=== PATIENT | female | born 1935 | race Asian ===

== ENCOUNTER → 2017-01-03 | Outpatient (CLI) | payer MEDICARE, MEDICAID ==
[~2017-01-03] VITALS: Ht 30.5 cm; Wt 0.5 kg
[~2017-01-03] MED LIST: ALBUTEROL2.5 MG/3 M INH; ASCORBIC ACID500 MG GT; CEFEPIME-D1 GM/50 ML IVPB; CLONIDINE1 EAC1 GT; DEXTROSE 50%-W500 ML IV; FENOFIBRATE145 MG GT; HEPARIN2000 UNIT/ SUBQ; Heparin 2000 units/Ns 1000ml INJ ONE; IBUPROFEN200 M3 GT; IPRAT-ALBUT 0.5-3 ML IH; IPRATROPIU0.2 MG/1 M HHN; LACTULOSE20 GM/301 GT; LANTUS SOL100 UNIT/1 SUBQ; LOPRESSOR25 M1 ORAL; Lidocaine 1% Plain 30 ml INJ PRN; METOCLOPRAM5 MG/5 M1 GT; METOCLOPRAM5 MG/5 M1 PO; METOCLOPRAM5 MG/5 M2 PO; MULTI-VITAMIN1 EACH PO; NOVOLOG100 UNIT/3 SUBQ; NOVOLOG100 UNIT/4 SQ; OSCAL GT; PANTOPRAZOLE SO40 MG GT; PROMOD946 ML PO; SINEMET 25-1001 EAC1 GT; Sodium Bicarbonate 8.4% 50ml Inj IV ONE; TRAMADOL HCL50 MG ORAL; TRICOR48 MG ORAL; TYLENOL EXTRA500 MG ORAL; TYLENOL325 MG ORAL; UNOBMED; UTI STAT GT; VANCOMYCIN1 GM/250 M IVPB; ZANTAC150 MG ORAL; ZINC SULFATE220 M1 ORAL; ZOFRAN4 M1 IV; [UNRECOGNIZED DRUG - OTHER] GT
--- NOTE | 2017-01-03 15:46 | Diagnostic Imaging Report ---
Indications: Needs long-term IV access Technique: Ultrasound confirms patent compressible right basilic vein. Total sterile technique, including sterile probe cover and sterile gel, hat, mask,, sterile gown, large sterile drape, and preparation with 2% chlorhexidine utilized. Local anesthesia with 1% lidocaine. Under real-time ultrasound guidance, puncture basilic vein using 21-gauge needle, documented and archived, passage 0.018 guidewire under direct fluoroscopy, which was used to determine appropriate catheter length, exchange for 5 [place] peel-away sheath. 5 [place] Bard dual-lumen power PICC cut to 37 cm. It was inserted through the peel-away sheath. Peel-away sheath and guidewire removed. Catheter fixed to the skin. Both catheter ports aspirated and flushed. Patient tolerated procedure well, without immediate complication. Digital radiograph documents satisfactory catheter tip position, at the cavoatrial junction. Total fluoroscopy time 0.1 minutes. Total dose area product 5 dGycm2 Impression: Successful placement of right arm PICC under sonographic and fluoroscopic guidance, as described above.
== END | disposition home or self-care (01) ==
LOC: RAD 12:54
DX: Z79.899 Other long term (current) drug therapy (principal)
CPT/HCPCS: 36569; 76937; J1644; J2001; J3490

== ENCOUNTER 2017-02-05 21:00 | Inpatient (IN) | payer MEDICARE, MEDICAID ==
[~2017-02-05] VITALS: Ht 157.5 cm; Wt 58.1 kg
[~2017-02-05 21:00] MED LIST changes: -CEFEPIME-D1 GM/50 ML IVPB; -Heparin 2000 units/Ns 1000ml INJ ONE; -Lidocaine 1% Plain 30 ml INJ PRN; -PROMOD946 ML PO; -Sodium Bicarbonate 8.4% 50ml Inj IV ONE; -TRAMADOL HCL50 MG ORAL; -TRICOR48 MG ORAL; -ZANTAC150 MG ORAL; -ZINC SULFATE220 M1 ORAL
[2017-02-06 03:00] VITALS: BP 108/55
[2017-02-06] MEDS ORDERED: ZANTAC150 MG ORAL (04:07)
[2017-02-06] MEDS ORDERED: PROMOD946 ML PO (04:07)
[2017-02-06] MEDS ORDERED: ZINC SULFATE220 M1 ORAL (04:07)
[2017-02-06] MEDS ORDERED: TRICOR48 MG ORAL (04:07)
[2017-02-06] MEDS ORDERED: TYLENOL325 MG ORAL (05:05)
[2017-02-06] MEDS ORDERED: TRAMADOL HCL50 MG ORAL ×2 (05:05)
[2017-02-06] MEDS ORDERED: traMADol 50mg tab ORAL PRN (05:45)
[2017-02-06] MEDS ORDERED: Calcium Carbonate 500mg w/Vit D 200iu tab ORAL ONE (05:45)
[2017-02-06] MEDS: Zinc Sulfate 220mg cap ORAL SCH (09:36)
[2017-02-06] MEDS: Ascorbic Acid 500mg tab GT SCH (09:37)
[2017-02-06] MEDS: Calcium Carbonate 500mg w/Vit D 200iu tab GT SCH (09:37)
[2017-02-06] MEDS: Metoprolol 25mg tab ORAL SCH ×2 (09:37→22:25)
[2017-02-06 11:54] LABS: APPEARANCE,URINE CLEAR; KETONES,URINE NEGATIVE (NEGATIVE); LEUKOCYTE ESTERASE ,URINE 1+ (NEGATIVE); NITRITE,URINE NEGATIVE (NEGATIVE); PH,URINE 7 (4.5-8.0); PROTEIN,URINE 2+ (NEGATIVE); UROBILINOGEN,URINE NORMAL MG/DL (0.0-1.0)
[2017-02-06 12:00] VITALS: BP 119/55
[2017-02-06 12:31] LABS: BACTERIA,URINE OCCASIONAL /HPF; RBC,URINE 0-2 /HPF (0 - 2); SQUAMOUS EPITHELIAL CELL,UR OCCASIONAL /LPF (NONE/OCC); WBC,URINE 0-2 /HPF (0 - 2); YEAST,URINE OCCASIONAL /HPF
[2017-02-06] MEDS: Cefepime HCl 1 GM in D5W 55 ML IVPB SCH (12:55)
[2017-02-06] MEDS: Vancomycin 1gm/D5W 275ml IVPB SCH ×2 (14:28)
[2017-02-06] MEDS ORDERED: Heparin 2000 units/Ns 1000ml INJ ONE (15:00)
[2017-02-06] MEDS ORDERED: Sodium Bicarbonate 8.4% 50ml Inj IV ONE (15:00)
[2017-02-06] MEDS ORDERED: Lidocaine 1% Plain 30 ml INJ ONE (15:00)
--- NOTE | 2017-02-06 15:38 | Consultation ---
DATE OF CONSULTATION: 02/06/2017 INFECTIOUS DISEASES CONSULTATION: CONSULTING PHYSICIAN: Za Mei M.D. ATTENDING PHYSICIAN: Christiano Moses M.D. REFERRING PHYSICIAN: Christiano Moses M.D. REASON FOR CONSULTATION: Mastoiditis. HISTORY OF PRESENTING ILLNESS: This is an 81-year-old lady with history of respiratory failure, status post tracheostomy, status post G-tube placement, who comes in to [facility] and has been found to have mastoiditis and Infectious Diseases consultation has been obtained for antibiotics. She was recently admitted at [facility]. PAST MEDICAL HISTORY: 1. Diabetes. 2. Hypertension. 3. Atrial fibrillation. 4. Recurrent urinary tract infection. SOCIAL HISTORY: She does not smoke, drink, or use drugs. FAMILY HISTORY: Unknown. REVIEW OF SYSTEMS: Unable to obtain currently. MEDICATIONS: As an inpatient, the patient is currently on tramadol, subcutaneous heparin, ascorbic acid, metoprolol, Zantac, zinc sulfate, TriCor, Os-Chava, Tylenol. ALLERGIES: The patient is allergic to Bactrim. PHYSICAL EXAMINATION: VITAL SIGNS: Temperature of 96.8, T-max of 98.4, pulse of 100, respiratory rate 12, blood pressure 115/64, and O2 saturation of 100%. HEENT: Pupils equally reactive to light and accommodation. Mouth appears clean without thrush. NECK: Supple. No adenopathy. No JVD. CARDIOVASCULAR: Regular rate and rhythm. No murmurs. LUNGS.: Clear to auscultation bilaterally. No crackles. No wheezes. ABDOMEN: Soft and nontender. No organomegaly. G-tube site appears clean. EXTREMITIES: No cyanosis, no clubbing, no edema. LABORATORY DATA: CT brain showing possible mastoiditis. ASSESSMENT: 1. This is an 81-year-old lady with history of diabetes, hypertension, respiratory failure, status post tracheostomy, who comes in with possible mastoiditis. 2. We would also like to rule out recurrent urinary tract infection as a possibility. 3. Respiratory failure. PLAN: 1. We will order blood cultures as well as urine cultures and sputum cultures. 2. We will start the patient on IV vancomycin and cefepime. 3. We will follow up cultures and adjust antibiotics accordingly. I would like to thank, Dr. Moses, for this consultation. Za Mei M.D. DR: Ralf JOB#: [id number] CC: Christiano Moses M.D.
[2017-02-06 16:00] VITALS: BP 96/57
--- NOTE | 2017-02-06 16:09 | Consultation ---
DATE OF CONSULTATION: 02/06/2017 PULMONARY CONSULTATION CONSULTING PHYSICIAN: Leodan Murguia M.D. HISTORY OF PRESENT ILLNESS: This is a very ill-appeared female, who recently transferred to the subacute facility. The patient had a protracted stay at [facility] on the ventilator requiring tracheostomy and G- tube. The patient was noted to be altered overall and was transferred by 911 to [facility]. The patient thereafter transferred to [facility] for ongoing care and management. The patient's records were reviewed. The patient has had difficulty breathing off the ventilator. The patient did have cardiopulmonary arrest due to anoxic brain injury. The patient has had pneumonia at the hospital and was treated accordingly with IV antibiotics. The patient appeared to be stable prior to transfer, but has been acutely altered and unsafe. The patient care discussed and reviewed. The [facility] notes were reviewed as well as labs. The care discussed with the patient's primary medical doctor. He now transferred the patient for ongoing care and management. PAST MEDICAL HISTORY: Notable for history of obstructive lung disease, cardiac disease, pleural effusion, history of CA, history of aphasia, history of Parkinsonism, profound weakness, evidence of aspiration, evidence of tracheostomy, chronic encephalopathy, pulmonary infiltrate, sacral decubitus, G-tube, history of breast cancer, and chronic anemia. MEDICATIONS: Reviewed. ALLERGIES: Reviewed. SOCIAL HISTORY: The patient recently placed in [facility]. Nonsmoker and nondrinker. Bed-bound. Poorly responsive. FAMILY HISTORY: Not available at this time. REVIEW OF SYSTEMS: Unobtainable due to the patient's present state. PHYSICAL EXAMINATION: GENERAL: The patient is an ill-appearing female. The patient is poorly responsive. VITAL SIGNS: Blood pressure 90/50, pulse rate 108, respiratory rate 20, saturation 99%, and temperature is 97.9 degrees. HEENT: Currently negative. Pupils sluggish. NECK: Supple. Tracheostomy is midline. Carotids are 2+. LUNGS: Moderate air entry with some rhonchi diffusely. CARDIAC: Normal S2. The patient with soft systolic murmur. The patient is mildly tachycardic. No rubs or gallops. ABDOMEN: Soft and nontender. G-tube in place. EXTREMITIES: No cyanosis, clubbing, or edema. Feeding tube in place. NEUROLOGIC: The patient is withdrawn. Poorly responsive. LABORATORY AND DIAGNOSTIC DATA: Lab data reviewed. White cell count 10.9, hemoglobin 8.8, hematocrit 26.6, and platelets are 531,000. Chemistries previously noted. Sodium 138, potassium 4.5, BUN 31, and creatinine 0.8. The current lab as of this morning are pending at this time. The patient's vital signs notable for blood pressure 108/65, respiratory rate 16, saturation 100%, heart rate 103, and temperature 98.4 degrees. IMPRESSION: 1. Acute on chronic encephalopathy. 2. Possible sepsis. 3. Chronic respiratory failure. 4. Tracheotomy. 5. Aspiration. 6. Wound. 7. History of Parkinsonism. 8. History of hypercholesterolemia. 9. History of anemia. RECOMMENDATIONS: 1. Wound care management. 2. Western care. 3. Monitor clinically. 4. Follow up neurological examination. 5. Consider empiric antibiotics. 6. DVT prophylaxis. 7. Monitor with supportive and suction and monitor x-ray and monitor labs. 8. Continue to follow clinically and assist with any ventilatory needs. 9. Discharge planning. Leodan Murguia M.D. DR: Gabo JOB#: [id number] CC: ANDRE
[2017-02-06 17:58] LABS: BASOPHILS % (AUTO) 0.4 % (0.0-2.0); EOSINOPHILS % (AUTO) 0.6 % (0.0-3.0); LYMPHOCYTES % (AUTO) 11.1 % (20.0-45.0); MEAN CORPUSCULAR HEMOGLOBIN 28.2 PG (27.0-31.0); MEAN CORPUSCULAR HGB CONC 31.9 G/DL (32.0-36.0); MEAN CORPUSCULAR VOLUME 89 FL (80-99); MEAN PLATELET VOLUME 7.3 FL (6.5-10.1); MONOCYTES % (AUTO) 4.9 % (1.0-10.0); PLATELET COUNT 276 K/UL (150-450); RED BLOOD COUNT 3.18 M/UL (4.20-5.40)
--- NOTE | 2017-02-06 17:59 | History and Physical Report ---
DATE OF ADMISSION: 02/06/2017 CHIEF COMPLAINT: Altered mental status and encephalopathy. HISTORY OF PRESENT ILLNESS: The patient is an unfortunate 81-year-old female. She has a history of anoxic encephalopathy status post cardiac arrest approximately three weeks ago. She was admitted to [facility] where she underwent placement of a trach. She was treated for urinary tract infection and discharged to a nursing home facility. I was called as the patient was "unresponsive." She was sent to [facility], there she appeared to be at her baseline. Her lactic acid level was slightly elevated at 2. She had few white cells in her urine but the majority of the work was unremarkable. CT scan of the head was negative. In the light of the patient's altered mentation, she is now transferred here for further evaluation and care. At the outside hospital, she has been unresponsive. She does withdrawal to pain which is her baseline. There are no reports of any seizures PAST MEDICAL HISTORY: As above. PAST SURGICAL HISTORY: Includes a mastectomy, tracheostomy, G-tube. CURRENT MEDICATIONS: Reconciled and reviewed. ALLERGIES: Bactrim. SOCIAL HISTORY: Negative for tobacco, ethanol, or drugs. FAMILY HISTORY: Noncontributory. REVIEW OF SYSTEMS: Unobtainable from the patient. She is nonverbal. PHYSICAL EXAMINATION: VITAL SIGNS: Temperature 96.8, pulse 100, respirations 14, blood pressure 119/55. GENERAL: The patient is unresponsive elderly female. HEENT: Pupils are sluggishly reactive. NECK: Supple. Trach site is clean. HEART: Regular rate and rhythm. LUNGS: Lungs are clear anteriorly. ABDOMEN: Soft, nontender, and nondistended. EXTREMITIES: No clubbing or cyanosis. There is a large stage IV sacral wound noted. She has an orogastric tube. LABORATORY AND DIAGNOSTIC DATA: Labs are currently pending. UA here was negative. ASSESSMENT: This is a unfortunate female with a history of anoxic encephalopathy, respiratory failure, anemia history of breast cancer, paroxysmal atrial fibrillation, , admitted for altered mentation. The patient does not seem to be significantly changed from baseline. She did have a CAT scan, which does show mastoiditis. PLAN: 1. Intravenous antibiotics. 2. ID consultation. 3. Continue ventilatory support. 4. Neurology evaluation. 5. Continue G-tube feeds. 6. Continue wound care. Christiano Moses M.D. DR: Xu JOB#: [id number] CC:
[2017-02-06 18:18] LABS: ALANINE AMINOTRANSFERASE 5 U/L (3-33); ALBUMIN/GLOBULIN RATIO 0.6 (1.0-2.7); ANION GAP 15 (5-15); ASPARTATE AMINO TRANSFERASE 35 U/L (5-40); CALCIUM 9.4 mg/dL (8.6-10.2); CARBON DIOXIDE 24 mEQ/L (20-30); CHLORIDE 103 mEQ/L (98-107); CREATININE 0.5 mg/dL (0.5-0.9); HEMOLYSIS 4; POTASSIUM 3.2 mEQ/L (3.4-4.9); SODIUM 142 mEQ/L (135-145); TOTAL PROTEIN 6.4 g/dL (6.6-8.7)
--- NOTE | 2017-02-06 18:50 | Wound Care Consultation ---
Wound Assessment Wound Assessment #1: Wound Present on Admission: Yes New Wound: No Status Change of Wound: No Wound Location Body Site Modif: mid Wound Location Body Site: sacral Bonita Test: Does not Bonita Pressure Ulcer Stage: IV/unstageable Wound Thickness: Full Thickness Wound Length: 15.5 Wound Width: 14.0 Wound Depth: 2.0 Percent of Wound [place]/Red: 90 Percent of Wound Bed Yellow/Wh: 10 Wound Drainage Description: Serosanguineous Wound Drainage Amount: Copious Wound Drainage Odor: Mild Odor Tissue Surrounding Wound: Macerated Wound Undermining at 12:00: 3.0 Wound Undermining at 6:00: 6.0 Wound Undermining at 9:00: 2.5 Wound General Appearance: Reddened, Draining, Bone Palpable Wound Assessment #2: Wound Number: #2 Wound Present on Admission: Yes New Wound: No Status Change of Wound: No Wound Location Body Site Modif: right Wound Location Body Site: toe - 5th Wound Type: vascular issue w/vascular changes Bonita Test: Does not Bonita Wound Thickness: Full Thickness Percent of Wound Black/Brown: 100 Wound Drainage Amount: None Wound Drainage Odor: None/Absent Tissue Surrounding Wound: Indurated Wound General Appearance: Blackened Wound Assessment #3: Wound Number: #3 Wound Present on Admission: Yes New Wound: No Status Change of Wound: No Wound Location Body Site Modif: right, medial Wound Location Body Site: toe - 4th and 3rd Wound Type: vascular issue w/vascular changes Bonita Test: Does not Bonita Wound Thickness: Full Thickness Wound Length: 0.5 Wound Width: 0.5 Wound Depth: utd Percent of Wound Bed Yellow/Wh: 100 Wound Drainage Description: Serosanguineous Wound Drainage Amount: Scant Wound Drainage Odor: None/Absent Tissue Surrounding Wound: Macerated Wound Assessment #4: Wound Number: #4 Wound Present on Admission: Yes New Wound: No Status Change of Wound: No Wound Location Body Site Modif: right, dorsal Wound Location Body Site: foot Wound Type: pressure ulcer Bonita Test: Does not Bonita Pressure Ulcer Stage: IV/unstageable Wound Thickness: Full Thickness Wound Length: 2.0 Wound Width: 2.0 Wound Depth: utd Percent of Wound Black/Brown: 100 Wound Drainage Amount: None Wound Drainage Odor: None/Absent Tissue Surrounding Wound: Intact Wound General Appearance: Blackened Wound Assessment #5: Wound Number: #5 Wound Present on Admission: Yes New Wound: No Status Change of Wound: No Wound Location Body Site Modif: right Wound Location Body Site: heel Wound Type: pressure ulcer Bonita Test: Does not Bonita Pressure Ulcer Stage: IV/unstageable Wound Thickness: Full Thickness Wound Length: 9.0 Wound Width: 6.0 Wound Depth: utd Percent of Wound Black/Brown: 100 Wound Drainage Description: Serosanguineous Wound Drainage Amount: Scant Wound Drainage Odor: None/Absent Tissue Surrounding Wound: Macerated Wound General Appearance: Blackened, Draining, Necrotic Wound Assessment #6: Wound Number: #6 Wound Present on Admission: Yes New Wound: No Status Change of Wound: No Wound Location Body Site Modif: right, lower, lateral Wound Location Body Site: leg Wound Type: pressure ulcer Bonita Test: Does not Bonita Pressure Ulcer Stage: IV/unstageable Wound Thickness: Full Thickness Wound Length: 2.5 Wound Width: 1.5 Wound Depth: utd Percent of Wound Bed Yellow/Wh: 100 Wound Drainage Description: Serosanguineous Wound Drainage Amount: Moderate Wound Drainage Odor: None/Absent Tissue Surrounding Wound: Macerated Wound General Appearance: Draining, Necrotic Wound Assessment #7: Wound Number: #7 Wound Present on Admission: Yes New Wound: No Status Change of Wound: No Wound Location Body Site Modif: right Wound Location Body Site: heel Wound Type: pressure ulcer Bonita Test: Does not Bonita Pressure Ulcer Stage: I Wound Length: 3.5 Wound Width: 4.0 Percent of Wound [place]/Red: 100 Wound Drainage Amount: None Wound Drainage Odor: None/Absent Tissue Surrounding Wound: Erythemic Wound General Appearance: Reddened Wound Assessment #8: Wound Number: #8 Wound Present on Admission: Yes New Wound: No Status Change of Wound: No Wound Location Body Site Modif: left, right Wound Location Body Site: axilla Wound Type: rash Bonita Test: Does not Bonita Percent of Wound [place]/Red: 100 Wound Drainage Amount: None Wound Drainage Odor: None/Absent Tissue Surrounding Wound: Intact Wound General Appearance: Reddened Wound Assessment #9: Wound Number: #9 Wound Present on Admission: Yes New Wound: No Status Change of Wound: No Wound Location Body Site: perineal area Wound Type: chemical burn Bonita Test: Does not Bonita Percent of Wound [place]/Red: 100 Wound Drainage Amount: None Wound Drainage Odor: None/Absent Tissue Surrounding Wound: Erythemic Wound General Appearance: Reddened Wound Comment #1 Sacral stage IV/unstageable pressure ulcer with wound vac #2 Right heel stage IV/unstageable pressure ulcer #3 Right lower lateral leg stage IV/unstageable pressure ulcer #4 Right Dorsal foot stage IV/unstageable pressure ulcer #5 Left heel stage I pressure ulcer #6 Right 5th toe black in color #7 Right 4th and 3rd medial toe with yellow slough adhered to wound bed #8 Perineal chemical burn #9 Left and right armpit rash/redness Recommendation -Sacral wound vac as ordered by MD -Right posterior and anterior Aspect of sacral wound with yellow slough Cleanse with saline pat dry apply Santyl ointment to wound bed cove with 4x4 apply Suresite transparent film dressing QMWF upon wound vac changeRight lower lateral - -Right lower lateral leg Cleanse with saline apply Santyl to wound bed cover with bordered gauze daily and PRN soiled/dislodged -Podiatry consult for right 5th,4th and 3rd toe -Right 5th toe Cleanse with saline, pat dry, paint with Betadine daily and leave area open to air -Right 4th and 3rd medial toes Cleanse with saline, pat dry, apply Triad cream, cover with 4x4 secure with paper tape daily and PRN soiled/dislodged -Chemical burn on perineal area, left and right armpit rashes Cleanse with saline pat dry apply Nystatin powder TID -Left heel stage I local wound care par protocol -Turn and reposition -Keep clean and dry -Low air loss mattress -Optimize nutrition -Offload both heels -Heel protector on both heels -Assess and f/u accordingly for any changes JOSE G NICOLAS RN Feb 06, 2017 18:50
[2017-02-06 20:00] VITALS: BP 119/68
[2017-02-06] MEDS: traMADol 50mg tab ORAL SCH (22:24)
[2017-02-06] MEDS: Nystatin Powder 100,000 units/gm 15gm TOPIC SCH (22:25)
[2017-02-06] MEDS: Heparin 5000 units/ml inj SUBQ SCH (22:27)
[2017-02-07] VITALS: BP 111/58
[2017-02-07 04:00] VITALS: BP 115/54
[2017-02-07 08:06] VITALS: BP 151/87
[2017-02-07] MEDS: Ascorbic Acid 500mg tab GT SCH (08:36)
[2017-02-07] MEDS: Zinc Sulfate 220mg cap ORAL SCH (08:37)
[2017-02-07] MEDS: Calcium Carbonate 500mg w/Vit D 200iu tab GT SCH (08:37)
[2017-02-07] MEDS: Metoprolol 25mg tab ORAL SCH ×2 (08:37→21:23)
[2017-02-07] MEDS: Nystatin Powder 100,000 units/gm 15gm TOPIC SCH ×3 (08:39→17:41)
[2017-02-07] MEDS: Heparin 5000 units/ml inj SUBQ SCH ×2 (08:39→21:25)
--- NOTE | 2017-02-07 08:51 | Pulmonology Progress Note ---
Assessment/Plan Assessment/Plan IMPRESSION: 1. Acute on chronic encephalopathy. 2. Possible sepsis. 3. Chronic respiratory failure. 4. Tracheotomy. 5. Aspiration. 6. Wound. 7. History of Parkinsonism. 8. History of hypercholesterolemia. 9. History of anemia. PLAN ventilator as is monitor chest XR ID noted resume meds nutrition monitor for aspiration position change skin care close follow up impression, plan, and exam edited and reviewed in detail care discussed with RN Subjective ROS Limited/Unobtainable: Yes Allergies: Coded Allergies: SULFAMETHOXAZOLE (Verified Allergy, Intermediate, 07/11/16) TRIMETHOPRIM (Verified Allergy, Intermediate, 07/11/16) Subjective withdrawn poor LOC Objective Last 24 Hour Vital Signs Date Time Temp Pulse Resp B/P Pulse Ox O2 Delivery O2 Flow Rate FiO2 02/07/17 08:37 102 151/87 02/07/17 08:06 98.2 102 18 151/87 100 Mechanical Ventilator 30 02/07/17 08:00 30 02/07/17 06:35 80 16 30 02/07/17 05:20 85 12 30 02/07/17 04:00 94 02/07/17 04:00 98.0 94 15 115/54 99 Mechanical Ventilator 30 02/07/17 04:00 30 02/07/17 04:00 98.0 94 15 115/54 100 Mechanical Ventilator 30 02/07/17 02:37 93 15 30 02/07/17 01:00 89 14 30 02/07/17 00:00 87 02/07/17 00:00 30 02/07/17 00:00 98.0 89 18 111/58 100 Mechanical Ventilator 30 02/06/17 22:55 82 15 30 02/06/17 22:25 88 119/68 02/06/17 20:44 88 19 30 02/06/17 20:00 87 02/06/17 20:00 30 02/06/17 20:00 98.2 96 14 119/68 100 Mechanical Ventilator 30 02/06/17 18:56 84 16 30 02/06/17 17:28 86 17 30 02/06/17 16:00 98.1 80 17 96/57 98 Mechanical Ventilator 30 02/06/17 16:00 30 02/06/17 15:17 88 14 30 02/06/17 13:00 84 14 30 02/06/17 12:00 30 02/06/17 12:00 91 02/06/17 12:00 97.9 91 17 119/55 100 Mechanical Ventilator 30 02/06/17 10:45 92 13 30 02/06/17 09:37 100 115/54 02/06/17 08:56 101 12 30 Intake and Output 02/06/17 02/07/17 19:00 07:00 Intake Total 635 ml 460 ml Output Total 650 ml 500 ml Balance -15 ml -40 ml Intake Free Water 70 ml IV Total 385 ml Tube Feeding 180 ml 400 ml Other 60 ml Output Urine Total 450 ml 500 ml Stool Total 200 ml Objective GENERAL: The patient is an ill-appearing female. The patient is poorly responsive. HEENT: Currently negative. Pupils sluggish. NECK: Supple. Tracheostomy is midline. Carotids are 2+. LUNGS: Moderate air entry with some rhonchi noted but improved CARDIAC: Normal S2. The patient with soft systolic murmur. RRR No rubs or gallops. ABDOMEN: Soft and nontender. G-tube in place. no HSM EXTREMITIES: No cyanosis, clubbing, or edema. Feeding tube in place. NEUROLOGIC: The patient is withdrawn. Poorly responsive. Microbiology Date/Time Source Procedure Growth Status 02/06/17 11:30 Stool Clostridium difficile Toxin Assay - Final Complete 02/06/17 11:15 Urine,Clean Catch Urine Culture - Preliminary NO GROWTH Resulted Laboratory Tests 02/06/17 11:15: Urine Color Pale yellow, Urine Appearance Clear, Urine pH 7, Urine Specific [place] 1.010, Urine Protein 2+H, Urine Glucose (UA) Negative, Urine Ketones Negative, Urine Occult Blood Negative, Urine Nitrite Negative, Urine Bilirubin Negative, Urine Urobilinogen Normal, Urine Leukocyte Esterase 1+H, Urine RBC 0-2 , Urine WBC 0-2, Urine Squamous Epithelial Cells Occasional, Urine Bacteria Occasional, Urine Yeast OccasionalH 02/06/17 17:21: White Blood Count 9.0, Red Blood Count 3.18L, Hemoglobin 9.0L, Hematocrit 28.2L , Mean Corpuscular Volume 89, Mean Corpuscular Hemoglobin 28.2, Mean Corpuscular Hemoglobin Concent 31.9L, Red Cell Distribution Width 17.0H, Platelet Count 276, Mean Platelet Volume 7.3, Neutrophils (%) (Auto) 83.0H, Lymphocytes (%) (Auto) 11.1L, Monocytes (%) (Auto) 4.9, Eosinophils (%) (Auto) 0.6, Basophils (%) (Auto) 0.4, Sodium Level 142, Potassium Level 3.2L, Chloride Level 103, Carbon Dioxide Level 24, Anion Gap 15, Blood Urea Nitrogen 15, Creatinine 0.5, Estimat Glomerular Filtration Rate , Glucose Level 157H, Lactic Acid Level 1.20, Calcium Level 9.4, Total Bilirubin 0.2, Aspartate Amino Transf (AST/SGOT) 35, Alanine Aminotransferase (ALT/SGPT) 5, Alkaline Phosphatase 123H , Total Protein 6.4L, Albumin 2.5L, Globulin 3.9, Albumin/Globulin Ratio 0.6L Current Medications Medications (Trade) Dose Ordered Sig/Angie Route PRN Reason Start Time Stop Time Status Last Admin Dose Admin Acetaminophen (Tylenol) 650 mg Q4H PRN ORAL Prn Pain/Headache/Temp > 101 02/06/17 05:45 03/08/17 05:44 Ascorbic Acid (Vitamin C) 500 mg DAILY GT 02/06/17 09:00 03/08/17 08:59 02/07/17 08:36 Calcium Carbonate (OsCal D) 1 tab DAILY GT 02/06/17 09:00 03/08/17 08:59 02/07/17 08:37 Cefepime HCl 1 gm/ Dextrose 55 ml @ 110 mls/hr Q24H IVPB 02/06/17 12:00 02/13/17 11:59 02/06/17 12:55 Collagenase (Santyl) 1 applic DAILY TOPIC 02/07/17 09:00 03/09/17 08:59 02/07/17 08:41 Dextrose (Dextrose 50%) STAT PRN IV Hypoglycemia 02/06/17 05:45 03/08/17 05:44 Fenofibrate (Tricor) 145 mg DAILY ORAL 02/06/17 09:00 03/08/17 08:59 02/07/17 08:37 Heparin Sodium (Porcine) (Heparin 5000 units/ml) 5,000 units EVERY 12 HOURS SUBQ 02/06/17 21:00 03/08/17 20:59 02/07/17 08:39 Metoprolol Tartrate (Lopressor) 25 mg EVERY 12 HOURS ORAL 02/06/17 09:00 03/08/17 08:59 02/07/17 08:37 Nystatin (Nystop Powder) 1 applic THREE TIMES A DAY TOPIC 02/06/17 21:00 03/08/17 20:59 02/07/17 08:39 Ranitidine HCl (Zantac) 150 mg DAILY ORAL 02/06/17 09:00 03/08/17 08:59 02/07/17 08:36 Tramadol HCl (Ultram) 50 mg BEDTIME ORAL 02/06/17 21:00 02/13/17 20:59 02/06/17 22:24 Tramadol HCl (Ultram) 50 mg DAILY PRN ORAL For Pain 02/06/17 05:45 02/13/17 05:44 Vancomycin HCl 1 ea 1 ea DAILY PRN MISC Per rx protocol 02/06/17 11:00 03/08/17 10:59 Vancomycin HCl/ Dextrose (Vancomycin/D5W) 275 ml @ 183.708 mls/hr Q24H IVPB 02/06/17 13:00 02/11/17 12:59 02/06/17 14:28 Zinc Sulfate (Zinc Sulfate) 220 mg DAILY ORAL 02/06/17 09:00 03/08/17 08:59 02/07/17 08:37 NIESHA TOLENTINO Feb 07, 2017 08:51
--- NOTE | 2017-02-07 09:35 | Diagnostic Imaging Report ---
Indications: Needs long-term IV access Technique: Procedure performed at bedside. Ultrasound confirms patent compressible basilic vein. Total sterile technique, including sterile probe cover and sterile gel, sterile gloves, hand hygiene, hat, mask,, sterile gown, large sterile drape, and preparation with 2% chlorhexidine utilized. Local anesthesia with 1% lidocaine. Under real-time ultrasound guidance, puncture right basilic vein using 21-gauge needle, passage 0.018 guidewire, exchange for 5 [place] peel-away sheath. 5 [place] Bard dual-lumen power PICC cut to 33 cm. It was inserted through the peel-away sheath. Peel-away sheath and guidewire removed. Catheter fixed to the skin. Both catheter ports aspirated and flushed. Patient tolerated procedure well, without immediate complication. Followup chest x-ray obtained, documents catheter tip position at the midsuperior vena cava. Impression: Successful bedside placement of right arm PICC under sonographic guidance, as described above.
--- NOTE | 2017-02-07 10:36 | Infectious Diseases Prog Note ---
Assessment/Plan Assessment/Plan antibiotics : vancomycin iv, cefepime A 1. mastoiditis 2. respiratory failure 3. breast cancer 4. DM 5. HTN P 1. continue vancomycin iv, cefepime 2. will follow up cultures Subjective ROS Limited/Unobtainable: Yes Allergies: Coded Allergies: SULFAMETHOXAZOLE (Verified Allergy, Intermediate, 07/11/16) TRIMETHOPRIM (Verified Allergy, Intermediate, 07/11/16) Objective Vital Signs Last 24 Hour Vital Signs Date Time Temp Pulse Resp B/P Pulse Ox O2 Delivery O2 Flow Rate FiO2 02/07/17 08:42 88 14 30 02/07/17 08:37 102 151/87 02/07/17 08:06 98.2 102 18 151/87 100 Mechanical Ventilator 30 02/07/17 08:00 91 02/07/17 08:00 30 02/07/17 06:35 80 16 30 02/07/17 05:20 85 12 30 02/07/17 04:00 94 02/07/17 04:00 98.0 94 15 115/54 99 Mechanical Ventilator 30 02/07/17 04:00 30 02/07/17 04:00 98.0 94 15 115/54 100 Mechanical Ventilator 30 02/07/17 02:37 93 15 30 02/07/17 01:00 89 14 30 02/07/17 00:00 87 02/07/17 00:00 30 02/07/17 00:00 98.0 89 18 111/58 100 Mechanical Ventilator 30 02/06/17 22:55 82 15 30 02/06/17 22:25 88 119/68 02/06/17 20:44 88 19 30 02/06/17 20:00 87 02/06/17 20:00 30 02/06/17 20:00 98.2 96 14 119/68 100 Mechanical Ventilator 30 02/06/17 18:56 84 16 30 02/06/17 17:28 86 17 30 02/06/17 16:00 98.1 80 17 96/57 98 Mechanical Ventilator 30 02/06/17 16:00 30 02/06/17 15:17 88 14 30 02/06/17 13:00 84 14 30 02/06/17 12:00 30 02/06/17 12:00 91 02/06/17 12:00 97.9 91 17 119/55 100 Mechanical Ventilator 30 02/06/17 10:45 92 13 30 Height (Feet): 5 Height (Inches): 2.00 Weight (Pounds): 128 HEENT: status post trach Respiratory/Chest: lungs clear Cardiovascular: normal rate, regular rhythm, no gallop/murmur Abdomen: soft, non tender, other - GT Extremities: no edema, other - right arm PICC Microbiology Date/Time Source Procedure Growth Status 02/06/17 11:15 Sputum Gram Stain - Final Resulted 02/06/17 11:15 Sputum Sputum Culture Pending Resulted 02/06/17 11:30 Stool Clostridium difficile Toxin Assay - Final Complete 02/06/17 11:15 Urine,Clean Catch Urine Culture - Preliminary NO GROWTH Resulted Laboratory Tests Test 02/06/17 11:15 02/06/17 17:21 Urine Color Pale yellow Urine Appearance Clear Urine pH 7 (4.5-8.0) Urine Specific [place] 1.010 (1.005-1.035) Urine Protein 2+ (NEGATIVE) H Urine Glucose (UA) Negative (NEGATIVE) Urine Ketones Negative (NEGATIVE) Urine Occult Blood Negative (NEGATIVE) Urine Nitrite Negative (NEGATIVE) Urine Bilirubin Negative (NEGATIVE) Urine Urobilinogen Normal MG/DL (0.0-1.0) Urine Leukocyte Esterase 1+ (NEGATIVE) H Urine RBC 0-2 /HPF (0 - 2) Urine WBC 0-2 /HPF (0 - 2) Urine Squamous Epithelial Cells Occasional /LPF Urine Bacteria Occasional /HPF (NONE) Urine Yeast Occasional /HPF (NONE) H White Blood Count 9.0 K/UL (4.8-10.8) Red Blood Count 3.18 M/UL (4.20-5.40) L Hemoglobin 9.0 G/DL (12.0-16.0) L Hematocrit 28.2 % (37.0-47.0) L Mean Corpuscular Volume 89 FL (80-99) Mean Corpuscular Hemoglobin 28.2 PG (27.0-31.0) Mean Corpuscular Hemoglobin Concent 31.9 G/DL (32.0-36.0) L Red Cell Distribution Width 17.0 % (11.6-14.8) H Platelet Count 276 K/UL (150-450) Mean Platelet Volume 7.3 FL (6.5-10.1) Neutrophils (%) (Auto) 83.0 % (45.0-75.0) H Lymphocytes (%) (Auto) 11.1 % (20.0-45.0) L Monocytes (%) (Auto) 4.9 % (1.0-10.0) Eosinophils (%) (Auto) 0.6 % (0.0-3.0) Basophils (%) (Auto) 0.4 % (0.0-2.0) Sodium Level 142 mEQ/L (135-145) Potassium Level 3.2 mEQ/L (3.4-4.9) L Chloride Level 103 mEQ/L (98-107) Carbon Dioxide Level 24 mEQ/L (20-30) Anion Gap 15 (5-15) Blood Urea Nitrogen 15 mg/dL (7-23) Creatinine 0.5 mg/dL (0.5-0.9) Estimat Glomerular Filtration Rate mL/min (>60) Glucose Level 157 mg/dL (74-106) H Lactic Acid Level 1.20 mmol/L (0.66-2.22) Calcium Level 9.4 mg/dL (8.6-10.2) Total Bilirubin 0.2 mg/dL (0.0-1.2) Aspartate Amino Transf (AST/SGOT) 35 U/L (5-40) Alanine Aminotransferase (ALT/SGPT) 5 U/L (3-33) Alkaline Phosphatase 123 U/L (35-104) H Total Protein 6.4 g/dL (6.6-8.7) L Albumin 2.5 g/dL (3.5-5.2) L Globulin 3.9 g/dL Albumin/Globulin Ratio 0.6 (1.0-2.7) L GRACE BENAVIDES Feb 07, 2017 10:36
[2017-02-07 12:00] VITALS: BP 123/61
[2017-02-07] MEDS: Cefepime HCl 1 GM in D5W 55 ML IVPB SCH (12:15)
--- NOTE | 2017-02-07 13:35 | General Progress Note ---
Assessment/Plan Problem List: (1) Toxic encephalopathy ICD Codes: G92 - Toxic encephalopathy SNOMED: 04654209 (2) Acute renal failure ICD Codes: N17.9 - Acute kidney failure, unspecified SNOMED: 21460803 (3) Respiratory failure ICD Codes: J96.90 - Respiratory failure, unspecified, unspecified whether with hypoxia or hypercapnia SNOMED: 453624846 (4) Altered level of consciousness ICD Codes: R40.4 - Transient alteration of awareness SNOMED: 8911434 (5) Severe sepsis ICD Codes: A41.9 - Sepsis, unspecified organism; R65.20 - Severe sepsis without septic shock SNOMED: 76444728 Status: stable Assessment/Plan iv abx follow up cultures vent support resp rx gt feeds wound care Subjective ROS Limited/Unobtainable: Yes Constitutional: Reports: malaise, weakness HEENT: Reports: no symptoms Cardiovascular: Reports: no symptoms Respiratory: Reports: no symptoms Gastrointestinal/Abdominal: Reports: difficulty swallowing Genitourinary: Reports: no symptoms Neurologic/Psychiatric: Reports: no symptoms Endocrine: Reports: no symptoms Hematologic/Lymphatic: Reports: no symptoms Allergies: Coded Allergies: SULFAMETHOXAZOLE (Verified Allergy, Intermediate, 07/11/16) TRIMETHOPRIM (Verified Allergy, Intermediate, 07/11/16) All Systems: reviewed and negative except above Subjective no events. remains poorly responsive. no fevers. on iv abx. ID noted. Objective Last 24 Hour Vital Signs Date Time Temp Pulse Resp B/P Pulse Ox O2 Delivery O2 Flow Rate FiO2 02/07/17 12:51 94 16 30 02/07/17 12:00 97.7 90 16 123/61 100 Mechanical Ventilator 30 02/07/17 12:00 30 02/07/17 11:02 92 17 30 02/07/17 08:42 88 14 30 02/07/17 08:37 102 151/87 02/07/17 08:06 98.2 102 18 151/87 100 Mechanical Ventilator 30 02/07/17 08:00 91 02/07/17 08:00 30 02/07/17 06:35 80 16 30 02/07/17 05:20 85 12 30 02/07/17 04:00 94 02/07/17 04:00 98.0 94 15 115/54 99 Mechanical Ventilator 30 02/07/17 04:00 30 02/07/17 04:00 98.0 94 15 115/54 100 Mechanical Ventilator 30 02/07/17 02:37 93 15 30 02/07/17 01:00 89 14 30 02/07/17 00:00 87 02/07/17 00:00 30 02/07/17 00:00 98.0 89 18 111/58 100 Mechanical Ventilator 30 02/06/17 22:55 82 15 30 02/06/17 22:25 88 119/68 02/06/17 20:44 88 19 30 02/06/17 20:00 87 02/06/17 20:00 30 02/06/17 20:00 98.2 96 14 119/68 100 Mechanical Ventilator 30 02/06/17 18:56 84 16 30 02/06/17 17:28 86 17 30 02/06/17 16:00 98.1 80 17 96/57 98 Mechanical Ventilator 30 02/06/17 16:00 30 02/06/17 15:17 88 14 30 Intake and Output 02/06/17 02/07/17 19:00 07:00 Intake Total 635 ml 460 ml Output Total 650 ml 500 ml Balance -15 ml -40 ml Intake Free Water 70 ml IV Total 385 ml Tube Feeding 180 ml 400 ml Other 60 ml Output Urine Total 450 ml 500 ml Stool Total 200 ml Laboratory Tests 02/06/17 17:21: White Blood Count 9.0, Red Blood Count 3.18L, Hemoglobin 9.0L, Hematocrit 28.2L , Mean Corpuscular Volume 89, Mean Corpuscular Hemoglobin 28.2, Mean Corpuscular Hemoglobin Concent 31.9L, Red Cell Distribution Width 17.0H, Platelet Count 276, Mean Platelet Volume 7.3, Neutrophils (%) (Auto) 83.0H, Lymphocytes (%) (Auto) 11.1L, Monocytes (%) (Auto) 4.9, Eosinophils (%) (Auto) 0.6, Basophils (%) (Auto) 0.4, Sodium Level 142, Potassium Level 3.2L, Chloride Level 103, Carbon Dioxide Level 24, Anion Gap 15, Blood Urea Nitrogen 15, Creatinine 0.5, Estimat Glomerular Filtration Rate , Glucose Level 157H, Lactic Acid Level 1.20, Calcium Level 9.4, Total Bilirubin 0.2, Aspartate Amino Transf (AST/SGOT) 35, Alanine Aminotransferase (ALT/SGPT) 5, Alkaline Phosphatase 123H , Total Protein 6.4L, Albumin 2.5L, Globulin 3.9, Albumin/Globulin Ratio 0.6L Height (Feet): 5 Height (Inches): 2.00 Weight (Pounds): 128 General Appearance: WD/WN, lethargic Neck: supple Cardiovascular: regular rhythm Respiratory/Chest: rhonchi - bilaterally Abdomen: normal bowel sounds, non tender, soft, no organomegaly Edema: no edema noted Arm (L), no edema noted Arm (R), no edema noted Leg (L), no edema noted Leg (R), no edema noted Pedal (L), no edema noted Pedal (R), no edema noted Generalized Neurologic: unresponsive MILES CARTWRIGHT Feb 07, 2017 13:35
[2017-02-07] MEDS: Vancomycin 1gm/D5W 275ml IVPB SCH ×2 (13:51)
[2017-02-07 16:00] VITALS: BP 116/55
[2017-02-07] MEDS ORDERED: NS 275ml ONE (18:52)
[2017-02-07] MEDS ORDERED: Tubing IV Secondary IV ONE (18:52)
[2017-02-07 20:00] VITALS: BP 115/59
[2017-02-07] MEDS: traMADol 50mg tab ORAL SCH (21:24)
[2017-02-08] VITALS (7 sets, daily range): BP systolic 90–122; BP diastolic 50–64
--- NOTE | 2017-02-08 06:30 | Pulmonology Progress Note ---
Assessment/Plan Assessment/Plan IMPRESSION: 1. Acute on chronic encephalopathy. 2. Possible sepsis. 3. Chronic respiratory failure. 4. Tracheotomy. 5. Aspiration. 6. Wound. 7. History of Parkinsonism. 8. History of hypercholesterolemia. 9. History of anemia. PLAN ventilator as is reviewed taper fio2 monitor chest XR for changes ID noted cultures reviewed nutrition monitor for aspiration position change skin care close follow up dc planning soon impression, plan, and exam edited and reviewed in detail care discussed with RN Subjective ROS Limited/Unobtainable: Yes Allergies: Coded Allergies: SULFAMETHOXAZOLE (Verified Allergy, Intermediate, 07/11/16) TRIMETHOPRIM (Verified Allergy, Intermediate, 07/11/16) Subjective withdrawn poor LOC without much change Objective Last 24 Hour Vital Signs Date Time Temp Pulse Resp B/P Pulse Ox O2 Delivery O2 Flow Rate FiO2 02/08/17 05:05 95 15 30 02/08/17 04:00 96 02/08/17 04:00 98.1 73 18 90/56 100 Mechanical Ventilator 30 02/08/17 04:00 30 02/08/17 03:08 96 15 30 02/08/17 00:51 93 17 30 02/08/17 00:00 98.1 93 17 103/50 100 Mechanical Ventilator 30 02/08/17 00:00 30 02/08/17 00:00 93 02/07/17 23:17 92 17 30 02/07/17 21:25 100 17 30 02/07/17 21:23 99 115/59 02/07/17 20:00 98.1 99 18 115/59 100 Mechanical Ventilator 30 02/07/17 20:00 30 02/07/17 19:45 97 02/07/17 18:51 97 20 30 02/07/17 17:01 95 12 30 02/07/17 16:00 30 02/07/17 16:00 97.5 94 16 116/55 100 Mechanical Ventilator 30 02/07/17 15:56 89 02/07/17 14:30 91 12 30 02/07/17 12:51 94 16 30 02/07/17 12:00 97.7 90 16 123/61 100 Mechanical Ventilator 30 02/07/17 12:00 30 02/07/17 12:00 92 02/07/17 11:02 92 17 30 02/07/17 08:42 88 14 30 02/07/17 08:37 102 151/87 02/07/17 08:06 98.2 102 18 151/87 100 Mechanical Ventilator 30 02/07/17 08:00 91 02/07/17 08:00 30 02/07/17 06:35 80 16 30 Intake and Output 02/07/17 02/08/17 19:00 07:00 Intake Total 810 ml 315 ml Output Total 230 ml 430 ml Balance 580 ml -115 ml Intake Free Water 100 ml IV Total 55 ml Tube Feeding 455 ml 315 ml Blood Product 200 ml Output Urine Total 200 ml 400 ml Stool Total 30 ml 30 ml Objective GENERAL: The patient is an ill-appearing female. The patient is poorly responsive. HEENT: Currently negative. Pupils sluggish. NECK: Supple. Tracheostomy is midline. Carotids are 2+. LUNGS: Moderate air entry with some rhonchi noted without wheeze CARDIAC: Normal S2. The patient with soft systolic murmur. RRR No rubs or gallops. ABDOMEN: Soft and nontender. G-tube in place. no HSM; no distention EXTREMITIES: No cyanosis, clubbing, or edema. Feeding tube in place. NEUROLOGIC: The patient is withdrawn. Poorly responsive. Microbiology Date/Time Source Procedure Growth Status 02/06/17 11:15 Sputum Gram Stain - Final Resulted 02/06/17 11:15 Sputum Sputum Culture Pending Resulted 02/06/17 11:30 Stool Clostridium difficile Toxin Assay - Final Complete 02/06/17 11:15 Urine,Clean Catch Urine Culture - Preliminary NO GROWTH Resulted Current Medications Medications (Trade) Dose Ordered Sig/Angie Route PRN Reason Start Time Stop Time Status Last Admin Dose Admin Acetaminophen (Tylenol) 650 mg Q4H PRN ORAL Prn Pain/Headache/Temp > 101 02/06/17 05:45 03/08/17 05:44 Ascorbic Acid (Vitamin C) 500 mg DAILY GT 02/06/17 09:00 03/08/17 08:59 02/07/17 08:36 Calcium Carbonate (OsCal D) 1 tab DAILY GT 02/06/17 09:00 03/08/17 08:59 02/07/17 08:37 Cefepime HCl 1 gm/ Dextrose 55 ml @ 110 mls/hr Q24H IVPB 02/06/17 12:00 02/13/17 11:59 02/07/17 12:15 Collagenase (Santyl) 1 applic DAILY TOPIC 02/07/17 09:00 03/09/17 08:59 02/07/17 08:41 Dextrose (Dextrose 50%) STAT PRN IV Hypoglycemia 02/06/17 05:45 03/08/17 05:44 Fenofibrate (Tricor) 145 mg DAILY ORAL 02/06/17 09:00 03/08/17 08:59 02/07/17 08:37 Heparin Sodium (Porcine) (Heparin 5000 units/ml) 5,000 units EVERY 12 HOURS SUBQ 02/06/17 21:00 03/08/17 20:59 02/07/17 21:25 Metoprolol Tartrate (Lopressor) 25 mg EVERY 12 HOURS ORAL 02/06/17 09:00 03/08/17 08:59 02/07/17 21:23 Nystatin (Nystop Powder) 1 applic THREE TIMES A DAY TOPIC 02/06/17 21:00 03/08/17 20:59 02/07/17 17:41 Ranitidine HCl (Zantac) 150 mg DAILY ORAL 02/06/17 09:00 03/08/17 08:59 02/07/17 08:36 Tramadol HCl (Ultram) 50 mg BEDTIME ORAL 02/06/17 21:00 02/13/17 20:59 02/07/17 21:24 Tramadol HCl (Ultram) 50 mg DAILY PRN ORAL For Pain 02/06/17 05:45 02/13/17 05:44 Vancomycin HCl 1 ea 1 ea DAILY PRN MISC Per rx protocol 02/06/17 11:00 03/08/17 10:59 Vancomycin HCl/ Dextrose (Vancomycin/D5W) 275 ml @ 183.708 mls/hr Q24H IVPB 02/06/17 13:00 02/11/17 12:59 02/07/17 13:51 Zinc Sulfate (Zinc Sulfate) 220 mg DAILY ORAL 02/06/17 09:00 03/08/17 08:59 02/07/17 08:37 NIESHA TOLENTINO Feb 08, 2017 06:30
[2017-02-08] MEDS: Zinc Sulfate 220mg cap ORAL SCH (08:39)
[2017-02-08] MEDS: Calcium Carbonate 500mg w/Vit D 200iu tab GT SCH (08:40)
[2017-02-08] MEDS: Metoprolol 25mg tab ORAL SCH ×2 (08:40→20:40)
[2017-02-08] MEDS: Nystatin Powder 100,000 units/gm 15gm TOPIC SCH ×3 (08:40→16:37)
[2017-02-08] MEDS: Ascorbic Acid 500mg tab GT SCH (08:40)
[2017-02-08] MEDS: Heparin 5000 units/ml inj SUBQ SCH ×2 (08:42→20:42)
[2017-02-08 08:48] LABS: BASOPHILS % (AUTO) 0.7 % (0.0-2.0); EOSINOPHILS % (AUTO) 1.2 % (0.0-3.0); LYMPHOCYTES % (AUTO) 17.6 % (20.0-45.0); MEAN CORPUSCULAR HEMOGLOBIN 28.4 PG (27.0-31.0); MEAN CORPUSCULAR HGB CONC 32.1 G/DL (32.0-36.0); MEAN CORPUSCULAR VOLUME 89 FL (80-99); MONOCYTES % (AUTO) 6.1 % (1.0-10.0); NEUTROPHILS % (AUTO) 74.4 % (45.0-75.0); PLATELET COUNT 256 K/UL (150-450); RED BLOOD COUNT 3.01 M/UL (4.20-5.40); RED CELL DISTRIBUTION WIDTH 17.1 % (11.6-14.8); WHITE BLOOD COUNT 7.3 K/UL (4.8-10.8)
[2017-02-08 09:05] LABS: ANION GAP 14 (5-15); CALCIUM 9.3 mg/dL (8.6-10.2); CARBON DIOXIDE 26 mEQ/L (20-30); CHLORIDE 100 mEQ/L (98-107); CREATININE 0.5 mg/dL (0.5-0.9); HEMOLYSIS 2; POTASSIUM 3.3 mEQ/L (3.4-4.9); SODIUM 140 mEQ/L (135-145)
[2017-02-08] MEDS: Cefepime HCl 1 GM in D5W 55 ML IVPB SCH (12:23)
--- NOTE | 2017-02-08 13:37 | Infectious Diseases Prog Note ---
Assessment/Plan Assessment/Plan A: 1. mastoiditis 2.Ventilatory dependent respiratory failure 3. breast cancer 4. DM 5. HPN 6. Pressure ulcers 7. Anemia P 1. continue vancomycin iv, cefepime 2. will follow up cultures 3. Add Fluconazole Subjective ROS Limited/Unobtainable: Yes Allergies: Coded Allergies: SULFAMETHOXAZOLE (Verified Allergy, Intermediate, 07/11/16) TRIMETHOPRIM (Verified Allergy, Intermediate, 07/11/16) Objective Vital Signs Last 24 Hour Vital Signs Date Time Temp Pulse Resp B/P Pulse Ox O2 Delivery O2 Flow Rate FiO2 02/08/17 13:13 90 16 30 02/08/17 12:00 30 02/08/17 11:21 91 17 30 02/08/17 09:10 100 15 30 02/08/17 08:40 101 111/62 02/08/17 08:00 99 02/08/17 08:00 30 02/08/17 08:00 97.7 101 19 111/62 100 Mechanical Ventilator 02/08/17 06:39 98 16 30 02/08/17 05:05 95 15 30 02/08/17 04:00 96 02/08/17 04:00 98.1 73 18 90/56 100 Mechanical Ventilator 30 02/08/17 04:00 30 02/08/17 03:08 96 15 30 02/08/17 00:51 93 17 30 02/08/17 00:00 98.1 93 17 103/50 100 Mechanical Ventilator 30 02/08/17 00:00 30 02/08/17 00:00 93 02/07/17 23:17 92 17 30 02/07/17 21:25 100 17 30 02/07/17 21:23 99 115/59 02/07/17 20:00 98.1 99 18 115/59 100 Mechanical Ventilator 30 02/07/17 20:00 30 02/07/17 19:45 97 02/07/17 18:51 97 20 30 02/07/17 17:01 95 12 30 02/07/17 16:00 30 02/07/17 16:00 97.5 94 16 116/55 100 Mechanical Ventilator 30 02/07/17 15:56 89 02/07/17 14:30 91 12 30 Height (Feet): 5 Height (Inches): 2.00 Weight (Pounds): 128 HEENT: status post trach Respiratory/Chest: rhonchi - bilaterally, other - on ventilator Cardiovascular: normal rate Abdomen: soft, non tender, other - GT feeding, rectal tube Extremities: other - R arm PICC line Skin: ulcers, other - multiple stage IV ulcers Neurologic/Psychiatric: unresponsiveness Microbiology Date/Time Source Procedure Growth Status 02/06/17 11:15 Sputum Gram Stain - Final Resulted 02/06/17 11:15 Sputum Culture - Preliminary Gram Negative Bacillus 1 Gram Negative Bacillus 2 Resulted 02/06/17 11:30 Stool Clostridium difficile Toxin Assay - Final Complete 02/06/17 11:15 Urine,Clean Catch Urine Culture - Preliminary YEAST Resulted Laboratory Tests Test 02/08/17 08:00 White Blood Count 7.3 K/UL (4.8-10.8) Red Blood Count 3.01 M/UL (4.20-5.40) L Hemoglobin 8.5 G/DL (12.0-16.0) L Hematocrit 26.6 % (37.0-47.0) L Mean Corpuscular Volume 89 FL (80-99) Mean Corpuscular Hemoglobin 28.4 PG (27.0-31.0) Mean Corpuscular Hemoglobin Concent 32.1 G/DL (32.0-36.0) Red Cell Distribution Width 17.1 % (11.6-14.8) H Platelet Count 256 K/UL (150-450) Mean Platelet Volume 7.0 FL (6.5-10.1) Neutrophils (%) (Auto) 74.4 % (45.0-75.0) Lymphocytes (%) (Auto) 17.6 % (20.0-45.0) L Monocytes (%) (Auto) 6.1 % (1.0-10.0) Eosinophils (%) (Auto) 1.2 % (0.0-3.0) Basophils (%) (Auto) 0.7 % (0.0-2.0) Sodium Level 140 mEQ/L (135-145) Potassium Level 3.3 mEQ/L (3.4-4.9) L Chloride Level 100 mEQ/L (98-107) Carbon Dioxide Level 26 mEQ/L (20-30) Anion Gap 14 (5-15) Blood Urea Nitrogen 14 mg/dL (7-23) Creatinine 0.5 mg/dL (0.5-0.9) Estimat Glomerular Filtration Rate mL/min (>60) Glucose Level 186 mg/dL (74-106) H Calcium Level 9.3 mg/dL (8.6-10.2) Current Medications Medications (Trade) Dose Ordered Sig/Angie Route PRN Reason Start Time Stop Time Status Last Admin Dose Admin Acetaminophen (Tylenol) 650 mg Q4H PRN ORAL Prn Pain/Headache/Temp > 101 02/06/17 05:45 03/08/17 05:44 Ascorbic Acid (Vitamin C) 500 mg DAILY GT 02/06/17 09:00 03/08/17 08:59 02/08/17 08:40 Calcium Carbonate (OsCal D) 1 tab DAILY GT 02/06/17 09:00 03/08/17 08:59 02/08/17 08:40 Cefepime HCl/ Dextrose (Maxipime/D5W) 110 ml @ 220 mls/hr Q24H IVPB 02/09/17 10:00 02/15/17 09:59 Collagenase 1 applic 1 applic DAILY TOPIC 02/07/17 09:00 03/09/17 08:59 02/08/17 08:42 Dextrose (Dextrose 50%) STAT PRN IV Hypoglycemia 02/06/17 05:45 03/08/17 05:44 Fenofibrate (Tricor) 145 mg DAILY ORAL 02/06/17 09:00 03/08/17 08:59 02/08/17 08:39 Heparin Sodium (Porcine) (Heparin 5000 units/ml) 5,000 units EVERY 12 HOURS SUBQ 02/06/17 21:00 03/08/17 20:59 02/08/17 08:42 Metoprolol Tartrate (Lopressor) 25 mg EVERY 12 HOURS ORAL 02/06/17 09:00 03/08/17 08:59 02/08/17 08:40 Nystatin (Nystop Powder) 1 applic THREE TIMES A DAY TOPIC 02/06/17 21:00 03/08/17 20:59 02/08/17 08:40 Ranitidine HCl (Zantac) 150 mg DAILY ORAL 02/06/17 09:00 03/08/17 08:59 02/08/17 08:40 Tramadol HCl (Ultram) 50 mg BEDTIME ORAL 02/06/17 21:00 02/13/17 20:59 02/07/17 21:24 Tramadol HCl (Ultram) 50 mg DAILY PRN ORAL For Pain 02/06/17 05:45 02/13/17 05:44 Vancomycin HCl 1 ea 1 ea DAILY PRN MISC Per rx protocol 02/06/17 11:00 03/08/17 10:59 Vancomycin HCl/ Dextrose (Vancomycin/D5W) 275 ml @ 183.708 mls/hr Q24H IVPB 02/06/17 13:00 02/11/17 12:59 02/07/17 13:51 Zinc Sulfate (Zinc Sulfate) 220 mg DAILY ORAL 02/06/17 09:00 03/08/17 08:59 02/08/17 08:39 MARTIN LARSEN Feb 08, 2017 13:37
[2017-02-08] MEDS: Vancomycin 1gm/D5W 275ml IVPB SCH ×2 (13:54)
[2017-02-08] MEDS: Fluconazole 100mg tab GT SCH (16:37)
--- NOTE | 2017-02-08 16:46 | General Progress Note ---
Assessment/Plan Problem List: (1) Toxic encephalopathy ICD Codes: G92 - Toxic encephalopathy SNOMED: 72444218 (2) Acute renal failure ICD Codes: N17.9 - Acute kidney failure, unspecified SNOMED: 98620271 (3) Respiratory failure ICD Codes: J96.90 - Respiratory failure, unspecified, unspecified whether with hypoxia or hypercapnia SNOMED: 145571196 (4) Altered level of consciousness ICD Codes: R40.4 - Transient alteration of awareness SNOMED: 2292174 (5) Severe sepsis ICD Codes: A41.9 - Sepsis, unspecified organism; R65.20 - Severe sepsis without septic shock SNOMED: 17270801 Status: stable Assessment/Plan iv abx follow up cultures vent support resp rx gt feeds wound care poor prognosis Subjective ROS Limited/Unobtainable: Yes Constitutional: Reports: weakness HEENT: Reports: no symptoms Cardiovascular: Reports: no symptoms Respiratory: Reports: no symptoms Gastrointestinal/Abdominal: Reports: difficulty swallowing Genitourinary: Reports: no symptoms Allergies: Coded Allergies: SULFAMETHOXAZOLE (Verified Allergy, Intermediate, 07/11/16) TRIMETHOPRIM (Verified Allergy, Intermediate, 07/11/16) All Systems: reviewed and negative except above Subjective no events. remains poorly responsive. no fevers. on iv abx. ID noted. Objective Last 24 Hour Vital Signs Date Time Temp Pulse Resp B/P Pulse Ox O2 Delivery O2 Flow Rate FiO2 02/08/17 16:40 95 21 30 02/08/17 15:40 98.2 96 18 122/60 100 Mechanical Ventilator 30 02/08/17 15:00 98 18 30 02/08/17 14:00 67 02/08/17 13:13 90 16 30 02/08/17 12:00 97.3 94 17 112/54 100 Mechanical Ventilator 02/08/17 12:00 30 02/08/17 11:21 91 17 30 02/08/17 09:10 100 15 30 02/08/17 08:40 101 111/62 02/08/17 08:00 99 02/08/17 08:00 30 02/08/17 08:00 97.7 101 19 111/62 100 Mechanical Ventilator 02/08/17 06:39 98 16 30 02/08/17 05:05 95 15 30 02/08/17 04:00 96 02/08/17 04:00 98.1 73 18 90/56 100 Mechanical Ventilator 30 02/08/17 04:00 30 02/08/17 03:08 96 15 30 02/08/17 00:51 93 17 30 02/08/17 00:00 98.1 93 17 103/50 100 Mechanical Ventilator 30 02/08/17 00:00 30 02/08/17 00:00 93 02/07/17 23:17 92 17 30 02/07/17 21:25 100 17 30 02/07/17 21:23 99 115/59 02/07/17 20:00 98.1 99 18 115/59 100 Mechanical Ventilator 30 02/07/17 20:00 30 02/07/17 19:45 97 02/07/17 18:51 97 20 30 02/07/17 17:01 95 12 30 Intake and Output 02/07/17 02/08/17 19:00 07:00 Intake Total 810 ml 360 ml Output Total 230 ml 430 ml Balance 580 ml -70 ml Free Water 100 ml IV Total 55 ml Tube Feeding 455 ml 360 ml Blood Product 200 ml Output Urine Total 200 ml 400 ml Stool Total 30 ml 30 ml Laboratory Tests 02/08/17 08:00: White Blood Count 7.3, Red Blood Count 3.01L, Hemoglobin 8.5L, Hematocrit 26.6L , Mean Corpuscular Volume 89, Mean Corpuscular Hemoglobin 28.4, Mean Corpuscular Hemoglobin Concent 32.1, Red Cell Distribution Width 17.1H, Platelet Count 256, Mean Platelet Volume 7.0, Neutrophils (%) (Auto) 74.4, Lymphocytes (%) (Auto) 17.6L, Monocytes (%) (Auto) 6.1, Eosinophils (%) (Auto) 1.2, Basophils (%) (Auto) 0.7, Sodium Level 140, Potassium Level 3.3L, Chloride Level 100, Carbon Dioxide Level 26, Anion Gap 14, Blood Urea Nitrogen 14, Creatinine 0.5, Estimat Glomerular Filtration Rate , Glucose Level 186H, Calcium Level 9.3 Height (Feet): 5 Height (Inches): 2.00 Weight (Pounds): 128 General Appearance: WD/WN, alert Neck: supple Cardiovascular: regular rhythm Respiratory/Chest: lungs clear, normal breath sounds, no respiratory distress, no accessory muscle use Abdomen: normal bowel sounds, non tender, soft, no organomegaly, no mass Edema: no edema noted Arm (L), no edema noted Arm (R), no edema noted Leg (L), no edema noted Leg (R), no edema noted Pedal (L), no edema noted Pedal (R), no edema noted Generalized Edema: trace edema Neurologic: unresponsive, aphasia MILES CARTWRIGHT Feb 08, 2017 16:46
[2017-02-08] MEDS: traMADol 50mg tab ORAL SCH (20:41)
[2017-02-09 04:00] VITALS: BP 114/66
--- NOTE | 2017-02-09 07:27 | Pulmonology Progress Note ---
Assessment/Plan Assessment/Plan IMPRESSION: 1. Acute on chronic encephalopathy. 2. Possible sepsis. 3. Chronic respiratory failure. 4. Tracheotomy. 5. Aspiration. 6. Wound. 7. History of Parkinsonism. 8. History of hypercholesterolemia. 9. History of anemia. PLAN ventilator as is reviewed taper fio2 and monitor oxygen saturations monitor chest XR for changes ID noted cultures reviewed nutrition monitor for aspiration position change skin care close follow up and hope to proceed with dc dc planning impression, plan, and exam edited and reviewed in detail care discussed with RN Subjective ROS Limited/Unobtainable: Yes Allergies: Coded Allergies: SULFAMETHOXAZOLE (Verified Allergy, Intermediate, 07/11/16) TRIMETHOPRIM (Verified Allergy, Intermediate, 07/11/16) Subjective withdrawn poor LOC care noted Objective Last 24 Hour Vital Signs Date Time Temp Pulse Resp B/P Pulse Ox O2 Delivery O2 Flow Rate FiO2 02/09/17 07:23 98 14 30 02/09/17 05:06 88 16 30 02/09/17 04:00 91 02/09/17 04:00 30 02/09/17 04:00 97.2 88 18 114/66 100 Mechanical Ventilator 30 02/09/17 03:24 94 15 30 02/09/17 01:18 92 12 30 02/09/17 00:00 91 02/09/17 00:00 30 02/08/17 23:57 98.7 92 18 108/64 100 Mechanical Ventilator 30 02/08/17 22:56 87 16 30 02/08/17 21:05 90 16 30 02/08/17 20:40 89 112/60 02/08/17 20:00 30 02/08/17 19:21 89 13 30 02/08/17 19:02 90 02/08/17 19:00 98.6 91 18 112/60 100 Mechanical Ventilator 30 02/08/17 17:00 30 02/08/17 16:40 95 21 30 02/08/17 15:40 98.2 96 18 122/60 100 Mechanical Ventilator 30 02/08/17 15:17 97 02/08/17 15:00 98 18 30 02/08/17 14:00 67 02/08/17 13:13 90 16 30 02/08/17 12:00 97.3 94 17 112/54 100 Mechanical Ventilator 02/08/17 12:00 30 02/08/17 11:21 91 17 30 02/08/17 09:10 100 15 30 02/08/17 08:40 101 111/62 02/08/17 08:00 99 02/08/17 08:00 30 02/08/17 08:00 97.7 101 19 111/62 100 Mechanical Ventilator Intake and Output 02/08/17 02/09/17 19:00 07:00 Intake Total 945 ml 570 ml Output Total 250 ml 1124 ml Balance 695 ml -554 ml Intake Oral 200 ml Free Water 250 ml Tube Feeding 495 ml 540 ml Other 30 ml Output Urine Total 250 ml 974 ml Stool Total 150 ml # Bowel Movements 1 Objective GENERAL: The patient is an ill-appearing female. The patient is poorly responsive. HEENT: Currently negative. Pupils sluggish. NECK: Supple. Tracheostomy is midline. Carotids are 2+. LUNGS: Moderate air entry with some rhonchi noted without wheeze CARDIAC: Normal S2. The patient with soft systolic murmur. RRR No rubs or gallops. ABDOMEN: Soft and nontender. G-tube in place. no HSM; no distention EXTREMITIES: No cyanosis, clubbing, or edema. Feeding tube in place. NEUROLOGIC: The patient is withdrawn. Poorly responsive. Microbiology Date/Time Source Procedure Growth Status 02/07/17 16:30 Blood Blood Culture - Preliminary NO GROWTH AFTER 24 HOURS Resulted 02/06/17 11:15 Sputum Gram Stain - Final Resulted 02/06/17 11:15 Sputum Culture - Preliminary Gram Negative Bacillus 1 Gram Negative Bacillus 2 Resulted 02/06/17 11:30 Stool Clostridium difficile Toxin Assay - Final Complete 02/06/17 11:15 Urine,Clean Catch Urine Culture - Preliminary YEAST Resulted Laboratory Tests 02/08/17 08:00: White Blood Count 7.3, Red Blood Count 3.01L, Hemoglobin 8.5L, Hematocrit 26.6L , Mean Corpuscular Volume 89, Mean Corpuscular Hemoglobin 28.4, Mean Corpuscular Hemoglobin Concent 32.1, Red Cell Distribution Width 17.1H, Platelet Count 256, Mean Platelet Volume 7.0, Neutrophils (%) (Auto) 74.4, Lymphocytes (%) (Auto) 17.6L, Monocytes (%) (Auto) 6.1, Eosinophils (%) (Auto) 1.2, Basophils (%) (Auto) 0.7, Sodium Level 140, Potassium Level 3.3L, Chloride Level 100, Carbon Dioxide Level 26, Anion Gap 14, Blood Urea Nitrogen 14, Creatinine 0.5, Estimat Glomerular Filtration Rate , Glucose Level 186H, Calcium Level 9.3 Current Medications Medications (Trade) Dose Ordered Sig/Angie Route PRN Reason Start Time Stop Time Status Last Admin Dose Admin Acetaminophen (Tylenol) 650 mg Q4H PRN ORAL Prn Pain/Headache/Temp > 101 02/06/17 05:45 03/08/17 05:44 Ascorbic Acid (Vitamin C) 500 mg DAILY GT 02/06/17 09:00 03/08/17 08:59 02/08/17 08:40 Calcium Carbonate (OsCal D) 1 tab DAILY GT 02/06/17 09:00 03/08/17 08:59 02/08/17 08:40 Cefepime HCl/ Dextrose (Maxipime/D5W) 110 ml @ 220 mls/hr Q24H IVPB 02/09/17 10:00 02/15/17 09:59 Collagenase 1 applic 1 applic DAILY TOPIC 02/07/17 09:00 03/09/17 08:59 02/08/17 08:42 Dextrose (Dextrose 50%) STAT PRN IV Hypoglycemia 02/06/17 05:45 03/08/17 05:44 Fenofibrate (Tricor) 145 mg DAILY ORAL 02/06/17 09:00 03/08/17 08:59 02/08/17 08:39 Fluconazole (Diflucan) 200 mg DAILY GT 02/08/17 15:30 02/15/17 15:29 02/08/17 16:37 Heparin Sodium (Porcine) (Heparin 5000 units/ml) 5,000 units EVERY 12 HOURS SUBQ 02/06/17 21:00 03/08/17 20:59 02/08/17 20:42 Metoprolol Tartrate (Lopressor) 25 mg EVERY 12 HOURS ORAL 02/06/17 09:00 03/08/17 08:59 02/08/17 20:40 Nystatin (Nystop Powder) 1 applic THREE TIMES A DAY TOPIC 02/06/17 21:00 03/08/17 20:59 02/08/17 16:37 Ranitidine HCl (Zantac) 150 mg DAILY ORAL 02/06/17 09:00 03/08/17 08:59 02/08/17 08:40 Tramadol HCl (Ultram) 50 mg BEDTIME ORAL 02/06/17 21:00 02/13/17 20:59 02/08/17 20:41 Tramadol HCl (Ultram) 50 mg DAILY PRN ORAL For Pain 02/06/17 05:45 02/13/17 05:44 Vancomycin HCl 1 ea 1 ea DAILY PRN MISC Per rx protocol 02/06/17 11:00 03/08/17 10:59 Vancomycin HCl/ Dextrose (Vancomycin/D5W) 275 ml @ 183.708 mls/hr Q24H IVPB 02/06/17 13:00 02/11/17 12:59 02/08/17 13:54 Zinc Sulfate (Zinc Sulfate) 220 mg DAILY ORAL 02/06/17 09:00 03/08/17 08:59 02/08/17 08:39 NIESHA TOLENTINO Feb 09, 2017 07:27
[2017-02-09 08:00] VITALS: BP 110/55
[2017-02-09] MEDS: Metoprolol 25mg tab ORAL SCH ×2 (09:00→20:32)
[2017-02-09] MEDS: Fluconazole 100mg tab GT SCH (09:18)
[2017-02-09] MEDS: Zinc Sulfate 220mg cap ORAL SCH (09:18)
[2017-02-09] MEDS: Calcium Carbonate 500mg w/Vit D 200iu tab GT SCH (09:18)
[2017-02-09] MEDS: Ascorbic Acid 500mg tab GT SCH (09:18)
[2017-02-09] MEDS: Nystatin Powder 100,000 units/gm 15gm TOPIC SCH ×3 (09:21→17:58)
[2017-02-09] MEDS: Heparin 5000 units/ml inj SUBQ SCH ×2 (09:21→20:33)
[2017-02-09] MEDS ORDERED: Cefepime HCl 1 GM in D5W 110 ML IVPB SCH (10:00)
--- NOTE | 2017-02-09 10:32 | General Progress Note ---
Assessment/Plan Problem List: (1) Toxic encephalopathy ICD Codes: G92 - Toxic encephalopathy SNOMED: 50612125 (2) Acute renal failure ICD Codes: N17.9 - Acute kidney failure, unspecified SNOMED: 29091285 (3) Respiratory failure ICD Codes: J96.90 - Respiratory failure, unspecified, unspecified whether with hypoxia or hypercapnia SNOMED: 183017650 (4) Altered level of consciousness ICD Codes: R40.4 - Transient alteration of awareness SNOMED: 9091139 (5) Severe sepsis ICD Codes: A41.9 - Sepsis, unspecified organism; R65.20 - Severe sepsis without septic shock SNOMED: 13100990 Status: stable, progressing Assessment/Plan iv abx follow up cultures vent support resp rx gt feeds wound care dc soon dc planning tomorrow on iv abx if stable poor prognosis Subjective ROS Limited/Unobtainable: No Constitutional: Reports: malaise, weakness HEENT: Reports: no symptoms Cardiovascular: Reports: no symptoms Respiratory: Reports: no symptoms Gastrointestinal/Abdominal: Reports: difficulty swallowing Genitourinary: Reports: no symptoms Neurologic/Psychiatric: Reports: pre-existing deficit Endocrine: Reports: no symptoms Hematologic/Lymphatic: Reports: anemia Allergies: Coded Allergies: SULFAMETHOXAZOLE (Verified Allergy, Intermediate, 07/11/16) TRIMETHOPRIM (Verified Allergy, Intermediate, 07/11/16) All Systems: reviewed and negative except above Subjective no events. ?more responsive. no fevers. on iv abx. ID noted. Objective Last 24 Hour Vital Signs Date Time Temp Pulse Resp B/P Pulse Ox O2 Delivery O2 Flow Rate FiO2 02/09/17 09:05 99 15 30 02/09/17 09:00 99 110/55 02/09/17 08:00 97.9 99 18 110/55 100 Mechanical Ventilator 30 02/09/17 08:00 30 02/09/17 08:00 96 02/09/17 07:23 98 14 30 02/09/17 05:06 88 16 30 02/09/17 04:00 91 02/09/17 04:00 30 02/09/17 04:00 97.2 88 18 114/66 100 Mechanical Ventilator 30 02/09/17 03:24 94 15 30 02/09/17 01:18 92 12 30 02/09/17 00:00 91 3/30/17 00:00 30 02/08/17 23:57 98.7 92 18 108/64 100 Mechanical Ventilator 30 02/08/17 22:56 87 16 30 02/08/17 21:05 90 16 30 02/08/17 20:40 89 112/60 02/08/17 20:00 30 02/08/17 19:21 89 13 30 02/08/17 19:02 90 02/08/17 19:00 98.6 91 18 112/60 100 Mechanical Ventilator 30 02/08/17 17:00 30 02/08/17 16:40 95 21 30 02/08/17 15:40 98.2 96 18 122/60 100 Mechanical Ventilator 30 02/08/17 15:17 97 02/08/17 15:00 98 18 30 02/08/17 14:00 67 02/08/17 13:13 90 16 30 02/08/17 12:00 97.3 94 17 112/54 100 Mechanical Ventilator 02/08/17 12:00 30 02/08/17 11:21 91 17 30 Intake and Output 02/08/17 02/09/17 19:00 07:00 Intake Total 945 ml 570 ml Output Total 250 ml 1124 ml Balance 695 ml -554 ml Intake Oral 200 ml Free Water 250 ml Tube Feeding 495 ml 540 ml Other 30 ml Output Urine Total 250 ml 974 ml Stool Total 150 ml # Bowel Movements 1 Height (Feet): 5 Height (Inches): 2.00 Weight (Pounds): 128 Objective General Appearance: WD/WN, alert Neck: supple Cardiovascular: regular rhythm Respiratory/Chest: lungs clear, normal breath sounds, no respiratory distress, no accessory muscle use Abdomen: normal bowel sounds, non tender, soft, no organomegaly, no mass Edema: no edema noted Arm (L), no edema noted Arm (R), no edema noted Leg (L), no edema noted Leg (R), no edema noted Pedal (L), no edema noted Pedal (R), no edema noted Generalized Edema: trace edema Neurologic: unresponsive, aphasia MILES CARTWRIGHT Feb 09, 2017 10:32
[2017-02-09 12:00] VITALS: BP 118/52
[2017-02-09] MEDS: Vancomycin 1gm/D5W 275ml IVPB SCH ×4 (12:33→17:41)
--- NOTE | 2017-02-09 14:39 | Infectious Diseases Prog Note ---
Assessment/Plan Assessment/Plan A: 1. mastoiditis 2.Ventilatory dependent respiratory failure 3. breast cancer 4. DM 5. HPN 6. Pressure ulcers 7. Anemia 8. fungal UTI 9. Acinetobacter colonization P 1. continue vancomycin iv, cefepime 2. will follow up cultures 3. Continue Fluconazole Subjective ROS Limited/Unobtainable: Yes Allergies: Coded Allergies: SULFAMETHOXAZOLE (Verified Allergy, Intermediate, 07/11/16) TRIMETHOPRIM (Verified Allergy, Intermediate, 07/11/16) Objective Vital Signs Last 24 Hour Vital Signs Date Time Temp Pulse Resp B/P Pulse Ox O2 Delivery O2 Flow Rate FiO2 02/09/17 13:15 94 17 30 02/09/17 12:00 97.7 93 18 118/52 100 Mechanical Ventilator 30 02/09/17 12:00 30 02/09/17 12:00 95 02/09/17 11:23 97 17 30 02/09/17 09:05 99 15 30 02/09/17 09:00 99 110/55 02/09/17 08:00 97.9 99 18 110/55 100 Mechanical Ventilator 30 02/09/17 08:00 30 02/09/17 08:00 96 02/09/17 07:23 98 14 30 02/09/17 05:06 88 16 30 02/09/17 04:00 91 02/09/17 04:00 30 02/09/17 04:00 97.2 88 18 114/66 100 Mechanical Ventilator 30 02/09/17 03:24 94 15 30 02/09/17 01:18 92 12 30 02/09/17 00:00 91 02/09/17 00:00 30 02/08/17 23:57 98.7 92 18 108/64 100 Mechanical Ventilator 30 02/08/17 22:56 87 16 30 02/08/17 21:05 90 16 30 02/08/17 20:40 89 112/60 02/08/17 20:00 30 02/08/17 19:21 89 13 30 02/08/17 19:02 90 02/08/17 19:00 98.6 91 18 112/60 100 Mechanical Ventilator 30 02/08/17 17:00 30 02/08/17 16:40 95 21 30 02/08/17 15:40 98.2 96 18 122/60 100 Mechanical Ventilator 30 02/08/17 15:17 97 02/08/17 15:00 98 18 30 Height (Feet): 5 Height (Inches): 2.00 Weight (Pounds): 128 HEENT: status post trach Respiratory/Chest: other - on ventilator, coarse sounds Cardiovascular: normal rate Abdomen: soft, non tender, other - GT feeding Extremities: no edema Neurologic/Psychiatric: unresponsiveness Microbiology Date/Time Source Procedure Growth Status 02/07/17 16:30 Blood Blood Culture - Preliminary NO GROWTH AFTER 24 HOURS Resulted Laboratory Tests Test 02/09/17 13:00 Vancomycin Level Trough 28.7 ug/mL (5.0-12.0) H Current Medications Medications (Trade) Dose Ordered Sig/Angie Route PRN Reason Start Time Stop Time Status Last Admin Dose Admin Acetaminophen (Tylenol) 650 mg Q4H PRN ORAL Prn Pain/Headache/Temp > 101 02/06/17 05:45 03/08/17 05:44 Ascorbic Acid (Vitamin C) 500 mg DAILY GT 02/06/17 09:00 03/08/17 08:59 02/09/17 09:18 Calcium Carbonate (OsCal D) 1 tab DAILY GT 02/06/17 09:00 03/08/17 08:59 02/09/17 09:18 Cefepime HCl/ Sodium Chloride (Maxipime/Sodium Chloride) 55 ml @ 110 mls/hr Q24H IVPB 02/10/17 10:00 02/16/17 09:59 Collagenase (Santyl) 1 applic DAILY TOPIC 02/07/17 09:00 03/09/17 08:59 02/09/17 09:21 Dextrose (Dextrose 50%) STAT PRN IV Hypoglycemia 02/06/17 05:45 03/08/17 05:44 Fenofibrate (Tricor) 145 mg DAILY ORAL 02/06/17 09:00 03/08/17 08:59 02/09/17 09:18 Fluconazole 200 mg 200 mg DAILY GT 02/08/17 15:30 02/15/17 15:29 02/09/17 09:18 Heparin Sodium (Porcine) (Heparin 5000 units/ml) 5,000 units EVERY 12 HOURS SUBQ 02/06/17 21:00 03/08/17 20:59 02/09/17 09:21 Metoprolol Tartrate (Lopressor) 25 mg EVERY 12 HOURS ORAL 02/06/17 09:00 03/08/17 08:59 02/08/17 20:40 Nystatin (Nystop Powder) 1 applic THREE TIMES A DAY TOPIC 02/06/17 21:00 03/08/17 20:59 02/09/17 12:34 Ranitidine HCl (Zantac) 150 mg DAILY ORAL 02/06/17 09:00 03/08/17 08:59 02/09/17 09:18 Tramadol HCl (Ultram) 50 mg BEDTIME ORAL 02/06/17 21:00 02/13/17 20:59 02/08/17 20:41 Tramadol HCl (Ultram) 50 mg DAILY PRN ORAL For Pain 02/06/17 05:45 02/13/17 05:44 Vancomycin HCl (Vanco rx to dose) 1 ea DAILY PRN MISC Per rx protocol 02/06/17 11:00 03/08/17 10:59 Zinc Sulfate (Zinc Sulfate) 220 mg DAILY ORAL 02/06/17 09:00 03/08/17 08:59 02/09/17 09:18 MARTIN LARSEN Feb 09, 2017 14:38
[2017-02-09 16:28] VITALS: BP 115/57
[2017-02-09] MEDS ORDERED: NS 275ml ONE (17:10)
[2017-02-09 20:25] VITALS: BP 117/65
[2017-02-09] MEDS: traMADol 50mg tab ORAL SCH (20:32)
[2017-02-10 00:05] VITALS: BP 103/51
[2017-02-10 04:00] VITALS: BP 120/47
[2017-02-10 04:58] LABS: BASOPHILS % (AUTO) 0.7 % (0.0-2.0); EOSINOPHILS % (AUTO) 1.5 % (0.0-3.0); LYMPHOCYTES % (AUTO) 21.7 % (20.0-45.0); MEAN CORPUSCULAR HEMOGLOBIN 28.5 PG (27.0-31.0); MEAN CORPUSCULAR HGB CONC 31.6 G/DL (32.0-36.0); MEAN CORPUSCULAR VOLUME 90 FL (80-99); MEAN PLATELET VOLUME 7.4 FL (6.5-10.1); MONOCYTES % (AUTO) 6.6 % (1.0-10.0); NEUTROPHILS % (AUTO) 69.5 % (45.0-75.0); PLATELET COUNT 245 K/UL (150-450); RED CELL DISTRIBUTION WIDTH 17.3 % (11.6-14.8)
[2017-02-10 05:09] LABS: ALANINE AMINOTRANSFERASE 5 U/L (3-33); ALBUMIN/GLOBULIN RATIO 0.7 (1.0-2.7); ANION GAP 13 (5-15); ASPARTATE AMINO TRANSFERASE 40 U/L (5-40); CALCIUM 9.7 mg/dL (8.6-10.2); CARBON DIOXIDE 28 mEQ/L (20-30); CHLORIDE 101 mEQ/L (98-107); CREATININE 0.6 mg/dL (0.5-0.9); HEMOLYSIS 2; MAGNESIUM 1.7 mg/dL (1.7-2.5); POTASSIUM 4.1 mEQ/L (3.4-4.9); SODIUM 142 mEQ/L (135-145)
[2017-02-10 08:00] VITALS: BP 106/50
--- NOTE | 2017-02-10 08:39 | Pulmonology Progress Note ---
Assessment/Plan Assessment/Plan IMPRESSION: 1. Acute on chronic encephalopathy. 2. Possible sepsis. 3. Chronic respiratory failure. 4. Tracheotomy. 5. Aspiration. 6. Wound. 7. History of Parkinsonism. 8. History of hypercholesterolemia. 9. History of anemia. PLAN ventilator as is monitor clinically taper fio2 and monitor oxygen saturations monitor chest XR for changes ID noted and reviewed in detail discussed care cultures reviewed nutrition monitor for aspiration position change skin care dc planning impression, plan, and exam edited and reviewed in detail care discussed with RN Subjective ROS Limited/Unobtainable: Yes Allergies: Coded Allergies: SULFAMETHOXAZOLE (Verified Allergy, Intermediate, 07/11/16) TRIMETHOPRIM (Verified Allergy, Intermediate, 07/11/16) Subjective withdrawn poor LOC care noted Objective Last 24 Hour Vital Signs Date Time Temp Pulse Resp B/P Pulse Ox O2 Delivery O2 Flow Rate FiO2 02/10/17 08:00 98.4 98 15 106/50 100 Mechanical Ventilator 30 02/10/17 07:10 98 19 30 02/10/17 05:15 90 15 30 02/10/17 04:00 30 02/10/17 04:00 97.3 86 13 120/47 100 Mechanical Ventilator 30 02/10/17 03:48 82 02/10/17 03:08 84 14 30 02/10/17 01:06 84 13 30 02/10/17 00:05 97.5 77 14 103/51 100 Mechanical Ventilator 02/10/17 00:00 30 02/09/17 23:56 78 02/09/17 23:05 77 13 30 02/09/17 21:10 84 15 30 02/09/17 20:32 98 117/65 02/09/17 20:25 98.1 98 18 117/65 100 Mechanical Ventilator 30 02/09/17 20:00 30 02/09/17 19:52 96 02/09/17 19:30 99 18 30 02/09/17 17:13 98 18 30 02/09/17 16:28 98.1 98 17 115/57 100 Mechanical Ventilator 30 02/09/17 16:00 30 02/09/17 15:38 96 02/09/17 15:16 97 16 30 02/09/17 13:15 94 17 30 02/09/17 12:00 97.7 93 18 118/52 100 Mechanical Ventilator 30 3/30/17 12:00 30 02/09/17 12:00 95 02/09/17 11:23 97 17 30 02/09/17 09:05 99 15 30 02/09/17 09:00 99 110/55 Intake and Output 02/09/17 02/10/17 19:00 07:00 Intake Total 835 ml 580 ml Output Total 400 ml 710 ml Balance 435 ml -130 ml Free Water 200 ml 100 ml IV Total 110 ml Tube Feeding 495 ml 450 ml Other 30 ml 30 ml Output Urine Total 200 ml 460 ml Stool Total 200 ml 250 ml Objective GENERAL: The patient is an ill-appearing female. The patient is poorly responsive. HEENT: Currently negative. Pupils sluggish. NECK: Supple. Tracheostomy is midline. Carotids are 2+. LUNGS: Moderate air entry with some rhonchi noted without wheeze CARDIAC: Normal S2. The patient with soft systolic murmur. RRR No rubs or gallops. ABDOMEN: Soft and nontender. G-tube in place. no HSM; no distention EXTREMITIES: No cyanosis, clubbing, or edema. Feeding tube in place. NEUROLOGIC: The patient is withdrawn. Poorly responsive. Microbiology Date/Time Source Procedure Growth Status 02/07/17 16:30 Blood Blood Culture - Preliminary NO GROWTH AFTER 48 HOURS Resulted Laboratory Tests 02/09/17 13:00: Vancomycin Level Trough 28.7H 02/10/17 04:00: White Blood Count 6.0, Red Blood Count 2.90L, Hemoglobin 8.3L, Hematocrit 26.2L , Mean Corpuscular Volume 90, Mean Corpuscular Hemoglobin 28.5, Mean Corpuscular Hemoglobin Concent 31.6L, Red Cell Distribution Width 17.3H, Platelet Count 245, Mean Platelet Volume 7.4, Neutrophils (%) (Auto) 69.5, Lymphocytes (%) (Auto) 21.7, Monocytes (%) (Auto) 6.6, Eosinophils (%) (Auto) 1.5, Basophils (%) (Auto) 0.7, Sodium Level 142, Potassium Level 4.1, Chloride Level 101, Carbon Dioxide Level 28, Anion Gap 13, Blood Urea Nitrogen 24H, Creatinine 0.6, Estimat Glomerular Filtration Rate , Glucose Level 191H, Calcium Level 9.7, Magnesium Level 1.7, Total Bilirubin < 0.2, Aspartate Amino Transf (AST/SGOT) 40, Alanine Aminotransferase (ALT/SGPT) 5, Alkaline Phosphatase 108H, Pro-B-Type Natriuretic Peptide 425, Total Protein 6.0L, Albumin 2.5L, Globulin 3.5, Albumin/Globulin Ratio 0.7L Current Medications Medications (Trade) Dose Ordered Sig/Angie Route PRN Reason Start Time Stop Time Status Last Admin Dose Admin Acetaminophen (Tylenol) 650 mg Q4H PRN ORAL Prn Pain/Headache/Temp > 101 02/06/17 05:45 03/08/17 05:44 Ascorbic Acid (Vitamin C) 500 mg DAILY GT 02/06/17 09:00 03/08/17 08:59 02/09/17 09:18 Calcium Carbonate (OsCal D) 1 tab DAILY GT 02/06/17 09:00 03/08/17 08:59 02/09/17 09:18 Cefepime HCl 1 gm/ Sodium Chloride 55 ml @ 110 mls/hr Q24H IVPB 02/10/17 10:00 02/16/17 09:59 Collagenase (Santyl) 1 applic DAILY TOPIC 02/07/17 09:00 03/09/17 08:59 02/09/17 09:21 Dextrose (Dextrose 50%) STAT PRN IV Hypoglycemia 02/06/17 05:45 03/08/17 05:44 Fenofibrate (Tricor) 145 mg DAILY ORAL 02/06/17 09:00 03/08/17 08:59 02/09/17 09:18 Fluconazole 200 mg 200 mg DAILY GT 02/08/17 15:30 02/15/17 15:29 02/09/17 09:18 Heparin Sodium (Porcine) (Heparin 5000 units/ml) 5,000 units EVERY 12 HOURS SUBQ 02/06/17 21:00 03/08/17 20:59 02/09/17 20:33 Metoprolol Tartrate (Lopressor) 25 mg EVERY 12 HOURS ORAL 02/06/17 09:00 03/08/17 08:59 02/09/17 20:32 Nystatin (Nystop Powder) 1 applic THREE TIMES A DAY TOPIC 02/06/17 21:00 03/08/17 20:59 02/09/17 17:58 Ranitidine HCl (Zantac) 150 mg DAILY ORAL 02/06/17 09:00 03/08/17 08:59 02/09/17 09:18 Tramadol HCl (Ultram) 50 mg BEDTIME ORAL 02/06/17 21:00 02/13/17 20:59 02/09/17 20:32 Tramadol HCl (Ultram) 50 mg DAILY PRN ORAL For Pain 02/06/17 05:45 02/13/17 05:44 Vancomycin HCl (Vanco rx to dose) 1 ea DAILY PRN MISC Per rx protocol 02/06/17 11:00 03/08/17 10:59 Vancomycin HCl/ Dextrose (Vancomycin/D5W) 275 ml @ 183.708 mls/hr Q48H IVPB 02/10/17 13:00 02/15/17 12:59 Zinc Sulfate (Zinc Sulfate) 220 mg DAILY ORAL 02/06/17 09:00 03/08/17 08:59 02/09/17 09:18 NIESHA TOLENTINO Feb 10, 2017 08:39
[2017-02-10] MEDS: Fluconazole 100mg tab GT SCH (09:15)
[2017-02-10] MEDS: Ascorbic Acid 500mg tab GT SCH (09:16)
[2017-02-10] MEDS: Calcium Carbonate 500mg w/Vit D 200iu tab GT SCH (09:16)
[2017-02-10] MEDS: Metoprolol 25mg tab ORAL SCH (09:17)
[2017-02-10] MEDS: Heparin 5000 units/ml inj SUBQ SCH (09:20)
[2017-02-10] MEDS: Nystatin Powder 100,000 units/gm 15gm TOPIC SCH ×2 (09:20→13:37)
[2017-02-10] MEDS: Zinc Sulfate 220mg cap ORAL SCH (09:22)
[2017-02-10] MEDS ORDERED: Cefepime HCl 1 GM in NS 55 ML IVPB SCH (10:00)
[2017-02-10] MEDS ORDERED: CEFEPIME-D1 GM/50 ML IVPB (10:14)
[2017-02-10] MEDS ORDERED: VANCOMYCIN1 GM/250 M IVPB (10:14)
--- NOTE | 2017-02-10 11:43 | Infectious Diseases Prog Note ---
Assessment/Plan Assessment/Plan antibiotics : vancomycin iv, cefepime, fluconazole A 1. acenitobacter pneumonia 2. respiratory failure 3. breast cancer 4. DM 5. HTN 6. fungal UTI P 1. continue fluconazole 4 more days 2. d/c vancomycin iv, cefepime 3. start minocycline 4. will follow up cultures Subjective ROS Limited/Unobtainable: Yes Allergies: Coded Allergies: SULFAMETHOXAZOLE (Verified Allergy, Intermediate, 07/11/16) TRIMETHOPRIM (Verified Allergy, Intermediate, 07/11/16) Objective Vital Signs Last 24 Hour Vital Signs Date Time Temp Pulse Resp B/P Pulse Ox O2 Delivery O2 Flow Rate FiO2 02/10/17 11:21 86 16 30 02/10/17 09:17 98 106/50 02/10/17 09:08 93 15 30 02/10/17 08:00 98.4 98 15 106/50 100 Mechanical Ventilator 30 02/10/17 08:00 30 02/10/17 07:10 98 19 30 02/10/17 05:15 90 15 30 02/10/17 04:00 30 02/10/17 04:00 97.3 86 13 120/47 100 Mechanical Ventilator 30 02/10/17 03:48 82 02/10/17 03:08 84 14 30 02/10/17 01:06 84 13 30 02/10/17 00:05 97.5 77 14 103/51 100 Mechanical Ventilator 02/10/17 00:00 30 02/09/17 23:56 78 02/09/17 23:05 77 13 30 02/09/17 21:10 84 15 30 02/09/17 20:32 98 117/65 02/09/17 20:25 98.1 98 18 117/65 100 Mechanical Ventilator 30 02/09/17 20:00 30 02/09/17 19:52 96 02/09/17 19:30 99 18 30 02/09/17 17:13 98 18 30 02/09/17 16:28 98.1 98 17 115/57 100 Mechanical Ventilator 30 02/09/17 16:00 30 02/09/17 15:38 96 02/09/17 15:16 97 16 30 02/09/17 13:15 94 17 30 02/09/17 12:00 97.7 93 18 118/52 100 Mechanical Ventilator 30 02/09/17 12:00 30 02/09/17 12:00 95 Height (Feet): 5 Height (Inches): 2.00 Weight (Pounds): 128 HEENT: status post trach Respiratory/Chest: lungs clear Cardiovascular: normal rate, regular rhythm, no gallop/murmur Abdomen: soft, non tender, other - GT Extremities: no edema Microbiology Date/Time Source Procedure Growth Status 02/07/17 16:30 Blood Blood Culture - Preliminary NO GROWTH AFTER 48 HOURS Resulted Laboratory Tests Test 02/09/17 13:00 02/10/17 04:00 Vancomycin Level Trough 28.7 ug/mL (5.0-12.0) H White Blood Count 6.0 K/UL (4.8-10.8) Red Blood Count 2.90 M/UL (4.20-5.40) L Hemoglobin 8.3 G/DL (12.0-16.0) L Hematocrit 26.2 % (37.0-47.0) L Mean Corpuscular Volume 90 FL (80-99) Mean Corpuscular Hemoglobin 28.5 PG (27.0-31.0) Mean Corpuscular Hemoglobin Concent 31.6 G/DL (32.0-36.0) L Red Cell Distribution Width 17.3 % (11.6-14.8) H Platelet Count 245 K/UL (150-450) Mean Platelet Volume 7.4 FL (6.5-10.1) Neutrophils (%) (Auto) 69.5 % (45.0-75.0) Lymphocytes (%) (Auto) 21.7 % (20.0-45.0) Monocytes (%) (Auto) 6.6 % (1.0-10.0) Eosinophils (%) (Auto) 1.5 % (0.0-3.0) Basophils (%) (Auto) 0.7 % (0.0-2.0) Sodium Level 142 mEQ/L (135-145) Potassium Level 4.1 mEQ/L (3.4-4.9) Chloride Level 101 mEQ/L (98-107) Carbon Dioxide Level 28 mEQ/L (20-30) Anion Gap 13 (5-15) Blood Urea Nitrogen 24 mg/dL (7-23) H Creatinine 0.6 mg/dL (0.5-0.9) Estimat Glomerular Filtration Rate mL/min (>60) Glucose Level 191 mg/dL (74-106) H Calcium Level 9.7 mg/dL (8.6-10.2) Magnesium Level 1.7 mg/dL (1.7-2.5) Total Bilirubin < 0.2 mg/dL (0.0-1.2) Aspartate Amino Transf (AST/SGOT) 40 U/L (5-40) Alanine Aminotransferase (ALT/SGPT) 5 U/L (3-33) Alkaline Phosphatase 108 U/L (35-104) H Pro-B-Type Natriuretic Peptide 425 pg/mL (0-450) Total Protein 6.0 g/dL (6.6-8.7) L Albumin 2.5 g/dL (3.5-5.2) L Globulin 3.5 g/dL Albumin/Globulin Ratio 0.7 (1.0-2.7) L GRACE BENAVIDES Feb 10, 2017 11:43
[2017-02-10 12:00] VITALS: BP 105/58
[2017-02-10] MEDS ORDERED: Vancomycin 1gm/D5W 275ml IVPB SCH ×2 (13:00)
[2017-02-10] MEDS ORDERED: MINOCYCLINE 50MG CAP ORAL SCH (13:00)
[2017-02-10 16:39] VITALS: BP 109/59
[2017-02-10] MEDS ORDERED: Tubing IV Secondary IV ONE (16:59)
[2017-02-10] MEDS ORDERED: NS 275ml ONE (16:59)
--- NOTE | 2017-02-10 22:28 | Discharge Summary ---
DATE OF ADMISSION: 02/06/2017 DATE OF DISCHARGE: 02/10/2017 ADMISSION DIAGNOSES: 1. Encephalopathy. 2. Possible sepsis. 3. Anoxic encephalopathy. 4. History of chronic sacral decubitus ulcer. 5. Hypertension. 6. Hyperlipidemia. 7. History of paroxysmal atrial fibrillation. 8. History of breast cancer. 9. Questionable history of seizure disorder. 10. Pneumonia. DISCHARGE DIAGNOSES: 1. Encephalopathy. 2. Possible sepsis. 3. Anoxic encephalopathy. 4. History of chronic sacral decubitus ulcer. 5. Hypertension. 6. Hyperlipidemia. 7. History of paroxysmal atrial fibrillation. 8. History of breast cancer. 9. Questionable history of seizure disorder. 10. Pneumonia. HOSPITAL COURSE: The patient is an 81-year-old female who has a history of anoxic encephalopathy. She was initially admitted to an outside hospital with complaints of altered mental status. Her workup included a head CT was unremarkable. She did had a slight elevated white count. She was transferred here for care with her regular doctors. Workup here did revealed pneumonia and urinary tract infection. The patient was seen by ID and Pulmonary. Antibiotics suggested by the ID optimization consultant. Her mental status returned back to normal although the patient is mostly unresponsive. The family felt that the patient had improved. The [facility] she will complete her IV antibiotics there. DISCHARGE MEDICATIONS: Please see discharge medication list for discharge medications. DIET: G-tube feedings. ACTIVITY: Ad-Kinza. FOLLOWUP: The patient will follow up in one to two days in the [facility] facility. Christiano Moses M.D. DR: Olya JOB#: [id number] CC:
[2017-02-11] MEDS ORDERED: Zinc Sulfate 220mg cap ORAL SCH (06:30)
[2017-02-11] MEDS ORDERED: Calcium Carbonate 500mg w/Vit D 200iu tab GT SCH (06:30)
== END 2017-02-10 17:00 | DRG 870 ==
LOC: 2W 02-06 02:48
PROC: 5A1955Z Respiratory Ventilation, Greater than 96 Consecutive Hours (ICD-10-PCS; principal; 2017-02-06)
PROC: 02HV33Z Insertion of Infusion Device into Superior Vena Cava, Percutaneous Approach (ICD-10-PCS; principal; 2017-02-06)
DX: A41.9 Sepsis, unspecified organism (principal); G92 Toxic encephalopathy; J15.6 Pneumonia due to other Gram-negative bacteria; Z99.11 Dependence on respirator [ventilator] status; G93.1 Anoxic brain damage, not elsewhere classified; L89.894 Pressure ulcer of other site, stage 4; J96.10 Chronic respiratory failure, unspecified whether with hypoxia or hypercapnia; Z43.1 Encounter for attention to gastrostomy; B37.49 Other urogenital candidiasis; L89.159 Pressure ulcer of sacral region, unspecified stage; E11.8 Type 2 diabetes mellitus with unspecified complications; G20 Parkinson's disease; I10 Essential (primary) hypertension; Z85.3 Personal history of malignant neoplasm of breast; D64.9 Anemia, unspecified; E78.00 Pure hypercholesterolemia, unspecified; E78.5 Hyperlipidemia, unspecified; I48.0 Paroxysmal atrial fibrillation; Z90.10 Acquired absence of unspecified breast and nipple; Z86.74 Personal history of sudden cardiac arrest; Z43.0 Encounter for attention to tracheostomy; H70.90 Unspecified mastoiditis, unspecified ear; Z88.2 Allergy status to sulfonamides; Z88.1 Allergy status to other antibiotic agents; R56.9 Unspecified convulsions
CPT/HCPCS: 36415; 36569; 76937; 80048; 80053; 80202; 81001; 83605; 83735; 83880; 85025; 87040; 87070; 87086; 87181; 87205; 87324; 94002; 94003

== ENCOUNTER 2017-04-11 17:18 | Emergency (ER) | payer MEDICARE, MEDICAID ==
[~2017-04-11] VITALS: Ht 162.6 cm; Wt 57.2 kg
[2017-04-11] VITALS (7 sets, daily range): BP systolic 122–145; BP diastolic 43–47
[~2017-04-11 17:18] MED LIST changes: +CEFEPIME-D1 GM/50 ML IVPB; +PROMOD946 ML PO; +TRAMADOL HCL50 MG ORAL; +TRICOR48 MG ORAL; +ZANTAC150 MG ORAL; +ZINC SULFATE220 M1 ORAL
--- NOTE | 2017-04-11 18:28 | Emergency Room Report ---
History of Present Illness General Chief Complaint: Malfunctioning Gastric Tube Source: Patient Present Illness HPI Patient presents with complaints of increased diarrhea Drainage around the feeding tube site this is causing some erythema around the abdominal region Patient herself has done a tracheostomy with vent dependence not verbal Patient's family member provides most of the input There was no reports of vomiting Unknown regarding fever Patient has a feeding tube in place the family and feels that this is likely smaller than the previous Allergies: Coded Allergies: SULFAMETHOXAZOLE (Verified Allergy, Intermediate, 07/11/16) TRIMETHOPRIM (Verified Allergy, Intermediate, 07/11/16) Patient History Limited by: medical condition Past Medical History: see triage record Pertinent Family History: none Reviewed Nursing Documentation: PMH: Agreed, PSxH: Agreed Nursing Documentation-PMH Hx Cardiac Problems: Yes Hx Hypertension: Yes Hx Asthma: No Hx COPD: No Hx Diabetes: Yes Hx Cancer: Yes Hx Gastrointestinal Problems: Yes Hx Neurological Problems: Yes Hx Cerebrovascular Accident: Yes Hx Parkinson's Disease: Yes Hx Weakness: Yes Review of Systems All Other Systems: limited - Other than the ones mentioned in the history of present illness all others are reviewed however they do stay limited due to the patient's mental status Physical Exam Vital Signs Date Time Temp Pulse Resp B/P Pulse Ox O2 Delivery O2 Flow Rate FiO2 04/11/17 17:31 98.8 93 23 150/63 99 Trach Collar 3.0 04/11/17 18:02 30 Sp02 EP Interpretation: reviewed, normal General Appearance: no apparent distress Head: normocephalic ENT: normal pharynx, no angioedema Neck: supple Respiratory: crackles - diffusely Cardiovascular #1: regular rate, rhythm Gastrointestinal: soft, other - Mild erythema around the abdominal wall Genitourinary: no CVA tenderness Musculoskeletal: other - Patient's chronic debilitated, flexed at the upper and lower extremities Neurologic: responsive - To physical stimuli otherwise nonverbal Skin: other - Decubitus ulcer Lymphatic: no adenopathy Medical Decision Making Diagnostic Impression: Primary Impression: Hypokalemia Additional Impression: Contact dermatitis ER Course Multiple differentials considered At this time the evaluation around the feeding tube site does not reveal any obvious excoriation There's some mild contact erythema There is no obvious discharge from the site however there is likely a small amount of leakage Patient's potassium level was low The findings are discussed with the patient's primary physician who knows the patient well And with these findings will have further followup at the nursing facility Labs Test 04/11/17 17:30 04/11/17 18:45 04/11/17 19:30 Lactic Acid Level 1.30 mmol/L (0.66-2.22) Urine Color Pale yellow Urine Appearance Clear Urine pH 7 (4.5-8.0) Urine Specific Jacobson 1.010 (1.005-1.035) Urine Protein Negative (NEGATIVE) Urine Glucose (UA) Negative (NEGATIVE) Urine Ketones Negative (NEGATIVE) Urine Occult Blood Negative (NEGATIVE) Urine Nitrite Negative (NEGATIVE) Urine Bilirubin Negative (NEGATIVE) Urine Urobilinogen Normal MG/DL (0.0-1.0) Urine Leukocyte Esterase 3+ (NEGATIVE) Urine RBC 0-2 /HPF (0 - 2) Urine WBC 2-4 /HPF (0 - 2) Urine Squamous Epithelial Cells Few /LPF (NONE/OCC) Urine Bacteria Few /HPF (NONE) Urine Yeast Few /HPF (NONE) White Blood Count 12.7 K/UL (4.8-10.8) Red Blood Count 2.81 M/UL (4.20-5.40) Hemoglobin 8.3 G/DL (12.0-16.0) Hematocrit 25.8 % (37.0-47.0) Mean Corpuscular Volume 92 FL (80-99) Mean Corpuscular Hemoglobin 29.6 PG (27.0-31.0) Mean Corpuscular Hemoglobin Concent 32.2 G/DL (32.0-36.0) Red Cell Distribution Width 18.7 % (11.6-14.8) Platelet Count 568 K/UL (150-450) Mean Platelet Volume 5.3 FL (6.5-10.1) Neutrophils (%) (Auto) 81.7 % (45.0-75.0) Lymphocytes (%) (Auto) 12.8 % (20.0-45.0) Monocytes (%) (Auto) 2.5 % (1.0-10.0) Eosinophils (%) (Auto) 2.1 % (0.0-3.0) Basophils (%) (Auto) 0.9 % (0.0-2.0) Prothrombin Time 11.3 SEC (9.30-11.50) Prothromb Time International Ratio 1.1 (0.9-1.1) Activated Partial Thromboplast Time 34 SEC (23-33) Sodium Level 141 mEQ/L (135-145) Potassium Level 2.8 mEQ/L (3.4-4.9) Chloride Level 102 mEQ/L (98-107) Carbon Dioxide Level 25 mEQ/L (20-30) Anion Gap 14 (5-15) Blood Urea Nitrogen 11 mg/dL (7-23) Creatinine 0.6 mg/dL (0.5-0.9) Estimat Glomerular Filtration Rate mL/min (>60) Glucose Level 127 mg/dL (74-106) Calcium Level 8.6 mg/dL (8.6-10.2) Magnesium Level 1.7 mg/dL (1.7-2.5) Total Bilirubin < 0.2 mg/dL (0.0-1.2) Aspartate Amino Transf (AST/SGOT) 41 U/L (5-40) Alanine Aminotransferase (ALT/SGPT) 6 U/L (3-33) Alkaline Phosphatase 174 U/L (35-104) Total Creatine Kinase 39 U/L (26-140) Creatine Kinase MB 2.2 ng/mL (< 3.8) Creatine Kinase MB Relative Index 5.6 Troponin I < 0.30 ng/mL (<=0.30) Pro-B-Type Natriuretic Peptide 2910 pg/mL (0-450) Total Protein 5.9 g/dL (6.6-8.7) Albumin 1.8 g/dL (3.5-5.2) Globulin 4.1 g/dL Albumin/Globulin Ratio 0.4 (1.0-2.7) Lipase 28 U/L (< 60) Rhythm Strip Diag. Results EP Interpretation: yes Rate: 77 Rhythm: NSR, no PVC's, no ectopy Chest X-Ray Diagnostic Results EP Interpretation: Yes Findings: no consolidation, no pneumothorax, other - Mild increased haziness right lower lobe , also left. likelr effusion Number of Views: 1 Last Vital Signs Date Time Temp Pulse Resp B/P Pulse Ox O2 Delivery O2 Flow Rate FiO2 04/11/17 18:03 93 24 30 04/11/17 18:02 Mechanical Ventilator 04/11/17 17:31 98.8 150/63 99 3.0 Status: improved Disposition: [facility] Condition: Improved TARAH JOSE D.O. April 11, 2017 18:28
[2017-04-11 18:59] LABS: APPEARANCE,URINE CLEAR; KETONES,URINE NEGATIVE (NEGATIVE); LEUKOCYTE ESTERASE ,URINE 3+ (NEGATIVE); NITRITE,URINE NEGATIVE (NEGATIVE); PH,URINE 7 (4.5-8.0); PROTEIN,URINE NEGATIVE (NEGATIVE); UROBILINOGEN,URINE NORMAL MG/DL (0.0-1.0)
[2017-04-11 19:39] LABS: RBC,URINE 0-2 /HPF (0 - 2)
[2017-04-11 19:40] LABS: BACTERIA,URINE FEW /HPF; SQUAMOUS EPITHELIAL CELL,UR FEW /LPF (NONE/OCC); YEAST,URINE FEW /HPF
[2017-04-11 19:55] LABS: BASOPHILS % (AUTO) 0.9 % (0.0-2.0); EOSINOPHILS % (AUTO) 2.1 % (0.0-3.0); LYMPHOCYTES % (AUTO) 12.8 % (20.0-45.0); MEAN CORPUSCULAR HEMOGLOBIN 29.6 PG (27.0-31.0); MEAN CORPUSCULAR HGB CONC 32.2 G/DL (32.0-36.0); MEAN CORPUSCULAR VOLUME 92 FL (80-99); MEAN PLATELET VOLUME 5.3 FL (6.5-10.1); MONOCYTES % (AUTO) 2.5 % (1.0-10.0); NEUTROPHILS % (AUTO) 81.7 % (45.0-75.0); PLATELET COUNT 568 K/UL (150-450); RED BLOOD COUNT 2.81 M/UL (4.20-5.40); RED CELL DISTRIBUTION WIDTH 18.7 % (11.6-14.8); WHITE BLOOD COUNT 12.7 K/UL (4.8-10.8)
[2017-04-11 20:46] LABS: TROPONIN I < 0.30 ng/mL (<=0.30)
[2017-04-11 20:48] LABS: ALANINE AMINOTRANSFERASE 6 U/L (3-33); ALBUMIN/GLOBULIN RATIO 0.4 (1.0-2.7); ANION GAP 14 (5-15); ASPARTATE AMINO TRANSFERASE 41 U/L (5-40); CALCIUM 8.6 mg/dL (8.6-10.2); CARBON DIOXIDE 25 mEQ/L (20-30); CHLORIDE 102 mEQ/L (98-107); CREATININE 0.6 mg/dL (0.5-0.9); HEMOLYSIS 6; LIPASE 28 U/L (< 60); MAGNESIUM 1.7 mg/dL (1.7-2.5); POTASSIUM 2.8 mEQ/L (3.4-4.9); SODIUM 141 mEQ/L (135-145); TOTAL PROTEIN 5.9 g/dL (6.6-8.7)
[2017-04-11 20:59] LABS: CKMB 2.2 ng/mL (< 3.8)
[2017-04-11] MEDS ORDERED: KCl 10% 20 mEq/15ml liquid ONE (21:00)
[2017-04-11 21:01] LABS: INR 1.1 (0.9-1.1); PROTHROMBIN TIME 11.3 SEC (9.30-11.50)
[2017-04-12] MEDS ORDERED: KCl 10% 20 mEq/15ml liquid GT ONE (09:00)
--- NOTE | 2017-04-12 10:03 | Diagnostic Imaging Report ---
Indication: SOB Technique: One view of the chest Comparison: 10/29/2016 Findings: Heart size is normal. Surgical clips are seen in the left axilla. There has been interim development of bilateral pleural effusions, left greater than right. Lungs are clear. There is interim tracheostomy placement. Right arm PICC remains. Impression: Bilateral pleural effusions, left greater than right, new since prior study of 10/29/2016 New tracheostomy Other stable findings as described
--- NOTE | 2017-04-12 16:42 | Cardiology Report ---
APPROVED REPORT EKG Measurement Heart [id number] WI 136P-4 [id number] Normal sinus rhythm Nonspecific ST and T wave abnormality Abnormal ECG
== END 2017-04-11 22:45 ==
LOC: EDBD 17:18 → EMR 18:02 → CANBEDREQ 21:21 → EMR 22:45
DX: E87.6 Hypokalemia (principal); L25.9 Unspecified contact dermatitis, unspecified cause; L89.90 Pressure ulcer of unspecified site, unspecified stage; Z88.2 Allergy status to sulfonamides; Z88.8 Allergy status to other drugs, medicaments and biological substances; I10 Essential (primary) hypertension; E11.9 Type 2 diabetes mellitus without complications; Z85.9 Personal history of malignant neoplasm, unspecified; Z86.73 Personal history of transient ischemic attack (TIA), and cerebral infarction without residual deficits; G20 Parkinson's disease; Z93.1 Gastrostomy status
CPT/HCPCS: 36415; 43760; 71010; 80053; 81003; 82550; 82553; 83605; 83690; 83735; 83880; 84484; 85025; 85610; 85730; 87040; 87081; 87086; 93005; 94002; 94664

== ENCOUNTER 2017-04-15 11:49 | Inpatient (IN) | payer MEDICARE, MEDICAID ==
[~2017-04-15] VITALS: Ht 162.6 cm; Wt 64.0 kg
[2017-04-15] VITALS (9 sets, daily range): BP systolic 112–141; BP diastolic 42–64
--- NOTE | 2017-04-15 11:56 | Emergency Room Report ---
History of Present Illness General Chief Complaint: Abnormal Labs Source: Medical Record, EMS Present Illness HPI 81 YOF BIBEMS for "low H&H." Hb 7.2 as of today. No leuks on CBC. Patient with trach/vent, non contributory to HPI. Per SNF paperwork: on Abx for sacral wound osteo. History of encephalopathy, DM , HTN, HLD, COPD. Allergies: Coded Allergies: SULFAMETHOXAZOLE (Verified Allergy, Intermediate, 07/11/16) TRIMETHOPRIM (Verified Allergy, Intermediate, 07/11/16) Patient History Past Medical History: DM, HTN Past Surgical History: none Pertinent Family History: none Social History: Denies: alcohol use, drug use, smoking Now: No Immunizations: UTD Reviewed Nursing Documentation: PMH: Agreed, PSxH: Agreed Nursing Documentation-PMH Hx Cardiac Problems: No Hx Hypertension: No Hx Pacemaker: No Hx Asthma: No Hx COPD: Yes - trach vent dependant Hx Diabetes: Yes Hx Cancer: No Hx Gastrointestinal Problems: No - gi bleed ,anemia,gtube Hx Dialysis: No History Of Psychiatric Problem: No Hx Neurological Problems: No Hx Cerebrovascular Accident: No Hx Parkinson's Disease: Yes Hx Seizures: No Hx Weakness: Yes Review of Systems All Other Systems: limited - TRACH/VENT Physical Exam Sp02 EP Interpretation: reviewed, normal General Appearance: normal inspection, well appearing, no apparent distress, alert, GCS 15, non-toxic Head: normocephalic, atraumatic Eyes: bilateral eye EOMI, bilateral eye PERRL ENT: normal ENT inspection, hearing grossly normal, normal pharynx, no angioedema Neck: normal inspection, full range of motion, supple, no bony tend, other - Trach in place, no air leak Respiratory: normal inspection, lungs clear, normal breath sounds, no respiratory distress, no retraction, no wheezing Cardiovascular #1: regular rate, rhythm, no edema Gastrointestinal: normal inspection, normal bowel sounds, non tender, soft, no guarding, no hernia Genitourinary: no CVA tenderness Musculoskeletal: normal inspection, back normal, normal range of motion, Lee' s Sign negative Neurologic: normal inspection, alert, oriented x3, responsive, macaroni maker III-XII nml as tested, motor strength/tone normal, speech normal Psychiatric: normal inspection, judgement/insight normal, mood/affect normal Skin: normal inspection, normal color, no rash Lymphatic: normal inspection Medical Decision Making Medicare Attestation I Estuardo Pierson MD hereby attest that the medical record entry for date of service, 10/17/16 accurately reflects signatures/notations that I made in my capacity as MD when I treated/diagnosed the above listed Medicare beneficiary. I attest that this information is true, accurate and complete to the best of my knowledge. I understand that any falsification, omission, or concealment of material fact may subject me to administrative, civil, or criminal liability. This patient warrants hospital admission for extreme of age and has a condition that cannot be treated as outpatient. Diagnostic Impression: Primary Impression: Abnormal laboratory test result Additional Impressions: UTI (urinary tract infection) Qualified Codes: N30.01 - Acute cystitis with hematuria Anemia Qualified Codes: D64.9 - Anemia, unspecified ER Course 81YOF here for anemia. Thought d/t anemia of CKD. VSS. Afebrile. Not tachycardic or hypotensive No complaints Hb 7.5 here UA grossly infected. Rocephin given in ED Transfused 2U PRBC in the ED before going upstairs to [facility] admission Endorsed to Dr Moses @ 146pm for [facility] admission EKG Diagnostic Results Rate: normal Rhythm: NSR ST Segments: no acute changes Rhythm Strip Diag. Results EP Interpretation: yes Rate: 75 Rhythm: NSR, no PVC's, no ectopy Chest X-Ray Diagnostic Results EP Interpretation: Yes Findings: no consolidation, no effusion, no pneumothorax, no acute cardiopulmonary disease, other - Unchanged from 04/11. Trach in place Number of Views: 1 Status: improved Disposition: ADMITTED INPATIENT Condition: Serious ESTUARDO PIERSON M.D. Apr 15, 2017 11:56
[2017-04-15 12:56] LABS: MEAN CORPUSCULAR HEMOGLOBIN 27.1 PG (27.0-31.0); MEAN CORPUSCULAR HGB CONC 29.8 G/DL (32.0-36.0); MEAN CORPUSCULAR VOLUME 91 FL (80-99); MEAN PLATELET VOLUME 6.1 FL (6.5-10.1); PLATELET COUNT 590 K/UL (150-450); RED BLOOD COUNT 2.78 M/UL (4.20-5.40); RED CELL DISTRIBUTION WIDTH 19.2 % (11.6-14.8); WHITE BLOOD COUNT 8.1 K/UL (4.8-10.8)
[2017-04-15 13:00] LABS: KETONES,URINE NEGATIVE (NEGATIVE); LEUKOCYTE ESTERASE ,URINE 2+ (NEGATIVE); NITRITE,URINE NEGATIVE (NEGATIVE); PH,URINE 7 (4.5-8.0); PROTEIN,URINE 2+ (NEGATIVE); UROBILINOGEN,URINE NORMAL MG/DL (0.0-1.0)
[2017-04-15 13:03] LABS: APPEARANCE,URINE SLIGHTLY CLOUDY
[2017-04-15 13:10] LABS: ALANINE AMINOTRANSFERASE 5 U/L (3-33); ALBUMIN/GLOBULIN RATIO 0.3 (1.0-2.7); ANION GAP 15 (5-15); ASPARTATE AMINO TRANSFERASE 21 U/L (5-40); CALCIUM 8.5 mg/dL (8.6-10.2); CARBON DIOXIDE 24 mEQ/L (20-30); CHLORIDE 100 mEQ/L (98-107); CREATININE 0.7 mg/dL (0.5-0.9); HEMOLYSIS 3; POTASSIUM 3.8 mEQ/L (3.4-4.9); SODIUM 139 mEQ/L (135-145); TOTAL PROTEIN 5.7 g/dL (6.6-8.7)
[2017-04-15 13:17] LABS: BACTERIA,URINE MODERATE /HPF; SQUAMOUS EPITHELIAL CELL,UR MODERATE /LPF (NONE/OCC); YEAST,URINE MANY /HPF
[2017-04-15 13:20] LABS: CKMB < 1.5 ng/mL (< 3.8)
[2017-04-15 13:29] LABS: BAND NEUTROPHILS % (MANUAL) 0 % (0-8); BASOPHILS % (MANUAL) 0 % (0-2); EOSINOPHILS % (MANUAL) 0 % (0-3); LYMPHOCYTES % (MANUAL) 20 % (20-45); NEUTROPHILS % (MANUAL) 75 % (45-75); PLATELET ESTIMATE INCREASED; PLATELET MORPHOLOGY NORMAL; TOTAL CELLS COUNTED 100
[2017-04-15 13:30] LABS: ANISOCYTOSIS 2+; HYPOCHROMASIA 2+
[2017-04-15] MEDS ORDERED: cefTRIAXone 1 GM in D5W 55 ML IVPB ONE (13:45)
[2017-04-15 13:52] LABS: PROTHROMBIN TIME 9.8 SEC (9.30-11.50)
[2017-04-15] MEDS: Ascorbic Acid 500mg tab GT SCH (15:57)
[2017-04-15] MEDS ORDERED: BISCOLAX10 MG RC (16:15)
[2017-04-15] MEDS ORDERED: FLEET ENEMA133 M1 RC (16:15)
[2017-04-15] MEDS ORDERED: FERROUS SU300 MG/52 GT (16:15)
[2017-04-15] MEDS ORDERED: EPOGEN10000 UNIT SUBQ (16:15)
[2017-04-15] MEDS ORDERED: METOCLOPRAM5 MG/5 M2 PO (16:15)
[2017-04-15] MEDS ORDERED: DIGOXIN ELIX0.125 MG GT (16:15)
[2017-04-15] MEDS ORDERED: ACETAMINOP160 MG/5 M ORAL (16:15)
[2017-04-15] MEDS ORDERED: MOM30 ML ORAL (16:15)
[2017-04-15] MEDS ORDERED: PERIDEX 0.12% O15 ML ORO (16:15)
[2017-04-15] MEDS ORDERED: SINEMET 10-1001 EACH ORAL (16:15)
[2017-04-15] MEDS ORDERED: OMEPRAZOLE10 M1 ORAL (16:15)
[2017-04-15] MEDS ORDERED: VITAMIN D2000 UNI2 GT (16:15)
[2017-04-15] MEDS ORDERED: LANTUS SOL100 UNIT/1 SUBQ (16:15)
[2017-04-15] MEDS ORDERED: DuoNeb 0.5-3(2.5)mg/3ml neb IN-LINE PRN (17:00)
[2017-04-15] MEDS: Sinemet 25/100 tab GT SCH (20:33)
[2017-04-15] MEDS: Heparin 5000 units/ml inj SUBQ SCH (20:37)
[2017-04-15] MEDS ORDERED: Metoprolol 25mg tab ORAL SCH (21:00)
[2017-04-15] MEDS: Metoclopramide 10mg/10ml Liq GT SCH (22:19)
[2017-04-15] MEDS: NovoLOG Insulin Flexpen SUBQ SCH (23:58)
[2017-04-16] VITALS: BP 96/42
[2017-04-16 04:00] VITALS: BP 116/52
[2017-04-16 05:57] LABS: EOSINOPHILS % (AUTO) 1.3 % (0.0-3.0); LYMPHOCYTES % (AUTO) 25.2 % (20.0-45.0); MEAN CORPUSCULAR HEMOGLOBIN 28.1 PG (27.0-31.0); MEAN CORPUSCULAR HGB CONC 31.8 G/DL (32.0-36.0); MEAN CORPUSCULAR VOLUME 89 FL (80-99); MEAN PLATELET VOLUME 5.6 FL (6.5-10.1); MONOCYTES % (AUTO) 6.6 % (1.0-10.0); NEUTROPHILS % (AUTO) 65.9 % (45.0-75.0); PLATELET COUNT 581 K/UL (150-450); RED BLOOD COUNT 3.95 M/UL (4.20-5.40); RED CELL DISTRIBUTION WIDTH 18.9 % (11.6-14.8); WHITE BLOOD COUNT 8.6 K/UL (4.8-10.8)
[2017-04-16] MEDS: Metoclopramide 10mg/10ml Liq GT SCH ×3 (06:10→21:05)
[2017-04-16] MEDS: NovoLOG Insulin Flexpen SUBQ SCH ×4 (06:23→23:39)
[2017-04-16 08:00] VITALS: BP 100/52
[2017-04-16] MEDS: Metoprolol 25mg tab GT SCH ×2 (09:00→21:05)
[2017-04-16] MEDS ORDERED: Metoprolol 25mg tab GT SCH (09:00)
[2017-04-16] MEDS ORDERED: Zinc Sulfate 220mg cap ORAL SCH (09:00)
[2017-04-16] MEDS: Sinemet 25/100 tab GT SCH ×3 (09:30→17:04)
[2017-04-16] MEDS: Pantoprazole Inj IVP SCH (09:30)
[2017-04-16] MEDS: Ascorbic Acid 500mg tab GT SCH (09:30)
[2017-04-16] MEDS: Zinc Sulfate 220mg cap GT SCH (09:30)
[2017-04-16] MEDS: Dyna-Hex 2% Top Sol 8oz TOPIC SCH (09:31)
[2017-04-16] MEDS: Multivitamins W/Minerals 15 ML UDC GT SCH (09:31)
[2017-04-16] MEDS: Heparin 5000 units/ml inj SUBQ SCH ×2 (09:32→21:09)
--- NOTE | 2017-04-16 11:50 | Diagnostic Imaging Report ---
Indication: Dyspnea Comparison: 04/11/17 A single view chest radiograph was obtained. Findings: Hazy basilar opacities consistent with pleural effusions noted. PICC line and tracheostomy are stable. Heart size is stable. Impression: Bilateral pleural effusions
[2017-04-16 12:00] VITALS: BP 98/55
--- NOTE | 2017-04-16 13:45 | History and Physical Report ---
DATE OF ADMISSION: 04/15/2017 CHIEF COMPLAINT: Sepsis, UTI, severe anemia, rule out GI bleed, and lyme sepsis. HISTORY OF PRESENT ILLNESS: The patient is an unfortunate 81-year-old female. She has a history of anoxic encephalopathy, stroke, and breast cancer. She has a history of chronic respiratory failure, hypertension and SVT. [facility] evaluation for severe anemia. No reports of any bleeding at the [facility]. No melena or hematemesis. In addition, the patient has had subjective fevers and chills. She had some positive cultures. She was recently diagnosed with pneumonia, was on antibiotic therapy. On evaluation in the emergency room, the patient was transfused. She also had evidence of active urinary tract infection is therefore admitted for further evaluation and care. She is nonverbal at baseline and is unable to provide any history. PAST MEDICAL HISTORY: As above. PAST SURGICAL HISTORY: Includes history of mastectomy, tracheostomy and a G-tube. MEDICATIONS: Current medications reconciled and reviewed. ALLERGIES: Bactrim. FAMILY HISTORY: Noncontributory. SOCIAL HISTORY: There is no known history of tobacco, ethanol, or drugs. REVIEW OF SYSTEMS: Review of systems from the patient is unobtainable. PHYSICAL EXAMINATION: VITAL SIGNS: Temperature 98.0 degrees, blood pressure 116/52, pulse 76, and respirations 20. GENERAL: The patient is a chronic appearing female, she is unresponsive. HEENT: Her pupils are equal, round and reactive to light. Oropharynx is clear. NECK: Supple. There is no jugular venous distention. HEART: Regular rate and rhythm. LUNGS: Significant for few scattered rhonchi. ABDOMEN: Soft, nontender and nondistended. EXTREMITIES: Without clubbing or cyanosis. There is a massive sacral decubitus ulcer down to the bone. LABORATORY AND DIAGNOSTIC DATA: White count was 8, hemoglobin 7.5, hematocrit 25, and platelets 590,000. Sodium was 139, potassium 3.8, and creatinine was 0.7. Coags were normal. UA showed 10-15 WBCs ASSESSMENT: This is an unfortunate female with: 1. History of anoxic encephalopathy. 2. Supraventricular tachycardia. 3. Chronic respiratory failure. 4. History of breast cancer. 5. History of stroke. 6. History of sacral wound, admitted with sepsis secondary to urinary tract infection. There is also concerned about a lyme infection. PICC line has been in place for the last three months. 7. History of sacral wound with osteomyelitis. 8. Hypertension. PLAN: IV antibiotics. Follow up cultures. Change PICC line. Aggressive wound care. Transfuse. Check stool for occult blood. Check iron panel. Continue developed support respiratory treatments. The patient's overall prognosis for recovery is poor. Christiano Moses M.D. DR: Shantell JOB#: [id number] CC:
[2017-04-16 16:00] VITALS: BP 119/50
[2017-04-16] MEDS ORDERED: Tubing IV Blood Pump IV ONE (16:09)
[2017-04-16] MEDS ORDERED: NS 275ml ONE (16:09)
[2017-04-16] MEDS ORDERED: Acetaminophen 650mg/20.3ml GT PRN (17:00)
[2017-04-16 20:00] VITALS: BP 116/48
[2017-04-16] MEDS: Acetaminophen 650mg/20.3ml GT SCH (23:37)
[2017-04-17] VITALS: BP 115/57
[2017-04-17 04:00] VITALS: BP 125/54
[2017-04-17] MEDS: Metoclopramide 10mg/10ml Liq GT SCH ×3 (05:29→21:57)
[2017-04-17] MEDS: Acetaminophen 650mg/20.3ml GT SCH ×3 (05:29→18:14)
[2017-04-17] MEDS: NovoLOG Insulin Flexpen SUBQ SCH ×3 (05:32→18:00)
--- NOTE | 2017-04-17 07:41 | General Progress Note ---
Assessment/Plan Problem List: (1) Toxic encephalopathy ICD Codes: G92 - Toxic encephalopathy SNOMED: 69089127 (2) Acute renal failure ICD Codes: N17.9 - Acute kidney failure, unspecified SNOMED: 67601382 (3) Altered level of consciousness ICD Codes: R40.4 - Transient alteration of awareness SNOMED: 4076247 (4) Severe sepsis ICD Codes: A41.9 - Sepsis, unspecified organism; R65.20 - Severe sepsis without septic shock SNOMED: 74337393 (5) Abnormal laboratory test result ICD Codes: R89.9 - Unspecified abnormal finding in specimens from other organs , systems and tissues SNOMED: 032902853 (6) Anemia ICD Codes: D64.9 - Anemia, unspecified SNOMED: 340551155 Qualifiers: Qualified Codes: D64.9 - Anemia, unspecified (7) UTI (urinary tract infection) ICD Codes: N39.0 - Urinary tract infection, site not specified SNOMED: 42573424 Qualifiers: Qualified Codes: N30.01 - Acute cystitis with hematuria Status: stable, progressing Assessment/Plan change picc line ib abx per id wound care vent resp rx gi eval regarding leaking gt Subjective ROS Limited/Unobtainable: No Constitutional: Reports: malaise, weakness HEENT: Reports: no symptoms Cardiovascular: Reports: no symptoms Respiratory: Reports: shortness of breath Gastrointestinal/Abdominal: Reports: difficulty swallowing, other - leaking gt Genitourinary: Reports: no symptoms Neurologic/Psychiatric: Reports: pre-existing deficit, seizure Endocrine: Reports: no symptoms Hematologic/Lymphatic: Reports: anemia Allergies: Coded Allergies: SULFAMETHOXAZOLE (Verified Allergy, Intermediate, 07/11/16) TRIMETHOPRIM (Verified Allergy, Intermediate, 07/11/16) All Systems: reviewed and negative except above Subjective leaking from gt. no fever or chills. son wanted atc tylenol due to fever at snf. on iv abx. Objective Last 24 Hour Vital Signs Date Time Temp Pulse Resp B/P Pulse Ox O2 Delivery O2 Flow Rate FiO2 04/17/17 06:44 73 16 30 04/17/17 05:59 98.5 04/17/17 05:10 71 22 30 04/17/17 04:34 69 04/17/17 04:00 98.5 71 18 125/54 100 Mechanical Ventilator 30 04/17/17 04:00 30 04/17/17 03:07 67 19 30 04/17/17 01:25 69 19 30 04/17/17 00:00 97.6 69 18 115/57 100 Mechanical Ventilator 04/17/17 00:00 70 04/17/17 00:00 30 04/16/17 23:00 69 15 30 04/16/17 21:05 72 116/48 04/16/17 20:55 72 21 30 04/16/17 20:00 99.3 71 18 116/48 100 Mechanical Ventilator 30 04/16/17 20:00 30 04/16/17 19:27 67 17 30 04/16/17 19:14 69 04/16/17 16:50 82 22 30 04/16/17 16:00 99.5 82 18 119/50 100 Mechanical Ventilator 30 04/16/17 16:00 30 04/16/17 15:32 75 04/16/17 15:20 74 21 30 04/16/17 12:42 65 12 30 04/16/17 12:00 30 04/16/17 12:00 99.0 75 18 98/55 100 Mechanical Ventilator 30 04/16/17 11:57 66 04/16/17 10:50 72 12 30 04/16/17 09:00 70 100/52 04/16/17 08:50 70 14 30 04/16/17 08:00 30 04/16/17 08:00 98.2 73 19 100/52 100 Mechanical Ventilator 04/16/17 07:55 72 Intake and Output 04/16/17 04/17/17 19:00 07:00 Intake Total 540 ml 595 ml Output Total 700 ml 900 ml Balance -160 ml -305 ml Intake Free Water 100 ml Tube Feeding 540 ml 495 ml Output Urine Total 700 ml 700 ml Stool Total 200 ml Height (Feet): 5 Height (Inches): 4.00 Weight (Pounds): 1419 General Appearance: WD/WN, confused Neck: normal alignment, supple, normal inspection Cardiovascular: normal rate, regular rhythm Respiratory/Chest: lungs clear, normal breath sounds, no respiratory distress, no accessory muscle use Abdomen: normal bowel sounds, non tender, soft, no organomegaly Edema: no edema noted Arm (L), no edema noted Arm (R), no edema noted Leg (L), no edema noted Leg (R), no edema noted Pedal (L), no edema noted Pedal (R), no edema noted Generalized Neurologic: unresponsive, aphasia MILES CARTWRIGHT Apr 17, 2017 07:41
[2017-04-17 08:00] VITALS: BP 123/50
[2017-04-17] MEDS: Dyna-Hex 2% Top Sol 8oz TOPIC SCH (08:39)
[2017-04-17] MEDS: Pantoprazole Inj IVP SCH (08:39)
[2017-04-17] MEDS: Metoprolol 25mg tab GT SCH ×2 (08:39→21:00)
[2017-04-17] MEDS: Zinc Sulfate 220mg cap GT SCH (08:39)
[2017-04-17] MEDS: Ascorbic Acid 500mg tab GT SCH (08:39)
[2017-04-17] MEDS: Sinemet 25/100 tab GT SCH ×3 (08:39→18:14)
[2017-04-17] MEDS: Multivitamins W/Minerals 15 ML UDC GT SCH (08:39)
[2017-04-17] MEDS: Heparin 5000 units/ml inj SUBQ SCH ×2 (08:42→21:07)
--- NOTE | 2017-04-17 08:48 | Pulmonology Progress Note ---
Assessment/Plan Assessment/Plan respiratory failure trach GT ALOC chronic encephalopathy Osteo Anemia possible GIB diarrhea hypoxemia PLAN ventilator management monitor labs nutrition supportive care wound care SNF meds PICC line care defer antibiotics to ID impression, plan, and exam edited and reviewed in detail care discussed with RN Subjective ROS Limited/Unobtainable: Yes Allergies: Coded Allergies: SULFAMETHOXAZOLE (Verified Allergy, Intermediate, 07/11/16) TRIMETHOPRIM (Verified Allergy, Intermediate, 07/11/16) Subjective care reviewed findings noted on the ventilator Objective Last 24 Hour Vital Signs Date Time Temp Pulse Resp B/P Pulse Ox O2 Delivery O2 Flow Rate FiO2 04/17/17 08:39 73 123/50 04/17/17 08:00 97.9 72 19 123/50 100 Mechanical Ventilator 30 04/17/17 08:00 72 04/17/17 08:00 30 04/17/17 06:44 73 16 30 04/17/17 05:59 98.5 04/17/17 05:10 71 22 30 04/17/17 04:34 69 04/17/17 04:00 98.5 71 18 125/54 100 Mechanical Ventilator 30 04/17/17 04:00 30 04/17/17 03:07 67 19 30 04/17/17 01:25 69 19 30 04/17/17 00:00 97.6 69 18 115/57 100 Mechanical Ventilator 30 04/17/17 00:00 70 04/17/17 00:00 30 04/16/17 23:00 69 15 30 04/16/17 21:05 72 116/48 04/16/17 20:55 72 21 30 04/16/17 20:00 99.3 71 18 116/48 100 Mechanical Ventilator 30 04/16/17 20:00 30 04/16/17 19:27 67 17 30 04/16/17 19:14 69 04/16/17 16:50 82 22 30 04/16/17 16:00 99.5 82 18 119/50 100 Mechanical Ventilator 30 04/16/17 16:00 30 04/16/17 15:32 75 04/16/17 15:20 74 21 30 04/16/17 12:42 65 12 30 04/16/17 12:00 30 04/16/17 12:00 99.0 75 18 98/55 100 Mechanical Ventilator 30 04/16/17 11:57 66 04/16/17 10:50 72 12 30 04/16/17 09:00 70 100/52 04/16/17 08:50 70 14 30 Intake and Output 04/16/17 04/17/17 19:00 07:00 Intake Total 540 ml 640 ml Output Total 700 ml 900 ml Balance -160 ml -260 ml Intake Free Water 100 ml Tube Feeding 540 ml 540 ml Output Urine Total 700 ml 700 ml Stool Total 200 ml Objective Sp02 EP Interpretation: reviewed, normal General Appearance: chronically ill Head: normocephalic, atraumatic Eyes: bilateral eye normal inspection Neck: normal inspection,trach, carotid 2+ Respiratory: decreased breath sounds, some rhonchi Cardiovascular #1: regular rate, rhythm, no murmur without MRG Gastrointestinal: non tender, soft, non-distended, no guarding, no rebound Musculoskeletal: no CC; edema +1 Neurologic: poor LOC Microbiology Date/Time Source Procedure Growth Status 04/15/17 12:20 Urine,Clean Catch Urine Culture - Preliminary YEAST Resulted 04/15/17 17:45 Sacral Wound Gram Stain - Final Resulted 04/15/17 17:45 Sacral Wound Wound Culture Pending Resulted Current Medications Medications (Trade) Dose Ordered Sig/Angie Route PRN Reason Start Time Stop Time Status Last Admin Dose Admin Acetaminophen (Tylenol) 650 mg EVERY 6 HOURS GT 04/17/17 00:00 04/23/17 00:00 04/17/17 05:29 Albuterol/ Ipratropium (DuoNeb 0.5-3(2.5)mg/3ml) 3 ml EVERY 4 HOURS PRN IN-LINE Shortness of Breath 04/15/17 17:00 04/20/17 16:59 Ascorbic Acid (Vitamin C) 500 mg DAILY GT 04/15/17 16:00 05/15/17 15:59 04/17/17 08:39 Carbidopa/Levodopa (Sinemet 25/100) 1 ea TID GT 04/15/17 20:00 05/15/17 19:59 04/17/17 08:39 Chlorhexidine Gluconate (Monica-Hex 2%) 1 applic DAILY TOPIC 04/16/17 09:00 05/16/17 08:59 04/17/17 08:39 Dextrose (Dextrose 50%) STAT PRN IV Hypoglycemia 04/15/17 21:45 05/15/17 21:44 Heparin Sodium (Porcine) (Heparin 5000 units/ml) 5,000 units EVERY 12 HOURS SUBQ 04/15/17 21:00 05/15/17 20:59 04/17/17 08:42 Insulin Aspart (NovoLOG) Q6HR SUBQ 04/16/17 00:00 05/16/17 00:00 04/17/17 05:32 Metoclopramide HCl (Reglan) 5 mg EVERY 8 HOURS GT 04/15/17 22:00 05/15/17 21:59 04/17/17 05:29 Metoprolol Tartrate (Lopressor) 25 mg EVERY 12 HOURS GT 04/16/17 09:00 05/16/17 08:59 04/17/17 08:39 Multivitamins (Multivitamins W/ Minerals 15ml Liquid) 15 ml DAILY GT 04/16/17 09:00 05/16/17 08:59 04/17/17 08:39 Pantoprazole (Protonix) 40 mg DAILY IVP 04/16/17 09:00 05/16/17 08:59 04/17/17 08:39 Zinc Sulfate (Zinc Sulfate) 220 mg DAILY GT 04/16/17 09:00 05/16/17 08:59 04/17/17 08:39 NIESHA TOLENTINO Apr 17, 2017 08:48
[2017-04-17] MEDS ORDERED: Fluconazole 100mg tab ORAL SCH (09:00)
--- NOTE | 2017-04-17 09:15 | Consultation ---
DATE OF CONSULTATION: PULMONARY CONSULTATION History of Present Illness: The patient is an 81-year-old female who is chronically on the ventilator and noted to have worsening anemia. The patient also with noted intermittent diarrhea. The patient has also history of respiratory failure, now on the ventilator. The patient is a tracheostomy dependent. The patient has multiple medical problems and has had a prior history of cardiopulmonary arrest. The patient with a diagnosis of osteomyelitis and has been treated with antibiotics. A detailed discussion undertaken to Dr. Moses. The patient now admitted for further acute care and management and transfusion. The patient is unable to give any history. History was obtained from transfer records and patient closely monitored at the nursing facility. The patient's family has been involved and discussed in detail. The patient denies any melena, hematochezia, or hematemesis. Past Medical History: Notable for respiratory failure, G-tube, chronic encephalopathy, anoxia, prior cardiopulmonary arrest, osteomyelitis, pressure ulcer, intermittent diarrhea, COPD, prior history of pneumonia, and sepsis. MEDICATIONS: Reviewed. ALLERGIES: Reviewed. SOCIAL HISTORY: Now resides at a subacute [facility]. Family History: not available REVIEW OF SYSTEMS: Unobtainable. PHYSICAL EXAMINATION: GENERAL: Elderly female, withdrawn. Vital Signs: Temperature 98.2, _132/70 98 14 97% HEENT: Negative. NECK: Supple. Tracheostomy midline. Carotid 2+ LUNGS: reduced breath sounds; scattered rhonchi. No wheezes. CARDIOVASCULAR: S1 and S2. Regular rate and rhythm without murmurs, rubs, or gallops. ABDOMEN: Soft. No distention. G-tube. No hepatosplenomegaly. EXTREMITIES: No cyanosis or clubbing. No significant edema. NEUROLOGIC: Responsive. SKIN: Pressure ulcers noted. Laboratory Data: Labs are reviewed. in detail IMPRESSION: 1. Respiratory failure. 2. Pleural effusion. 3. Status post cardiopulmonary arrest. 4. Anoxic brain injury, 5. Anemia, possible gastrointestinal bleed, mostly chronic disease. 6. Pressure ulcer. 7. Osteomyelitis. 8. Failure to thrive. 9. Intermittent diarrhea. RECOMMENDATION: 1. Supportive care. 2. Continue antibiotics from the nursing facility. 3. Transfuse. 4. ventilator as is 5. suction 6. SNF meds 7. antibiotics 8. skin care 9. dc once stable and improved Leodan Murguia M.D. DR: ZURDO JOB#: [id number] CC: ANDRE
--- NOTE | 2017-04-17 11:26 | GI Initial Consult Note ---
Radha Senior N.PEliezer 04/17/17 1126: History of Present Illness General Date patient seen: Apr 17, 2017 Time patient seen: 10:00 Reason for Hospitalization: Abnormal Labs Referring physician: MILES CARTWRIGHT Reason for Consultation: GT LEAKAGE Present Illness HPI 81 YOF BIBEMS for "low H&H." Hb 7.2 as of today. No leuks on CBC. Patient with trach/vent, non contributory to HPI. Per SNF paperwork: on Abx for sacral wound osteo. History of encephalopathy, DM , HTN, HLD, COPD. GI CONSULT. HPI as noted above. GI consulted for GT malfunction/leakage. Pt seen on floor awake, alert trach to vent NAD with son @ bedside. Pt presents today with profound anemia Hbg low was 7.5 given 2 units of blood, elevated alkaline phosphatase and hypoalbuminemia. GT site assessed and noted to have mild erythema and drainage around GT site. Home Meds Active Scripts Vancomycin/0.9% Sod Chloride (VANCOMYCIN-0.9% NACL 1 G/250) 1 Gm/250 Ml Plast..bag, 1 GM IVPB Q48H for 7 Days, BAG Prov:MILES CARTWRIGHT 02/10/17 Cefepime Hcl/D5w (CEFEPIME-DEXTROSE 1 GM/50 ML) 1 Gm/50 Ml Piggyback, 1 GM IVPB Q24H for 7 Days, BAG Prov:MILES CARTWRIGHT 02/10/17 Reported Medications Cholecalciferol (Vitamin D3) (VITAMIN D) 2,000 Unit Capsule, 2000 UNIT GT DAILY , CAP 04/15/17 Acetaminophen 160MG/5ML* (ACETAMINOPHEN*) 160 Mg/5 Ml Elixir, 20 ML ORAL EVERY 4 HOURS Y for Fever/Headache/Mild Pain, ML 0 Refills 04/15/17 Carbidopa/Levodopa* (SINEMET 10-100 MG TABLET*) 1 Each Tablet, 1 TAB ORAL THREE TIMES A DAY for parkinson's disease, TAB 04/15/17 Metoclopramide Hcl (METOCLOPRAMIDE HCL) 5 Mg/5 Ml Solution, 5 MG PO TID for Nausea & Vomiting 04/15/17 Omeprazole (OMEPRAZOLE) 10 Mg Capsule.dr, 10 MG ORAL DAILY, #30 CAP 0 Refills 04/15/17 Magnesium Hydroxide (Milk of Magnesia) 400 Mg/5 Ml Oral.susp, 30 ML ORAL DAILY Y for Constipation, ML 04/15/17 Insulin Glargine (LANTUS) 100 Unit/1 Ml Insuln.pen, 28 UNITS SUBQ BEDTIME, #1 EA 0 Refills 04/15/17 Na Phos,M-B/Na Phos,Di-Ba (Fleet Enema) 133 Ml Enema, 133 ML RC 3XW Y for Constipation, EA 04/15/17 Ferrous Sulfate (Ferrous Sulfate) 300 Mg/5 Ml Liquid, 350 MG GT TID, ML 04/15/17 Epoetin Milton (Epogen) 10,000 Unit/1 Ml Vial, 44531 UNIT SUBQ 3XW for anemia, VIAL 04/15/17 Bisacodyl (BISCOLAX) 10 Mg Supp.rect, 10 MG RC Y for Constipation, SUPP 04/15/17 Digoxin (Digoxin) 50 Mcg/1 Ml Solution, 0.125 MG GT DAILY, ML 04/15/17 Chlorhexidine Gluconate (Chlorhexidine Gluconate) 15 Ml Mouthwash, 15 ML SHELTON TWICE A DAY, ML 04/15/17 Acetaminophen (Tylenol) 325 Mg Tablet, 650 MG ORAL Q4HR Y for Prn Pain/Headache/ Temp > 101, #30 TAB 0 Refills 02/06/17 Tramadol Hcl* (ULTRAM*) 50 Mg Tablet, 50 MG ORAL BEDTIME, #30 TAB 0 Refills 02/06/17 Tramadol Hcl* (ULTRAM*) 50 Mg Tablet, 50 MG ORAL DAILY Y for For Pain, #30 TAB 0 Refills 02/06/17 Protein Supplement (PROMOD) 946 Ml Liquid, 30 ML PO DAILY, ML 02/06/17 Zinc Sulfate (ZINC SULFATE*) 220 Mg Capsule, 220 MG ORAL DAILY, CAP 0 Refills 02/06/17 Ranitidine Hcl* (ZANTAC*) 150 Mg Tablet, 150 MG ORAL DAILY, #30 TAB 0 Refills 02/06/17 Fenofibrate Nanocrystallized (TRICOR) 48 Mg Tablet, 145 MG ORAL DAILY, #30 TAB 0 Refills 02/06/17 Pantoprazole* (PANTOPRAZOLE*) 40 Mg Tablet.dr, 40 MG GT DAILY, TAB 07/20/16 Metoprolol Tartrate (Metoprolol Tartrate) 25 Mg Tablet, 25 MG ORAL EVERY 12 HOURS, TAB Hold for SBP<110, HR<60, admin via G-tube 07/20/16 Multivitamin (MULTI-VITAMIN DAILY) 1 Each Tablet, 1 EACH PO DAILY, TAB 07/20/16 Ipratropium/Albuterol Sulfate (IPRAT-ALBUT 0.5-3(2.5) MG/3 ML) 3 Ml Ampul.neb, 3 ML IH EVERY 4 HOURS Y for Shortness of Breath, EA 07/20/16 Heparin Sodium,Porcine/Ns/Pf (Heparin) 2,000 Unit/1000 Ml Iv.soln, 5000 UNIT SUBQ EVERY 12 HOURS 07/20/16 Dextrose 50 % in Water (Dextrose 50%-Water IV Soln) 2,000 Ml Iv.soln, 50 ML IV DAILY Y for Hypoglycemia, ML 07/20/16 Ascorbic Acid* (ASCORBIC ACID*) 500 Mg Tablet, 500 MG GT DAILY, TAB via G-tube 07/20/16 Insulin Aspart* (NOVOLOG*) 100 Unit/1 Ml Insuln.pen, 0 SUBQ, #1 EA 0 Refills 07/12/16 [Oscal+D] No Conflict Check, 1 GT 07/12/16 Acetaminophen (Tylenol) 325 Mg Tablet, 650 MG ORAL EVERY 4 HOURS Y for TEMP, TAB 0 Refills 07/12/16 Acetaminophen* (TYLENOL EXTRA STRENGTH*) 500 Mg Tablet, 500 MG ORAL EVERY 4 HOURS Y for mild pain, TAB 0 Refills 07/12/16 Med list reviewed/reconciled: Yes Allergies: Coded Allergies: SULFAMETHOXAZOLE (Verified Allergy, Intermediate, 07/11/16) TRIMETHOPRIM (Verified Allergy, Intermediate, 07/11/16) Patient History Limited by: medical condition History Provided By: Family Member, Medical Record PMH Narrative Past Medical History: DM, HTN Past Surgical History: none Pertinent Family History: none Social History: Denies: alcohol use, drug use, smoking Now: No Immunizations: UTD Reviewed Nursing Documentation: PMH: Agreed, PSxH: Agreed Nursing Documentation-PM Hx Cardiac Problems: No Hx Hypertension: No Hx Pacemaker: No Hx Asthma: No Hx COPD: Yes - trach vent dependant Hx Diabetes: Yes Hx Cancer: No Hx Gastrointestinal Problems: No - gi bleed ,anemia,gtube Hx Dialysis: No History Of Psychiatric Problem: No Hx Neurological Problems: No Hx Cerebrovascular Accident: No Hx Parkinson's Disease: Yes Hx Seizures: No Hx Weakness: Yes Review of Systems All Other Systems: limited Physical Exam Vital Signs Date Time Temp Pulse Resp B/P Pulse Ox O2 Delivery O2 Flow Rate FiO2 04/15/17 11:45 98.1 92 16 131/68 98 Room Air 04/15/17 11:59 30 Sp02 EP Interpretation: reviewed General Appearance: no apparent distress Head: normocephalic Neck: supple Respiratory: other - mech vent Gastrointestinal: gt - mild erythema, most skin, minimal drainage Rectal: deferred Neurologic: alert, oriented x3 Skin: normal color, no rash Lymphatic: normal inspection, no adenopathy Current Medications Current Medications Medications (Trade) Dose Ordered Sig/Angie Route PRN Reason Start Time Stop Time Status Last Admin Dose Admin Acetaminophen (Tylenol) 650 mg EVERY 6 HOURS GT 04/17/17 00:00 04/23/17 00:00 04/17/17 05:29 Albuterol/ Ipratropium (DuoNeb 0.5-3(2.5)mg/3ml) 3 ml EVERY 4 HOURS PRN IN-LINE Shortness of Breath 04/15/17 17:00 04/20/17 16:59 Ascorbic Acid (Vitamin C) 500 mg DAILY GT 04/15/17 16:00 05/15/17 15:59 04/17/17 08:39 Carbidopa/Levodopa (Sinemet 25/100) 1 ea TID GT 04/15/17 20:00 05/15/17 19:59 04/17/17 08:39 Chlorhexidine Gluconate (Monica-Hex 2%) 1 applic DAILY TOPIC 04/16/17 09:00 05/16/17 08:59 04/17/17 08:39 Dextrose (Dextrose 50%) STAT PRN IV Hypoglycemia 04/15/17 21:45 05/15/17 21:44 Heparin Sodium (Porcine) (Heparin 5000 units/ml) 5,000 units EVERY 12 HOURS SUBQ 04/15/17 21:00 05/15/17 20:59 04/17/17 08:42 Insulin Aspart (NovoLOG) Q6HR SUBQ 04/16/17 00:00 05/16/17 00:00 04/17/17 05:32 Metoclopramide HCl (Reglan) 5 mg EVERY 8 HOURS GT 04/15/17 22:00 05/15/17 21:59 04/17/17 05:29 Metoprolol Tartrate (Lopressor) 25 mg EVERY 12 HOURS GT 04/16/17 09:00 05/16/17 08:59 04/17/17 08:39 Multivitamins (Multivitamins W/ Minerals 15ml Liquid) 15 ml DAILY GT 04/16/17 09:00 05/16/17 08:59 04/17/17 08:39 Pantoprazole (Protonix) 40 mg DAILY IVP 04/16/17 09:00 05/16/17 08:59 04/17/17 08:39 Zinc Sulfate (Zinc Sulfate) 220 mg DAILY GT 04/16/17 09:00 05/16/17 08:59 04/17/17 08:39 GI: Plan Problems: (1) Malfunction of gastrostomy tube (2) Hypoalbuminemia (3) Alkaline phosphatase elevation (4) Anemia Plan GT site care BID/prn - Ensure GT ring firmly clamped against abdomen, will consider change if continuously leaks GTFs per dietary OB stool r/o GI bleed monitor H&H, transfuse prn ppi fu labs Discussed with Dr. Rose. Thank you for referring this patient. SAMPSON ROSE 04/19/17 1030: History of Present Illness General Reason for Hospitalization: Abnormal Labs Present Illness Home Meds Active Scripts Vancomycin/0.9% Sod Chloride (VANCOMYCIN-0.9% NACL 1 G/250) 1 Gm/250 Ml Plast..bag, 1 GM IVPB Q48H for 7 Days, BAG Prov:MILES CARTWRIGHT 02/10/17 Cefepime Hcl/D5w (CEFEPIME-DEXTROSE 1 GM/50 ML) 1 Gm/50 Ml Piggyback, 1 GM IVPB Q24H for 7 Days, BAG Prov:MILES CARTWRIGHT 02/10/17 Reported Medications Cholecalciferol (Vitamin D3) (VITAMIN D) 2,000 Unit Capsule, 2000 UNIT GT DAILY , CAP 04/15/17 Acetaminophen 160MG/5ML* (ACETAMINOPHEN*) 160 Mg/5 Ml Elixir, 20 ML ORAL EVERY 4 HOURS Y for Fever/Headache/Mild Pain, ML 0 Refills 04/15/17 Carbidopa/Levodopa* (SINEMET 10-100 MG TABLET*) 1 Each Tablet, 1 TAB ORAL THREE TIMES A DAY for parkinson's disease, TAB 04/15/17 Metoclopramide Hcl (METOCLOPRAMIDE HCL) 5 Mg/5 Ml Solution, 5 MG PO TID for Nausea & Vomiting 04/15/17 Omeprazole (OMEPRAZOLE) 10 Mg Capsule.dr, 10 MG ORAL DAILY, #30 CAP 0 Refills 04/15/17 Magnesium Hydroxide (Milk of Magnesia) 400 Mg/5 Ml Oral.susp, 30 ML ORAL DAILY Y for Constipation, ML 04/15/17 Insulin Glargine (LANTUS) 100 Unit/1 Ml Insuln.pen, 28 UNITS SUBQ BEDTIME, #1 EA 0 Refills 04/15/17 Na Phos,M-B/Na Phos,Di-Ba (Fleet Enema) 133 Ml Enema, 133 ML RC 3XW Y for Constipation, EA 04/15/17 Ferrous Sulfate (Ferrous Sulfate) 300 Mg/5 Ml Liquid, 350 MG GT TID, ML 04/15/17 Epoetin Milton (Epogen) 10,000 Unit/1 Ml Vial, 32711 UNIT SUBQ 3XW for anemia, VIAL 04/15/17 Bisacodyl (BISCOLAX) 10 Mg Supp.rect, 10 MG RC Y for Constipation, SUPP 04/15/17 Digoxin (Digoxin) 50 Mcg/1 Ml Solution, 0.125 MG GT DAILY, ML 04/15/17 Chlorhexidine Gluconate (Chlorhexidine Gluconate) 15 Ml Mouthwash, 15 ML SHELTON TWICE A DAY, ML 04/15/17 Acetaminophen (Tylenol) 325 Mg Tablet, 650 MG ORAL Q4HR Y for Prn Pain/Headache/ Temp > 101, #30 TAB 0 Refills 02/06/17 Tramadol Hcl* (ULTRAM*) 50 Mg Tablet, 50 MG ORAL BEDTIME, #30 TAB 0 Refills 02/06/17 Tramadol Hcl* (ULTRAM*) 50 Mg Tablet, 50 MG ORAL DAILY Y for For Pain, #30 TAB 0 Refills 02/06/17 Protein Supplement (PROMOD) 946 Ml Liquid, 30 ML PO DAILY, ML 02/06/17 Zinc Sulfate (ZINC SULFATE*) 220 Mg Capsule, 220 MG ORAL DAILY, CAP 0 Refills 02/06/17 Ranitidine Hcl* (ZANTAC*) 150 Mg Tablet, 150 MG ORAL DAILY, #30 TAB 0 Refills 02/06/17 Fenofibrate Nanocrystallized (TRICOR) 48 Mg Tablet, 145 MG ORAL DAILY, #30 TAB 0 Refills 02/06/17 Pantoprazole* (PANTOPRAZOLE*) 40 Mg Tablet.dr, 40 MG GT DAILY, TAB 07/20/16 Metoprolol Tartrate (Metoprolol Tartrate) 25 Mg Tablet, 25 MG ORAL EVERY 12 HOURS, TAB Hold for SBP<110, HR<60, admin via G-tube 07/20/16 Multivitamin (MULTI-VITAMIN DAILY) 1 Each Tablet, 1 EACH PO DAILY, TAB 07/20/16 Ipratropium/Albuterol Sulfate (IPRAT-ALBUT 0.5-3(2.5) MG/3 ML) 3 Ml Ampul.neb, 3 ML IH EVERY 4 HOURS Y for Shortness of Breath, EA 07/20/16 Heparin Sodium,Porcine/Ns/Pf (Heparin) 2,000 Unit/1000 Ml Iv.soln, 5000 UNIT SUBQ EVERY 12 HOURS 07/20/16 Dextrose 50 % in Water (Dextrose 50%-Water IV Soln) 2,000 Ml Iv.soln, 50 ML IV DAILY Y for Hypoglycemia, ML 07/20/16 Ascorbic Acid* (ASCORBIC ACID*) 500 Mg Tablet, 500 MG GT DAILY, TAB via G-tube 07/20/16 Insulin Aspart* (NOVOLOG*) 100 Unit/1 Ml Insuln.pen, 0 SUBQ, #1 EA 0 Refills 07/12/16 [Oscal+D] No Conflict Check, 1 GT 07/12/16 Acetaminophen (Tylenol) 325 Mg Tablet, 650 MG ORAL EVERY 4 HOURS Y for TEMP, TAB 0 Refills 07/12/16 Acetaminophen* (TYLENOL EXTRA STRENGTH*) 500 Mg Tablet, 500 MG ORAL EVERY 4 HOURS Y for mild pain, TAB 0 Refills 07/12/16 Allergies: Coded Allergies: SULFAMETHOXAZOLE (Verified Allergy, Intermediate, 07/11/16) TRIMETHOPRIM (Verified Allergy, Intermediate, 07/11/16) GI: Plan Plan The patient was seen and examined at bedside and all new and available data was reviewed in the patients chart. I agree with the above findings, impression and plan. (Patient seen earlier today. Signature stamp does not reflect patient encounter time.). -Sampson Senior,Radha Arya Mae Apr 17, 2017 11:26 SAMPSON ROSE Apr 19, 2017 10:30
[2017-04-17 12:00] VITALS: BP 146/62
--- NOTE | 2017-04-17 15:20 | Wound Care Consultation ---
Wound Assessment Wound Assessment #1: Wound Number: #1 Wound Present on Admission: Yes Wound Location Body Site Modif: left Wound Location Body Site: heel Wound Type: pressure ulcer Bonita Test: Does not Bonita Pressure Ulcer Stage: deep tissue injury Wound Thickness: Full Thickness Wound Length: 5.0 Wound Width: 5.0 Wound Depth: utd Percent of Wound Purple/Maroon: 100 Wound Drainage Amount: None Wound Drainage Odor: None/Absent Tissue Surrounding Wound: Erythemic Wound General Appearance: Reddened Wound Assessment #2: Wound Number: #2 Wound Present on Admission: Yes New Wound: No Status Change of Wound: No Wound Location Body Site Modif: left, lower, lateral Wound Location Body Site: leg Wound Type: pressure ulcer Bonita Test: Does not Bonita Pressure Ulcer Stage: deep tissue injury - noted site DTI with surrounding full thickness scar tissue. Wound Thickness: Full Thickness Wound Length: 6.5 Wound Width: 2.0 Wound Depth: utd Percent of Wound Purple/Maroon: 100 Wound Drainage Amount: None Wound Drainage Odor: None/Absent Tissue Surrounding Wound: Erythemic Wound General Appearance: Reddened - maroon Wound Assessment #3: Wound Number: #3 Wound Present on Admission: Yes New Wound: No Status Change of Wound: No Wound Location Body Site Modif: left Wound Location Body Site: ischial tuberosity Wound Type: pressure ulcer Bonita Test: Does not Bonita Pressure Ulcer Stage: IV/unstageable Wound Thickness: Full Thickness Wound Length: 5.0 Wound Width: 3.0 Wound Depth: utd Percent of Wound Owings/Red: 80 Percent of Wound Bed Yellow/Wh: 20 Wound Drainage Description: Serosanguineous Wound Drainage Amount: Moderate Wound Drainage Odor: None/Absent Tissue Surrounding Wound: Macerated Wound General Appearance: Reddened, Draining Wound Assessment #4: Wound Number: #4 Wound Present on Admission: Yes New Wound: No Status Change of Wound: No Wound Location Body Site Modif: right Wound Location Body Site: heel Wound Type: pressure ulcer Bonita Test: Does not Bonita Pressure Ulcer Stage: IV/unstageable Wound Thickness: Full Thickness Wound Length: 9.0 Wound Width: 7.0 Wound Depth: utd Percent of Wound Black/Brown: 100 Wound Drainage Description: Serosanguineous Wound Drainage Amount: Moderate Wound Drainage Odor: None/Absent Tissue Surrounding Wound: Indurated Wound General Appearance: Draining, Necrotic Wound Assessment #5: Wound Number: #5 Wound Present on Admission: Yes New Wound: No Status Change of Wound: No Wound Location Body Site Modif: right Wound Location Body Site: ischial tuberosity Wound Type: pressure ulcer Bonita Test: Does not Bonita Pressure Ulcer Stage: IV/unstageable Wound Thickness: Full Thickness Wound Length: 4.0 Wound Width: 4.0 Wound Depth: utd Percent of Wound Owings/Red: 20 Percent of Wound Bed Yellow/Wh: 80 Wound Drainage Description: Serosanguineous Wound Drainage Amount: Moderate Wound Drainage Odor: None/Absent Tissue Surrounding Wound: Macerated Wound General Appearance: Reddened, Draining, Necrotic Wound Assessment #6: Wound Number: #6 Wound Present on Admission: Yes New Wound: No Status Change of Wound: No Wound Location Body Site: sacral Wound Type: pressure ulcer Bonita Test: Does not Bonita Pressure Ulcer Stage: IV/unstageable Wound Thickness: Full Thickness Wound Length: 14.0 Wound Width: 14.0 Wound Depth: 1.5 Percent of Wound Owings/Red: 100 Other Colors Identified: white, bone exposed Wound Drainage Description: Serosanguineous Wound Drainage Amount: Copious Wound Drainage Odor: None/Absent Tissue Surrounding Wound: Macerated Wound Undermining at 6:00: 4.0 Wound Undermining at 9:00: 1.0 Undermining Location: 5 & 9 Wound General Appearance: Reddened, Draining, Muscle Visible, Bone Visible Wound Assessment #7: Wound Number: #7 Wound Present on Admission: Yes New Wound: No Status Change of Wound: No Wound Location Body Site Modif: right, lower, lateral Wound Location Body Site: leg Wound Type: pressure ulcer Bonita Test: Does not Bonita Pressure Ulcer Stage: IV/unstageable Wound Thickness: Full Thickness Wound Length: 4.0 Wound Width: 2.5 Wound Depth: utd Percent of Wound Owings/Red: 20 Percent of Wound Bed Yellow/Wh: 80 Wound Drainage Description: Serosanguineous Wound Drainage Amount: Moderate Wound Drainage Odor: None/Absent Tissue Surrounding Wound: Macerated Wound General Appearance: Reddened, Draining, Necrotic Wound Assessment #8: Wound Number: #8 Wound Present on Admission: Yes New Wound: No Status Change of Wound: No Wound Location Body Site Modif: right Wound Location Body Site: toe - 3rd,4th and 5th toe Bonita Test: Does not Bonita Vascular Issues: gangrene Wound Thickness: Full Thickness Percent of Wound Black/Brown: 100 Wound Drainage Description: Serosanguineous Wound Drainage Amount: Scant Wound Drainage Odor: Foul Odor Tissue Surrounding Wound: Indurated Wound General Appearance: Draining, Necrotic Wound Assessment #9: Wound Number: #9 Wound Present on Admission: Yes New Wound: No Status Change of Wound: No Wound Location Body Site Modif: right, dorsal Wound Location Body Site: foot Wound Type: pressure ulcer Bonita Test: Does not Bonita Pressure Ulcer Stage: IV/unstageable Wound Thickness: Full Thickness Wound Length: 8.0 Wound Width: 3.0 Wound Depth: utd Percent of Wound Bed Yellow/Wh: 100 Wound Drainage Description: Serosanguineous Wound Drainage Amount: Moderate Wound Drainage Odor: None/Absent Tissue Surrounding Wound: Macerated Wound General Appearance: Reddened, Draining, Necrotic Wound Assessment #10: Wound Number: #10 Wound Present on Admission: Yes New Wound: No Status Change of Wound: No Wound Location Body Site Modif: right Wound Location Body Site: metatarsal head - 1st Wound Type: pressure ulcer Bonita Test: Does not Bonita Pressure Ulcer Stage: IV/unstageable Wound Thickness: Full Thickness Wound Length: 2.0 Wound Width: 3.0 Wound Depth: utd Percent of Wound Black/Brown: 100 Wound Drainage Amount: None Wound Drainage Odor: None/Absent Tissue Surrounding Wound: Erythemic Wound General Appearance: Necrotic Wound Assessment #11: Wound Number: #11 Wound Present on Admission: Yes New Wound: No Status Change of Wound: No Wound Location Body Site Modif: left Wound Location Body Site: other - hip Wound Type: scar Bonita Test: Does not Bonita Wound Thickness: Full Thickness Percent of Wound Owings/Red: 100 Wound Drainage Amount: None Wound Drainage Odor: None/Absent Tissue Surrounding Wound: Intact Wound General Appearance: Asymptomatic Wound Comment #1 Left Heel Deep tissue injury. #2 Left lateral Lower leg Deep Tissue Injury with full thickness scar tissue to site. #3 Left ischial Tuberosity IV/Unstageable pressure ulcer. #4 Right heel IV/Unstageable pressure ulcer. #5 Right Ischial Tuberosity IV/Unstageable pressure ulcer. #6 Sacral pressure ulcer stage IV. #7 Right lateral lower leg IV/Unstageable pressure ulcer. 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 #9 Right dorsal foot IV/Unstageable pressure ulcer. #10 Right 1st metatarsal head pressure ulcer stage IV/Unstageable #11 left hip scar tissue. Recommendation. -FOLLOW UP WITH MD FOR PODIATRY CONSULT. -Apply low air loss overlay mattress. -Local wound care as ordered. -Turn and reposition. -Offload affected sites. -Avoid shear and friction. -Heel protectors. -Keep clean and dry. -Assess and notify MD for any further changes of condition to skin. YOLANDA PIERRE Apr 17, 2017 15:20
[2017-04-17 16:00] VITALS: BP 133/57
[2017-04-17 20:00] VITALS: BP 110/52
[2017-04-18] VITALS: BP 124/61
[2017-04-18] MEDS: Acetaminophen 650mg/20.3ml GT SCH ×4 (00:05→17:27)
[2017-04-18] MEDS: NovoLOG Insulin Flexpen SUBQ SCH ×4 (00:08→17:29)
[2017-04-18 04:00] VITALS: BP 129/56
[2017-04-18 04:26] LABS: BASOPHILS % (AUTO) 0.7 % (0.0-2.0); EOSINOPHILS % (AUTO) 1.9 % (0.0-3.0); LYMPHOCYTES % (AUTO) 22.5 % (20.0-45.0); MEAN CORPUSCULAR HEMOGLOBIN 28.6 PG (27.0-31.0); MEAN CORPUSCULAR HGB CONC 32.1 G/DL (32.0-36.0); MEAN CORPUSCULAR VOLUME 89 FL (80-99); MEAN PLATELET VOLUME 5.7 FL (6.5-10.1); MONOCYTES % (AUTO) 7.1 % (1.0-10.0); NEUTROPHILS % (AUTO) 67.9 % (45.0-75.0); PLATELET COUNT 507 K/UL (150-450); RED CELL DISTRIBUTION WIDTH 18.8 % (11.6-14.8); WHITE BLOOD COUNT 8.8 K/UL (4.8-10.8)
[2017-04-18 04:58] LABS: ALANINE AMINOTRANSFERASE 5 U/L (3-33); ALBUMIN/GLOBULIN RATIO 0.3 (1.0-2.7); ANION GAP 14 (5-15); ASPARTATE AMINO TRANSFERASE 15 U/L (5-40); CALCIUM 8.4 mg/dL (8.6-10.2); CARBON DIOXIDE 25 mEQ/L (20-30); CHLORIDE 105 mEQ/L (98-107); CREATININE 0.7 mg/dL (0.5-0.9); HEMOLYSIS 8; POTASSIUM 3.5 mEQ/L (3.4-4.9); SODIUM 144 mEQ/L (135-145); TOTAL PROTEIN 5.5 g/dL (6.6-8.7)
[2017-04-18] MEDS: Metoclopramide 10mg/10ml Liq GT SCH ×3 (05:42→21:52)
[2017-04-18 07:53] VITALS: BP 123/57
--- NOTE | 2017-04-18 08:03 | General Progress Note ---
Assessment/Plan Problem List: (1) Toxic encephalopathy ICD Codes: G92 - Toxic encephalopathy SNOMED: 13186453 (2) Acute renal failure ICD Codes: N17.9 - Acute kidney failure, unspecified SNOMED: 05984979 (3) Altered level of consciousness ICD Codes: R40.4 - Transient alteration of awareness SNOMED: 9496607 (4) Severe sepsis ICD Codes: A41.9 - Sepsis, unspecified organism; R65.20 - Severe sepsis without septic shock SNOMED: 25150531 (5) Abnormal laboratory test result ICD Codes: R89.9 - Unspecified abnormal finding in specimens from other organs , systems and tissues SNOMED: 284214037 (6) Anemia ICD Codes: D64.9 - Anemia, unspecified SNOMED: 480839932 Qualifiers: Qualified Codes: D64.9 - Anemia, unspecified (7) UTI (urinary tract infection) ICD Codes: N39.0 - Urinary tract infection, site not specified SNOMED: 02614812 Qualifiers: Qualified Codes: N30.01 - Acute cystitis with hematuria Status: stable, progressing Assessment/Plan change picc line ib abx per id wound care vent resp rx gi apprecaited id consult Subjective ROS Limited/Unobtainable: Yes Constitutional: Reports: malaise, weakness HEENT: Reports: no symptoms Cardiovascular: Reports: no symptoms Respiratory: Reports: cough, shortness of breath Gastrointestinal/Abdominal: Reports: no symptoms Genitourinary: Reports: no symptoms Neurologic/Psychiatric: Reports: pre-existing deficit Endocrine: Reports: no symptoms Hematologic/Lymphatic: Reports: no symptoms Allergies: Coded Allergies: SULFAMETHOXAZOLE (Verified Allergy, Intermediate, 07/11/16) TRIMETHOPRIM (Verified Allergy, Intermediate, 07/11/16) All Systems: reviewed and negative except above Subjective no leaking from gt. no fever or chills. son wanted atc tylenol due to fever at snf. on iv abx. PICC line replaced. cultures noted Objective Last 24 Hour Vital Signs Date Time Temp Pulse Resp B/P Pulse Ox O2 Delivery O2 Flow Rate FiO2 04/18/17 07:53 98.2 71 18 123/57 100 Mechanical Ventilator 30 04/18/17 06:13 97.9 04/18/17 05:01 71 19 30 04/18/17 04:00 68 04/18/17 04:00 97.5 71 18 129/56 100 Mechanical Ventilator 30 04/18/17 04:00 30 04/18/17 03:16 66 15 30 04/18/17 00:59 69 12 30 04/18/17 00:00 97.5 77 18 124/61 100 Mechanical Ventilator 30 04/18/17 00:00 70 04/18/17 00:00 30 04/17/17 23:26 74 14 30 04/17/17 21:00 71 110/52 04/17/17 20:40 71 14 30 04/17/17 20:00 72 04/17/17 20:00 98.2 71 18 110/52 100 Mechanical Ventilator 30 04/17/17 20:00 30 04/17/17 18:58 73 18 30 04/17/17 17:21 69 20 30 04/17/17 16:00 97.3 71 18 133/57 100 Mechanical Ventilator 30 04/17/17 16:00 30 04/17/17 16:00 74 04/17/17 15:11 69 15 30 04/17/17 13:20 70 15 30 04/17/17 12:00 30 04/17/17 12:00 75 04/17/17 12:00 98.1 71 19 146/62 100 Mechanical Ventilator 30 04/17/17 10:52 69 16 30 04/17/17 09:14 71 19 30 04/17/17 08:39 73 123/50 Intake and Output 04/17/17 04/18/17 19:00 07:00 Intake Total 690 ml 505 ml Output Total 1150 ml 675 ml Balance -460 ml -170 ml Tube Feeding 540 ml 405 ml Other 150 ml 100 ml Output Urine Total 1100 ml 475 ml Stool Total 50 ml 200 ml Laboratory Tests 04/17/17 22:00: Stool Occult Blood Negative 04/18/17 03:00: White Blood Count 8.8, Red Blood Count 3.60L, Hemoglobin 10.3L, Hematocrit 32.1L , Mean Corpuscular Volume 89, Mean Corpuscular Hemoglobin 28.6, Mean Corpuscular Hemoglobin Concent 32.1, Red Cell Distribution Width 18.8H, Platelet Count 507H, Mean Platelet Volume 5.7L, Neutrophils (%) (Auto) 67.9, Lymphocytes (%) (Auto) 22.5, Monocytes (%) (Auto) 7.1, Eosinophils (%) (Auto) 1.9, Basophils (%) (Auto) 0.7, Sodium Level 144, Potassium Level 3.5, Chloride Level 105, Carbon Dioxide Level 25, Anion Gap 14, Blood Urea Nitrogen 14, Creatinine 0.7, Estimat Glomerular Filtration Rate , Glucose Level 125H, Calcium Level 8.4L, Total Bilirubin < 0.2, Aspartate Amino Transf (AST/SGOT) 15 , Alanine Aminotransferase (ALT/SGPT) 5, Alkaline Phosphatase 138H, Total Protein 5.5L, Albumin 1.5L, Globulin 4.0, Albumin/Globulin Ratio 0.3L Height (Feet): 5 Height (Inches): 4.00 Weight (Pounds): 1419 General Appearance: WD/WN, alert Neck: supple Cardiovascular: normal rate, regular rhythm Respiratory/Chest: lungs clear, normal breath sounds, no respiratory distress, no accessory muscle use Abdomen: normal bowel sounds, non tender, soft, no organomegaly Edema: no edema noted Arm (L), no edema noted Arm (R), no edema noted Leg (L), no edema noted Leg (R), no edema noted Pedal (L), no edema noted Pedal (R), no edema noted Generalized MILES CARTWRIGHT Apr 18, 2017 08:03
[2017-04-18] MEDS: Sinemet 25/100 tab GT SCH ×3 (08:15→17:25)
[2017-04-18] MEDS: Zinc Sulfate 220mg cap GT SCH (08:15)
[2017-04-18] MEDS: Metoprolol 25mg tab GT SCH ×2 (08:16→20:50)
[2017-04-18] MEDS: Dyna-Hex 2% Top Sol 8oz TOPIC SCH ×3 (08:16→21:00)
[2017-04-18] MEDS: Ascorbic Acid 500mg tab GT SCH (08:16)
[2017-04-18] MEDS: Heparin 5000 units/ml inj SUBQ SCH ×2 (08:17→20:57)
[2017-04-18] MEDS: Multivitamins W/Minerals 15 ML UDC GT SCH (08:17)
[2017-04-18] MEDS: Pantoprazole Inj IVP SCH (08:17)
--- NOTE | 2017-04-18 08:27 | Pulmonology Progress Note ---
Assessment/Plan Assessment/Plan respiratory failure trach GT ALOC chronic encephalopathy Osteo Anemia possible GIB diarrhea hypoxemia PLAN ventilator management exam without much change monitor labs nutrition supportive care wound care noted SNF meds continued PICC line care defer antibiotics to ID rectal tube stabilize d/w son impression, plan, and exam edited and reviewed in detail care discussed with RN Subjective ROS Limited/Unobtainable: Yes Allergies: Coded Allergies: SULFAMETHOXAZOLE (Verified Allergy, Intermediate, 07/11/16) TRIMETHOPRIM (Verified Allergy, Intermediate, 07/11/16) Subjective care reviewed findings noted on the ventilator Objective Last 24 Hour Vital Signs Date Time Temp Pulse Resp B/P Pulse Ox O2 Delivery O2 Flow Rate FiO2 04/18/17 08:16 71 123/57 04/18/17 07:53 98.2 71 18 123/57 100 Mechanical Ventilator 30 04/18/17 07:08 73 22 30 04/18/17 06:13 97.9 04/18/17 05:01 71 19 30 04/18/17 04:00 68 04/18/17 04:00 97.5 71 18 129/56 100 Mechanical Ventilator 30 04/18/17 04:00 30 04/18/17 03:16 66 15 30 04/18/17 00:59 69 12 30 04/18/17 00:00 97.5 77 18 124/61 100 Mechanical Ventilator 30 04/18/17 00:00 70 04/18/17 00:00 30 04/17/17 23:26 74 14 30 04/17/17 21:00 71 110/52 04/17/17 20:40 71 14 30 04/17/17 20:00 72 04/17/17 20:00 98.2 71 18 110/52 100 Mechanical Ventilator 30 04/17/17 20:00 30 04/17/17 18:58 73 18 30 04/17/17 17:21 69 20 30 04/17/17 16:00 97.3 71 18 133/57 100 Mechanical Ventilator 30 04/17/17 16:00 30 04/17/17 16:00 74 04/17/17 15:11 69 15 30 04/17/17 13:20 70 15 30 04/17/17 12:00 30 04/17/17 12:00 75 04/17/17 12:00 98.1 71 19 146/62 100 Mechanical Ventilator 30 04/17/17 10:52 69 16 30 04/17/17 09:14 71 19 30 04/17/17 08:39 73 123/50 Intake and Output 04/17/17 04/18/17 19:00 07:00 Intake Total 690 ml 505 ml Output Total 1150 ml 675 ml Balance -460 ml -170 ml Tube Feeding 540 ml 405 ml Other 150 ml 100 ml Output Urine Total 1100 ml 475 ml Stool Total 50 ml 200 ml Objective Sp02 EP Interpretation: reviewed, normal General Appearance: chronically ill Head: normocephalic, atraumatic Eyes: bilateral eye normal inspection Neck: normal inspection,trach, carotid 2+ Respiratory: decreased breath sounds, some rhonchi Cardiovascular #1: regular rate, rhythm, no murmur without MRG Gastrointestinal: non tender, soft, non-distended, no guarding, no rebound Musculoskeletal: no CC; edema +1 Neurologic: poor LOC Microbiology Date/Time Source Procedure Growth Status 04/15/17 12:20 Urine,Clean Catch Urine Culture - Preliminary YEAST Resulted 04/15/17 17:45 Sacral Wound Gram Stain - Final Resulted 04/15/17 17:45 Wound Culture - Preliminary Gram Negative Bacillus 1 Resulted Laboratory Tests 04/17/17 22:00: Stool Occult Blood Negative 04/18/17 03:00: White Blood Count 8.8, Red Blood Count 3.60L, Hemoglobin 10.3L, Hematocrit 32.1L , Mean Corpuscular Volume 89, Mean Corpuscular Hemoglobin 28.6, Mean Corpuscular Hemoglobin Concent 32.1, Red Cell Distribution Width 18.8H, Platelet Count 507H, Mean Platelet Volume 5.7L, Neutrophils (%) (Auto) 67.9, Lymphocytes (%) (Auto) 22.5, Monocytes (%) (Auto) 7.1, Eosinophils (%) (Auto) 1.9, Basophils (%) (Auto) 0.7, Sodium Level 144, Potassium Level 3.5, Chloride Level 105, Carbon Dioxide Level 25, Anion Gap 14, Blood Urea Nitrogen 14, Creatinine 0.7, Estimat Glomerular Filtration Rate , Glucose Level 125H, Calcium Level 8.4L, Total Bilirubin < 0.2, Aspartate Amino Transf (AST/SGOT) 15 , Alanine Aminotransferase (ALT/SGPT) 5, Alkaline Phosphatase 138H, Total Protein 5.5L, Albumin 1.5L, Globulin 4.0, Albumin/Globulin Ratio 0.3L Current Medications Medications (Trade) Dose Ordered Sig/Angie Route PRN Reason Start Time Stop Time Status Last Admin Dose Admin Acetaminophen (Tylenol) 650 mg EVERY 6 HOURS GT 04/17/17 00:00 04/23/17 00:00 04/18/17 05:43 Albuterol/ Ipratropium (DuoNeb 0.5-3(2.5)mg/3ml) 3 ml EVERY 4 HOURS PRN IN-LINE Shortness of Breath 04/15/17 17:00 04/20/17 16:59 Ascorbic Acid (Vitamin C) 500 mg DAILY GT 04/15/17 16:00 05/15/17 15:59 04/18/17 08:16 Carbidopa/Levodopa (Sinemet 25/100) 1 ea TID GT 04/15/17 20:00 05/15/17 19:59 04/18/17 08:15 Chlorhexidine Gluconate (Monica-Hex 2%) 1 applic DAILY TOPIC 04/16/17 09:00 05/16/17 08:59 04/18/17 08:16 Dextrose (Dextrose 50%) STAT PRN IV Hypoglycemia 04/15/17 21:45 05/15/17 21:44 Heparin Sodium (Porcine) (Heparin 5000 units/ml) 5,000 units EVERY 12 HOURS SUBQ 04/15/17 21:00 05/15/17 20:59 04/18/17 08:17 Insulin Aspart (NovoLOG) Q6HR SUBQ 04/16/17 00:00 05/16/17 00:00 04/18/17 05:45 Metoclopramide HCl (Reglan) 5 mg EVERY 8 HOURS GT 04/15/17 22:00 05/15/17 21:59 04/18/17 05:42 Metoprolol Tartrate (Lopressor) 25 mg EVERY 12 HOURS GT 04/16/17 09:00 05/16/17 08:59 04/18/17 08:16 Multivitamins (Multivitamins W/ Minerals 15ml Liquid) 15 ml DAILY GT 04/16/17 09:00 05/16/17 08:59 04/18/17 08:17 Pantoprazole (Protonix) 40 mg DAILY IVP 04/16/17 09:00 05/16/17 08:59 04/18/17 08:17 Zinc Sulfate (Zinc Sulfate) 220 mg DAILY GT 04/16/17 09:00 05/16/17 08:59 04/18/17 08:15 NIESHA TOLENTINO Apr 18, 2017 08:27
--- NOTE | 2017-04-18 11:16 | Diagnostic Imaging Report ---
Indication: intermediate manager venous access Findings: After the indications, procedure, risks, complications, and alternatives of the procedure were explained, written informed consent was obtained. The right upper extremity was prepped with alcohol. All elements of maximal sterile barrier technique were followed including usage of a cap, mask, sterile gown, sterile gloves, hand hygiene and a large sterile sheet. Sonographic evaluation of the upper extremity was performed demonstrating a patent and compressible basilic vein. Access was obtained under real-time ultrasound guidance and digital image was saved and archived. An .018 wire was introduced. Needle exchanged for a 5 Czech peel-away sheath. Measurements were obtained. A 5 Czech dual-lumen Power PICC line catheter was cut to 35 cm and introduced over the wire. Peel-away sheath and wire were removed.Catheter was secured to the skin using 2-0 Prolene suture. Both ports aspirate and flush easily. Post procedure chest x-ray demonstrates good position of the PICC line catheter within the SVC. Impression: Successful placement of an upper extremity PICC line catheter
[2017-04-18 11:44] VITALS: BP 112/57
[2017-04-18] MEDS: Fluconazole 100mg tab ORAL SCH (13:21)
--- NOTE | 2017-04-18 14:48 | Diagnostic Imaging Report ---
Indication: Cough Comparison: 04/15/17 A single view chest radiograph was obtained. Findings: There is a left pleural effusion. Hazy right opacity probably a pleural effusion as well. Heart is borderline enlarged and stable. PICC line and tracheostomy are again noted. Impression: No change from the previous exam. Suspected bilateral pleural effusions
[2017-04-18 15:56] VITALS: BP 131/59
[2017-04-18] MEDS: Vancomycin 1250mg/D5W 275ml IVPB SCH ×2 (17:28)
--- NOTE | 2017-04-18 19:30 | Consultation ---
DATE OF CONSULTATION: 04/18/2017 INFECTIOUS DISEASE CONSULTATION REFERRING PHYSICIAN: Christiano Moses M.D. REASON FOR CONSULTATION: Pneumonia. HISTORY OF PRESENTING ILLNESS: This is an 81-year-old lady with history of breast cancer, anoxic encephalopathy, CVA, respiratory failure, and status post tracheostomy who comes in from a group home facility with fever and chills. She was found to have a pneumonia and an Infectious Diseases consultation has been obtained for antibiotics. PAST MEDICAL HISTORY: 1. History of anoxic encephalopathy. 2. CVA. 3. Breast cancer. 4. Respiratory failure, status post tracheostomy. 5. Hypertension. 6. SVT. 7. Status post mastectomy. 8. Status post G-tube placement. MEDICATIONS: As an inpatient, the patient is on Tylenol, zinc sulfate, chlorhexidine, metoprolol, multivitamin, Protonix, insulin, Reglan, subcutaneous heparin, carbidopa levodopa, albuterol and ascorbic acid. ALLERGIES: Bactrim. SOCIAL HISTORY: No history of smoking, alcohol, or drug use. FAMILY HISTORY: Noncontributory. REVIEW OF SYSTEMS: Unable to obtain currently. PHYSICAL EXAMINATION: VITAL SIGNS: Temperature of 98.4 degrees, T-max of 98.4 degrees, pulse of 69, respiratory of 18, blood pressure 112/57 and O2 saturation of 100%. HEENT: Pupils equally reactive to light and accommodation. Mouth appears clean without thrush. NECK: Supple. No adenopathy. No JVD. CARDIOVASCULAR: Regular rate and rhythm. No murmurs. LUNGS: Clear to auscultation bilaterally. No crackles. No wheezes. ABDOMEN: Soft and nontender. G-tube site appears clean. EXTREMITIES: No cyanosis, no clubbing, and no edema. LABORATORY AND DIAGNOSTIC DATA: White count 8.8, hemoglobin 10.3, hematocrit 32.1, MCV 89, and platelet count of 507,000 with neutrophils of 67%. Sodium 144, potassium 3.5, chloride 105, bicarbonate 25, BUN 14, creatinine 0.7 and glucose 125. Calcium 8.4. Total bilirubin less than 0.2. AST 15, ALT 5 and alkaline phosphatase 138. Total protein 5.5. Albumin 1.5. Urinalysis showing 10 to 15 white cells. Urine culture growing yeast. Sacral wound culture is growing E. coli and gram-negative rods. Chest x-ray showing bilateral pleural effusion. ASSESSMENT: 1. This is an 81-year-old lady with history of respiratory failure, status post tracheostomy and anoxic encephalopathy, who comes in with a pneumonia. 2. She also has a fungal urinary tract infection. 3. Hypertension. 4. History of breast cancer. PLAN: 1. We will start the patient on vancomycin, Zosyn and fluconazole. 2. We will order sputum for Gram-stain and culture. 3. We will follow up cultures and adjust antibiotics accordingly. I would like to thank, Dr. Moses for this consultation. Za Mei M.D. DR: VICTORIA JOB#: [id number] CC: Christiano Moses M.D.
[2017-04-18 20:00] VITALS: BP 137/61
[2017-04-19] VITALS: BP 153/75
[2017-04-19] MEDS: Acetaminophen 650mg/20.3ml GT SCH ×4 (00:14→17:58)
[2017-04-19] MEDS ORDERED: Dyna-Hex 2% Top Sol 8oz TOPIC SCH (01:00)
[2017-04-19 04:00] VITALS: BP 149/70
[2017-04-19] MEDS: NovoLOG Insulin Flexpen SUBQ SCH ×4 (06:00→18:00)
[2017-04-19] MEDS: Metoclopramide 10mg/10ml Liq GT SCH ×3 (06:33→21:33)
--- NOTE | 2017-04-19 07:28 | General Progress Note ---
Assessment/Plan Assessment/Plan Assessment - GT site leak - Diarrhea, r/o C Diff - malnutrition, Albumin 1.4-1.5 range - Anemia - Resp failure / trach - encephalopathy / OBS - poor px Recommendations - check C Diff - Dressing changes - continue TF - monitor labs - protein supplements - may need G -- > J conversion - code status / level of care discussion Delayed entry note - Seen 04/18/17 Subjective Allergies: Coded Allergies: SULFAMETHOXAZOLE (Verified Allergy, Intermediate, 07/11/16) TRIMETHOPRIM (Verified Allergy, Intermediate, 07/11/16) Subjective Seen with son at bedside last pm son concerned about GT site leak GT replaced with larger caliber tube pt non verbal Diarrhea -->rectal tube d/w RN Objective Last 24 Hour Vital Signs Date Time Temp Pulse Resp B/P Pulse Ox O2 Delivery O2 Flow Rate FiO2 04/19/17 05:08 80 24 30 04/19/17 04:00 77 04/19/17 04:00 30 04/19/17 04:00 97.9 80 16 149/70 100 Nasal Cannula 04/19/17 03:19 77 20 30 04/19/17 01:10 88 21 30 04/19/17 00:00 98.1 84 15 153/75 100 Room Air 04/19/17 00:00 88 04/19/17 00:00 30 04/18/17 23:06 83 28 30 04/18/17 21:07 69 24 30 04/18/17 20:50 70 137/61 04/18/17 20:00 97.7 70 17 137/61 100 Nasal Cannula 04/18/17 20:00 69 04/18/17 20:00 30 04/18/17 19:16 69 21 30 04/18/17 16:49 71 24 30 04/18/17 16:00 30 04/18/17 16:00 69 04/18/17 15:56 98.1 67 23 131/59 100 Mechanical Ventilator 04/18/17 15:12 67 24 30 04/18/17 12:35 69 20 30 04/18/17 12:00 30 04/18/17 12:00 30 04/18/17 12:00 68 04/18/17 11:44 98.4 69 18 112/57 100 Mechanical Ventilator 30 04/18/17 11:21 69 17 30 04/18/17 09:06 65 17 30 04/18/17 08:16 71 123/57 04/18/17 08:00 30 04/18/17 07:59 75 04/18/17 07:53 98.2 71 18 123/57 100 Mechanical Ventilator 30 Intake and Output 04/18/17 04/19/17 19:00 07:00 Intake Total 964.783 ml 660 ml Output Total 800 ml 600 ml Balance 164.783 ml 60 ml IV Total 404.783 ml 100 ml Tube Feeding 440 ml 500 ml Other 120 ml 60 ml Output Urine Total 750 ml 550 ml Stool Total 50 ml 50 ml Height (Feet): 5 Height (Inches): 4.00 Weight (Pounds): 141 Objective obtunded woman NCAT (+) trach coarse BS RR soft ND NT, (+) 24 Fr GT with TF leak no edema OBS (+) rectal tube ANNETTE NEWMAN Apr 19, 2017 07:28
[2017-04-19 08:00] VITALS: BP 118/72
--- NOTE | 2017-04-19 08:02 | General Progress Note ---
Assessment/Plan Problem List: (1) Toxic encephalopathy ICD Codes: G92 - Toxic encephalopathy SNOMED: 91513752 (2) Acute renal failure ICD Codes: N17.9 - Acute kidney failure, unspecified SNOMED: 33708250 (3) Altered level of consciousness ICD Codes: R40.4 - Transient alteration of awareness SNOMED: 0236300 (4) Severe sepsis ICD Codes: A41.9 - Sepsis, unspecified organism; R65.20 - Severe sepsis without septic shock SNOMED: 76796008 (5) Abnormal laboratory test result ICD Codes: R89.9 - Unspecified abnormal finding in specimens from other organs , systems and tissues SNOMED: 290153461 (6) Anemia ICD Codes: D64.9 - Anemia, unspecified SNOMED: 711696392 Qualifiers: Qualified Codes: D64.9 - Anemia, unspecified (7) UTI (urinary tract infection) ICD Codes: N39.0 - Urinary tract infection, site not specified SNOMED: 36951959 Qualifiers: Qualified Codes: N30.01 - Acute cystitis with hematuria Assessment/Plan gi follow up regarding leaking gt monitor for fevers follow up cultures skin/wound care vent resp rx gt feeds d/w son Subjective ROS Limited/Unobtainable: Yes Constitutional: Reports: malaise, weakness HEENT: Reports: no symptoms Cardiovascular: Reports: no symptoms Respiratory: Reports: cough, shortness of breath Gastrointestinal/Abdominal: Reports: difficulty swallowing Genitourinary: Reports: no symptoms Neurologic/Psychiatric: Reports: pre-existing deficit, seizure Endocrine: Reports: no symptoms Hematologic/Lymphatic: Reports: anemia Allergies: Coded Allergies: SULFAMETHOXAZOLE (Verified Allergy, Intermediate, 07/11/16) TRIMETHOPRIM (Verified Allergy, Intermediate, 07/11/16) All Systems: reviewed and negative except above Subjective fever last night/this morning. better after given tylenol and ice packs. GT started leaking again this am. Objective Last 24 Hour Vital Signs Date Time Temp Pulse Resp B/P Pulse Ox O2 Delivery O2 Flow Rate FiO2 04/19/17 07:04 98.2 04/19/17 07:01 82 21 30 04/19/17 05:08 80 24 30 04/19/17 04:00 77 04/19/17 04:00 30 04/19/17 04:00 97.9 80 16 149/70 100 Nasal Cannula 04/19/17 03:19 77 20 30 04/19/17 01:10 88 21 30 04/19/17 00:00 98.1 84 15 153/75 100 Room Air 04/19/17 00:00 88 04/19/17 00:00 30 04/18/17 23:06 83 28 30 04/18/17 21:07 69 24 30 04/18/17 20:50 70 137/61 04/18/17 20:00 97.7 70 17 137/61 100 Nasal Cannula 04/18/17 20:00 69 04/18/17 20:00 30 04/18/17 19:16 69 21 30 04/18/17 16:49 71 24 30 04/18/17 16:00 30 04/18/17 16:00 69 04/18/17 15:56 98.1 67 23 131/59 100 Mechanical Ventilator 04/18/17 15:12 67 24 30 04/18/17 12:35 69 20 30 04/18/17 12:00 30 04/18/17 12:00 30 04/18/17 12:00 68 04/18/17 11:44 98.4 69 18 112/57 100 Mechanical Ventilator 30 04/18/17 11:21 69 17 30 04/18/17 09:06 65 17 30 04/18/17 08:16 71 123/57 Intake and Output 04/18/17 04/19/17 19:00 07:00 Intake Total 964.783 ml 660 ml Output Total 800 ml 600 ml Balance 164.783 ml 60 ml IV Total 404.783 ml 100 ml Tube Feeding 440 ml 500 ml Other 120 ml 60 ml Output Urine Total 750 ml 550 ml Stool Total 50 ml 50 ml Height (Feet): 5 Height (Inches): 4.00 Weight (Pounds): 141 General Appearance: WD/WN, lethargic, thin Neck: non-tender, normal alignment, supple, normal inspection Cardiovascular: normal rate Respiratory/Chest: chest wall non-tender, no respiratory distress, no accessory muscle use, rhonchi - bilaterally Abdomen: normal bowel sounds, non tender, soft, no organomegaly Edema: no edema noted Arm (L), no edema noted Arm (R), no edema noted Leg (L), no edema noted Leg (R), no edema noted Pedal (L), no edema noted Pedal (R), no edema noted Generalized Neurologic: unresponsive, aphasia MILES CARTWRIGHT Apr 19, 2017 08:02
[2017-04-19] MEDS: Fluconazole 100mg tab ORAL SCH (08:33)
[2017-04-19] MEDS: Multivitamins W/Minerals 15 ML UDC GT SCH (08:33)
[2017-04-19] MEDS: Sinemet 25/100 tab GT SCH ×3 (08:33→17:58)
[2017-04-19] MEDS: Ascorbic Acid 500mg tab GT SCH (08:33)
[2017-04-19] MEDS: Zinc Sulfate 220mg cap GT SCH (08:33)
[2017-04-19] MEDS: Metoprolol 25mg tab GT SCH ×2 (08:34→21:02)
[2017-04-19] MEDS: Heparin 5000 units/ml inj SUBQ SCH ×2 (08:34→21:03)
[2017-04-19] MEDS: Pantoprazole Inj IVP SCH (08:34)
[2017-04-19] MEDS ORDERED: NS 275ml ONE (10:23)
[2017-04-19] MEDS ORDERED: Tubing IV Secondary IV ONE (10:23)
--- NOTE | 2017-04-19 10:27 | Infectious Diseases Prog Note ---
Assessment/Plan Assessment/Plan antibiotics : vancomycin iv, zosyn, fluconazole A 1. fungal UTI 2. pneumonia 3. GT leak 4. respiratory failure P 1. continue vancomycin iv, zosyn, fluconazole 2. will follow up cultures Subjective ROS Limited/Unobtainable: Yes Allergies: Coded Allergies: SULFAMETHOXAZOLE (Verified Allergy, Intermediate, 07/11/16) TRIMETHOPRIM (Verified Allergy, Intermediate, 07/11/16) Objective Vital Signs Last 24 Hour Vital Signs Date Time Temp Pulse Resp B/P Pulse Ox O2 Delivery O2 Flow Rate FiO2 04/19/17 09:04 68 18 30 04/19/17 08:34 72 120/72 04/19/17 08:00 87 04/19/17 08:00 30 04/19/17 08:00 98.2 84 16 118/72 100 Mechanical Ventilator 30 04/19/17 07:04 98.2 04/19/17 07:01 82 21 30 04/19/17 05:08 80 24 30 04/19/17 04:00 77 04/19/17 04:00 30 04/19/17 04:00 97.9 80 16 149/70 100 Nasal Cannula 04/19/17 03:19 77 20 30 04/19/17 01:10 88 21 30 04/19/17 00:00 98.1 84 15 153/75 100 Room Air 04/19/17 00:00 88 04/19/17 00:00 30 04/18/17 23:06 83 28 30 04/18/17 21:07 69 24 30 04/18/17 20:50 70 137/61 04/18/17 20:00 97.7 70 17 137/61 100 Nasal Cannula 04/18/17 20:00 69 04/18/17 20:00 30 04/18/17 19:16 69 21 30 04/18/17 16:49 71 24 30 04/18/17 16:00 30 04/18/17 16:00 69 04/18/17 15:56 98.1 67 23 131/59 100 Mechanical Ventilator 04/18/17 15:12 67 24 30 04/18/17 12:35 69 20 30 04/18/17 12:00 30 04/18/17 12:00 30 04/18/17 12:00 68 04/18/17 11:44 98.4 69 18 112/57 100 Mechanical Ventilator 30 04/18/17 11:21 69 17 30 Height (Feet): 5 Height (Inches): 4.00 Weight (Pounds): 141 HEENT: status post trach Respiratory/Chest: lungs clear Cardiovascular: normal rate, regular rhythm, no gallop/murmur Abdomen: soft, non tender, other - GT leak Extremities: no edema, other - right arm PICC Microbiology Date/Time Source Procedure Growth Status 04/18/17 12:30 Sputum Gram Stain Pending Resulted 04/18/17 12:30 Sputum Sputum Culture - Preliminary Resulted 04/18/17 22:00 Stool Clostridium difficile Toxin Assay - Final Complete 04/17/17 14:00 Arm Right Catheter Tip Culture - Preliminary NO GROWTH AFTER 24 HOURS Resulted GRACE BENAVIDES Apr 19, 2017 10:27
[2017-04-19 12:00] VITALS: BP 116/55
[2017-04-19 16:00] VITALS: BP 120/58
--- NOTE | 2017-04-19 17:31 | Pulmonology Progress Note ---
Assessment/Plan Assessment/Plan respiratory failure trach GT ALOC chronic encephalopathy Osteo Anemia possible GIB diarrhea hypoxemia PLAN ventilator management without change exam without much change monitor labs nutrition as is supportive care wound care noted SNF meds continued PICC line care rectal tube stabilize prognosis poor impression, plan, and exam edited and reviewed in detail care discussed with RN Subjective ROS Limited/Unobtainable: Yes Allergies: Coded Allergies: SULFAMETHOXAZOLE (Verified Allergy, Intermediate, 07/11/16) TRIMETHOPRIM (Verified Allergy, Intermediate, 07/11/16) Subjective care reviewed findings noted on the ventilator Objective Last 24 Hour Vital Signs Date Time Temp Pulse Resp B/P Pulse Ox O2 Delivery O2 Flow Rate FiO2 04/19/17 16:40 73 14 30 04/19/17 16:00 80 04/19/17 16:00 98.1 76 23 120/58 100 Mechanical Ventilator 30 04/19/17 16:00 30 04/19/17 15:17 82 18 30 04/19/17 12:47 98.1 04/19/17 12:34 72 20 30 04/19/17 12:00 81 04/19/17 12:00 98.1 81 17 116/55 100 Mechanical Ventilator 30 04/19/17 12:00 30 04/19/17 11:01 69 19 30 04/19/17 09:04 68 18 30 04/19/17 08:34 72 120/72 04/19/17 08:00 87 04/19/17 08:00 30 04/19/17 08:00 98.2 84 16 118/72 100 Mechanical Ventilator 30 04/19/17 07:01 82 21 30 04/19/17 05:08 80 24 30 04/19/17 04:00 77 04/19/17 04:00 30 04/19/17 04:00 97.9 80 16 149/70 100 Nasal Cannula 04/19/17 03:19 77 20 30 04/19/17 01:10 88 21 30 04/19/17 00:00 98.1 84 15 153/75 100 Room Air 04/19/17 00:00 88 04/19/17 00:00 30 04/18/17 23:06 83 28 30 04/18/17 21:07 69 24 30 04/18/17 20:50 70 137/61 04/18/17 20:00 97.7 70 17 137/61 100 Nasal Cannula 04/18/17 20:00 69 04/18/17 20:00 30 04/18/17 19:16 69 21 30 Intake and Output 04/18/17 04/19/17 19:00 07:00 Intake Total 964.783 ml 810 ml Output Total 800 ml 600 ml Balance 164.783 ml 210 ml IV Total 404.783 ml 100 ml Tube Feeding 440 ml 600 ml Other 120 ml 110 ml Output Urine Total 750 ml 550 ml Stool Total 50 ml 50 ml # Bowel Movements 2 Objective Sp02 EP Interpretation: reviewed, normal General Appearance: chronically ill Head: normocephalic, atraumatic Eyes: bilateral eye normal inspection Neck: normal inspection,trach, carotid 2+ Respiratory: decreased breath sounds, some rhonchi Cardiovascular #1: regular rate, rhythm, no murmur without MRG Gastrointestinal: non tender, soft, non-distended, no guarding, no rebound Musculoskeletal: no CC; edema +1 Neurologic: poor LOC Microbiology Date/Time Source Procedure Growth Status 04/18/17 12:30 Sputum Gram Stain - Final Resulted 04/18/17 12:30 Sputum Sputum Culture - Preliminary Resulted 04/18/17 22:00 Stool Clostridium difficile Toxin Assay - Final Complete 04/17/17 14:00 Arm Right Catheter Tip Culture - Preliminary NO GROWTH AFTER 24 HOURS Resulted Current Medications Medications (Trade) Dose Ordered Sig/Angie Route PRN Reason Start Time Stop Time Status Last Admin Dose Admin Acetaminophen (Tylenol) 650 mg EVERY 6 HOURS GT 04/17/17 00:00 04/23/17 00:00 04/19/17 12:17 Albuterol/ Ipratropium (DuoNeb 0.5-3(2.5)mg/3ml) 3 ml EVERY 4 HOURS PRN IN-LINE Shortness of Breath 04/15/17 17:00 04/20/17 16:59 Ascorbic Acid (Vitamin C) 500 mg DAILY GT 04/15/17 16:00 05/15/17 15:59 04/19/17 08:33 Carbidopa/Levodopa (Sinemet 25/100) 1 ea TID GT 04/15/17 20:00 05/15/17 19:59 04/19/17 12:16 Chlorhexidine Gluconate (Monica-Hex 2%) 1 applic QHS TOPIC 04/18/17 21:00 05/18/17 20:59 Dextrose (Dextrose 50%) STAT PRN IV Hypoglycemia 04/15/17 21:45 05/15/17 21:44 Fluconazole 100 mg 100 mg DAILY ORAL 04/18/17 14:00 04/25/17 13:59 04/19/17 08:33 Heparin Sodium (Porcine) (Heparin 5000 units/ml) 5,000 units EVERY 12 HOURS SUBQ 04/15/17 21:00 05/15/17 20:59 04/19/17 08:34 Insulin Aspart (NovoLOG) Q6HR SUBQ 04/16/17 00:00 05/16/17 00:00 04/18/17 17:29 Lansoprazole (Prevacid) 30 mg DAILY GT 04/20/17 09:00 05/20/17 08:59 Metoclopramide HCl (Reglan) 5 mg EVERY 8 HOURS GT 04/15/17 22:00 05/15/17 21:59 04/19/17 13:36 Metoprolol Tartrate (Lopressor) 25 mg EVERY 12 HOURS GT 04/16/17 09:00 05/16/17 08:59 04/19/17 08:34 Multivitamins (Multivitamins W/ Minerals 15ml Liquid) 15 ml DAILY GT 04/16/17 09:00 05/16/17 08:59 04/19/17 08:33 Piperacillin Sod/ Tazobactam Sod/ Dextrose (Zosyn/D5W) 100 ml @ 25 mls/hr EVERY 8 HOURS IV 04/18/17 14:00 04/23/17 13:59 04/19/17 13:36 Vancomycin HCl 1 ea 1 ea DAILY PRN MISC . 04/18/17 12:00 05/18/17 11:59 Vancomycin HCl/ Dextrose (Vancomycin/D5W) 275 ml @ 183.333 mls/hr Q24H IVPB 04/18/17 18:00 04/23/17 17:59 04/18/17 17:28 Zinc Sulfate (Zinc Sulfate) 220 mg DAILY GT 04/16/17 09:00 05/16/17 08:59 04/19/17 08:33 NIESHA TOLENTINO Apr 19, 2017 17:31
[2017-04-19] MEDS: Vancomycin 1250mg/D5W 275ml IVPB SCH ×2 (18:13)
[2017-04-19] MEDS ORDERED: D5 1/2NS 1,000 ML IV SCH (20:15)
[2017-04-19 20:27] VITALS: BP 122/56
[2017-04-19] MEDS: Dyna-Hex 2% Top Sol 8oz TOPIC SCH (21:03)
--- NOTE | 2017-04-19 21:58 | General Progress Note ---
Assessment/Plan Assessment/Plan Assessment - GT site leak - Diarrhea, r/o C Diff - malnutrition, Albumin 1.4-1.5 range - Anemia - Resp failure / trach - encephalopathy / OBS - poor px Recommendations - GT site Dressing changes - continue TF at low rate as tolerated - monitor labs - protein supplements - code status / level of care discussion Subjective Allergies: Coded Allergies: SULFAMETHOXAZOLE (Verified Allergy, Intermediate, 07/11/16) TRIMETHOPRIM (Verified Allergy, Intermediate, 07/11/16) Subjective patient is C Diff negative significant GT leak noted d/W RN explained need for G --> J conversion via Arabic RN to patient Son refusing G --> J conversion son understands cant properly feed pt with current set up Objective Last 24 Hour Vital Signs Date Time Temp Pulse Resp B/P Pulse Ox O2 Delivery O2 Flow Rate FiO2 04/19/17 21:27 86 21 30 04/19/17 21:02 85 122/56 04/19/17 20:27 97.7 85 23 122/56 99 Mechanical Ventilator 04/19/17 20:00 30 04/19/17 20:00 84 04/19/17 19:19 81 25 30 04/19/17 18:28 98.1 04/19/17 16:40 73 14 30 04/19/17 16:00 80 04/19/17 16:00 98.1 76 23 120/58 100 Mechanical Ventilator 30 04/19/17 16:00 30 04/19/17 15:17 82 18 30 04/19/17 12:34 72 20 30 04/19/17 12:00 81 04/19/17 12:00 98.1 81 17 116/55 100 Mechanical Ventilator 30 04/19/17 12:00 30 04/19/17 11:01 69 19 30 04/19/17 09:04 68 18 30 04/19/17 08:34 72 120/72 04/19/17 08:00 87 04/19/17 08:00 30 04/19/17 08:00 98.2 84 16 118/72 100 Mechanical Ventilator 30 04/19/17 07:01 82 21 30 04/19/17 05:08 80 24 30 04/19/17 04:00 77 04/19/17 04:00 30 04/19/17 04:00 97.9 80 16 149/70 100 Nasal Cannula 04/19/17 03:19 77 20 30 04/19/17 01:10 88 21 30 04/19/17 00:00 98.1 84 15 153/75 100 Room Air 04/19/17 00:00 88 04/19/17 00:00 30 04/18/17 23:06 83 28 30 Intake and Output 04/18/17 04/19/17 19:00 07:00 Intake Total 964.783 ml 810 ml Output Total 800 ml 600 ml Balance 164.783 ml 210 ml IV Total 404.783 ml 100 ml Tube Feeding 440 ml 600 ml Other 120 ml 110 ml Output Urine Total 750 ml 550 ml Stool Total 50 ml 50 ml # Bowel Movements 2 Height (Feet): 5 Height (Inches): 4.00 Weight (Pounds): 141 Objective obtunded woman NCAT (+) trach coarse BS RR soft ND NT, (+) 24 Fr GT with TF leak no edema OBS (+) rectal tube ANNETTE NEWMAN Apr 19, 2017 21:58
[2017-04-20] VITALS: BP 119/53
[2017-04-20] MEDS: Acetaminophen 650mg/20.3ml GT SCH ×3 (00:17→12:33)
--- NOTE | 2017-04-20 01:30 | Progress Note ---
DATE: 04/19/2017 CARDIOLOGY PROGRESS NOTE SUBJECTIVE: The patient had fevers last night. Cooling packs were placed. Her G-tube is nonfunctional. She was seen by Dr. Sahu. Plans are for replacement of G-tube to J-tube. OBJECTIVE: VITAL SIGNS: T-max 102 degrees, blood pressure 120/58, pulse 80, and respirations 23. Monitored rhythm sinus and sinus tachycardia. LUNGS: Coarse breath sounds. Scattered rhonchi. HEART: Regular rhythm. Rapid rate. Normal S1 and S2 with a fourth heart sound. ABDOMEN: Soft. G-tube intact. Trach site with thin secretions. PICC line site is clean and dry. DIAGNOSTIC DATA: Chest x-ray from 04/18/2017 reviewed and revealed bilateral pleural effusion, left greater than right. IMPRESSION: 1. Respiratory failure. 2. Tracheostomy. 3. Sepsis. 4. Healthcare-acquired pneumonia. 5. Secondary sinus tachycardia. 6. Chronic diastolic congestive heart failure. 7. Anemia of chronic disease. 8. Gastrostomy tube malfunction. 9. Diabetes mellitus. 10. Gastroparesis. PLAN: 1. Stable from cardiac standpoint for G-tube to J-tube conversion. 2. Continue antibiotics, antipyretics, and hydration by IV route. 3. Feedings on hold. 4. DVT prophylaxis. 5. The patient remains high risk. Raymond Salazar M.D. DR: BEKAH JOB#: [id number] CC:
[2017-04-20 04:00] VITALS: BP 114/55
[2017-04-20] MEDS: Metoclopramide 10mg/10ml Liq GT SCH ×2 (05:40→14:00)
[2017-04-20] MEDS: NovoLOG Insulin Flexpen SUBQ SCH ×3 (05:41→12:00)
[2017-04-20 08:00] VITALS: BP 134/59
[2017-04-20] MEDS ORDERED: DIFLUCAN100 MG ORAL (08:25)
[2017-04-20] MEDS ORDERED: VANCOMYCIN1.25 GM/25 IVPB (08:25)
[2017-04-20] MEDS ORDERED: ZOSYN 3.373.375 GM/1 IVPB (08:25)
[2017-04-20] MEDS: Metoprolol 25mg tab GT SCH (09:00)
[2017-04-20] MEDS: Multivitamins W/Minerals 15 ML UDC GT SCH (09:00)
[2017-04-20] MEDS: Zinc Sulfate 220mg cap GT SCH (09:47)
[2017-04-20] MEDS: Sinemet 25/100 tab GT SCH ×2 (09:47→12:33)
[2017-04-20] MEDS: Fluconazole 100mg tab ORAL SCH (09:47)
[2017-04-20] MEDS: Ascorbic Acid 500mg tab GT SCH (09:48)
[2017-04-20] MEDS: Heparin 5000 units/ml inj SUBQ SCH (09:50)
--- NOTE | 2017-04-20 11:01 | Infectious Diseases Prog Note ---
Assessment/Plan Assessment/Plan A 1. fungal UTI 2. pneumonia 3. GT leak 4. respiratory failure on ventilator P 1. continue vancomycin iv, Zosyn, fluconazole 2. will follow up cultures Subjective ROS Limited/Unobtainable: Yes Allergies: Coded Allergies: SULFAMETHOXAZOLE (Verified Allergy, Intermediate, 07/11/16) TRIMETHOPRIM (Verified Allergy, Intermediate, 07/11/16) Objective Vital Signs Last 24 Hour Vital Signs Date Time Temp Pulse Resp B/P Pulse Ox O2 Delivery O2 Flow Rate FiO2 04/20/17 09:25 83 20 30 04/20/17 09:00 81 134/59 04/20/17 08:00 98.5 85 20 134/59 100 Mechanical Ventilator 30 04/20/17 08:00 81 04/20/17 08:00 30 04/20/17 07:30 88 25 30 04/20/17 06:11 98.3 04/20/17 05:14 89 21 30 04/20/17 04:00 98.2 91 28 114/55 100 Mechanical Ventilator 30 04/20/17 04:00 80 04/20/17 04:00 30 04/20/17 03:05 78 23 30 04/20/17 00:51 85 20 30 04/20/17 00:10 30 04/20/17 00:00 98.3 87 25 119/53 99 Mechanical Ventilator 30 04/20/17 00:00 86 04/19/17 22:36 91 25 30 04/19/17 21:27 86 21 30 04/19/17 21:02 85 122/56 04/19/17 20:27 97.7 85 23 122/56 99 Mechanical Ventilator 04/19/17 20:00 30 04/19/17 20:00 84 04/19/17 19:19 81 25 30 04/19/17 16:40 73 14 30 04/19/17 16:00 80 04/19/17 16:00 98.1 76 23 120/58 100 Mechanical Ventilator 30 04/19/17 16:00 30 04/19/17 15:17 82 18 30 04/19/17 12:34 72 20 30 04/19/17 12:00 81 04/19/17 12:00 98.1 81 17 116/55 100 Mechanical Ventilator 30 04/19/17 12:00 30 04/19/17 11:01 69 19 30 Height (Feet): 5 Height (Inches): 4.00 Weight (Pounds): 141 General Appearance: no acute distress HEENT: status post trach Respiratory/Chest: lungs clear, other - on ventilator Cardiovascular: normal rate Abdomen: soft, non tender, other - GT feeding Extremities: other - R arm PICC line Skin: ulcers, other - necrotic ulcers on R heel, R 4 & 5 toes Neurologic/Psychiatric: other - opens eyes Musculoskeletal: atrophy Microbiology Date/Time Source Procedure Growth Status 04/18/17 12:30 Sputum Gram Stain - Final Resulted 04/18/17 12:30 Sputum Culture - Preliminary Gram Negative Bacillus 1 Resulted 04/18/17 22:00 Stool Clostridium difficile Toxin Assay - Final Complete 04/17/17 14:00 Arm Right Catheter Tip Culture - Preliminary NO GROWTH AFTER 48 HOURS Resulted Current Medications Medications (Trade) Dose Ordered Sig/Angie Route PRN Reason Start Time Stop Time Status Last Admin Dose Admin Acetaminophen (Tylenol) 650 mg EVERY 6 HOURS GT 04/17/17 00:00 04/23/17 00:00 04/20/17 05:41 Albuterol/ Ipratropium (DuoNeb 0.5-3(2.5)mg/3ml) 3 ml EVERY 4 HOURS PRN IN-LINE Shortness of Breath 04/15/17 17:00 04/20/17 16:59 Ascorbic Acid (Vitamin C) 500 mg DAILY GT 04/15/17 16:00 05/15/17 15:59 04/20/17 09:48 Carbidopa/Levodopa (Sinemet 25/100) 1 ea TID GT 04/15/17 20:00 05/15/17 19:59 04/20/17 09:47 Chlorhexidine Gluconate (Monica-Hex 2%) 1 applic QHS TOPIC 04/18/17 21:00 05/18/17 20:59 04/19/17 21:03 Dextrose (Dextrose 50%) STAT PRN IV Hypoglycemia 04/15/17 21:45 05/15/17 21:44 Dextrose/Sodium Chloride (D5 0.45% NS) 1,000 ml @ 50 mls/hr Q20H IV 04/19/17 20:15 05/19/17 20:14 04/19/17 21:02 Fluconazole 100 mg 100 mg DAILY ORAL 04/18/17 14:00 04/25/17 13:59 04/20/17 09:47 Heparin Sodium (Porcine) (Heparin 5000 units/ml) 5,000 units EVERY 12 HOURS SUBQ 04/15/17 21:00 05/15/17 20:59 04/20/17 09:50 Insulin Aspart (NovoLOG) Q6HR SUBQ 04/16/17 00:00 05/16/17 00:00 04/18/17 17:29 Lansoprazole 30 mg 30 mg DAILY GT 04/20/17 09:00 05/20/17 08:59 04/20/17 09:48 Metoclopramide HCl (Reglan) 5 mg EVERY 8 HOURS GT 04/15/17 22:00 05/15/17 21:59 04/20/17 05:40 Metoprolol Tartrate (Lopressor) 25 mg EVERY 12 HOURS GT 04/16/17 09:00 05/16/17 08:59 04/20/17 09:00 Multivitamins (Multivitamins W/ Minerals 15ml Liquid) 15 ml DAILY GT 04/16/17 09:00 05/16/17 08:59 04/20/17 09:00 Piperacillin Sod/ Tazobactam Sod/ Dextrose (Zosyn/D5W) 100 ml @ 25 mls/hr EVERY 8 HOURS IV 04/18/17 14:00 04/23/17 13:59 04/20/17 05:41 Vancomycin HCl 1 ea 1 ea DAILY PRN MISC . 04/18/17 12:00 05/18/17 11:59 Vancomycin HCl/ Dextrose (Vancomycin/D5W) 275 ml @ 183.333 mls/hr Q24H IVPB 04/18/17 18:00 04/23/17 17:59 04/19/17 18:13 Zinc Sulfate (Zinc Sulfate) 220 mg DAILY GT 04/16/17 09:00 05/16/17 08:59 04/20/17 09:47 MARTIN LARSEN Apr 20, 2017 11:01
[2017-04-20 12:00] VITALS: BP 117/57
[2017-04-20] MEDS ORDERED: NS 275ml ONE (14:59)
[2017-04-20] MEDS ORDERED: D5 1/2NS 1000ml IV ONE (14:59)
[2017-04-20] MEDS ORDERED: Tubing IV Secondary IV ONE (14:59)
--- NOTE | 2017-04-20 21:14 | General Progress Note ---
Assessment/Plan Assessment/Plan Assessment - GT site leak - Diarrhea - malnutrition, Albumin 1.4-1.5 range - Anemia - Resp failure / trach - encephalopathy / OBS - poor px Recommendations - GT site Dressing changes - continue TF at low rate as tolerated - monitor labs - protein supplements - code status / level of care discussion Subjective Allergies: Coded Allergies: SULFAMETHOXAZOLE (Verified Allergy, Intermediate, 07/11/16) TRIMETHOPRIM (Verified Allergy, Intermediate, 07/11/16) Subjective patient to be d/c today d/W RN patient non verbal Objective Last 24 Hour Vital Signs Date Time Temp Pulse Resp B/P Pulse Ox O2 Delivery O2 Flow Rate FiO2 04/20/17 13:03 98.4 04/20/17 13:02 88 13 30 04/20/17 12:00 98.4 76 25 117/57 100 Mechanical Ventilator 30 04/20/17 12:00 30 04/20/17 12:00 75 04/20/17 11:11 79 22 30 04/20/17 09:25 83 20 30 04/20/17 09:00 81 134/59 04/20/17 08:00 98.5 85 20 134/59 100 Mechanical Ventilator 30 04/20/17 08:00 81 04/20/17 08:00 30 04/20/17 07:30 88 25 30 04/20/17 05:14 89 21 30 04/20/17 04:00 98.2 91 28 114/55 100 Mechanical Ventilator 30 04/20/17 04:00 80 04/20/17 04:00 30 04/20/17 03:05 78 23 30 04/20/17 00:51 85 20 30 04/20/17 00:10 30 04/20/17 00:00 98.3 87 25 119/53 99 Mechanical Ventilator 30 04/20/17 00:00 86 04/19/17 22:36 91 25 30 04/19/17 21:27 86 21 30 Intake and Output 04/19/17 04/20/17 19:00 07:00 Intake Total 725 ml 663.0 ml Output Total 1000 ml 1000 ml Balance -275 ml -337.0 ml IV Total 475 ml 583.0 ml Tube Feeding 100 ml Other 150 ml 80 ml Output Urine Total 1000 ml 1000 ml # Bowel Movements 7 5 Height (Feet): 5 Height (Inches): 4.00 Weight (Pounds): 141 Objective obtunded woman NCAT (+) trach coarse BS RR soft ND NT, (+) 24 Fr GT with TF leak no edema OBS (+) rectal tube ANNETTE NEWMAN Apr 20, 2017 21:14
--- NOTE | 2017-04-20 23:45 | Progress Note ---
DATE: 04/20/2017 CARDIOLOGY PROGRESS NOTE SUBJECTIVE: The patient remains on ventilator support. The patient is status post G-tube repair. OBJECTIVE: VITAL SIGNS: Blood pressure 134/59, pulse 81, respirations 20, and afebrile. NECK: Thin trach secretions. LUNGS: Bilateral breath sounds. HEART: Regular rhythm and rate. Normal S1 and S2. ABDOMEN: Soft. G-tube intact. EXTREMITIES: No edema. IMPRESSION: 1. Fungal urinary tract infection. 2. Pneumonia. 3. Gastrostomy tube malfunction status post repair. 4. Chronic ventilator-dependent respiratory failure. 5. Secondary sinus tachycardia. 6. Type 2 diabetes mellitus. 7. Hypertensive heart disease. 8. Chronic diastolic congestive heart failure. PLAN: 1. Resume feedings per gastrointestinal. 2. Monitor electrolytes and cardiorenal parameters. 3. Complete recovery at subacute facility. Raymond Salazar M.D. DR: BARBARA JOB#: [id number] CC:
--- NOTE | 2017-04-21 01:15 | Discharge Summary ---
DATE OF ADMISSION: 04/15/2017 DATE OF DISCHARGE: 04/20/2017 ADMISSION DIAGNOSES: 1. Sepsis. 2. Anemia. 3. Possible fungemia. 4. Anoxic encephalopathy. 5. Seizure disorder. 6. History of breast cancer. 7. History of stroke. DISCHARGE DIAGNOSES: 1. Sepsis. 2. Anemia. 3. Possible fungemia. 4. Anoxic encephalopathy. 5. Seizure disorder. 6. History of breast cancer. 7. History of stroke. HOSPITAL COURSE: The patient is an unfortunate female with complaints of sepsis. She was also anemic. She was transfused. Stool occult blood was negative. She received IV antibiotics that were adjusted by the ID sales enablement consultant. The patient's hospital course was complicated leaking from her G-tube, but family declined replacement. Plan is for the patient is to return back to [facility] on IV fluids. The patient will be readmitted for placement of a J-tube in several days as an outpatient. DISCHARGE MEDICATIONS: Please see discharge medication list for discharge medications. DIET: Currently NPO except for medications. ACTIVITY: Ad-kaylee. FOLLOWUP: The patient is to follow up in one to two days in [facility] facility. Christiano Moses M.D. DR: FRANK JOB#: [id number] CC:
--- NOTE | 2017-04-23 22:45 | Cardiology Report ---
APPROVED REPORT EKG Measurement Heart [id number] Normal sinus rhythm Nonspecific T wave abnormality Abnormal ECG
--- NOTE | 2017-04-24 03:45 | Progress Note ---
DATE: 04/18/2017 CARDIOLOGY PROGRESS NOTE Late entry for 04/18/2017. SUBJECTIVE: The patient remains on ventilator support via tracheostomy. Tolerating feedings by G-tube. Noncommunicative. Monitor sinus and sinus tachycardia. OBJECTIVE: VITAL SIGNS: Blood pressure 123/57, heart rate 71, and respiratory rate 18 to 22. The patient remains afebrile. LUNGS: Coarse breath sounds. Thin trach secretions. Scattered rhonchi. HEART: Regular rhythm and rate. Normal S1 and S2 with a fourth heart sound. ABDOMEN: Soft and nontender. G-tube intact. EXTREMITIES: Trace edema and muscle atrophy. LABORATORY DATA: White count 8.8 and hemoglobin 10.3. Potassium 3.5, BUN 14, and creatinine 0.7. Albumin 1.5. IMPRESSION: 1. Respiratory failure. 2. Tracheostomy. 3. Healthcare-acquired pneumonia. 4. Sepsis. 5. Paroxysmal sinus tachycardia. 6. Chronic diastolic congestive heart failure. 7. Rehydrated anemia of chronic disease. 8. Gastrostomy tube with intermittent malfunction. 9. Type 2 diabetes mellitus. PLAN: 1. GI evaluation. 2. Antibiotics. 3. Antipyretics. 4. DVT prophylaxis. 5. Maintain supplemental hydration as needed based on clinical parameters. 6. We will follow. Raymond Salazar M.D. DR: BEKAH JOB#: [id number] CC:
== END 2017-04-20 15:00 | DRG 870 ==
LOC: EDBD 11:49 → EMR 13:11 → EDBEDREQ 13:13 → 2W 13:36
DX: A41.9 Sepsis, unspecified organism (principal); J18.9 Pneumonia, unspecified organism; G93.1 Anoxic brain damage, not elsewhere classified; J96.10 Chronic respiratory failure, unspecified whether with hypoxia or hypercapnia; B49 Unspecified mycosis; E46 Unspecified protein-calorie malnutrition; K92.2 Gastrointestinal hemorrhage, unspecified; N39.0 Urinary tract infection, site not specified; M86.9 Osteomyelitis, unspecified; I47.1 Supraventricular tachycardia; K94.23 Gastrostomy malfunction; I50.32 Chronic diastolic (congestive) heart failure; Z43.0 Encounter for attention to tracheostomy; Z85.3 Personal history of malignant neoplasm of breast; E11.9 Type 2 diabetes mellitus without complications; Z86.73 Personal history of transient ischemic attack (TIA), and cerebral infarction without residual deficits; Z86.74 Personal history of sudden cardiac arrest; R19.7 Diarrhea, unspecified; R62.7 Adult failure to thrive; Z88.2 Allergy status to sulfonamides; Z88.8 Allergy status to other drugs, medicaments and biological substances; Y83.3 Surgical operation with formation of external stoma as the cause of abnormal reaction of the patient, or of later complication, without mention of misadventure at the time of the procedure; D63.8 Anemia in other chronic diseases classified elsewhere; I11.0 Hypertensive heart disease with heart failure
CPT/HCPCS: 36415; 36569; 71010; 76937; 80053; 81003; 82270; 82550; 82553; 82962; 85007; 85025; 85610; 85730; 86850; 86900; 86901; 86920; 87070; 87086; 87181; 87205; 87324; 93005; 94002; 94003; J1815

== ENCOUNTER → 2017-05-27 | Emergency (ER) | payer MEDICARE, MEDICAID ==
[~2017-05-27] VITALS: Ht 162.6 cm; Wt 63.5 kg
[~2017-05-27] MED LIST changes: +ACETAMINOP160 MG/5 M ORAL; +BISCOLAX10 MG RC; +DIFLUCAN100 MG ORAL; +DIGOXIN ELIX0.125 MG GT; +EPOGEN10000 UNIT SUBQ; +FERROUS SU300 MG/52 GT; +FLEET ENEMA133 M1 RC; +MOM30 ML ORAL; +OMEPRAZOLE10 M1 ORAL; +PERIDEX 0.12% O15 ML ORO; +SINEMET 10-1001 EACH ORAL; +VANCOMYCIN1.25 GM/25 IVPB; +VITAMIN D2000 UNI2 GT; +ZOSYN 3.373.375 GM/1 IVPB
[2017-05-27 13:24] VITALS: BP 107/55
[2017-05-27 13:58] LABS: ABG ALLEN TEST POSITIVE; ABG BASE EXCESS 0.4; ABG PCO2 34.1 mmHg (35.0-45.0)
[2017-05-27 14:35] VITALS: BP 166/43
[2017-05-27 14:35] LABS: BASOPHILS % (AUTO) 0.7 % (0.0-2.0); EOSINOPHILS % (AUTO) 3.3 % (0.0-3.0); LYMPHOCYTES % (AUTO) 15.9 % (20.0-45.0); MEAN CORPUSCULAR HEMOGLOBIN 29.4 PG (27.0-31.0); MEAN CORPUSCULAR HGB CONC 31.7 G/DL (32.0-36.0); MEAN CORPUSCULAR VOLUME 93 FL (80-99); MEAN PLATELET VOLUME 5.8 FL (6.5-10.1); MONOCYTES % (AUTO) 4.2 % (1.0-10.0); NEUTROPHILS % (AUTO) 75.9 % (45.0-75.0); PLATELET COUNT 788 K/UL (150-450); RED CELL DISTRIBUTION WIDTH 19.8 % (11.6-14.8); WHITE BLOOD COUNT 12.9 K/UL (4.8-10.8)
[2017-05-27 14:57] LABS: PROTHROMBIN TIME 10.7 SEC (9.30-11.50)
[2017-05-27 14:58] LABS: ALANINE AMINOTRANSFERASE 13 U/L (3-33); ALBUMIN/GLOBULIN RATIO 0.5 (1.0-2.7); ANION GAP 14 (5-15); ASPARTATE AMINO TRANSFERASE 50 U/L (5-40); CALCIUM 8.6 mg/dL (8.6-10.2); CARBON DIOXIDE 24 mEQ/L (20-30); CHLORIDE 104 mEQ/L (98-107); CREATININE 0.5 mg/dL (0.5-0.9); HEMOLYSIS 3; POTASSIUM 3.7 mEQ/L (3.4-4.9); SODIUM 142 mEQ/L (135-145); TOTAL PROTEIN 6.2 g/dL (6.6-8.7)
--- NOTE | 2017-05-30 14:13 | Emergency Room Report ---
History of Present Illness General Chief Complaint: Abnormal Labs Source: EMS, PMD Present Illness HPI This is a 81-year-old female sent in by facility after noted to have decreased hemoglobin. Patient was noted be chronically check in a dependent. Patient not been noted the bleeding. The patient was noted to have a decreased hemoglobin on routine laboratory testing to patient had been receiving IV antibiotics for infection. History is markedly limited by patient's nonverbal status. Allergies: Coded Allergies: SULFAMETHOXAZOLE (Verified Allergy, Intermediate, 07/11/16) TRIMETHOPRIM (Verified Allergy, Intermediate, 07/11/16) Patient History Past Medical History: see triage record Reviewed Nursing Documentation: PMH: Agreed, PSxH: Agreed Nursing Documentation-PMH Hx Cardiac Problems: Yes Hx Hypertension: Yes Hx Pacemaker: No Hx Asthma: No Hx COPD: Yes - trach vent dependant Hx Diabetes: Yes Hx Cancer: Yes Hx Gastrointestinal Problems: Yes - gi bleed ,anemia,gtube Hx Dialysis: No Hx Neurological Problems: Yes Hx Cerebrovascular Accident: No Hx Parkinson's Disease: Yes Hx Seizures: No Hx Weakness: Yes Review of Systems All Other Systems: limited - Review of systems: Review systems is limited by patient's being a poor historian Physical Exam Vital Signs Date Time Temp Pulse Resp B/P Pulse Ox O2 Delivery O2 Flow Rate FiO2 05/27/17 12:46 98.4 87 20 107/55 100 Mechanical Ventilator 05/27/17 13:31 30 General Appearance: non-toxic, mild distress Eyes: bilateral eye PERRL ENT: normal pharynx Neck: tracheotomy Respiratory: lungs clear, normal breath sounds Cardiovascular #1: regular rate, rhythm Gastrointestinal: normal bowel sounds Neurologic: alert, aphasia, motor weakness Skin: other - decubitis ulcers Medical Decision Making Diagnostic Impression: Primary Impression: Anemia ER Course Patient presented for anemia. Differential diagnosis included wasn't limited to bleeding, laboratory error, hemolysis among other. Because of complexity of patient's case laboratory testing and imaging studies were ordered. Laboratory studies showed adequate hemoglobin. This is discussed with patient' s primary care physician Dr. Murguia. Patient was discharged back to custodial. Nursing staff were advised her return precautions. The patient was transferred home by ambulance. Labs Test 05/27/17 13:50 05/27/17 14:20 Arterial Blood pH 7.460 (7.350-7.450) Arterial Blood Partial Pressure CO2 34.1 mmHg (35.0-45.0) Arterial Blood Partial Pressure O2 124.1 mmHg (75.0-100.0) Arterial Blood HCO3 24.0 mmol/L (22.0-26.0) Arterial Blood Oxygen Saturation 98.2 % (92.0-98.0) Arterial Blood Base Excess 0.4 Hussein Test Positive White Blood Count 12.9 K/UL (4.8-10.8) Red Blood Count 2.90 M/UL (4.20-5.40) Hemoglobin 8.5 G/DL (12.0-16.0) Hematocrit 26.9 % (37.0-47.0) Mean Corpuscular Volume 93 FL (80-99) Mean Corpuscular Hemoglobin 29.4 PG (27.0-31.0) Mean Corpuscular Hemoglobin Concent 31.7 G/DL (32.0-36.0) Red Cell Distribution Width 19.8 % (11.6-14.8) Platelet Count 788 K/UL (150-450) Mean Platelet Volume 5.8 FL (6.5-10.1) Neutrophils (%) (Auto) 75.9 % (45.0-75.0) Lymphocytes (%) (Auto) 15.9 % (20.0-45.0) Monocytes (%) (Auto) 4.2 % (1.0-10.0) Eosinophils (%) (Auto) 3.3 % (0.0-3.0) Basophils (%) (Auto) 0.7 % (0.0-2.0) Prothrombin Time 10.7 SEC (9.30-11.50) Prothromb Time International Ratio 1.0 (0.9-1.1) Activated Partial Thromboplast Time 35 SEC (23-33) Sodium Level 142 mEQ/L (135-145) Potassium Level 3.7 mEQ/L (3.4-4.9) Chloride Level 104 mEQ/L (98-107) Carbon Dioxide Level 24 mEQ/L (20-30) Anion Gap 14 (5-15) Blood Urea Nitrogen 13 mg/dL (7-23) Creatinine 0.5 mg/dL (0.5-0.9) Estimat Glomerular Filtration Rate mL/min (>60) Glucose Level 111 mg/dL (74-106) Calcium Level 8.6 mg/dL (8.6-10.2) Total Bilirubin 0.2 mg/dL (0.0-1.2) Aspartate Amino Transf (AST/SGOT) 50 U/L (5-40) Alanine Aminotransferase (ALT/SGPT) 13 U/L (3-33) Alkaline Phosphatase 279 U/L (35-104) Total Protein 6.2 g/dL (6.6-8.7) Albumin 2.2 g/dL (3.5-5.2) Globulin 4.0 g/dL Albumin/Globulin Ratio 0.5 (1.0-2.7) EKG Diagnostic Results Rate: normal Rhythm: NSR ST Segments: no acute changes Last Vital Signs Date Time Temp Pulse Resp B/P Pulse Ox O2 Delivery O2 Flow Rate FiO2 05/27/17 16:50 98 20 30 05/27/17 14:35 166/43 100 Mechanical Ventilator 05/27/17 13:24 98.4 Status: improved Disposition: HOME, SELF-CARE Condition: Stable Referrals: [facility] (PCP) Carlos Armstrong May 30, 2017 14:13
== END | disposition home or self-care (01) ==
LOC: EDUNIT# 12:42 → EDBD 12:43 → EMR 13:43
DX: D64.9 Anemia, unspecified (principal); Z88.2 Allergy status to sulfonamides; Z88.8 Allergy status to other drugs, medicaments and biological substances; I10 Essential (primary) hypertension; J44.9 Chronic obstructive pulmonary disease, unspecified; E11.9 Type 2 diabetes mellitus without complications; G20 Parkinson's disease; L89.90 Pressure ulcer of unspecified site, unspecified stage
CPT/HCPCS: 36415; 36600; 80053; 82803; 85025; 85610; 85730; 86850; 86900; 86901; 86920; 94002; 99284

== ENCOUNTER 2017-06-12 21:46 | Inpatient (IN) | payer MEDICARE, MEDICAID ==
[~2017-06-12] VITALS: Ht 162.6 cm; Wt 58.5 kg
--- NOTE | 2017-06-12 22:08 | Emergency Room Report ---
History of Present Illness General Chief Complaint: Abnormal Labs Source: Medical Record, EMS Present Illness HPI Is an 81-year-old [place] female who resides in a [facility]. She has a history rest or failure with tracheostomy. Also a feeding tube. She present with abnormal labs with elevated white count. No reported fever. She does have a history of frequent urinary tract infection. No cough or congestion. No other complaint. History is limited because of the patient's condition. Allergies: Coded Allergies: SULFAMETHOXAZOLE (Verified Allergy, Intermediate, 07/11/16) TRIMETHOPRIM (Verified Allergy, Intermediate, 07/11/16) Patient History Past Medical History: see triage record, old chart reviewed Past Surgical History: other Pertinent Family History: none Social History: Denies: smoking Now: No Immunizations: other Reviewed Nursing Documentation: PMH: Agreed, PSxH: Agreed Nursing Documentation-PMH Hx Cardiac Problems: Yes Hx Hypertension: Yes Hx Pacemaker: No Hx Asthma: No Hx COPD: Yes - trach vent dependant Hx Diabetes: Yes Hx Cancer: Yes Hx Gastrointestinal Problems: Yes - gi bleed ,anemia,gtube Hx Dialysis: No Hx Neurological Problems: Yes Hx Cerebrovascular Accident: No Hx Parkinson's Disease: Yes Hx Seizures: No Hx Weakness: Yes Review of Systems Constitutional: Reports: weakness All Other Systems: limited - secondary to dementia Physical Exam Vital Signs Date Time Temp Pulse Resp B/P Pulse Ox O2 Delivery O2 Flow Rate FiO2 06/12/17 21:42 97.0 88 23 91/49 97 Mechanical Ventilator vitals with hypotension Sp02 EP Interpretation: reviewed, normal General Appearance: well appearing, alert, Chronically Ill Head: normocephalic, atraumatic Eyes: bilateral eye EOMI, bilateral eye PERRL ENT: hearing grossly normal, normal pharynx Neck: full range of motion, supple, no meningismus Respiratory: chest non-tender, rhonchi Cardiovascular #1: regular rate, rhythm, no murmur Gastrointestinal: normal bowel sounds, non tender, no mass, no organomegaly, no bruit, non-distended Musculoskeletal: back normal, gait/station normal, normal range of motion Psychiatric: mood/affect normal Skin: warm/dry Procedures Critical Care Time Critical Care Time Critical care is mandated in this patient who presented with severe sepsis secondary to UTI. Patient require my urgent intervention to attenuate the risks of metabolic collapse which may lead to cardiovascular collapse and . Critical care time is 35 minutes excluding any reportable procedure. Critical care time included evaluation, multiple reevaluation, looking at old charts, interpreting laboratory and diagnostic data, discussing case with patient and family and consultants, and charting. Medical Decision Making Diagnostic Impression: Primary Impression: Severe sepsis Additional Impressions: Anemia Qualified Codes: D64.9 - Anemia, unspecified Dehydration Encephalopathy acute ER Course Patient presents with high white count and lactic acid. This most likely secondary to ESBL UTI. Meropenem started. Chest x-ray unremarkable. We'll get for IV antibiotics and IV fluid. Laboratory Tests Test 06/12/17 22:35 06/12/17 23:37 White Blood Count 19.0 K/UL (4.8-10.8) H Red Blood Count 2.29 M/UL (4.20-5.40) L Hemoglobin 6.9 G/DL (12.0-16.0) *L Hematocrit 21.3 % (37.0-47.0) L Mean Corpuscular Volume 93 FL (80-99) Mean Corpuscular Hemoglobin 30.0 PG (27.0-31.0) Mean Corpuscular Hemoglobin Concent 32.3 G/DL (32.0-36.0) Red Cell Distribution Width 17.4 % (11.6-14.8) H Platelet Count 658 K/UL (150-450) H Mean Platelet Volume 6.4 FL (6.5-10.1) L Neutrophils (%) (Auto) % (45.0-75.0) Lymphocytes (%) (Auto) % (20.0-45.0) Monocytes (%) (Auto) % (1.0-10.0) Eosinophils (%) (Auto) % (0.0-3.0) Basophils (%) (Auto) % (0.0-2.0) Differential Total Cells Counted 100 Neutrophils % (Manual) 81 % (45-75) H Lymphocytes % (Manual) 6 % (20-45) L Monocytes % (Manual) 1 % (1-10) Eosinophils % (Manual) 4 % (0-3) H Basophils % (Manual) 1 % (0-2) Band Neutrophils 7 % (0-8) Platelet Estimate Increased H Platelet Morphology Normal Red Blood Cell Morphology Normal Prothrombin Time 10.3 SEC (9.30-11.50) Prothromb Time International Ratio 1.0 (0.9-1.1) Activated Partial Thromboplast Time 29 SEC (23-33) Sodium Level 134 mEQ/L (135-145) L Potassium Level 3.4 mEQ/L (3.4-4.9) Chloride Level 95 mEQ/L (98-107) L Carbon Dioxide Level 21 mEQ/L (20-30) Anion Gap 18 (5-15) H Blood Urea Nitrogen 44 mg/dL (7-23) H Creatinine 0.9 mg/dL (0.5-0.9) Estimat Glomerular Filtration Rate mL/min (>60) Glucose Level 168 mg/dL (74-106) H Lactic Acid Level 3.90 mmol/L (0.66-2.22) H Calcium Level 11.1 mg/dL (8.6-10.2) H Total Bilirubin < 0.2 mg/dL (0.0-1.2) Aspartate Amino Transf (AST/SGOT) 38 U/L (5-40) Alanine Aminotransferase (ALT/SGPT) 8 U/L (3-33) Alkaline Phosphatase 190 U/L (35-104) H Total Creatine Kinase 34 U/L (26-140) Creatine Kinase MB 2.2 ng/mL (< 3.8) Creatine Kinase MB Relative Index 6.4 Troponin I < 0.30 ng/mL (<=0.30) Total Protein 5.9 g/dL (6.6-8.7) L Albumin 2.0 g/dL (3.5-5.2) L Globulin 3.9 g/dL Albumin/Globulin Ratio 0.5 (1.0-2.7) L Urine Color Pale yellow Urine Appearance Slightly cloudy Urine pH 6 (4.5-8.0) Urine Specific [place] 1.005 (1.005-1.035) Urine Protein 2+ (NEGATIVE) H Urine Glucose (UA) Negative (NEGATIVE) Urine Ketones Negative (NEGATIVE) Urine Occult Blood 2+ (NEGATIVE) H Urine Nitrite Negative (NEGATIVE) Urine Bilirubin Negative (NEGATIVE) Urine Urobilinogen Normal MG/DL (0.0-1.0) Urine Leukocyte Esterase 3+ (NEGATIVE) H Urine RBC 5-10 /HPF (0 - 2) H Urine WBC Tntc /HPF (0 - 2) H Urine Squamous Epithelial Cells Few /LPF (NONE/OCC) Urine Bacteria Few /HPF (NONE) Urine Yeast Many /HPF (NONE) H Lab Results Impression labs with leukocytosis EKG Diagnostic Results EKG Time: 22:08 Rate: normal Rhythm: NSR ST Segments: no acute changes Rhythm Strip Diag. Results Rhythm Strip Time: 22:08 EP Interpretation: yes Rate: 82 Rhythm: NSR, no PVC's, no ectopy Chest X-Ray Diagnostic Results Chest X-Ray Diagnostic Results : Chest X-Ray Ordered: Yes # of Views/Limited/Complete: 1 View Indication: Shortness of Breath EP Interpretation: Yes Interpretation: no consolidation, no effusion, no pneumothorax, no acute cardiopulmonary disease Impression: No acute disease Interpreting ER Provider: Electronically signed by Ortiz Senior MD Last Vital Signs Date Time Temp Pulse Resp B/P Pulse Ox O2 Delivery O2 Flow Rate FiO2 06/12/17 21:42 97.0 88 23 91/49 97 Mechanical Ventilator Status: improved Disposition: ADMITTED INPATIENT Condition: Serious ORTIZ SENIOR M.D. Jun 12, 2017 22:08
[2017-06-12 22:44] LABS: MEAN CORPUSCULAR HGB CONC 32.3 G/DL (32.0-36.0); MEAN CORPUSCULAR VOLUME 93 FL (80-99); MEAN PLATELET VOLUME 6.4 FL (6.5-10.1); PLATELET COUNT 658 K/UL (150-450); RED BLOOD COUNT 2.29 M/UL (4.20-5.40); RED CELL DISTRIBUTION WIDTH 17.4 % (11.6-14.8)
[2017-06-12 22:56] LABS: PROTHROMBIN TIME 10.3 SEC (9.30-11.50)
[2017-06-12 22:59] LABS: TROPONIN I < 0.30 ng/mL (<=0.30)
[2017-06-12 23:02] LABS: ALANINE AMINOTRANSFERASE 8 U/L (3-33); ALBUMIN/GLOBULIN RATIO 0.5 (1.0-2.7); ANION GAP 18 (5-15); ASPARTATE AMINO TRANSFERASE 38 U/L (5-40); CALCIUM 11.1 mg/dL (8.6-10.2); CARBON DIOXIDE 21 mEQ/L (20-30); CHLORIDE 95 mEQ/L (98-107); CREATININE 0.9 mg/dL (0.5-0.9); HEMOLYSIS 3; POTASSIUM 3.4 mEQ/L (3.4-4.9); SODIUM 134 mEQ/L (135-145); TOTAL PROTEIN 5.9 g/dL (6.6-8.7)
[2017-06-12 23:03] LABS: REFLEX LACTIC ACID YES OR NO YES
[2017-06-12 23:13] LABS: CKMB 2.2 ng/mL (< 3.8)
[2017-06-12 23:41] LABS: APPEARANCE,URINE SLIGHTLY CLOUDY; KETONES,URINE NEGATIVE (NEGATIVE); LEUKOCYTE ESTERASE ,URINE 3+ (NEGATIVE); NITRITE,URINE NEGATIVE (NEGATIVE); PH,URINE 6 (4.5-8.0); PROTEIN,URINE 2+ (NEGATIVE); UROBILINOGEN,URINE NORMAL MG/DL (0.0-1.0)
[2017-06-12 23:49] LABS: BACTERIA,URINE FEW /HPF; SQUAMOUS EPITHELIAL CELL,UR FEW /LPF (NONE/OCC); WBC,URINE TNTC /HPF (0 - 2)
[2017-06-12 23:50] LABS: YEAST,URINE MANY /HPF
[2017-06-12] MEDS ORDERED: Ertapenem (INVanz) Inj ONE (23:53)
[2017-06-12 23:58] LABS: BAND NEUTROPHILS % (MANUAL) 7 % (0-8); BASOPHILS % (MANUAL) 1 % (0-2); EOSINOPHILS % (MANUAL) 4 % (0-3); LYMPHOCYTES % (MANUAL) 6 % (20-45); NEUTROPHILS % (MANUAL) 81 % (45-75); PLATELET ESTIMATE INCREASED; PLATELET MORPHOLOGY NORMAL; TOTAL CELLS COUNTED 100
[2017-06-13] VITALS (7 sets, daily range): BP systolic 104–131; BP diastolic 42–88
[2017-06-13] MEDS ORDERED: Ertapenem 1 GM in NS 55 ML IV ONE ×2
[2017-06-13] MEDS ORDERED: Acetaminophen 650mg/20.3ml NG ONE ×2 (02:00)
[2017-06-13] MEDS ORDERED: CARBIDOPA-LEVO1 EA13 GT (06:07)
[2017-06-13] MEDS ORDERED: VANCOMYCIN1 GM/2502 IVPB (06:29)
[2017-06-13] MEDS ORDERED: DIGOXIN250 MCG ORAL (06:29)
[2017-06-13] MEDS ORDERED: DIGOXIN125 MCG GT (06:29)
[2017-06-13] MEDS ORDERED: INVANZ1 GM IVPB (06:29)
[2017-06-13] MEDS ORDERED: LOVENOX10 MG SUBQ (06:29)
[2017-06-13] MEDS ORDERED: DIGOXIN0.25 MG/5 GT (06:29)
[2017-06-13] MEDS ORDERED: GENTAK5 ML BOTH EYES (06:29)
--- NOTE | 2017-06-13 09:03 | Diagnostic Imaging Report ---
Indications: Breath Technique: Audible AP chest Findings: Comparison: 04/18/2017 Pulmonary inflation has improved. Left lung volume loss persists with basal pleural effusion versus thickening. Right lung and pleura currently clear. Heart size, pulmonary vasculature remain within normal limits. Calcification and elongation of thoracic aorta, left axillary/chest wall surgical clips, tracheostomy tube, right-sided PICC all again noted. No new abnormality identified. IMPRESSION: No current evidence of acute cardio pulmonary disease Stable chronic changes as described
[2017-06-13] MEDS ORDERED: Enoxaparin 30mg Inj SUBQ SCH (10:00)
[2017-06-13] MEDS ORDERED: DuoNeb 0.5-3(2.5)mg/3ml neb HHN PRN (10:00)
[2017-06-13] MEDS ORDERED: Lidocaine 1% Plain 30 ml INJ PRN (10:00)
[2017-06-13] MEDS ORDERED: Milk of Magnesia 30ml Ud GT PRN (10:00)
[2017-06-13] MEDS ORDERED: Fleet's Enema 133ml RECTAL PRN (10:00)
[2017-06-13] MEDS ORDERED: Heparin 2000 units/Ns 1000ml IV PRN (10:00)
[2017-06-13] MEDS ORDERED: traMADol 50mg tab ORAL PRN (10:00)
[2017-06-13] MEDS ORDERED: Acetaminophen Soln 160mg/5ml ORAL PRN ×2 (10:00→14:00)
[2017-06-13] MEDS: Ferrous Sulfate 300 MG/5 ML UDC GT SCH ×2 (11:15→17:42)
[2017-06-13] MEDS: Multivitamins W/Minerals 15 ML UDC GT SCH (11:15)
[2017-06-13] MEDS: Ascorbic Acid 500mg tab GT SCH (11:15)
[2017-06-13] MEDS: Fluconazole 100mg tab GT SCH (11:15)
[2017-06-13] MEDS: Zinc Sulfate 220mg cap GT SCH (11:16)
[2017-06-13] MEDS: Digoxin Elixir 0.125mg GT SCH (11:16)
[2017-06-13] MEDS ORDERED: Vancomycin 1250mg/D5W 250ml IVPB ONE (12:00)
[2017-06-13] MEDS: Gentamicin 0.3% Opth Soln 5ml BOTH EYES SCH (12:09)
--- NOTE | 2017-06-13 13:45 | Consultation ---
DATE OF CONSULTATION: 06/13/2017 INFECTIOUS DISEASES CONSULTATION REFERRING PHYSICIAN: Christiano Moses M.D. REASON FOR CONSULTATION: Leukocytosis. HISTORY OF PRESENTING ILLNESS: This is an 81-year-old lady with history of respiratory failure, status post tracheostomy, who came in with leukocytosis and Infectious Diseases consultation has been obtained for antibiotics. PAST MEDICAL HISTORY: 1. History of hypertension. 2. History of respiratory failure, status post tracheostomy. 3. Diabetes. 4. History of cancer. 5. History of gastrointestinal bleeding. 6. Status post G-tube placement. 7. History of Parkinson disease. SOCIAL HISTORY: Unknown. FAMILY HISTORY: Unknown. REVIEW OF SYSTEMS: Unable to obtain currently. MEDICATIONS: As an inpatient, the patient is on IV vancomycin, Prevacid, metoprolol, ranitidine, Ultram, Zosyn, ferrous sulfate, gentamicin eyedrops, fluconazole, multivitamins, zinc sulfate, ascorbic acid, digoxin, Tylenol, ipratropium, albuterol, milk of magnesia, and tramadol. ALLERGIES: She is allergic to Bactrim. PHYSICAL EXAMINATION: VITAL SIGNS: Temperature of 99.8, T-max of 99.8, pulse of 92, respiratory rate 20, blood pressure 107/49, and O2 saturation of 100%. HEENT: Pupils equally reactive to light and accommodation. Mouth appears clean without thrush. NECK: Supple. No adenopathy. No JVD. Tracheostomy site appears clean. CARDIOVASCULAR: Regular rate and rhythm. No murmurs. LUNGS: Clear to auscultation bilaterally. No crackles. No wheezes. ABDOMEN: Soft and nontender. G-tube site appears clean. EXTREMITIES: No cyanosis, no clubbing, no edema. Right arm PICC line noted. LABORATORY DATA: White count of 19, hemoglobin 6.9, hematocrit 21.3, MCV 93, and platelet count of 658,000 with neutrophils of 81%. Sodium 134, potassium 3.4, chloride 95, bicarbonate 21, BUN 44, creatinine 0.9, glucose 168, and calcium 11.1. Total bilirubin less than 0.2. AST 38, ALT 8, and alkaline phosphatase 190. CK of 34. CK-MB 2.2. Troponin less than 0.3. Total protein 5.9. Albumin of 2. UA showing too numerous to count white cells. Blood cultures are pending. Chest x-ray showed no acute disease. ASSESSMENT: 1. This is an 81-year-old lady with history of Parkinson disease and cancer, who comes in with leukocytosis and is found to have a urinary tract infection. 2. Hypertension. PLAN: 1. Continue vancomycin, Zosyn, and fluconazole. 2. We will order urine cultures. 3. We will follow up cultures and adjust antibiotics accordingly. I would like to thank, Dr. Dodd, for this consultation. Za Mei M.D. DR: ANICETO JOB#: [id number] CC: Christiano Moses M.D.
--- NOTE | 2017-06-13 14:00 | History and Physical Report ---
DATE OF ADMISSION: 06/13/2017 CHIEF COMPLAINT: Sepsis, anemia, and toxic metabolic encephalopathy. HISTORY OF PRESENT ILLNESS: The patient is an 81-year-old female. She has a history of anoxic encephalopathy, chronic respiratory failure, history of stroke, history of breast cancer, history of conduction system disease, sacral wound, and gangrene. [facility] because of fever and shortness of breath. On evaluation in the emergency room, the patient was afebrile. She had a white count of 19,000 as well as hemoglobin of 6. She had evidence of urinary tract infection. She had elevated lactic acid level. The patient has been pancultured and has been started on IV fluids. She is now admitted for further evaluation and care. PAST MEDICAL HISTORY: As above. PAST SURGICAL HISTORY: She has a history of trach and a G-tube. History of mastectomy. CURRENT MEDICATIONS: Reconciled and reviewed. ALLERGIES: Include Bactrim. FAMILY HISTORY: Noncontributory. SOCIAL HISTORY: There is no known history of tobacco, ethanol, or drugs. The patient is a Full Code. REVIEW OF SYSTEMS: Unobtainable as the patient is nonverbal. PHYSICAL EXAMINATION: VITAL SIGNS: Current temperature is 97, pulse 87, respirations 22, and blood pressure 122/88. GENERAL: The patient is a chronically ill-appearing female, unresponsive. NECK: Supple. HEART: Regular rate and rhythm. LUNGS: Clear. ABDOMEN: Soft, nontender, and nondistended. EXTREMITIES: Without clubbing. There is gangrene of the right foot. There is a large sacral wound. LABORATORY DATA: Sodium 134 and potassium 3.4. Lactic acid was 3.9. BUN 44 and creatinine 0.9. White count 19,000 and hemoglobin 6. Coags normal. Urine showed too numerous to count WBCs. ASSESSMENT: This is an unfortunate female admitted with sepsis. 1. Sepsis. 2. Anemia, rule out gastrointestinal bleed. 3. Urinary tract infection. 4. Toxic metabolic encephalopathy. 5. History of stroke. 6. History of breast cancer. 7. Gangrene. PLAN: IV antibiotics. Follow up cultures, transfuse, IV hydration. Continue vent support and respiratory treatment. Continue G-tube feeds. Overall prognosis is poor. Christiano Moses M.D. DR: MAKAYLA JOB#: [id number] CC:
[2017-06-13] MEDS: Piperacillin/Tazobactam 3.375 GM in D5W 110 ML IVPB SCH ×2 (15:13→20:47)
[2017-06-13] MEDS: Acetaminophen 650mg/20.3ml GT PRN (17:48)
[2017-06-13] MEDS ORDERED: KCl 10% 20 mEq/15ml liquid NG ONE (20:15)
[2017-06-13] MEDS: Metoprolol 25mg tab GT SCH (20:47)
[2017-06-13] MEDS ORDERED: traMADol 50mg tab ORAL SCH (21:00)
[2017-06-13] MEDS ORDERED: Heparin 2000 units/Ns 1000ml INJ SCH (21:00)
[2017-06-14] VITALS: BP 102/44
[2017-06-14 04:00] VITALS: BP 118/46
--- NOTE | 2017-06-14 04:40 | Wound Care Consultation ---
Wound Assessment Wound Assessment #1: Wound Number: #1 Wound Present on Admission: Yes New Wound: No Status Change of Wound: No Wound Location Body Site Modif: mid Wound Location Body Site: sacral Wound Type: pressure ulcer Bonita Test: Does not Bonita Pressure Ulcer Stage: IV/unstageable Wound Thickness: Full Thickness Wound Length: 14.5 Wound Width: 18.5 Wound Depth: 2.0 Percent of Wound Hazel/Red: 70 Percent of Wound Bed Yellow/Wh: 30 Wound Drainage Description: Serosanguineous Wound Drainage Amount: Copious Wound Drainage Odor: None/Absent Tissue Surrounding Wound: Macerated Wound General Appearance: Reddened, Draining, Bone Palpable, Muscle Visible Wound Assessment #2: Wound Number: #2 Wound Present on Admission: Yes New Wound: No Status Change of Wound: No Wound Location Body Site Modif: right Wound Location Body Site: ischial tuberosity Wound Type: pressure ulcer Bonita Test: Does not Bonita Pressure Ulcer Stage: IV/unstageable Wound Thickness: Full Thickness Wound Length: 9.0 Wound Width: 4.5 Wound Depth: utd Percent of Wound Bed Yellow/Wh: 100 Wound Drainage Description: Serosanguineous Wound Drainage Amount: Moderate Wound Drainage Odor: None/Absent Tissue Surrounding Wound: Macerated Wound General Appearance: Draining, Necrotic Wound Assessment #3: Wound Number: #3 Wound Present on Admission: Yes New Wound: No Status Change of Wound: No Wound Location Body Site Modif: left Wound Location Body Site: ischial tuberosity Wound Type: pressure ulcer Bonita Test: Does not Bonita Pressure Ulcer Stage: IV/unstageable Wound Thickness: Full Thickness Wound Length: 7.5 Wound Width: 4.5 Wound Depth: utd Percent of Wound Bed Yellow/Wh: 100 Wound Drainage Description: Serosanguineous Wound Drainage Amount: Moderate Wound Drainage Odor: None/Absent Tissue Surrounding Wound: Macerated Wound General Appearance: Draining, Necrotic Wound Assessment #4: Wound Number: #4 Wound Present on Admission: Yes New Wound: No Status Change of Wound: No Wound Location Body Site Modif: right Wound Location Body Site: heel Wound Type: pressure ulcer Bonita Test: Does not Bonita Pressure Ulcer Stage: IV/unstageable Wound Thickness: Full Thickness Wound Length: 8.5 Wound Width: 5.5 Wound Depth: utd Percent of Wound Bed Yellow/Wh: 50 Percent of Wound Black/Brown: 50 Wound Drainage Description: Serosanguineous Wound Drainage Amount: Scant Wound Drainage Odor: None/Absent Tissue Surrounding Wound: Indurated Wound General Appearance: Necrotic Wound Assessment #5: Wound Number: #5 Wound Present on Admission: Yes New Wound: No Status Change of Wound: No Wound Location Body Site Modif: left Wound Location Body Site: heel Wound Type: pressure ulcer Bonita Test: Does not Bonita Pressure Ulcer Stage: IV/unstageable Wound Thickness: Full Thickness Wound Length: 7.0 Wound Width: 4.5 Wound Depth: utd Percent of Wound Black/Brown: 50 Percent of Wound Purple/Maroon: 50 Wound Drainage Description: Serosanguineous Wound Drainage Amount: Scant Wound Drainage Odor: None/Absent Tissue Surrounding Wound: Indurated Wound General Appearance: Necrotic Wound Assessment #6: Wound Number: #6 Wound Present on Admission: Yes New Wound: No Status Change of Wound: No Wound Location Body Site Modif: left, lateral Wound Location Body Site: metatarsal head - 5th Wound Type: pressure ulcer Bonita Test: Does not Bonita Pressure Ulcer Stage: deep tissue injury Wound Thickness: Full Thickness Wound Length: 2.5 Wound Width: 1.5 Wound Depth: utd Percent of Wound Purple/Maroon: 100 Wound Drainage Amount: None Wound Drainage Odor: None/Absent Tissue Surrounding Wound: Erythemic Wound Assessment #7: Wound Number: #7 Wound Present on Admission: Yes New Wound: No Status Change of Wound: No Wound Location Body Site Modif: right, lower Wound Location Body Site: leg - and foot with necrotic wounds Wound Type: vascular issue w/vascular changes Bonita Test: Does not Bonita Wound Thickness: Full Thickness Percent of Wound Bed Yellow/Wh: 20 Percent of Wound Black/Brown: 80 Wound Drainage Description: Serosanguineous Wound Drainage Amount: Moderate Wound Drainage Odor: Mild Odor Tissue Surrounding Wound: Indurated Wound General Appearance: Blackened, Necrotic Wound Comment #1 Sacral stage IV pressure ulcer #2 Left ischial tuberosity unstageable pressure ulcer #3 Right ischial tuberosity unstageable pressure ulcer #4 Left heel unstageable pressure ulcer #5 Right heel unstageable pressure ulcer #6 Left 5th lateral metatarsal head DTI pressure ulcer #7 Right lower leg and foot necrotic open wound #8 Left lower lateral leg scar tissue Recommendation -Sacral pressure ulcer Cleanse with Dakin's solution, pat dry, apply hydrogel to wound bed apply calcium alginate cover with 4x4 secure with bordered gauze daily and PRN soiled/ dislodged -Left and right ischial tuberosity Cleanse with saline, pat dry, apply Santyl ointment to wound bed, cover with bordered gauze daily and PRN soiled/dislodged -Local wound care per protocol for DTI and unstageable wound with black eschar per protocol -Podiatry consult for right lower leg and foot -Turn and reposition -Keep clean and dry -Optimize nutrition -Low air loss P200 mattress -Heel protector on both heels -Offload both heels -Assess and f/u accordingly for any changes JOSE G NICOLAS RN Jun 14, 2017 04:40
[2017-06-14] MEDS: Piperacillin/Tazobactam 3.375 GM in D5W 110 ML IVPB SCH (05:10)
[2017-06-14 05:36] LABS: BASOPHILS % (AUTO) 0.8 % (0.0-2.0); EOSINOPHILS % (AUTO) 2.5 % (0.0-3.0); LYMPHOCYTES % (AUTO) 11.5 % (20.0-45.0); MEAN CORPUSCULAR HEMOGLOBIN 29.1 PG (27.0-31.0); MEAN CORPUSCULAR HGB CONC 31.2 G/DL (32.0-36.0); MEAN CORPUSCULAR VOLUME 93 FL (80-99); MEAN PLATELET VOLUME 6.7 FL (6.5-10.1); MONOCYTES % (AUTO) 5.4 % (1.0-10.0); NEUTROPHILS % (AUTO) 79.8 % (45.0-75.0); PLATELET COUNT 632 K/UL (150-450); RED BLOOD COUNT 2.85 M/UL (4.20-5.40); RED CELL DISTRIBUTION WIDTH 16.5 % (11.6-14.8); WHITE BLOOD COUNT 17.8 K/UL (4.8-10.8)
[2017-06-14 06:22] LABS: ALANINE AMINOTRANSFERASE 24 U/L (3-33); ALBUMIN/GLOBULIN RATIO 0.4 (1.0-2.7); ANION GAP 18 (5-15); ASPARTATE AMINO TRANSFERASE 63 U/L (5-40); CALCIUM 10.5 mg/dL (8.6-10.2); CARBON DIOXIDE 19 mEQ/L (20-30); CHLORIDE 104 mEQ/L (98-107); CREATININE 0.9 mg/dL (0.5-0.9); HEMOLYSIS 3; POTASSIUM 3.9 mEQ/L (3.4-4.9); SODIUM 141 mEQ/L (135-145); TOTAL PROTEIN 5.7 g/dL (6.6-8.7)
[2017-06-14 08:00] VITALS: BP 117/44
[2017-06-14] MEDS: Acetaminophen 650mg/20.3ml GT PRN ×2 (08:50→20:13)
[2017-06-14] MEDS: Dyna-Hex 2% Top Sol 8oz TOPIC SCH (08:51)
[2017-06-14] MEDS: Dakin's 0.25% (Half Strength) 16oz TOPIC SCH (08:51)
[2017-06-14] MEDS: Fluconazole 100mg tab GT SCH (08:52)
[2017-06-14] MEDS: Gentamicin 0.3% Opth Soln 5ml BOTH EYES SCH (08:52)
[2017-06-14] MEDS: Ferrous Sulfate 300 MG/5 ML UDC GT SCH ×3 (08:52→17:36)
[2017-06-14] MEDS: Digoxin Elixir 0.125mg GT SCH (08:53)
[2017-06-14] MEDS: Multivitamins W/Minerals 15 ML UDC GT SCH (08:54)
[2017-06-14] MEDS: Metoprolol 25mg tab GT SCH ×2 (08:54→20:14)
[2017-06-14] MEDS: Ascorbic Acid 500mg tab GT SCH (08:55)
[2017-06-14] MEDS: Heparin 5000 units/ml inj SUBQ SCH ×2 (08:56→20:16)
[2017-06-14] MEDS: Zinc Sulfate 220mg cap GT SCH (09:15)
--- NOTE | 2017-06-14 11:23 | Diagnostic Imaging Report ---
Indications: Needs long-term IV access Technique: Procedure performed at bedside. Procedural timeout performed. Ultrasound confirms patent compressible right brachial vein. Total sterile technique, including sterile probe cover and sterile gel, sterile gloves, hand hygiene, hat, mask,, sterile gown, large sterile drape, and preparation with 2% chlorhexidine utilized. Local anesthesia with 1% lidocaine. Under real-time ultrasound guidance, puncture brachial vein using 21-gauge needle, passage 0.018 guidewire, exchange for 5 Filipino peel-away sheath. 5 Filipino Bard dual-lumen power PICC cut to 34 cm. It was inserted through the peel-away sheath. Peel-away sheath and guidewire removed. Catheter fixed to the skin. Both catheter ports aspirated and flushed. Patient tolerated procedure well, without immediate complication. Followup chest x-ray obtained, documents catheter tip position at the mid superior vena cava Impression: Successful bedside placement of right arm PICC under sonographic guidance, as described above.
[2017-06-14] MEDS ORDERED: NS 275ml ONE (11:25)
[2017-06-14] MEDS ORDERED: Tubing IV Blood Pump IV ONE (11:25)
[2017-06-14] MEDS ORDERED: NS 550ML IV ONE (11:25)
--- NOTE | 2017-06-14 11:53 | Infectious Diseases Prog Note ---
Assessment/Plan Assessment/Plan antibiotics : vancomycin iv, zosyn, fluconazole A 1. fungal UTI 2. respiratory failure 3. breast cancer 4. leucocytosis improving 5. HTN P 1. continue fluconazole 2. d/c iv vancomycin, zosyn 3. will follow up cultures Subjective ROS Limited/Unobtainable: Yes Allergies: Coded Allergies: SULFAMETHOXAZOLE (Verified Allergy, Intermediate, 07/11/16) TRIMETHOPRIM (Verified Allergy, Intermediate, 07/11/16) Objective Vital Signs Last 24 Hour Vital Signs Date Time Temp Pulse Resp B/P Pulse Ox O2 Delivery O2 Flow Rate FiO2 06/14/17 11:41 85 06/14/17 11:01 84 23 30 06/14/17 09:05 98 28 30 06/14/17 08:54 98 117/44 06/14/17 08:53 98 06/14/17 08:00 97 06/14/17 08:00 101.7 98 23 117/44 98 Mechanical Ventilator 30 06/14/17 07:03 98 23 30 06/14/17 05:23 96 24 30 06/14/17 04:39 93 06/14/17 04:00 30 06/14/17 04:00 98.2 92 23 118/46 100 Mechanical Ventilator 30 06/14/17 03:29 86 32 30 06/14/17 01:29 77 29 30 06/14/17 00:00 30 06/14/17 00:00 97.3 82 31 102/44 100 Mechanical Ventilator 30 06/13/17 23:37 83 06/13/17 23:22 82 23 30 06/13/17 21:25 87 25 30 06/13/17 21:00 90 06/13/17 20:47 90 104/45 06/13/17 20:18 99.5 90 28 104/45 100 Mechanical Ventilator 35 06/13/17 20:00 30 06/13/17 19:27 91 24 30 06/13/17 18:47 98.8 06/13/17 16:41 97 23 30 06/13/17 16:31 97.9 92 19 107/43 97 Trach Collar 15.0 06/13/17 16:00 30 06/13/17 16:00 92 06/13/17 15:25 81 22 30 06/13/17 12:37 91 22 30 06/13/17 12:00 78 06/13/17 12:00 30 06/13/17 12:00 98.1 78 20 108/56 100 Mechanical Ventilator 30 Height (Feet): 5 Height (Inches): 4.00 Weight (Pounds): 129 HEENT: status post trach Respiratory/Chest: lungs clear Cardiovascular: normal rate, regular rhythm, no gallop/murmur Abdomen: soft, non tender, other - GT Extremities: no edema, other - right arm PICC Microbiology Date/Time Source Procedure Growth Status 06/12/17 22:35 Blood Blood Culture - Preliminary NO GROWTH AFTER 24 HOURS Resulted 06/12/17 22:35 Blood Blood Culture - Preliminary NO GROWTH AFTER 24 HOURS Resulted 06/13/17 21:00 Urine,Clean Catch Urine Culture - Preliminary Resulted 06/12/17 23:37 Urine,Clean Catch Urine Culture - Preliminary YEAST Resulted 06/13/17 04:30 Sacral Lower Gram Stain - Final Resulted 06/13/17 04:30 Wound Culture - Preliminary Gram Negative Bacillus 1 Resulted Laboratory Tests Test 06/14/17 03:30 White Blood Count 17.8 K/UL (4.8-10.8) H Red Blood Count 2.85 M/UL (4.20-5.40) L Hemoglobin 8.3 G/DL (12.0-16.0) L Hematocrit 26.6 % (37.0-47.0) L Mean Corpuscular Volume 93 FL (80-99) Mean Corpuscular Hemoglobin 29.1 PG (27.0-31.0) Mean Corpuscular Hemoglobin Concent 31.2 G/DL (32.0-36.0) L Red Cell Distribution Width 16.5 % (11.6-14.8) H Platelet Count 632 K/UL (150-450) H Mean Platelet Volume 6.7 FL (6.5-10.1) Neutrophils (%) (Auto) 79.8 % (45.0-75.0) H Lymphocytes (%) (Auto) 11.5 % (20.0-45.0) L Monocytes (%) (Auto) 5.4 % (1.0-10.0) Eosinophils (%) (Auto) 2.5 % (0.0-3.0) Basophils (%) (Auto) 0.8 % (0.0-2.0) Sodium Level 141 mEQ/L (135-145) Potassium Level 3.9 mEQ/L (3.4-4.9) Chloride Level 104 mEQ/L (98-107) Carbon Dioxide Level 19 mEQ/L (20-30) L Anion Gap 18 (5-15) H Blood Urea Nitrogen 33 mg/dL (7-23) H Creatinine 0.9 mg/dL (0.5-0.9) Estimat Glomerular Filtration Rate mL/min (>60) Glucose Level 141 mg/dL (74-106) H Calcium Level 10.5 mg/dL (8.6-10.2) H Total Bilirubin 0.3 mg/dL (0.0-1.2) Aspartate Amino Transf (AST/SGOT) 63 U/L (5-40) H Alanine Aminotransferase (ALT/SGPT) 24 U/L (3-33) Alkaline Phosphatase 246 U/L (35-104) H Total Protein 5.7 g/dL (6.6-8.7) L Albumin 1.7 g/dL (3.5-5.2) L Globulin 4.0 g/dL Albumin/Globulin Ratio 0.4 (1.0-2.7) L GRACE BENAVIDES Jun 14, 2017 11:53
[2017-06-14 12:00] VITALS: BP 103/93
[2017-06-14] MEDS ORDERED: Vancomycin 500mg/D5W 110ml IVPB SCH ×2 (12:00)
--- NOTE | 2017-06-14 14:20 | General Progress Note ---
Assessment/Plan Problem List: (1) Gangrene ICD Codes: I96 - Gangrene, not elsewhere classified SNOMED: 037968928 (2) Osteomyelitis ICD Codes: M86.9 - Osteomyelitis, unspecified SNOMED: 86848297 (3) Hyperosmolar (nonketotic) coma ICD Codes: E11.01 - Type 2 diabetes mellitus with hyperosmolarity with coma SNOMED: 32738290, 808339879 (4) Respiratory failure ICD Codes: J96.90 - Respiratory failure, unspecified, unspecified whether with hypoxia or hypercapnia SNOMED: 775251809 (5) Toxic encephalopathy ICD Codes: G92 - Toxic encephalopathy SNOMED: 07683469 (6) Acute renal failure ICD Codes: N17.9 - Acute kidney failure, unspecified SNOMED: 77215033 (7) Hypoalbuminemia ICD Codes: E88.09 - Other disorders of plasma-protein metabolism, not elsewhere classified SNOMED: 734471406 (8) Dehydration ICD Codes: E86.0 - Dehydration SNOMED: 05987407 (9) Encephalopathy acute ICD Codes: G93.40 - Encephalopathy, unspecified SNOMED: 6666101 (10) Anemia ICD Codes: D64.9 - Anemia, unspecified SNOMED: 921722070 Qualifiers: Qualified Codes: D64.9 - Anemia, unspecified (11) Severe sepsis ICD Codes: A41.9 - Sepsis, unspecified organism; R65.20 - Severe sepsis without septic shock SNOMED: 41027967 Status: stable Assessment/Plan iv abx ivf transfuse prn change picc vent support resp rx gt feeds wound care poor prognosis Subjective ROS Limited/Unobtainable: Yes Constitutional: Reports: fever, malaise, weakness HEENT: Reports: no symptoms Cardiovascular: Reports: no symptoms Respiratory: Reports: cough, shortness of breath, sputum Gastrointestinal/Abdominal: Reports: difficulty swallowing Genitourinary: Reports: no symptoms Neurologic/Psychiatric: Reports: pre-existing deficit Endocrine: Reports: no symptoms Hematologic/Lymphatic: Reports: anemia Allergies: Coded Allergies: SULFAMETHOXAZOLE (Verified Allergy, Intermediate, 07/11/16) TRIMETHOPRIM (Verified Allergy, Intermediate, 07/11/16) All Systems: reviewed and negative except above Subjective intermittent fevers. s/p 1 unit prbcs. tolerating feeds. d/w son at the bedside. no new concerns Objective Last 24 Hour Vital Signs Date Time Temp Pulse Resp B/P Pulse Ox O2 Delivery O2 Flow Rate FiO2 06/14/17 12:32 80 24 30 06/14/17 12:00 30 06/14/17 11:41 85 06/14/17 11:01 84 23 30 06/14/17 09:20 99.6 06/14/17 09:05 98 28 30 06/14/17 08:54 98 117/44 06/14/17 08:53 98 06/14/17 08:00 97 06/14/17 08:00 30 06/14/17 08:00 101.7 98 23 117/44 98 Mechanical Ventilator 30 06/14/17 07:03 98 23 30 06/14/17 05:23 96 24 30 06/14/17 04:39 93 06/14/17 04:00 30 06/14/17 04:00 98.2 92 23 118/46 100 Mechanical Ventilator 30 06/14/17 03:29 86 32 30 06/14/17 01:29 77 29 30 06/14/17 00:00 30 06/14/17 00:00 97.3 82 31 102/44 100 Mechanical Ventilator 30 06/13/17 23:37 83 06/13/17 23:22 82 23 30 06/13/17 21:25 87 25 30 06/13/17 21:00 90 06/13/17 20:47 90 104/45 06/13/17 20:18 99.5 90 28 104/45 100 Mechanical Ventilator 35 06/13/17 20:00 30 06/13/17 19:27 91 24 30 06/13/17 16:41 97 23 30 06/13/17 16:31 97.9 92 19 107/43 97 Trach Collar 15.0 06/13/17 16:00 30 06/13/17 16:00 92 06/13/17 15:25 81 22 30 Intake and Output 06/13/17 06/14/17 19:00 07:00 Intake Total 750 ml 937.5 ml Output Total 600 ml Balance 750 ml 337.5 ml Free Water 200 ml 150 ml IV Total 137.5 ml Tube Feeding 550 ml 650 ml Output Urine Total 600 ml # Bowel Movements 3 2 Laboratory Tests 06/14/17 03:30: White Blood Count 17.8H, Red Blood Count 2.85L, Hemoglobin 8.3L, Hematocrit 26.6L, Mean Corpuscular Volume 93, Mean Corpuscular Hemoglobin 29.1, Mean Corpuscular Hemoglobin Concent 31.2L, Red Cell Distribution Width 16.5H, Platelet Count 632H, Mean Platelet Volume 6.7, Neutrophils (%) (Auto) 79.8H, Lymphocytes (%) (Auto) 11.5L, Monocytes (%) (Auto) 5.4, Eosinophils (%) (Auto) 2.5, Basophils (%) (Auto) 0.8, Sodium Level 141, Potassium Level 3.9, Chloride Level 104, Carbon Dioxide Level 19L, Anion Gap 18H, Blood Urea Nitrogen 33H, Creatinine 0.9, Estimat Glomerular Filtration Rate , Glucose Level 141H, Calcium Level 10.5H, Total Bilirubin 0.3, Aspartate Amino Transf (AST/SGOT) 63H , Alanine Aminotransferase (ALT/SGPT) 24, Alkaline Phosphatase 246H, Total Protein 5.7L, Albumin 1.7L, Globulin 4.0, Albumin/Globulin Ratio 0.4L Height (Feet): 5 Height (Inches): 4.00 Weight (Pounds): 129 General Appearance: WD/WN, lethargic, confused Neck: supple Cardiovascular: normal rate, regular rhythm Respiratory/Chest: chest wall non-tender, lungs clear, normal breath sounds, no respiratory distress Abdomen: normal bowel sounds, non tender, soft, no organomegaly Skin: other - ganregen right foot/toe MILES CARTWRIGHT Jun 14, 2017 14:20
[2017-06-14] MEDS ORDERED: traMADol 50mg tab GT PRN (15:41)
[2017-06-14 16:00] VITALS: BP 116/50
--- NOTE | 2017-06-14 16:20 | Cardiology Report ---
APPROVED REPORT EKG Measurement Heart [id number] Normal sinus rhythm Abnormal ECG
[2017-06-14 20:00] VITALS: BP 116/61
[2017-06-14] MEDS: traMADol 50mg tab GT SCH (20:14)
[2017-06-15] VITALS: BP 102/42
[2017-06-15] MEDS: Metoclopramide 10mg/10ml Liq GT PRN (01:21)
[2017-06-15] MEDS: Acetaminophen 650mg/20.3ml GT PRN ×2 (03:05→19:04)
[2017-06-15 04:00] VITALS: BP 106/47
[2017-06-15 08:00] VITALS: BP 106/38
[2017-06-15] MEDS: Dakin's 0.25% (Half Strength) 16oz TOPIC SCH (08:17)
[2017-06-15] MEDS: Gentamicin 0.3% Opth Soln 5ml BOTH EYES SCH (08:17)
[2017-06-15] MEDS: Dyna-Hex 2% Top Sol 8oz TOPIC SCH (08:17)
[2017-06-15] MEDS: Ferrous Sulfate 300 MG/5 ML UDC GT SCH ×3 (08:18→17:20)
[2017-06-15] MEDS: Zinc Sulfate 220mg cap GT SCH (08:18)
[2017-06-15] MEDS: Fluconazole 100mg tab GT SCH (08:20)
[2017-06-15] MEDS: Multivitamins W/Minerals 15 ML UDC GT SCH (08:20)
[2017-06-15] MEDS: Digoxin Elixir 0.125mg GT SCH (08:21)
[2017-06-15] MEDS: Ascorbic Acid 500mg tab GT SCH (08:22)
[2017-06-15] MEDS: Heparin 5000 units/ml inj SUBQ SCH ×2 (08:24→21:26)
[2017-06-15] MEDS: Metoprolol 25mg tab GT SCH ×2 (09:46→21:00)
--- NOTE | 2017-06-15 10:53 | General Progress Note ---
Assessment/Plan Problem List: (1) Gangrene ICD Codes: I96 - Gangrene, not elsewhere classified SNOMED: 802334058 (2) Osteomyelitis ICD Codes: M86.9 - Osteomyelitis, unspecified SNOMED: 12260242 (3) Hyperosmolar (nonketotic) coma ICD Codes: E11.01 - Type 2 diabetes mellitus with hyperosmolarity with coma SNOMED: 94119557, 710915686 (4) Respiratory failure ICD Codes: J96.90 - Respiratory failure, unspecified, unspecified whether with hypoxia or hypercapnia SNOMED: 181026370 (5) Toxic encephalopathy ICD Codes: G92 - Toxic encephalopathy SNOMED: 12616820 (6) Acute renal failure ICD Codes: N17.9 - Acute kidney failure, unspecified SNOMED: 35310103 (7) Hypoalbuminemia ICD Codes: E88.09 - Other disorders of plasma-protein metabolism, not elsewhere classified SNOMED: 709788332 (8) Dehydration ICD Codes: E86.0 - Dehydration SNOMED: 26539079 (9) Encephalopathy acute ICD Codes: G93.40 - Encephalopathy, unspecified SNOMED: 8088549 (10) Anemia ICD Codes: D64.9 - Anemia, unspecified SNOMED: 240725589 Qualifiers: Qualified Codes: D64.9 - Anemia, unspecified (11) Severe sepsis ICD Codes: A41.9 - Sepsis, unspecified organism; R65.20 - Severe sepsis without septic shock SNOMED: 87436677 Status: stable, not improved, unchanged Assessment/Plan iv abx ivf transfuse prn change picc vent support resp rx gt feeds wound care poor prognosis Subjective ROS Limited/Unobtainable: Yes Constitutional: Reports: malaise, weakness HEENT: Reports: no symptoms Cardiovascular: Reports: no symptoms Respiratory: Reports: cough Gastrointestinal/Abdominal: Reports: difficulty swallowing Genitourinary: Reports: no symptoms Neurologic/Psychiatric: Reports: pre-existing deficit, seizure Endocrine: Reports: no symptoms Hematologic/Lymphatic: Reports: anemia Allergies: Coded Allergies: SULFAMETHOXAZOLE (Verified Allergy, Intermediate, 07/11/16) TRIMETHOPRIM (Verified Allergy, Intermediate, 07/11/16) All Systems: reviewed and negative except above Subjective intermittent fevers. tolerating feeds. d/w son at the bedside. no new concerns. Picc not drawing. cultures noted. Objective Last 24 Hour Vital Signs Date Time Temp Pulse Resp B/P Pulse Ox O2 Delivery O2 Flow Rate FiO2 06/15/17 09:46 79 109/48 06/15/17 09:18 76 21 30 06/15/17 08:21 78 06/15/17 08:00 30 06/15/17 08:00 98.0 78 22 106/38 100 Mechanical Ventilator 30 06/15/17 08:00 78 06/15/17 06:51 77 27 30 06/15/17 05:02 76 25 30 06/15/17 04:00 30 06/15/17 04:00 79 06/15/17 04:00 97.2 77 22 106/47 96 Mechanical Ventilator 30 06/15/17 03:18 90 23 30 06/15/17 01:13 83 28 30 06/15/17 00:00 30 06/15/17 00:00 98.9 84 24 102/42 98 Mechanical Ventilator 06/14/17 23:52 86 06/14/17 22:51 88 24 30 06/14/17 21:20 91 21 30 06/14/17 21:13 97.9 06/14/17 20:43 97.9 06/14/17 20:43 97.9 06/14/17 20:14 92 116/68 06/14/17 20:00 89 06/14/17 20:00 30 06/14/17 20:00 99.6 92 29 116/61 98 Mechanical Ventilator 30 06/14/17 19:37 89 06/14/17 19:28 91 28 30 06/14/17 16:32 82 26 30 06/14/17 16:30 30 06/14/17 16:00 97.9 82 29 116/50 98 Mechanical Ventilator 30 06/14/17 16:00 81 06/14/17 14:39 82 25 30 06/14/17 12:32 80 24 30 06/14/17 12:00 100.3 84 26 103/93 100 Mechanical Ventilator 30 06/14/17 12:00 30 06/14/17 11:41 85 06/14/17 11:01 84 23 30 Intake and Output 06/14/17 06/15/17 19:00 07:00 Intake Total 932.5 ml 650 ml Output Total 600 ml 550 ml Balance 332.5 ml 100 ml Free Water 250 ml 50 ml IV Total 82.5 ml Tube Feeding 600 ml 600 ml Output Urine Total 600 ml 550 ml # Bowel Movements 5 4 Height (Feet): 5 Height (Inches): 4.00 Weight (Pounds): 129 General Appearance: WD/WN, alert Neck: supple Cardiovascular: regular rhythm Respiratory/Chest: lungs clear, normal breath sounds, no respiratory distress Abdomen: normal bowel sounds, non tender, soft, no organomegaly Edema: no edema noted Arm (L), no edema noted Arm (R), no edema noted Leg (L), no edema noted Leg (R), no edema noted Pedal (L), no edema noted Pedal (R), no edema noted Generalized Skin: other - gangrene right foot MILES CARTWRIGHT Jun 15, 2017 10:53
[2017-06-15] MEDS ORDERED: Heparin Sod 1000 units/ml 10ml IV ONE (11:00)
[2017-06-15 12:00] VITALS: BP 107/50
--- NOTE | 2017-06-15 13:47 | Infectious Diseases Prog Note ---
Assessment/Plan Assessment/Plan A: Candidal UTI Necrotic wounds, likely osteomyelitis VDRF Anemia P; Continue wound care Continue Fluconazole Subjective ROS Limited/Unobtainable: Yes Allergies: Coded Allergies: SULFAMETHOXAZOLE (Verified Allergy, Intermediate, 07/11/16) TRIMETHOPRIM (Verified Allergy, Intermediate, 07/11/16) Objective Vital Signs Last 24 Hour Vital Signs Date Time Temp Pulse Resp B/P Pulse Ox O2 Delivery O2 Flow Rate FiO2 06/15/17 12:58 83 25 30 06/15/17 12:04 30 06/15/17 12:00 99.0 80 20 107/50 100 Mechanical Ventilator 30 06/15/17 11:02 74 21 30 06/15/17 09:46 79 109/48 06/15/17 09:18 76 21 30 06/15/17 08:21 78 06/15/17 08:00 30 06/15/17 08:00 98.0 78 22 106/38 100 Mechanical Ventilator 30 06/15/17 08:00 78 06/15/17 06:51 77 27 30 06/15/17 05:02 76 25 30 06/15/17 04:00 30 06/15/17 04:00 79 06/15/17 04:00 97.2 77 22 106/47 96 Mechanical Ventilator 30 06/15/17 03:18 90 23 30 06/15/17 01:13 83 28 30 06/15/17 00:00 30 06/15/17 00:00 98.9 84 24 102/42 98 Mechanical Ventilator 30 06/14/17 23:52 86 06/14/17 22:51 88 24 30 06/14/17 21:20 91 21 30 06/14/17 21:13 97.9 06/14/17 20:43 97.9 06/14/17 20:43 97.9 06/14/17 20:14 92 116/68 06/14/17 20:00 89 06/14/17 20:00 30 06/14/17 20:00 99.6 92 29 116/61 98 Mechanical Ventilator 30 06/14/17 19:37 89 06/14/17 19:28 91 28 30 06/14/17 16:32 82 26 30 06/14/17 16:30 30 06/14/17 16:00 97.9 82 29 116/50 98 Mechanical Ventilator 30 06/14/17 16:00 81 8/2/17 14:39 82 25 30 Height (Feet): 5 Height (Inches): 4.00 Weight (Pounds): 129 Respiratory/Chest: other - few rhonchi, on ventilator Breasts: other - left mastectomy Cardiovascular: normal rate Abdomen: soft, non tender, other - GT feeding Extremities: no edema, other - Right arm PICC line Skin: ulcers, other - exposed bone in sacral area, necrotic wounds on legs Microbiology Date/Time Source Procedure Growth Status 06/12/17 22:35 Blood Blood Culture - Preliminary NO GROWTH AFTER 48 HOURS Resulted 06/12/17 22:35 Blood Blood Culture - Preliminary NO GROWTH AFTER 48 HOURS Resulted 06/13/17 04:00 Nasal Nares MRSA Culture - Final NO METHICILLIN RESISTANT STAPH AUREUS... Complete 06/13/17 21:00 Urine,Clean Catch Urine Culture - Preliminary Yeast Species Resulted 06/12/17 23:37 Urine,Clean Catch Urine Culture - Final Fern Tropicalis Complete 06/13/17 04:30 Sacral Lower Gram Stain - Final Resulted 06/13/17 04:30 Wound Culture - Preliminary Acinetobacter Baumannii Complx Gram Positive Cocci Resulted 06/13/17 04:00 Rectum VRE Culture - Final NO VANCOMYCIN RESISTANT ENTEROCOCCUS ... Complete Current Medications Medications (Trade) Dose Ordered Sig/Angie Route PRN Reason Start Time Stop Time Status Last Admin Dose Admin Acetaminophen (Tylenol) 650 mg Q6H PRN GT Mild Pain/Temp > 100.5 06/13/17 11:37 07/13/17 11:29 06/15/17 03:05 Albuterol/ Ipratropium (DuoNeb 0.5-3(2.5)mg/3ml) 3 ml Q4H PRN HHN Shortness of Breath 06/13/17 10:00 06/18/17 09:59 Ascorbic Acid (Vitamin C) 500 mg DAILY GT 06/13/17 10:30 07/13/17 10:29 06/15/17 08:22 Chlorhexidine Gluconate (Monica-Hex 2%) 1 applic DAILY TOPIC 06/14/17 09:00 07/14/17 08:59 06/15/17 08:17 Collagenase (Santyl) 1 applic DAILY TOPIC 06/14/17 09:00 07/14/17 08:59 06/15/17 08:22 Digoxin (Lanoxin) 0.125 mg DAILY GT 06/13/17 10:30 07/13/17 10:29 06/15/17 08:21 Ferrous Sulfate (Feosol) 300 mg TID GT 06/13/17 13:00 07/13/17 12:59 06/15/17 12:26 Fluconazole (Diflucan) 100 mg DAILY GT 06/13/17 11:00 06/20/17 10:59 06/15/17 08:20 Gentamicin Sulfate (Garamycin 0.3% Opt Soln) 2 drop DAILY BOTH EYES 06/13/17 12:00 06/20/17 11:59 06/15/17 08:17 Heparin Sodium (Porcine) (Heparin 5000 units/ml) 5,000 units EVERY 12 HOURS SUBQ 06/14/17 09:00 07/14/17 08:59 06/15/17 08:24 Lansoprazole (Prevacid) 30 mg DAILY GT 06/14/17 11:00 07/14/17 10:59 06/15/17 08:18 Magnesium Hydroxide (Mom) 30 ml DAILYPRN PRN GT Constipation 06/13/17 10:00 07/13/17 09:59 Metoclopramide HCl (Reglan) 10 mg Q8H PRN GT Nausea & Vomiting 06/14/17 20:45 07/14/17 20:44 06/15/17 01:21 Metoprolol Tartrate (Lopressor) 25 mg EVERY 12 HOURS GT 06/13/17 21:00 07/13/17 20:59 06/15/17 09:46 Multivitamins (Multivitamins W/ Minerals 15ml Liquid) 15 ml DAILY GT 06/13/17 11:00 07/13/17 10:59 06/15/17 08:20 Ranitidine HCl (Zantac) 150 mg QHS ORAL 06/13/17 21:00 07/13/17 20:59 06/14/17 20:14 Sodium Hypochlorite (Dakin's Half Strength) 1 applic DAILY TOPIC 06/14/17 09:00 07/14/17 08:59 06/15/17 08:17 Sodium Phosphate (Fleet's Sodium Phosl Enema) 133 ml 3XW PRN RECTAL Constipation 06/13/17 10:00 07/13/17 09:59 Tramadol HCl (Ultram) 50 mg BEDTIME GT 06/14/17 15:41 06/20/17 20:59 06/14/17 20:14 Tramadol HCl (Ultram) 50 mg DAILYPRN PRN GT Moderate Pain (Pain Scale 4-6) 06/14/17 15:41 06/20/17 09:59 Zinc Sulfate (Zinc Sulfate) 220 mg DAILY GT 06/13/17 11:00 07/13/17 10:59 06/15/17 08:18 MARTIN LARSEN Jun 15, 2017 13:47
[2017-06-15 16:00] VITALS: BP 106/47
[2017-06-15 19:55] VITALS: BP 115/41
[2017-06-15] MEDS: traMADol 50mg tab GT SCH (21:23)
[2017-06-16] VITALS (7 sets, daily range): BP systolic 91–111; BP diastolic 40–51
[2017-06-16] MEDS: Acetaminophen 650mg/20.3ml GT PRN ×2 (05:41→16:17)
[2017-06-16] MEDS: Ferrous Sulfate 300 MG/5 ML UDC GT SCH ×3 (08:27→18:06)
[2017-06-16] MEDS: Multivitamins W/Minerals 15 ML UDC GT SCH (08:27)
[2017-06-16] MEDS: Heparin 5000 units/ml inj SUBQ SCH ×2 (08:27→20:47)
[2017-06-16] MEDS: Fluconazole 100mg tab GT SCH (08:28)
[2017-06-16] MEDS: Ascorbic Acid 500mg tab GT SCH (08:28)
[2017-06-16] MEDS: Zinc Sulfate 220mg cap GT SCH (08:28)
[2017-06-16] MEDS: Digoxin Elixir 0.125mg GT SCH (08:28)
[2017-06-16] MEDS: Gentamicin 0.3% Opth Soln 5ml BOTH EYES SCH (08:30)
[2017-06-16] MEDS: Dakin's 0.25% (Half Strength) 16oz TOPIC SCH (08:31)
--- NOTE | 2017-06-16 08:54 | General Progress Note ---
Assessment/Plan Problem List: (1) Gangrene ICD Codes: I96 - Gangrene, not elsewhere classified SNOMED: 797596543 (2) Osteomyelitis ICD Codes: M86.9 - Osteomyelitis, unspecified SNOMED: 40620685 (3) Hyperosmolar (nonketotic) coma ICD Codes: E11.01 - Type 2 diabetes mellitus with hyperosmolarity with coma SNOMED: 40026734, 327963169 (4) Respiratory failure ICD Codes: J96.90 - Respiratory failure, unspecified, unspecified whether with hypoxia or hypercapnia SNOMED: 035512288 (5) Toxic encephalopathy ICD Codes: G92 - Toxic encephalopathy SNOMED: 81927370 (6) Acute renal failure ICD Codes: N17.9 - Acute kidney failure, unspecified SNOMED: 21213755 (7) Hypoalbuminemia ICD Codes: E88.09 - Other disorders of plasma-protein metabolism, not elsewhere classified SNOMED: 965625407 (8) Dehydration ICD Codes: E86.0 - Dehydration SNOMED: 31169301 (9) Encephalopathy acute ICD Codes: G93.40 - Encephalopathy, unspecified SNOMED: 4334685 (10) Anemia ICD Codes: D64.9 - Anemia, unspecified SNOMED: 291187614 Qualifiers: Qualified Codes: D64.9 - Anemia, unspecified (11) Severe sepsis ICD Codes: A41.9 - Sepsis, unspecified organism; R65.20 - Severe sepsis without septic shock SNOMED: 40912107 Status: stable, progressing Assessment/Plan iv abx ivf transfuse prn vent support resp rx gt feeds wound care poor candidate for bka/aka d/w son comfort care. still wants everything done poor prognosis Subjective ROS Limited/Unobtainable: Yes Constitutional: Reports: malaise, weakness HEENT: Reports: no symptoms Cardiovascular: Reports: no symptoms Respiratory: Reports: shortness of breath, sputum Gastrointestinal/Abdominal: Reports: difficulty swallowing Genitourinary: Reports: no symptoms Neurologic/Psychiatric: Reports: pre-existing deficit, seizure Endocrine: Reports: no symptoms Hematologic/Lymphatic: Reports: no symptoms Allergies: Coded Allergies: SULFAMETHOXAZOLE (Verified Allergy, Intermediate, 07/11/16) TRIMETHOPRIM (Verified Allergy, Intermediate, 07/11/16) All Systems: reviewed and negative except above Subjective fever better. d/w vascular. needs bka or aka. on the vent. poorly responsive. Objective Last 24 Hour Vital Signs Date Time Temp Pulse Resp B/P Pulse Ox O2 Delivery O2 Flow Rate FiO2 06/16/17 08:28 82 06/16/17 07:58 98.4 82 25 91/40 100 Mechanical Ventilator 30 06/16/17 07:25 82 20 30 06/16/17 06:11 99.0 06/16/17 05:13 85 26 30 06/16/17 04:00 81 06/16/17 04:00 30 06/16/17 03:34 99.0 82 22 107/43 100 Mechanical Ventilator 30 06/16/17 02:56 77 24 30 06/16/17 01:20 76 29 30 06/16/17 00:00 98.9 86 22 101/49 100 Mechanical Ventilator 30 06/16/17 00:00 74 06/16/17 00:00 30 06/15/17 23:12 73 26 30 06/15/17 22:22 99.1 06/15/17 21:28 76 21 30 06/15/17 21:00 76 97/40 06/15/17 20:00 85 06/15/17 19:57 30 06/15/17 19:55 99.1 86 22 115/41 100 Mechanical Ventilator 30 06/15/17 19:18 88 28 30 06/15/17 17:07 85 27 30 06/15/17 16:00 30 06/15/17 16:00 98.4 88 22 106/47 100 Mechanical Ventilator 30 06/15/17 16:00 88 06/15/17 14:49 85 23 30 06/15/17 12:58 83 25 30 06/15/17 12:04 30 06/15/17 12:00 78 06/15/17 12:00 99.0 80 20 107/50 100 Mechanical Ventilator 30 06/15/17 11:02 74 21 30 06/15/17 09:46 79 109/48 06/15/17 09:18 76 21 30 Intake and Output 06/15/17 06/16/17 19:00 07:00 Intake Total 775 ml 700 ml Output Total 530 ml 620 ml Balance 245 ml 80 ml Free Water 100 ml 100 ml Tube Feeding 600 ml 600 ml Other 75 ml Output Urine Total 500 ml 450 ml Stool Total 30 ml 170 ml # Bowel Movements 2 Height (Feet): 5 Height (Inches): 4.00 Weight (Pounds): 129 Objective General Appearance: WD/WN, alert Neck: supple Cardiovascular: regular rhythm Respiratory/Chest: lungs clear, normal breath sounds, no respiratory distress Abdomen: normal bowel sounds, non tender, soft, no organomegaly Edema: no edema noted Arm (L), no edema noted Arm (R), no edema noted Leg (L), no edema noted Leg (R), no edema noted Pedal (L), no edema noted Pedal (R), no edema noted Generalized Skin: other - gangrene right foot MILES CARTWRIGHT Jun 16, 2017 08:54
[2017-06-16] MEDS: Metoprolol 25mg tab GT SCH ×2 (09:00→20:54)
[2017-06-16 10:37] LABS: MEAN CORPUSCULAR HEMOGLOBIN 28.6 PG (27.0-31.0); MEAN CORPUSCULAR HGB CONC 30.5 G/DL (32.0-36.0); MEAN CORPUSCULAR VOLUME 94 FL (80-99); PLATELET COUNT 504 K/UL (150-450); RED BLOOD COUNT 2.54 M/UL (4.20-5.40); WHITE BLOOD COUNT 14.6 K/UL (4.8-10.8)
[2017-06-16 11:00] LABS: BAND NEUTROPHILS % (MANUAL) 3 % (0-8); BASOPHILS % (MANUAL) 0 % (0-2); EOSINOPHILS % (MANUAL) 3 % (0-3); LYMPHOCYTES % (MANUAL) 15 % (20-45); NEUTROPHILS % (MANUAL) 77 % (45-75); PLATELET ESTIMATE ADEQUATE; PLATELET MORPHOLOGY NORMAL; TOTAL CELLS COUNTED 100
[2017-06-16 11:01] LABS: ALANINE AMINOTRANSFERASE 19 U/L (3-33); ALBUMIN/GLOBULIN RATIO 0.5 (1.0-2.7); ANION GAP 12 (5-15); ASPARTATE AMINO TRANSFERASE 29 U/L (5-40); CALCIUM 9.1 mg/dL (8.6-10.2); CARBON DIOXIDE 22 mEQ/L (20-30); CHLORIDE 107 mEQ/L (98-107); CREATININE 0.7 mg/dL (0.5-0.9); HEMOLYSIS 2; POTASSIUM 2.8 mEQ/L (3.4-4.9); SODIUM 141 mEQ/L (135-145); TOTAL PROTEIN 5.4 g/dL (6.6-8.7)
--- NOTE | 2017-06-16 12:11 | Infectious Diseases Prog Note ---
Assessment/Plan Assessment/Plan antibiotics : fluconazole A 1. fungal UTI 2. respiratory failure 3. breast cancer 4. leucocytosis improving 5. HTN P 1. continue fluconazole 3 more days 2. will follow up cultures Subjective ROS Limited/Unobtainable: Yes Allergies: Coded Allergies: SULFAMETHOXAZOLE (Verified Allergy, Intermediate, 07/11/16) TRIMETHOPRIM (Verified Allergy, Intermediate, 07/11/16) Objective Vital Signs Last 24 Hour Vital Signs Date Time Temp Pulse Resp B/P Pulse Ox O2 Delivery O2 Flow Rate FiO2 06/16/17 11:17 78 29 30 06/16/17 09:26 76 23 30 06/16/17 09:00 76 91/40 06/16/17 08:28 82 06/16/17 08:00 30 06/16/17 08:00 81 06/16/17 07:58 98.4 82 25 91/40 100 Mechanical Ventilator 30 06/16/17 07:25 82 20 30 06/16/17 06:11 99.0 06/16/17 05:13 85 26 30 06/16/17 04:00 81 06/16/17 04:00 30 06/16/17 03:34 99.0 82 22 107/43 100 Mechanical Ventilator 30 06/16/17 02:56 77 24 30 06/16/17 01:20 76 29 30 06/16/17 00:00 98.9 86 22 101/49 100 Mechanical Ventilator 30 06/16/17 00:00 74 06/16/17 00:00 30 06/15/17 23:12 73 26 30 06/15/17 22:22 99.1 06/15/17 21:28 76 21 30 06/15/17 21:00 76 97/40 06/15/17 20:00 85 06/15/17 19:57 30 06/15/17 19:55 99.1 86 22 115/41 100 Mechanical Ventilator 30 06/15/17 19:18 88 28 30 06/15/17 17:07 85 27 30 06/15/17 16:00 30 06/15/17 16:00 98.4 88 22 106/47 100 Mechanical Ventilator 30 06/15/17 16:00 88 06/15/17 14:49 85 23 30 06/15/17 12:58 83 25 30 Height (Feet): 5 Height (Inches): 4.00 Weight (Pounds): 129 HEENT: status post trach Respiratory/Chest: lungs clear Cardiovascular: normal rate, regular rhythm, no gallop/murmur Abdomen: soft, non tender, other - GT Extremities: no edema, other - right arm PICC Microbiology Date/Time Source Procedure Growth Status 06/13/17 21:00 Urine,Clean Catch Urine Culture - Final Fern Tropicalis Complete Laboratory Tests Test 06/16/17 10:15 White Blood Count 14.6 K/UL (4.8-10.8) H Red Blood Count 2.54 M/UL (4.20-5.40) L Hemoglobin 7.2 G/DL (12.0-16.0) L Hematocrit 23.8 % (37.0-47.0) L Mean Corpuscular Volume 94 FL (80-99) Mean Corpuscular Hemoglobin 28.6 PG (27.0-31.0) Mean Corpuscular Hemoglobin Concent 30.5 G/DL (32.0-36.0) L Red Cell Distribution Width 17.0 % (11.6-14.8) H Platelet Count 504 K/UL (150-450) H Mean Platelet Volume 7.0 FL (6.5-10.1) Neutrophils (%) (Auto) % (45.0-75.0) Lymphocytes (%) (Auto) % (20.0-45.0) Monocytes (%) (Auto) % (1.0-10.0) Eosinophils (%) (Auto) % (0.0-3.0) Basophils (%) (Auto) % (0.0-2.0) Differential Total Cells Counted 100 Neutrophils % (Manual) 77 % (45-75) H Lymphocytes % (Manual) 15 % (20-45) L Monocytes % (Manual) 2 % (1-10) Eosinophils % (Manual) 3 % (0-3) Basophils % (Manual) 0 % (0-2) Band Neutrophils 3 % (0-8) Platelet Estimate Adequate Platelet Morphology Normal Red Blood Cell Morphology Normal Sodium Level 141 mEQ/L (135-145) Potassium Level 2.8 mEQ/L (3.4-4.9) L Chloride Level 107 mEQ/L (98-107) Carbon Dioxide Level 22 mEQ/L (20-30) Anion Gap 12 (5-15) Blood Urea Nitrogen 24 mg/dL (7-23) H Creatinine 0.7 mg/dL (0.5-0.9) Estimat Glomerular Filtration Rate mL/min (>60) Glucose Level 152 mg/dL (74-106) H Calcium Level 9.1 mg/dL (8.6-10.2) Total Bilirubin < 0.2 mg/dL (0.0-1.2) Aspartate Amino Transf (AST/SGOT) 29 U/L (5-40) Alanine Aminotransferase (ALT/SGPT) 19 U/L (3-33) Alkaline Phosphatase 186 U/L (35-104) H Total Protein 5.4 g/dL (6.6-8.7) L Albumin 1.9 g/dL (3.5-5.2) L Globulin 3.5 g/dL Albumin/Globulin Ratio 0.5 (1.0-2.7) L GRACE BENAVIDES Jun 16, 2017 12:11
[2017-06-16 12:46] LABS: MEAN CORPUSCULAR HGB CONC 29.8 G/DL (32.0-36.0); MEAN CORPUSCULAR VOLUME 94 FL (80-99); MEAN PLATELET VOLUME 6.6 FL (6.5-10.1); PLATELET COUNT 419 K/UL (150-450); RED BLOOD COUNT 2.83 M/UL (4.20-5.40); RED CELL DISTRIBUTION WIDTH 17.9 % (11.6-14.8); WHITE BLOOD COUNT 16.8 K/UL (4.8-10.8)
[2017-06-16 13:00] LABS: ANION GAP 14 (5-15); CARBON DIOXIDE 20 mEQ/L (20-30); CHLORIDE 106 mEQ/L (98-107); CREATININE 0.7 mg/dL (0.5-0.9); HEMOLYSIS 26; POTASSIUM 3.8 mEQ/L (3.4-4.9); SODIUM 140 mEQ/L (135-145)
[2017-06-16 13:08] LABS: BAND NEUTROPHILS % (MANUAL) 3 % (0-8); EOSINOPHILS % (MANUAL) 3 % (0-3); LYMPHOCYTES % (MANUAL) 28 % (20-45); NEUTROPHILS % (MANUAL) 66 % (45-75); TOTAL CELLS COUNTED 100
[2017-06-16 13:09] LABS: BASOPHILS % (MANUAL) 0 % (0-2); HYPOCHROMASIA 1+; PLATELET ESTIMATE ADEQUATE; PLATELET MORPHOLOGY NORMAL
[2017-06-16] MEDS: Dyna-Hex 2% Top Sol 8oz TOPIC SCH (20:44)
[2017-06-16] MEDS: traMADol 50mg tab GT SCH (20:45)
[2017-06-16] MEDS: Ibuprofen Susp 100mg/5ml GT PRN (20:46)
[2017-06-17] VITALS: BP 104/49
[2017-06-17 04:00] VITALS: BP 109/49
[2017-06-17 05:45] LABS: BASOPHILS % (AUTO) 0.6 % (0.0-2.0); EOSINOPHILS % (AUTO) 3.6 % (0.0-3.0); MEAN CORPUSCULAR HEMOGLOBIN 29.6 PG (27.0-31.0); MEAN CORPUSCULAR HGB CONC 31.7 G/DL (32.0-36.0); MEAN CORPUSCULAR VOLUME 93 FL (80-99); MEAN PLATELET VOLUME 6.8 FL (6.5-10.1); MONOCYTES % (AUTO) 3.8 % (1.0-10.0); PLATELET COUNT 395 K/UL (150-450); RED BLOOD COUNT 2.85 M/UL (4.20-5.40); RED CELL DISTRIBUTION WIDTH 16.5 % (11.6-14.8); WHITE BLOOD COUNT 13.2 K/UL (4.8-10.8)
[2017-06-17 06:03] LABS: ALANINE AMINOTRANSFERASE 19 U/L (3-33); ALBUMIN/GLOBULIN RATIO 0.4 (1.0-2.7); ANION GAP 13 (5-15); ASPARTATE AMINO TRANSFERASE 36 U/L (5-40); CALCIUM 9.1 mg/dL (8.6-10.2); CARBON DIOXIDE 21 mEQ/L (20-30); CHLORIDE 111 mEQ/L (98-107); CREATININE 0.7 mg/dL (0.5-0.9); HEMOLYSIS 5; POTASSIUM 2.8 mEQ/L (3.4-4.9); SODIUM 145 mEQ/L (135-145); TOTAL PROTEIN 5.6 g/dL (6.6-8.7)
[2017-06-17 07:43] VITALS: BP 105/53
[2017-06-17] MEDS: Heparin 5000 units/ml inj SUBQ SCH (09:11)
[2017-06-17] MEDS: Dakin's 0.25% (Half Strength) 16oz TOPIC SCH (09:11)
[2017-06-17] MEDS: Multivitamins W/Minerals 15 ML UDC GT SCH (09:12)
[2017-06-17] MEDS: Ferrous Sulfate 300 MG/5 ML UDC GT SCH ×3 (09:12→18:00)
[2017-06-17] MEDS: Metoprolol 25mg tab GT SCH (09:12)
[2017-06-17] MEDS: Dyna-Hex 2% Top Sol 8oz TOPIC SCH (09:12)
[2017-06-17] MEDS: Digoxin Elixir 0.125mg GT SCH (09:12)
[2017-06-17] MEDS: Fluconazole 100mg tab GT SCH (09:12)
[2017-06-17] MEDS: Zinc Sulfate 220mg cap GT SCH (09:13)
[2017-06-17] MEDS: Ascorbic Acid 500mg tab GT SCH (09:13)
[2017-06-17] MEDS: Gentamicin 0.3% Opth Soln 5ml BOTH EYES SCH (09:13)
[2017-06-17] MEDS ORDERED: KCl 10% 40mEq/30ml liquid NG ONE ×2 (09:30→12:00)
[2017-06-17 12:00] VITALS: BP 108/51
[2017-06-17] MEDS: Ibuprofen Susp 100mg/5ml GT PRN (14:05)
[2017-06-17] MEDS: Metoclopramide 10mg/10ml Liq GT PRN (14:40)
[2017-06-17] MEDS ORDERED: Metoclopramide 10mg/10ml Liq GT PRN (15:30)
[2017-06-17 16:00] VITALS: BP 110/50
--- NOTE | 2017-06-17 17:15 | Discharge Summary ---
DATE OF ADMISSION: 06/13/2017 DATE OF DISCHARGE: 06/17/2017 ADMISSION DIAGNOSES: 1. Sepsis shock. 2. Anemia. 3. Encephalopathy. 4. Gangrene of the foot. 5. Sacral wound. 6. Osteomyelitis. 7. History of breast cancer. 8. History of stroke. 9. History of toxic metabolic encephalopathy. 10. Hypokalemia. 11. Dehydration. 12. Acute renal failure. DISCHARGE DIAGNOSES: 1. Sepsis shock. 2. Anemia. 3. Encephalopathy. 4. Gangrene of the foot. 5. Sacral wound. 6. Osteomyelitis. 7. History of breast cancer. 8. History of stroke. 9. History of toxic metabolic encephalopathy. 10. Hypokalemia. 11. Dehydration. 12. Acute renal failure. HISTORY OF PRESENT ILLNESS: This is an unfortunate female with history of anoxic encephalopathy, chronic respiratory failure, sacral decubitus ulcer and gangrene, who was transferred with complaints of fevers and sepsis. She was anemic and required transfusion. She had no signs of bleeding. She was pancultured. Her chest x-ray was clear. She had a fungal UTI. The patient was evaluated by vascular surgeon, was felt to be a poor candidate for amputation. The patient otherwise remained stable. Son requested discharge back to the halfway facility. She will be continued on oral fluconazole therapy for the fungal UTI. She is at high risk for readmission because of her multiple comorbidities, which include encephalopathy, respiratory failure, renal failure, multiple sacral wounds, and gangrene. The patient will be watched closely at the halfway facility. DISCHARGE MEDICATIONS: Please see discharge medication list for discharge medications. DIET: G-tube feedings. ACTIVITY: Ad-kaylee. Christiano Moses M.D. DR: JOSHUA JOB#: [id number] CC:
[2017-06-17] MEDS ORDERED: Tubing IV Secondary IV ONE (20:29)
[2017-06-17] MEDS ORDERED: Tubing IV Blood Pump IV ONE (20:29)
[2017-06-17] MEDS ORDERED: NS 275ml ONE ×2 (20:29)
== END 2017-06-17 20:30 | DRG 870 ==
LOC: EDBD 21:46 → EMR 22:30 → 2W 06-13 01:13 → EDBEDREQ 06-13 02:00
PROC: 5A1955Z Respiratory Ventilation, Greater than 96 Consecutive Hours (ICD-10-PCS; principal; 2017-06-13)
PROC: 30233N1 Transfusion of Nonautologous Red Blood Cells into Peripheral Vein, Percutaneous Approach (ICD-10-PCS; principal; 2017-06-13)
DX: A41.9 Sepsis, unspecified organism (principal); R65.21 Severe sepsis with septic shock; E11.01 Type 2 diabetes mellitus with hyperosmolarity with coma; G92 Toxic encephalopathy; G93.1 Anoxic brain damage, not elsewhere classified; N17.9 Acute kidney failure, unspecified; L89.154 Pressure ulcer of sacral region, stage 4; I96 Gangrene, not elsewhere classified; B37.49 Other urogenital candidiasis; M86.9 Osteomyelitis, unspecified; L89.310 Pressure ulcer of right buttock, unstageable; L89.320 Pressure ulcer of left buttock, unstageable; L89.620 Pressure ulcer of left heel, unstageable; L89.610 Pressure ulcer of right heel, unstageable; E88.09 Other disorders of plasma-protein metabolism, not elsewhere classified; L89.890 Pressure ulcer of other site, unstageable; D64.9 Anemia, unspecified; E86.0 Dehydration; Z85.3 Personal history of malignant neoplasm of breast; Z43.0 Encounter for attention to tracheostomy; E87.6 Hypokalemia; Z86.73 Personal history of transient ischemic attack (TIA), and cerebral infarction without residual deficits; Z88.1 Allergy status to other antibiotic agents; I10 Essential (primary) hypertension; Z88.2 Allergy status to sulfonamides
CPT/HCPCS: 36415; 36569; 71010; 76937; 80048; 80053; 81003; 82550; 82553; 82962; 83605; 84484; 85007; 85025; 85610; 85730; 86850; 86900; 86901; 86920; 87040; 87070; 87081; 87086; 87181; 87205; 93005; 94002; 94003

== ENCOUNTER 2017-07-03 20:28 | Inpatient (IN) | payer MEDICARE, MEDICAID ==
[~2017-07-03] VITALS: Ht 162.6 cm; Wt 66.7 kg
[~2017-07-03 20:28] MED LIST changes: +CARBIDOPA-LEVO1 EA13 GT; +DIGOXIN0.25 MG/5 GT; +DIGOXIN125 MCG GT; +DIGOXIN250 MCG ORAL; +GENTAK5 ML BOTH EYES; +INVANZ1 GM IVPB; +LOVENOX10 MG SUBQ; +VANCOMYCIN1 GM/2502 IVPB
[2017-07-03 20:30] VITALS: BP 92/46
[2017-07-03] MEDS ORDERED: HUMULIN R100 UNIT/1 SUBQ (20:37)
[2017-07-03 21:04] LABS: MEAN CORPUSCULAR HGB CONC 32.8 G/DL (32.0-36.0); MEAN CORPUSCULAR VOLUME 92 FL (80-99); MEAN PLATELET VOLUME 6.8 FL (6.5-10.1); PLATELET COUNT 604 K/UL (150-450); RED BLOOD COUNT 2.28 M/UL (4.20-5.40); RED CELL DISTRIBUTION WIDTH 15.3 % (11.6-14.8); WHITE BLOOD COUNT 18.4 K/UL (4.8-10.8)
[2017-07-03 21:11] LABS: APPEARANCE,URINE CLEAR; KETONES,URINE NEGATIVE (NEGATIVE); LEUKOCYTE ESTERASE ,URINE 3+ (NEGATIVE); NITRITE,URINE NEGATIVE (NEGATIVE); PH,URINE 5 (4.5-8.0); PROTEIN,URINE 1+ (NEGATIVE); PROTHROMBIN TIME 10.9 SEC (9.30-11.50); UROBILINOGEN,URINE NORMAL MG/DL (0.0-1.0)
[2017-07-03 21:14] VITALS: BP 87/25
[2017-07-03 21:21] LABS: BACTERIA,URINE MODERATE /HPF; SQUAMOUS EPITHELIAL CELL,UR FEW /LPF (NONE/OCC); YEAST,URINE FEW /HPF
[2017-07-03 21:24] LABS: TROPONIN I < 0.30 ng/mL (<=0.30)
[2017-07-03 21:28] LABS: REFLEX LACTIC ACID YES OR NO YES
[2017-07-03 21:37] LABS: ALANINE AMINOTRANSFERASE 16 U/L (3-33); ALBUMIN/GLOBULIN RATIO 0.3 (1.0-2.7); ANION GAP 17 (5-15); ASPARTATE AMINO TRANSFERASE 37 U/L (5-40); CARBON DIOXIDE 21 mEQ/L (20-30); CHLORIDE 87 mEQ/L (98-107); CREATININE 1.1 mg/dL (0.5-0.9); HEMOLYSIS 5; LIPASE 29 U/L (< 60); POTASSIUM 4.5 mEQ/L (3.4-4.9); SODIUM 125 mEQ/L (135-145); TOTAL PROTEIN 5.9 g/dL (6.6-8.7)
[2017-07-03 22:00] VITALS: BP 92/28
[2017-07-03 22:08] LABS: ANISOCYTOSIS 2+; BAND NEUTROPHILS % (MANUAL) 1 % (0-8); EOSINOPHILS % (MANUAL) 2 % (0-3); HYPOCHROMASIA 2+; LYMPHOCYTES % (MANUAL) 12 % (20-45); NEUTROPHILS % (MANUAL) 79 % (45-75); POLYCHROMASIA 1+; TOTAL CELLS COUNTED 100
[2017-07-03 22:09] LABS: BASOPHILS % (MANUAL) 0 % (0-2); PLATELET ESTIMATE INCREASED; PLATELET MORPHOLOGY NORMAL
[2017-07-03 23:00] VITALS: BP 92/32
--- NOTE | 2017-07-03 23:24 | Emergency Room Report ---
History of Present Illness General Chief Complaint: Abnormal Labs Source: Medical Record Present Illness HPI Patient sent for low H&H. Apparently 7. No apparent bleeding, melena, vomiting. Has had transfusions in past. d/c hgb June 17 was 8.4. 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 Mcneill and prior UTIs with resistant organisms and mahogany. Discharged 06/17. Dx: 1. Sepsis shock. 2. Anemia. 3. Encephalopathy. 4. Gangrene of the foot. 5. Sacral wound. 6. Osteomyelitis. 7. History of breast cancer. 8. History of stroke. 9. History of toxic metabolic encephalopathy. 10. Hypokalemia. 11. Dehydration. 12. Acute renal failure. Due to dementia, no other history is available. Allergies: Coded Allergies: SULFAMETHOXAZOLE (Verified Allergy, Intermediate, 07/11/16) TRIMETHOPRIM (Verified Allergy, Intermediate, 07/11/16) SULFA (SULFONAMIDE ANTIBIOTICS) (Unverified Allergy, Unknown, 07/03/17) Patient History Limited by: medical condition Past Medical History: see triage record, old chart reviewed Past Surgical History: other - trach and G tube Social History Narrative SNF - son is present with patient Nursing Documentation-[facility] Past Medical History: No History, Except For Hx Hypertension: Yes Hx Pacemaker: No Hx Asthma: No Hx Diabetes: Yes Hx Cancer: Yes Hx Gastrointestinal Problems: Yes - GERD Hx Dialysis: No Hx Neurological Problems: Yes - Parkinsons Hx Cerebrovascular Accident: Yes Hx Parkinson's Disease: Yes Hx Seizures: No Hx Weakness: Yes Physical Exam Vital Signs Date Time Temp Pulse Resp B/P Pulse Ox O2 Delivery O2 Flow Rate FiO2 07/03/17 20:19 97.7 55 20 92/46 100 Trach Collar 35 General Appearance: Chronically Ill, Stupor Head: normocephalic, atraumatic Eyes: bilateral eye PERRL, bilateral eye normal inspection ENT: dry mucus membranes Neck: other - flaccid, tracheotomy Respiratory: lungs clear, normal breath sounds Cardiovascular #1: bradycardia, edema Cardiovascular #2: 2+ radial (L) Gastrointestinal: non tender, soft, abnormal bowel sounds - decreased, other - g tube Rectal: heme negative stool Genitourinary: other - mcneill Musculoskeletal: other - atrophy and some contractures - dry gangrene r foot Neurologic: other - minimal response to pain Psychiatric: other - vegetative state Skin: other - pale and decubiti stage 4 sacral X2, stage 3 heels, stage knee, stage 2 thighs Medical Decision Making Diagnostic Impression: Primary Impression: Anemia Qualified Codes: D64.9 - Anemia, unspecified Additional Impressions: UTI (urinary tract infection) Qualified Codes: T83.511D - Infection and inflammatory reaction due to indwelling urethral catheter, subsequent encounter; N39.0 - Urinary tract infection, site not specified Ventilator dependence Bradyarrhythmia Dry gangrene Multiple decubiti ER Course Vent dependent patient with prior anemia with alleged low H/H. No obvious evidence of active bleeding. Need to assess labs. Consideration of occult infection. Patient in vegetative state. Discussed if son wanted transfusion if low and he stated "yes". Complex, chronically ill patient. H/H low. Guaiac negative. Starting blood. Abd film without obstruction (some increased stool). WBC elevated. Antibiotics begun for UTI. Will need to tailor these based on sensitivities. Due to bradyarrhythmia, digoxin level checked. (Send out lab.) Consider digibind if elevated. Admit [facility] Dr. Moses. Laboratory Tests Test 07/03/17 20:40 07/04/17 00:05 White Blood Count 18.4 K/UL (4.8-10.8) H Red Blood Count 2.28 M/UL (4.20-5.40) L Hemoglobin 6.8 G/DL (12.0-16.0) *L Hematocrit 20.8 % (37.0-47.0) L Mean Corpuscular Volume 92 FL (80-99) Mean Corpuscular Hemoglobin 30.0 PG (27.0-31.0) Mean Corpuscular Hemoglobin Concent 32.8 G/DL (32.0-36.0) Red Cell Distribution Width 15.3 % (11.6-14.8) H Platelet Count 604 K/UL (150-450) H Mean Platelet Volume 6.8 FL (6.5-10.1) Neutrophils (%) (Auto) % (45.0-75.0) Lymphocytes (%) (Auto) % (20.0-45.0) Monocytes (%) (Auto) % (1.0-10.0) Eosinophils (%) (Auto) % (0.0-3.0) Basophils (%) (Auto) % (0.0-2.0) Differential Total Cells Counted 100 Neutrophils % (Manual) 79 % (45-75) H Lymphocytes % (Manual) 12 % (20-45) L Monocytes % (Manual) 6 % (1-10) Eosinophils % (Manual) 2 % (0-3) Basophils % (Manual) 0 % (0-2) Band Neutrophils 1 % (0-8) Platelet Estimate Increased H Platelet Morphology Normal Polychromasia 1+ Hypochromasia 2+ Anisocytosis 2+ Prothrombin Time 10.9 SEC (9.30-11.50) Prothrombin Time INR 1.0 (0.9-1.1) PTT 36 SEC (23-33) H Urine Color Pale yellow Urine Appearance Clear Urine pH 5 (4.5-8.0) Urine Specific [place] 1.010 (1.005-1.035) Urine Protein 1+ (NEGATIVE) H Urine Glucose (UA) Negative (NEGATIVE) Urine Ketones Negative (NEGATIVE) Urine Occult Blood 3+ (NEGATIVE) H Urine Nitrite Negative (NEGATIVE) Urine Bilirubin Negative (NEGATIVE) Urine Urobilinogen Normal MG/DL (0.0-1.0) Urine Leukocyte Esterase 3+ (NEGATIVE) H Urine RBC 10-15 /HPF (0 - 2) H Urine WBC 5-10 /HPF (0 - 2) H Urine Squamous Epithelial Cells Few /LPF (NONE/OCC) Urine Bacteria Moderate /HPF (NONE) H Urine Yeast Few /HPF (NONE) H Sodium Level 125 mEQ/L (135-145) L Potassium Level 4.5 mEQ/L (3.4-4.9) Chloride Level 87 mEQ/L (98-107) L Carbon Dioxide Level 21 mEQ/L (20-30) Anion Gap 17 (5-15) H Blood Urea Nitrogen 60 mg/dL (7-23) H Creatinine 1.1 mg/dL (0.5-0.9) H Estimate Glomerular Filtration Rate mL/min (>60) Glucose Level 130 mg/dL (74-106) H Lactic Acid Level 2.70 mmol/L (0.66-2.22) H 2.50 mmol/L (0.66-2.22) H Calcium Level 9.0 mg/dL (8.6-10.2) Total Bilirubin < 0.2 mg/dL (0.0-1.2) Aspartate Amino Transferase (AST) 37 U/L (5-40) Alanine Aminotransferase (ALT) 16 U/L (3-33) Alkaline Phosphatase 244 U/L (35-104) H Troponin I < 0.30 ng/mL (<=0.30) Pro-B-Type Natriuretic Peptide 47911 pg/mL (0-450) H Total Protein 5.9 g/dL (6.6-8.7) L Albumin 1.6 g/dL (3.5-5.2) L Globulin 4.3 g/dL Albumin/Globulin Ratio 0.3 (1.0-2.7) L Lipase 29 U/L (< 60) Digoxin Level Pending EKG Diagnostic Results Rate: bradycardiac Rhythm: other - junctional ST Segments: no acute changes Rhythm Strip Diag. Results EP Interpretation: yes Rhythm: no PVC's, no ectopy, other - michael Other X-Ray Diagnostic Results Other X-Ray Diagnostic Results : X-Ray ordered: abd # of Views/Limited Vs Complete: 1 View Indication: Other EP Interpretation: Yes Interpretation: nonspecific bowel gas, no sbo, other - inc stool Impression: Other Interpreting ER Provider: signed Raymond Womack MD Last Vital Signs Date Time Temp Pulse Resp B/P Pulse Ox O2 Delivery O2 Flow Rate FiO2 07/04/17 04:15 97.9 52 25 108/34 100 35 07/04/17 04:00 Mechanical Ventilator Status: improved Disposition: ADMITTED INPATIENT Condition: Serious Referrals: MILES MOSES (PCP) Raymond Womack M.D. Jul 03, 2017 23:24
[2017-07-04] VITALS (9 sets, daily range): BP systolic 90–120; BP diastolic 28–49
[2017-07-04] MEDS ORDERED: Cefepime HCl 1 GM in D5W 55 ML IVPB ONE ×2
[2017-07-04] MEDS ORDERED: Cefepime 1gm vial ONE (00:33)
[2017-07-04] MEDS ORDERED: Piperacillin/Tazobactam 3.375 GM in D5W 110 ML IVPB SCH (06:00)
[2017-07-04] MEDS: NovoLOG Insulin Flexpen SUBQ SCH ×3 (06:00→18:00)
[2017-07-04] MEDS: D5NS 1,000 ML IV SCH ×2 (08:54→18:52)
[2017-07-04] MEDS ORDERED: Enoxaparin 30mg Inj SUBQ SCH (09:00)
[2017-07-04 09:15] LABS: ALANINE AMINOTRANSFERASE 22 U/L (3-33); ALBUMIN/GLOBULIN RATIO 0.3 (1.0-2.7); ANION GAP 16 (5-15); ASPARTATE AMINO TRANSFERASE 43 U/L (5-40); CALCIUM 8.9 mg/dL (8.6-10.2); CARBON DIOXIDE 19 mEQ/L (20-30); CHLORIDE 92 mEQ/L (98-107); CREATININE 1.1 mg/dL (0.5-0.9); HEMOLYSIS 47; POTASSIUM 5.2 mEQ/L (3.4-4.9); SODIUM 127 mEQ/L (135-145); TOTAL PROTEIN 6.2 g/dL (6.6-8.7)
[2017-07-04 09:41] LABS: LYMPHOCYTES % (AUTO) 14.1 % (20.0-45.0); MEAN CORPUSCULAR HEMOGLOBIN 31.2 PG (27.0-31.0); MEAN CORPUSCULAR HGB CONC 34.7 G/DL (32.0-36.0); MEAN CORPUSCULAR VOLUME 90 FL (80-99); MEAN PLATELET VOLUME 5.7 FL (6.5-10.1); MONOCYTES % (AUTO) 5.7 % (1.0-10.0); NEUTROPHILS % (AUTO) 77.2 % (45.0-75.0); PLATELET COUNT 671 K/UL (150-450); RED BLOOD COUNT 3.44 M/UL (4.20-5.40); RED CELL DISTRIBUTION WIDTH 13.8 % (11.6-14.8); WHITE BLOOD COUNT 16.6 K/UL (4.8-10.8)
[2017-07-04] MEDS ORDERED: D5NS 1000ml IV ONE (10:31)
[2017-07-04] MEDS ORDERED: Tubing Blood Filter IV ONE (10:31)
[2017-07-04] MEDS ORDERED: NS 275ml ONE (10:31)
[2017-07-04] MEDS: Vancomycin 1gm/D5W 275ml IVPB SCH ×2 (10:53)
--- NOTE | 2017-07-04 14:32 | Diagnostic Imaging Report ---
Indications: Shortness of breath Technique: Portable AP chest Findings: Comparison: 06/12/17 Left lung volume loss, left basal pleural effusion versus thickening persist, unchanged. Right lung and pleura remain clear. Heart size and pulmonary vasculature remain within normal limits. Aortic calcification and elongation, absence of left breast silhouette, presence of surgical clips in left axilla and chest wall, tracheostomy, PICC remain in place. IMPRESSION: No evidence of acute cardiopulmonary disease, unchanged Stable chronic changes as described
--- NOTE | 2017-07-04 14:34 | Diagnostic Imaging Report ---
Indications: Abdominal Technique: Portable supine AP abdomen Findings: Comparison: 07/15/2016 Paucity of bowel gas. Small amount of gas and feces in nondilated left colon. Percutaneous gastrostomy tube remains in place. Previous right femoral venous catheter has been removed. Arterial mural calcifications, lumbar vertebral degenerative changes again noted. IMPRESSION: Positive bowel gas, nonspecific. Dilated, fluid-filled small bowel not excludable. Consider contrast-enhanced CT abdomen pelvis for further evaluation as clinically indicated. No other evidence of acute abdominopelvic disease, unchanged Removal of right femoral venous catheter Stable chronic changes as described
[2017-07-04] MEDS: Piperacillin/Tazobactam 3.375 GM in D5W 110 ML IVPB SCH (16:26)
[2017-07-04] MEDS ORDERED: Sodium Polystyrene Sulfonate 15gm Powder ORAL ONE (16:30)
[2017-07-04 19:48] LABS: ANISOCYTOSIS 2+; BAND NEUTROPHILS % (MANUAL) 8 % (0-8); BASOPHILS % (MANUAL) 0 % (0-2); EOSINOPHILS % (MANUAL) 0 % (0-3); HYPOCHROMASIA 1+; LYMPHOCYTES % (MANUAL) 9 % (20-45); NEUTROPHILS % (MANUAL) 75 % (45-75); PLATELET ESTIMATE INCREASED; PLATELET MORPHOLOGY NORMAL; POLYCHROMASIA 1+; TOTAL CELLS COUNTED 100
[2017-07-04 19:49] LABS: PATH BLOOD SMEAR/OMC SENT TO PATHOLOGIST
--- NOTE | 2017-07-04 21:01 | Wound Care Consultation ---
Wound Assessment Wound Assessment #1: Wound Number: #1 Wound Present on Admission: Yes New Wound: No Status Change of Wound: No Wound Location Body Site Modif: mid Wound Location Body Site: sacral Wound Type: pressure ulcer Bonita Test: Does not Bonita Pressure Ulcer Stage: IV/unstageable Wound Thickness: Full Thickness Wound Length: 13.5 Wound Width: 16.5 Wound Depth: 2.0 Percent of Wound [place]/Red: 70 Percent of Wound Bed Yellow/Wh: 30 Wound Drainage Description: Serosanguineous Wound Drainage Amount: Moderate Wound Drainage Odor: Mild Odor Tissue Surrounding Wound: Macerated Wound Tunneling Length: 3.5 Tunneling From: 5pm Tunneling To: 5:15pm Wound General Appearance: Reddened, Draining, Bone Palpable, Muscle Visible Wound Assessment #2: Wound Number: #2 Wound Present on Admission: Yes New Wound: No Status Change of Wound: No Wound Location Body Site Modif: right Wound Location Body Site: ischial tuberosity Wound Type: pressure ulcer Bonita Test: Does not Bonita Pressure Ulcer Stage: IV/unstageable Wound Thickness: Full Thickness Wound Length: 9.0 Wound Width: 5.0 Wound Depth: utd Percent of Wound Bed Yellow/Wh: 100 Wound Drainage Description: Serosanguineous Wound Drainage Amount: Moderate Wound Drainage Odor: None/Absent Tissue Surrounding Wound: Macerated Wound General Appearance: Draining, Necrotic Wound Assessment #3: Wound Number: #3 Wound Present on Admission: Yes New Wound: No Status Change of Wound: No Wound Location Body Site Modif: left Wound Location Body Site: ischial tuberosity Wound Type: pressure ulcer Bonita Test: Does not Bonita Pressure Ulcer Stage: IV/unstageable Wound Thickness: Full Thickness Wound Length: 9.0 Wound Width: 4.5 Wound Depth: utd Percent of Wound Bed Yellow/Wh: 100 Wound Drainage Description: Serosanguineous Wound Drainage Amount: Moderate Wound Drainage Odor: None/Absent Tissue Surrounding Wound: Macerated Wound General Appearance: Draining, Necrotic Wound Assessment #4: Wound Number: #4 Wound Present on Admission: Yes New Wound: No Status Change of Wound: No Wound Location Body Site Modif: right Wound Location Body Site: heel Wound Type: pressure ulcer Bonita Test: Does not Bonita Pressure Ulcer Stage: IV/unstageable Wound Thickness: Full Thickness Wound Length: 8.5 Wound Width: 5.5 Wound Depth: utd Percent of Wound Black/Brown: 100 Wound Drainage Description: Serosanguineous Wound Drainage Amount: Scant Wound Drainage Odor: None/Absent Tissue Surrounding Wound: whole entire foot black necrotic tissue Wound General Appearance: Blackened, Necrotic Wound Assessment #5: Wound Number: #5 Wound Present on Admission: Yes New Wound: No Status Change of Wound: No Wound Location Body Site Modif: left Wound Location Body Site: heel Wound Type: pressure ulcer Bonita Test: Does not Bonita Pressure Ulcer Stage: IV/unstageable Wound Thickness: Full Thickness Wound Length: 7.0 Wound Width: 5.0 Wound Depth: utd Percent of Wound Black/Brown: 100 Wound Drainage Description: Serosanguineous Wound Drainage Amount: Scant Wound Drainage Odor: None/Absent Tissue Surrounding Wound: Indurated Wound General Appearance: Blackened, Draining, Necrotic Wound Assessment #6: Wound Number: #6 Wound Present on Admission: Yes New Wound: No Status Change of Wound: No Wound Location Body Site Modif: left, lateral Wound Location Body Site: metatarsal head - 5th Wound Type: pressure ulcer Bonita Test: Does not Bonita Pressure Ulcer Stage: deep tissue injury Wound Thickness: Full Thickness Wound Length: 2.5 Wound Width: 2.0 Wound Depth: utd Percent of Wound Purple/Maroon: 100 Wound Drainage Amount: None Wound Drainage Odor: None/Absent Tissue Surrounding Wound: Erythemic Wound General Appearance: Reddened Wound Assessment #7: Wound Number: #7 Wound Present on Admission: Yes New Wound: No Status Change of Wound: No Wound Location Body Site Modif: right, lower, lateral Wound Location Body Site: leg Wound Type: pressure ulcer Bonita Test: Does not Bonita Pressure Ulcer Stage: IV/unstageable Wound Thickness: Full Thickness Wound Length: 8.0 Wound Width: 4.0 Wound Depth: utd Percent of Wound Black/Brown: 100 Wound Drainage Amount: None Wound Drainage Odor: None/Absent Tissue Surrounding Wound: Indurated - and scattered purple/maroon DTIs on the right lower leg Wound General Appearance: Blackened, Necrotic Wound Assessment #8: Wound Number: #8 Wound Present on Admission: Yes New Wound: No Status Change of Wound: No Wound Location Body Site Modif: right, dorsal, plantar Wound Location Body Site: toe - all 5 Wound Type: vascular issue w/vascular changes Bonita Test: Does not Bonita Wound Thickness: Full Thickness Percent of Wound Black/Brown: 100 Wound Drainage Description: Serosanguineous Wound Drainage Amount: Scant Wound Drainage Odor: Mild Odor Tissue Surrounding Wound: Indurated Wound General Appearance: Blackened, Necrotic Wound Assessment #9: Wound Number: #9 Wound Present on Admission: Yes New Wound: No Status Change of Wound: No Wound Location Body Site Modif: right, lower Wound Location Body Site: thigh - whole circumference of lower thigh Wound Type: pressure ulcer Bonita Test: Does not Bonita Pressure Ulcer Stage: IV/unstageable Wound Thickness: Full Thickness Wound Length: 5.0 Wound Depth: utd Percent of Wound Bed Yellow/Wh: 10 Percent of Wound Purple/Maroon: 90 Wound Drainage Description: Serosanguineous Wound Drainage Amount: Scant Wound Drainage Odor: None/Absent Tissue Surrounding Wound: Erythemic Wound General Appearance: Reddened - purple/maroon Wound Comment #1 Sacral stage IV pressure ulcer #2 Left ischial tuberosity unstageable pressure ulcer #3 Right ischial tuberosity unstageable pressure ulcer #4 Left heel unstageable pressure ulcer #5 Right heel unstageable pressure ulcer #6 Left 5th lateral metatarsal head DTI pressure ulcer #7 Right dorsal, plantar foot and all 5 toes with black necrotic vascular wound #8 Left lower lateral leg scar tissue #9 Right lower lateral leg unstageable with black eschar adhered to wound bed. #10 Right lower leg with scattered purple/maroon DTIs pressure ulcer #11 The whole circumference of the right thigh unstageable and DTI pressure ulcer by biomedical engineering aide Recommendation -Sacral pressure ulcer Cleanse with Dakin's solution, pat dry, apply hydrogel to wound bed apply calcium alginate cover with 4x4 secure with bordered gauze daily and PRN soiled/ dislodged -Left and right ischial tuberosity Cleanse with saline, pat dry, apply Santyl ointment to wound bed, cover with bordered gauze daily and PRN soiled/dislodged -Local wound care per protocol for DTI and unstageable wound with black eschar per protocol -Podiatry consult for right lower leg and foot -Turn and reposition -Keep clean and dry -Optimize nutrition -Low air loss P200 mattress -Heel protector on both heels -Offload both heels -Assess and f/u accordingly for any changes JOSE G NICOLAS RN Jul 04, 2017 21:01
--- NOTE | 2017-07-04 22:15 | Consultation ---
DATE OF CONSULTATION: 07/04/2017 INFECTIOUS DISEASES CONSULT This consult is for coverage of Dr. Mei. PRIMARY ATTENDING: Christiano Moses M.D. REASON FOR CONSULT: Sepsis and urinary tract infection. HISTORY OF PRESENT ILLNESS: This is an 82-year-old [place] female, admitted last night from nursing facility because of anemia. The patient has a recent history of admission to [facility] between 06/13/2017 and 06/17/2017 with urinary tract infection and right foot gangrene. The family refused amputation. The patient was found to have hemoglobin of 6.8 at the ER, had lactic acidosis, leukocytosis of 18.4, was started on intravenous antibiotic. PAST MEDICAL HISTORY: Significant for ventilator-dependent respiratory failure, diabetes mellitus, Parkinson disease, anemia, history of breast cancer, hypertension, status post G-tube, and status post tracheostomy. MEDICATIONS: Getting Zosyn, vancomycin, insulin, and Lovenox. ALLERGIES: Allergic to sulfa drugs. SOCIAL HISTORY: halfway resident with poor mental and functional status. . PHYSICAL EXAMINATION: VITAL SIGNS: Temperature is 97.9 degrees, pulse 60, slightly bradycardic at the time of admission, and blood pressure is 108/34. HEAD AND NECK: Status post tracheostomy. HEART: Normal rate. LUNGS: On mechanical ventilator, has bilateral rhonchi. ABDOMEN: Soft. G-tube in place. EXTREMITIES: She has right arm PICC line that was placed in the previous admission on 06/14/2017. SKIN: Have multiple pressure ulcers in the sacrum and lower extremities. She has a right foot gangrene and necrotic ulcer in the right lower extremity. LABORATORY AND DIAGNOSTIC DATA: WBC currently 16.6, hemoglobin 10.7, hematocrit 31, and platelets 671,000. Sodium 127, potassium 5.2, chloride 92, bicarbonate 19, BUN 59, and creatinine 1.1. Lactic acid is 2.5. Chest x-ray was negative. UA showed WBC of 5 to 10 and leukocyte esterase 2+. IMPRESSION: Sepsis with leukocytosis and lactic acidosis. The patient has pyuria, may have urinary tract infection, and the right foot gangrene, likely osteomyelitis. She has ventilator-dependent respiratory failure, diabetes mellitus, severe anemia, hyponatremia, hyperkalemia, and acute renal failure. RECOMMENDATION: We will continue with vancomycin and Zosyn. We will send for blood cultures. Likely needs amputation of right lower extremity. At the end of my exam, I thank Dr. Moses for involving me in the care of this patient. Dax Alexandre M.D. DR: ELLI JOB#: [id number] CC: ANDRE
--- NOTE | 2017-07-04 22:15 | History and Physical Report ---
DATE OF ADMISSION: 07/03/2017 CHIEF COMPLAINT: Anemia, possible gastrointestinal bleed, sepsis, digoxin toxicity, and acute renal failure. HISTORY OF PRESENT ILLNESS: The patient is an unfortunate female with a history of anoxic encephalopathy, stroke, history of breast cancer, and chronic respiratory failure. She has a history of gangrene of the right lower extremity and a large sacral wound with osteomyelitis. She was transferred from the half-way facility with complaints of fevers and hypotension. On evaluation in the emergency room, she was noted to have an elevated white count. She had a sodium of 127 and BUN of 59. Her hemoglobin was only 6.8. According to the son, she has had no signs of any bleeding, but he has noted that she has been weaker and less responsive. The patient is now status post blood transfusion and is now admitted for further evaluation and care. PAST MEDICAL HISTORY: As above. PAST SURGERY HISTORY: Includes a trach and a G-tube and history of mastectomy. CURRENT MEDICATIONS: Reconciled and reviewed. ALLERGIES: Include sulfa. FAMILY HISTORY: Noncontributory. SOCIAL HISTORY: There is no known history of tobacco, ethanol, or drugs. REVIEW OF SYSTEMS: From the patient is unobtainable as she is nonverbal at baseline. PHYSICAL EXAMINATION: GENERAL: The patient is a chronically ill-appearing female, in no apparent distress. She is poorly responsive. VITAL SIGNS: Temperature is 98 degrees, pulse 52, respirations 25, and blood pressure 108/34. NECK: Supple. There is no jugular venous distention. HEART: Regular rate and rhythm. LUNGS: Clear. ABDOMEN: Soft, nontender, and nondistended. EXTREMITIES: Without clubbing. There is gangrene of the right lower extremity. There is a large sacral wound noted. LABORATORY AND DIAGNOSTIC DATA: White count 18,000; hemoglobin 6.8, and platelet count of 604,000. Sodium 127, potassium 4.2, chloride 92, bicarbonate of 19, BUN 59, and creatinine 1.1. Lactic acid was 2.7. UA showed 5 to 10 WBCs. Digoxin level was 4.8. ASSESSMENT: This is an unfortunate female, admitted with anemia, suspect multifactorial, but cannot rule out gastrointestinal bleed, sepsis, gangrene, digoxin toxicity, chronic respiratory failure, encephalopathy, anoxia, history of stroke, and history of sacral wound with osteomyelitis. PLAN: Transfuse till hemoglobin greater than 8.5. Check stool for occult blood. Monitor serial CBCs. Intravenous proton pump inhibitor. We will monitor for any signs or symptoms of bleeding. Broad-spectrum IV antibiotic therapy. We will hold digoxin. Vital signs are stable. Cardiology consultation. The patient will continue on G-tube feeds. Aggressive wound care. Amputation of the lower extremity has been recommended, but son has declined. The patient's prognosis is extremely poor, but according to the son, he continues to want aggressive care and Full Code, but he is aware of her poor outlook and prognosis. Christiano Moses M.D. DR: JOSHUA JOB#: [id number] CC:
[2017-07-04 22:33] LABS: ANION GAP 19 (5-15); CALCIUM 8.5 mg/dL (8.6-10.2); CARBON DIOXIDE 18 mEQ/L (20-30); CHLORIDE 95 mEQ/L (98-107); CREATININE 0.9 mg/dL (0.5-0.9); HEMOLYSIS 16; POTASSIUM 4.6 mEQ/L (3.4-4.9); SODIUM 132 mEQ/L (135-145)
[2017-07-05] VITALS: BP 119/45
[2017-07-05] MEDS: Piperacillin/Tazobactam 3.375 GM in D5W 110 ML IVPB SCH ×4 (00:29→18:07)
[2017-07-05] MEDS: traMADol 50mg tab ORAL PRN ×2 (03:04→21:33)
--- NOTE | 2017-07-05 04:21 | History and Physical Report ---
DATE OF ADMISSION: 07/03/2017 TIME: At 4 p.m. CONSULTANTS: 1. Ramiro Banegas M.D. 2. Dr. Willoughby. 3. Sampson Albarran M.D. 4. Dr. Montgomery. CHIEF COMPLAINT: 1. Anemia. 2. Respiratory failure. 3. Urinary tract infection. 4. Decubitus ulcer. BRIEF HISTORY: This is an 82-year-old female from [facility] presents with above-mentioned diagnosis, admitted to [facility] for further care. Currently, on trach and also lethargic and nonverbal not available. PAST MEDICAL HISTORY: Includes respiratory failure, UTI, decubitus ulcer, anemia, encephalopathy, breast cancer, CVA, and acute renal failure. PAST SURGICAL HISTORY: Trach and vent. ALLERGIES: Sulfa. MEDICATIONS: Include Zosyn, Lovenox, vancomycin, and NovoLog. SOCIAL HISTORY: No smoking. No alcohol. No intravenous drug abuse. FAMILY HISTORY: Noncontributory. REVIEW OF SYSTEMS: Not available. PHYSICAL EXAMINATION: GENERAL: Lethargic, in bed, nonverbal. VITAL SIGNS: Temperature is 98 degrees, pulse down to 54, respirations 20, and blood pressure 99/44. CARDIOVASCULAR: No murmur. LUNGS: Poor exchange. ABDOMEN: Bowel sounds are positive. Soft, nontender, and nondistended. EXTREMITIES: No cyanosis, clubbing, or edema. NEUROLOGIC: The patient not responding to questions. LABORATORY DATA: White count is 16.6, hemoglobin and hematocrit, initially 6.8, now at 10.7 and 31, and platelets 671,000. Sodium is 127, potassium 5.2, chloride 92, BUN and creatinine are 59 and 1.1, and glucose 111. INR is 1.0. PTT is 36. Urinalysis, 3+ leukocyte esterase. Urine toxicology, digoxin 4.8. ASSESSMENT: 1. Anemia. 2. Thrombocytosis. 3. Urinary tract infection. 4. Decubitus ulcer. 5. Bradycardia. 6. Respiratory failure. 7. Tracheostomy and ventilator. 8. Altered mental status. 9. Encephalopathy. 10. Breast cancer. 11. History of cerebrovascular accident. 12. Acute renal failure. PLAN: 1. Continue premedications. 2. Transfuse p.r.n. Antibiotics per Infectious Diseases . 3. Blood pressure and blood sugar control. 4. OT/PT and dietary evaluation. 5. CBC and BMP in the morning. 6. Resume home medications. 7. Dr. Banegas, Dr. Willoughby, Dr. Albarran, Dr. Montgomery, Dr. Hsieh, and Dr. Nieto to consult. We will continue to follow the patient. Steve Syed D.O. DR: Jordan JOB#: [id number] CC:
--- NOTE | 2017-07-05 04:21 | Consultation ---
DATE OF CONSULTATION: 07/04/2017 NOTE: POOR AUDIO QUALITY HEMATOLOGY/ONCOLOGY CONSULTATION REQUESTING PHYSICIAN: Christiano Moses M.D. REASON FOR CONSULTATION: Evaluation of leukocytosis, anemia. IDENTIFYING DATA: Dear Dr. Moses, The patient is a pleasant 82-year-old female, I have seen in the past. She has a past medical history significant for anemia, hemoglobin recently was 7, therefore was brought in, has had a history of blood transfusion, was discharged on 06/17/2017 with a hemoglobin of 8.4. She was diagnosed with sepsis at that time requiring antibiotics and oral fluconazole and sent back to her intermediate facility. At this time, noted to be again with anemia. Therefore, hematology service consulted. PAST MEDICAL HISTORY: Septic shock, anemia, encephalopathy, gangrene sacral wound, osteomyelitis, history of breast cancer, stroke, toxic metabolic encephalopathy, and ANTOINE. PAST SURGICAL HISTORY: Trach, G-tube. ALLERGIES: Trimethoprim, sulfa, and Bactrim. REVIEW OF SYSTEMS: The patient is on trach, difficult to obtain, otherwise, but having no positive findings besides as noted in the history of present illness. PHYSICAL EXAMINATION: GENERAL: No acute distress, who appears chronically ill, decreased response. VITAL SIGNS: Temperature 98 degrees Fahrenheit, pulse of 53, respiratory rate 12, blood pressure 105/62 and pulse oximetry 100% on trach. HEENT: Pupils are equal, round and reactive. Status post trach. CARDIOVASCULAR: Regular rate. Slightly bradycardic occasionally. ABDOMEN: Soft and nontender. Positive G-tube. EXTREMITIES: There is 1+ edema. BACK: Sacral stage IV decubitus and stage III on the heels. LABORATORY AND DIAGNOSTIC DATA: WBC of 18.4, hemoglobin 6.8, hematocrit 21 and platelet count 640,000. The patient is status post transfusion, hemoglobin is 6.8. ASSESSMENT AND PLAN: 1. Leukocytosis, underlying infection. 2. Anemia, it is likely anemia of chronic disease. We will send for an anemia workup, which includes ferritin, recent iron panel anemia of chronic disease in addition with some occult blood, but currently the patient's within normal limits and no reticulocytosis noted and this will be ordered again. 3. Coagulopathy, elevated partial thromboplastin time, likely secondary to deficiency. study. 4. Pancytosis, thrombocytosis, from anemia. 5. Septic shock history, which recently resolved. 6. Sacral wound and osteomyeltiis. 7. History of breast cancer. Currently, is in remission. Wade Montgomery M.D. DR: TANIA JOB#: [id number] CC:
--- NOTE | 2017-07-05 05:30 | General Progress Note ---
Assessment/Plan Problem List: (1) Digoxin toxicity ICD Codes: T46.0X1A - Poisoning by cardiac-stimulant glycosides and drugs of similar action, accidental (unintentional), initial encounter SNOMED: 51093494 (2) Altered level of consciousness ICD Codes: R40.4 - Transient alteration of awareness SNOMED: 4972126 (3) Toxic encephalopathy ICD Codes: G92 - Toxic encephalopathy SNOMED: 76191736 (4) Acute renal failure ICD Codes: N17.9 - Acute kidney failure, unspecified SNOMED: 90890654 (5) Gangrene ICD Codes: I96 - Gangrene, not elsewhere classified SNOMED: 547697083 (6) Respiratory failure ICD Codes: J96.90 - Respiratory failure, unspecified, unspecified whether with hypoxia or hypercapnia SNOMED: 610941277 (7) Severe sepsis ICD Codes: A41.9 - Sepsis, unspecified organism; R65.20 - Severe sepsis without septic shock SNOMED: 85784657 (8) Osteomyelitis ICD Codes: M86.9 - Osteomyelitis, unspecified SNOMED: 38760943 (9) UTI (urinary tract infection) ICD Codes: N39.0 - Urinary tract infection, site not specified SNOMED: 86247051, 22534549 Qualifiers: Qualified Codes: T83.511D - Infection and inflammatory reaction due to indwelling urethral catheter, subsequent encounter; N39.0 - Urinary tract infection, site not specified (10) Ventilator dependence ICD Codes: Z99.11 - Dependence on respirator [ventilator] status SNOMED: 617782270, 13156393 (11) Dry gangrene ICD Codes: I96 - Gangrene, not elsewhere classified SNOMED: 536008905, 37504664 (12) Anemia ICD Codes: D64.9 - Anemia, unspecified SNOMED: 699850225 Qualifiers: Qualified Codes: D64.9 - Anemia, unspecified (13) Bradyarrhythmia ICD Codes: I49.8 - Other specified cardiac arrhythmias SNOMED: 591217012, 47358747 Status: stable Assessment/Plan cont iv abx follow up cultures monitot h/h transfuse as needed follow labs ivf monitor renal fxn and fluid status off dig. repeat level wound care vent support gt feeds son declined amputation of right gangrenous foot will cont to monitor prognosis very poor son aware Subjective ROS Limited/Unobtainable: Yes Constitutional: Reports: fever, malaise HEENT: Reports: no symptoms Cardiovascular: Reports: no symptoms Respiratory: Reports: shortness of breath, sputum Gastrointestinal/Abdominal: Reports: difficulty swallowing Genitourinary: Reports: no symptoms Neurologic/Psychiatric: Reports: pre-existing deficit Endocrine: Reports: no symptoms Hematologic/Lymphatic: Reports: anemia Allergies: Coded Allergies: SULFAMETHOXAZOLE (Verified Allergy, Intermediate, 07/11/16) TRIMETHOPRIM (Verified Allergy, Intermediate, 07/11/16) SULFA (SULFONAMIDE ANTIBIOTICS) (Unverified Allergy, Unknown, 07/03/17) All Systems: reviewed and negative except above Subjective no events. running low grade fevers. s/p 2 units. h/h still pending for this am. d/w son at the bedside. on feeds. no signs of bleeding. Objective Last 24 Hour Vital Signs Date Time Temp Pulse Resp B/P (MAP) Pulse Ox O2 Delivery O2 Flow Rate FiO2 07/05/17 04:51 56 23 35 07/05/17 04:00 58 07/05/17 04:00 35 07/05/17 02:26 97.9 07/05/17 02:25 57 25 35 07/05/17 01:22 63 35 35 07/05/17 00:00 98.5 65 22 119/45 99 Mechanical Ventilator 07/05/17 00:00 62 07/05/17 00:00 35 07/04/17 23:29 57 28 35 07/04/17 21:21 56 22 35 07/04/17 20:00 35 07/04/17 20:00 58 07/04/17 19:54 97.5 56 22 90/49 100 Mechanical Ventilator 07/04/17 18:52 52 30 35 07/04/17 16:42 58 22 35 07/04/17 16:00 97.7 55 30 120/49 100 Mechanical Ventilator 35 07/04/17 16:00 35 07/04/17 16:00 54 07/04/17 15:05 60 20 35 07/04/17 12:38 62 18 35 07/04/17 12:00 55 07/04/17 12:00 35 07/04/17 12:00 97.9 57 25 105/44 100 Mechanical Ventilator 35 07/04/17 11:15 65 20 35 07/04/17 08:52 60 21 35 07/04/17 08:00 35 07/04/17 08:00 54 07/04/17 08:00 98.6 58 26 99/44 100 Mechanical Ventilator 35 07/04/17 06:42 58 20 35 Laboratory Tests 07/04/17 08:50: White Blood Count 16.6H, Red Blood Count 3.44L, Hemoglobin 10.7#L, Hematocrit 31.0#L, Mean Corpuscular Volume 90, Mean Corpuscular Hemoglobin 31.2H, Mean Corpuscular Hemoglobin Concent 34.7, Red Cell Distribution Width 13.8, Platelet Count 671H, Mean Platelet Volume 5.7L, Neutrophils (%) (Auto) 77.2H, Lymphocytes (%) (Auto) 14.1L, Monocytes (%) (Auto) 5.7, Eosinophils (%) (Auto) 2.0, Basophils (%) (Auto) 1.0, Differential Total Cells Counted 100, Neutrophils % (Manual) 75, Lymphocytes % (Manual) 9L, Monocytes % (Manual) 8, Eosinophils % (Manual) 0, Basophils % (Manual) 0, Band Neutrophils 8, Platelet Estimate IncreasedH, Platelet Morphology Normal, Polychromasia 1+, Hypochromasia 1+, Anisocytosis 2+, Reticulocyte Count 1.3, Sodium Level 127L, Potassium Level 5.2H, Chloride Level 92L, Carbon Dioxide Level 19L, Anion Gap 16H, Blood Urea Nitrogen 59H, Creatinine 1.1H, Estimat Glomerular Filtration Rate , Glucose Level 111H, Hemoglobin A1c 5.4, Calcium Level 8.9, Total Bilirubin 0.4, Aspartate Amino Transf (AST/SGOT) 43H, Alanine Aminotransferase ( ALT/SGPT) 22, Alkaline Phosphatase 255H, Total Protein 6.2L, Albumin 1.6L, Globulin 4.6, Albumin/Globulin Ratio 0.3L 07/04/17 21:40: Sodium Level 132L, Potassium Level 4.6, Chloride Level 95L, Carbon Dioxide Level 18L, Anion Gap 19H, Blood Urea Nitrogen 53H, Creatinine 0.9, Estimat Glomerular Filtration Rate , Glucose Level 161H, Calcium Level 8.5L 07/05/17 03:30: White Blood Count [Pending], Red Blood Count [Pending], Hemoglobin [Pending], Hematocrit [Pending], Mean Corpuscular Volume [Pending], Mean Corpuscular Hemoglobin [Pending], Mean Corpuscular Hemoglobin Concent [Pending], Red Cell Distribution Width [Pending], Platelet Count [Pending], Mean Platelet Volume [ Pending], Neutrophils (%) (Auto) [Pending], Lymphocytes (%) (Auto) [Pending], Monocytes (%) (Auto) [Pending], Eosinophils (%) (Auto) [Pending], Basophils (%) (Auto) [Pending], Reticulocyte Count [Pending], Sodium Level [Pending], Potassium Level [Pending], Chloride Level [Pending], Carbon Dioxide Level [ Pending], Blood Urea Nitrogen [Pending], Creatinine [Pending], Estimat Glomerular Filtration Rate [Pending], Glucose Level [Pending], Calcium Level [ Pending], Total Bilirubin [Pending], PTT Mixing Study [Pending], APTT Patient/ Control Mix [Pending], Mix PTT Incubation Time [Pending], Mix PTT Normal/Saline 1:1 Immediate [Pending], Thrombin Time Normal Plasma [Pending], Fibrinogen [ Pending], Uric Acid [Pending], Iron Level [Pending], Unsaturated Iron Binding [ Pending], Soluble Transferrin Receptor [Pending], Ferritin [Pending], CA 15-3 Antigen [Pending], Vitamin B12 Level [Pending], Folate [Pending], Immunoglobulin G [Pending], Immunoglobulin M [Pending] Height (Feet): 5 Height (Inches): 4.00 Weight (Pounds): 147 General Appearance: WD/WN, lethargic, confused, thin Neck: non-tender, normal alignment, supple Cardiovascular: normal peripheral pulses, normal rate, regular rhythm Respiratory/Chest: chest wall non-tender, lungs clear, normal breath sounds, no respiratory distress, no accessory muscle use Abdomen: normal bowel sounds, non tender, soft, no organomegaly, no mass Extremities: other - right LE gangrene from ankle down Edema: no edema noted Arm (L), no edema noted Arm (R), no edema noted Leg (L), no edema noted Leg (R), no edema noted Pedal (L), no edema noted Pedal (R), no edema noted Generalized Neurologic: unresponsive, aphasia MILES CARTWRIGHT Jul 05, 2017 05:29
[2017-07-05 05:56] LABS: MEAN CORPUSCULAR HEMOGLOBIN 29.8 PG (27.0-31.0); MEAN CORPUSCULAR HGB CONC 32.8 G/DL (32.0-36.0); MEAN CORPUSCULAR VOLUME 91 FL (80-99); MEAN PLATELET VOLUME 6.7 FL (6.5-10.1); PLATELET COUNT 613 K/UL (150-450); RED BLOOD COUNT 3.48 M/UL (4.20-5.40); RED CELL DISTRIBUTION WIDTH 13.8 % (11.6-14.8)
[2017-07-05] MEDS: NovoLOG Insulin Flexpen SUBQ SCH ×4 (06:00→18:00)
[2017-07-05 06:15] LABS: URIC ACID 9.9 mg/dL (3.0-7.5)
[2017-07-05 06:21] LABS: ANION GAP 17 (5-15); CALCIUM 8.6 mg/dL (8.6-10.2); CARBON DIOXIDE 17 mEQ/L (20-30); CHLORIDE 97 mEQ/L (98-107); CREATININE 0.9 mg/dL (0.5-0.9); HEMOLYSIS 6; POTASSIUM 3.3 mEQ/L (3.4-4.9); SODIUM 131 mEQ/L (135-145)
--- NOTE | 2017-07-05 06:45 | Consultation ---
DATE OF CONSULTATION: 07/04/2017 CARDIOLOGY CONSULTATION: CONSULTING PHYSICIAN: Raymond Salazar M.D. REQUESTING PHYSICIAN: Christiano Moses M.D. REASON FOR CONSULTATION: Bradyarrhythmia. HISTORY OF PRESENT ILLNESS: This is an elderly Armenian female with anoxic encephalopathy, advanced dementia, and chronic respiratory failure with tracheostomy, was admitted to the hospital with fevers and hypotension last night. The patient was volume resuscitated, pancultured, and started on antimicrobials, and IV fluids. She was also severely anemic and was transfused packed red blood cells. This evening, she was noted to have bradyarrhythmias and I have been asked to assist with cardiovascular care. The patient's monitored rhythm is reviewed. There appears to be junctional rhythm with retrograde P-waves noted. No pauses have been seen thus far. PATIENT'S PAST MEDICAL HISTORY: 1. Breast cancer with mastectomy on the right. 2. Tracheostomy with chronic respiratory failure. 3. Hypertension. 4. Paroxysmal supraventricular tachycardia. 5. Cerebrovascular accident. 6. Anoxic encephalopathy. 7. Secondary sinus tachycardia. 8. Anemia. 9. Degenerative disk disease. ALLERGIES: Sulfa. FAMILY HISTORY: Noncontributory. SOCIAL HISTORY: Negative for prior smoking, alcohol, or substance abuse. Her decision maker is her son. MEDICATIONS: Medications at the subacute facility, I have reviewed and reconciled. REVIEW OF SYSTEMS: Not obtainable from the patient. Prior records are reviewed from prior hospitalizations here. Prior echocardiogram is noted with ejection fraction being normal, mild concentric hypertrophy seen and mild degenerative valve disease with no significant stenosis or regurgitation. PHYSICAL EXAMINATION: VITAL SIGNS: Blood pressure is 105/34, pulse rate 52, respiratory rate 25, and afebrile. GENERAL: Ill-appearing female, in no distress. Poorly responsive. Trach site with thin secretions. LUNGS: With coarse breath sounds. CARDIAC: Regular rhythm. Slow rate. Normal S1 and S2. ABDOMEN: Soft. EXTREMITIES: With gangrene of the right lower extremity. No edema. Large sacral wound is seen. LABORATORY DATA: Laboratories are notable for lactic acid level yesterday of 2.5. Today BUN is 59, creatinine 1.1, sodium 127, potassium 5.2, and bicarbonate 19. Albumin is 1.6. White count is 16.6 and hemoglobin 10.7 post transfusion. IMPRESSION: 1. Bradyarrhythmia due to underlying sinus node disease, digoxin toxicity and hyperkalemia. 2. Consideration for endocarditis, needs to be addressed as well. 3. Sepsis. 4. Respiratory failure with tracheostomy. 5. Severe anemia, status post transfusion. 6. Gangrene of the right lower extremity. 7. Sacral decubitus. 8. Severe protein-calorie malnutrition. 9. Advanced dementia. 10. Severe prerenal azotemia. 11. Lactic acidosis. PLAN: 1. Saline hydration. 2. Broad-spectrum antibiotics. 3. Monitor acid-base parameters. 4. Kayexalate for elevated potassium. 5. Check echocardiogram. 6. Wound care. 7. Hold digitalis. 8. At this time, there is no indication for pacing, correction, however the patient does not appear to be a candidate for permanent pacing based on her poor performance status and comorbidities. Raymond Salazar M.D. DR: Ayan JOB#: [id number] CC: ANDRE
[2017-07-05 06:46] LABS: FERRITIN > 2000 ng/mL (13-150)
[2017-07-05] MEDS: Vancomycin 1gm/D5W 275ml IVPB SCH ×2 (06:50)
[2017-07-05 08:00] VITALS: BP 103/74
[2017-07-05] MEDS ORDERED: Lidocaine 1% Plain 30 ml INJ PRN (08:15)
[2017-07-05] MEDS ORDERED: Heparin 2000 units/Ns 1000ml INJ PRN (08:15)
[2017-07-05 08:42] LABS: BAND NEUTROPHILS % (MANUAL) 5 % (0-8); BASOPHILS % (MANUAL) 0 % (0-2); EOSINOPHILS % (MANUAL) 0 % (0-3); LYMPHOCYTES % (MANUAL) 5 % (20-45); NEUTROPHILS % (MANUAL) 88 % (45-75); NUCLEATED RED BLOOD CELLS 1 /100 WBC; PLATELET ESTIMATE ADEQUATE; TOTAL CELLS COUNTED 100
[2017-07-05 08:43] LABS: PLATELET MORPHOLOGY NORMAL
[2017-07-05 08:44] LABS: PATH BLOOD SMEAR/OMC SENT TO PATHOLOGIST
[2017-07-05] MEDS: Dyna-Hex 2% Top Sol 8oz TOPIC SCH (09:00)
[2017-07-05] MEDS ORDERED: Dyna-Hex 2% Top Sol 8oz TOPIC SCH (09:00)
--- NOTE | 2017-07-05 09:37 | Consultation ---
Consult Note Consult Note PULMONARY CONSULTATION 82-year-old female chronically on the ventilator and noted to have worsening anemia. The patient on evaluation also with worsening leukocytosis. Patient with recent treatment for UTI The patient has also history of respiratory failure, now on the ventilator and unable to wean. The patient is a tracheostomy dependent. The patient with a diagnosis of osteomyelitis and has been treated with antibiotics and debridement and ongoing wound care. The patient now admitted for further acute care and management and transfusion for worsening anemia and also for presumed sepsis. The patient is unable to give any history. History was obtained from transfer records and patient closely monitored by myself and Dr. Moses at the nursing facility. The patient's family has been involved and aware. The patient without reported melena, hematochezia, or hematemesis. Past Medical History: Chronic respiratory failure, G-tube, chronic encephalopathy, anoxia, prior cardiopulmonary arrest, osteomyelitis, pressure ulcer, with recent debridement COPD, prior history of pneumonia, and sepsis. UTI recent MEDICATIONS: Reviewed abd reconciled ALLERGIES: Reviewed. SOCIAL HISTORY: subacute at [facility]. nonsmoker or drinker Family History: not available REVIEW OF SYSTEMS: unable PHYSICAL EXAMINATION: GENERAL: Elderly female, withdrawn. with poor LOC Vital Signs: 97%, 98.8 14 74 132/80 HEENT: Negative. NECK: Supple. Tracheostomy midline. Carotid 2+ LUNGS: reduced breath sounds; some rhonchi. No wheezes. CARDIOVASCULAR: S1 and S2. Regular rate and rhythm without murmurs, rubs, or gallops. ABDOMEN: Soft. No distention. G-tube. No hepatosplenomegaly. EXTREMITIES: No cyanosis or clubbing. No significant edema. NEUROLOGIC: Responsive. but withdrawn; poor response to pain SKIN: Pressure ulcers noted. Labs Test 07/03/17 20:40 07/04/17 00:05 07/04/17 08:50 07/04/17 21:40 White Blood Count 18.4 K/UL (4.8-10.8) 16.6 K/UL (4.8-10.8) Red Blood Count 2.28 M/UL (4.20-5.40) 3.44 M/UL (4.20-5.40) Hemoglobin 6.8 G/DL (12.0-16.0) 10.7 G/DL (12.0-16.0) Hematocrit 20.8 % (37.0-47.0) 31.0 % (37.0-47.0) Mean Corpuscular Volume 92 FL (80-99) 90 FL (80-99) Mean Corpuscular Hemoglobin 30.0 PG (27.0-31.0) 31.2 PG (27.0-31.0) Mean Corpuscular Hemoglobin Concent 32.8 G/DL (32.0-36.0) 34.7 G/DL (32.0-36.0) Red Cell Distribution Width 15.3 % (11.6-14.8) 13.8 % (11.6-14.8) Platelet Count 604 K/UL (150-450) 671 K/UL (150-450) Mean Platelet Volume 6.8 FL (6.5-10.1) 5.7 FL (6.5-10.1) Neutrophils (%) (Auto) % (45.0-75.0) 77.2 % (45.0-75.0) Lymphocytes (%) (Auto) % (20.0-45.0) 14.1 % (20.0-45.0) Monocytes (%) (Auto) % (1.0-10.0) 5.7 % (1.0-10.0) Eosinophils (%) (Auto) % (0.0-3.0) 2.0 % (0.0-3.0) Basophils (%) (Auto) % (0.0-2.0) 1.0 % (0.0-2.0) Differential Total Cells Counted 100 100 Neutrophils % (Manual) 79 % (45-75) 75 % (45-75) Lymphocytes % (Manual) 12 % (20-45) 9 % (20-45) Monocytes % (Manual) 6 % (1-10) 8 % (1-10) Eosinophils % (Manual) 2 % (0-3) 0 % (0-3) Basophils % (Manual) 0 % (0-2) 0 % (0-2) Band Neutrophils 1 % (0-8) 8 % (0-8) Platelet Estimate Increased Increased Platelet Morphology Normal Normal Polychromasia 1+ 1+ Hypochromasia 2+ 1+ Anisocytosis 2+ 2+ Prothrombin Time 10.9 SEC (9.30-11.50) Prothromb Time International Ratio 1.0 (0.9-1.1) Activated Partial Thromboplast Time 36 SEC (23-33) Urine Color Pale yellow Urine Appearance Clear Urine pH 5 (4.5-8.0) Urine Specific Cod[place] 1.010 (1.005-1.035) Urine Protein 1+ (NEGATIVE) Urine Glucose (UA) Negative (NEGATIVE) Urine Ketones Negative (NEGATIVE) Urine Occult Blood 3+ (NEGATIVE) Urine Nitrite Negative (NEGATIVE) Urine Bilirubin Negative (NEGATIVE) Urine Urobilinogen Normal MG/DL (0.0-1.0) Urine Leukocyte Esterase 3+ (NEGATIVE) Urine RBC 10-15 /HPF (0 - 2) Urine WBC 5-10 /HPF (0 - 2) Urine Squamous Epithelial Cells Few /LPF (NONE/OCC) Urine Bacteria Moderate /HPF (NONE) Urine Yeast Few /HPF (NONE) Sodium Level 125 mEQ/L (135-145) 127 mEQ/L (135-145) 132 mEQ/L (135-145) Potassium Level 4.5 mEQ/L (3.4-4.9) 5.2 mEQ/L (3.4-4.9) 4.6 mEQ/L (3.4-4.9) Chloride Level 87 mEQ/L (98-107) 92 mEQ/L (98-107) 95 mEQ/L (98-107) Carbon Dioxide Level 21 mEQ/L (20-30) 19 mEQ/L (20-30) 18 mEQ/L (20-30) Anion Gap 17 (5-15) 16 (5-15) 19 (5-15) Blood Urea Nitrogen 60 mg/dL (7-23) 59 mg/dL (7-23) 53 mg/dL (7-23) Creatinine 1.1 mg/dL (0.5-0.9) 1.1 mg/dL (0.5-0.9) 0.9 mg/dL (0.5-0.9) Estimat Glomerular Filtration Rate mL/min (>60) mL/min (>60) mL/min (>60) Glucose Level 130 mg/dL (74-106) 111 mg/dL (74-106) 161 mg/dL (74-106) Lactic Acid Level 2.70 mmol/L (0.66-2.22) 2.50 mmol/L (0.66-2.22) Calcium Level 9.0 mg/dL (8.6-10.2) 8.9 mg/dL (8.6-10.2) 8.5 mg/dL (8.6-10.2) Total Bilirubin < 0.2 mg/dL (0.0-1.2) 0.4 mg/dL (0.0-1.2) Aspartate Amino Transf (AST/SGOT) 37 U/L (5-40) 43 U/L (5-40) Alanine Aminotransferase (ALT/SGPT) 16 U/L (3-33) 22 U/L (3-33) Alkaline Phosphatase 244 U/L (35-104) 255 U/L (35-104) Troponin I < 0.30 ng/mL (<=0.30) Pro-B-Type Natriuretic Peptide 27737 pg/mL (0-450) Total Protein 5.9 g/dL (6.6-8.7) 6.2 g/dL (6.6-8.7) Albumin 1.6 g/dL (3.5-5.2) 1.6 g/dL (3.5-5.2) Globulin 4.3 g/dL 4.6 g/dL Albumin/Globulin Ratio 0.3 (1.0-2.7) 0.3 (1.0-2.7) Lipase 29 U/L (< 60) Digoxin Level 4.8 ng/mL (0.5-2.0) Reticulocyte Count 1.3 % (0.0-2.0) Hemoglobin A1c 5.4 % (< 6.0) Test 07/05/17 03:30 White Blood Count 19.0 K/UL (4.8-10.8) Red Blood Count 3.48 M/UL (4.20-5.40) Hemoglobin 10.4 G/DL (12.0-16.0) Hematocrit 31.7 % (37.0-47.0) Mean Corpuscular Volume 91 FL (80-99) Mean Corpuscular Hemoglobin 29.8 PG (27.0-31.0) Mean Corpuscular Hemoglobin Concent 32.8 G/DL (32.0-36.0) Red Cell Distribution Width 13.8 % (11.6-14.8) Platelet Count 613 K/UL (150-450) Mean Platelet Volume 6.7 FL (6.5-10.1) Neutrophils (%) (Auto) % (45.0-75.0) Lymphocytes (%) (Auto) % (20.0-45.0) Monocytes (%) (Auto) % (1.0-10.0) Eosinophils (%) (Auto) % (0.0-3.0) Basophils (%) (Auto) % (0.0-2.0) Differential Total Cells Counted 100 Neutrophils % (Manual) 88 % (45-75) Lymphocytes % (Manual) 5 % (20-45) Monocytes % (Manual) 2 % (1-10) Eosinophils % (Manual) 0 % (0-3) Basophils % (Manual) 0 % (0-2) Band Neutrophils 5 % (0-8) Nucleated Red Blood Cells 1 /100 WBC Platelet Estimate Adequate Platelet Morphology Normal Red Blood Cell Morphology Normal Fibrinogen 638 mg/dL (200-400) Sodium Level 131 mEQ/L (135-145) Potassium Level 3.3 mEQ/L (3.4-4.9) Chloride Level 97 mEQ/L (98-107) Carbon Dioxide Level 17 mEQ/L (20-30) Anion Gap 17 (5-15) Blood Urea Nitrogen 48 mg/dL (7-23) Creatinine 0.9 mg/dL (0.5-0.9) Estimat Glomerular Filtration Rate mL/min (>60) Glucose Level 160 mg/dL (74-106) Uric Acid 9.9 mg/dL (3.0-7.5) Calcium Level 8.6 mg/dL (8.6-10.2) Iron Level 20 ug/dL (37-145) Total Iron Binding Capacity 138 ug/dL (250-400) Percent Iron Saturation 14 % (15-50) Unsaturated Iron Binding 118 ug/dL (112-346) Ferritin > 2000 ng/mL (13-150) Total Bilirubin 0.2 mg/dL (0.0-1.2) Vitamin B12 Level 435 pg/mL (211-946) IMPRESSION: 1. Respiratory failure. 2. acute on chronic renal failure 3. Status post cardiopulmonary arrest. 4. Anoxic brain injury, 5. Anemia, possible gastrointestinal bleed, mostly chronic disease. 6. Pressure ulcer. 7. Osteomyelitis per history 8. Chronic encephalopathy 9. history of Cardiopulmonary arrest RECOMMENDATION: 1. Supportive care. 2. ID noted and antibiotics refused 3. Transfuse as needed 4. ventilator as is; no wean 5. suction and trach care 6. SNF meds noted and reviewed 7. cosultants noted 8. pressure relief 9. stabilize care impression, plan, and exam edited and reviewed in detail care discussed with NIESHA ROBLES Jul 05, 2017 09:37
[2017-07-05] MEDS: Sinemet 25/100 tab ORAL SCH ×2 (09:53→18:12)
[2017-07-05] MEDS: Nystatin Powder 100,000 units/gm 15gm TOPIC SCH ×2 (10:27→18:24)
[2017-07-05 10:42] LABS: RETICULOCYTE COUNT 1.7 % (0.0-2.0)
[2017-07-05 12:00] VITALS: BP 111/47
--- NOTE | 2017-07-05 12:18 | Infectious Diseases Prog Note ---
Assessment/Plan Assessment/Plan antibiotics : vancomycin iv, zosyn A 1. gram negative UTI 2. right foot gangrene 3. GT site cellulitis 4. sacral decubitus ulcer 5. DM 6. Parkinsons disease 7. breast cancer P 1. continue vancomycin iv, zosyn 2. will follow up cultures Subjective ROS Limited/Unobtainable: Yes Allergies: Coded Allergies: SULFAMETHOXAZOLE (Verified Allergy, Intermediate, 07/11/16) TRIMETHOPRIM (Verified Allergy, Intermediate, 07/11/16) SULFA (SULFONAMIDE ANTIBIOTICS) (Unverified Allergy, Unknown, 07/03/17) Objective Vital Signs Last 24 Hour Vital Signs Date Time Temp Pulse Resp B/P (MAP) Pulse Ox O2 Delivery O2 Flow Rate FiO2 07/05/17 10:46 62 25 35 07/05/17 09:10 67 31 35 07/05/17 08:00 65 07/05/17 07:07 66 33 35 07/05/17 04:51 56 23 35 07/05/17 04:00 58 07/05/17 04:00 35 07/05/17 02:26 97.9 07/05/17 02:25 57 25 35 07/05/17 01:22 63 35 35 07/05/17 00:00 98.5 65 22 119/45 99 Mechanical Ventilator 07/05/17 00:00 62 07/05/17 00:00 35 07/04/17 23:29 57 28 35 07/04/17 21:21 56 22 35 07/04/17 20:00 35 07/04/17 20:00 58 07/04/17 19:54 97.5 56 22 90/49 100 Mechanical Ventilator 07/04/17 18:52 52 30 35 07/04/17 16:42 58 22 35 07/04/17 16:00 97.7 55 30 120/49 100 Mechanical Ventilator 35 07/04/17 16:00 35 07/04/17 16:00 54 07/04/17 15:05 60 20 35 07/04/17 12:38 62 18 35 Height (Feet): 5 Height (Inches): 4.00 Weight (Pounds): 147 HEENT: status post trach Respiratory/Chest: lungs clear Cardiovascular: normal rate, regular rhythm, no gallop/murmur Abdomen: soft, non tender, other - Gt site erythema Extremities: no edema, other - right foot necrotic, left heel necrotic Microbiology Date/Time Source Procedure Growth Status 07/03/17 20:40 Urine,Clean Catch Urine Culture - Preliminary Gram Negative Bacillus 1 Resulted 07/04/17 01:40 Sacral Wound Gram Stain Pending Resulted 07/04/17 01:40 Wound Culture - Preliminary Gram Negative Bacillus 1 Gram Negative Bacillus 2 Resulted Laboratory Tests Test 07/04/17 21:40 07/05/17 03:30 Sodium Level 132 mEQ/L (135-145) L 131 mEQ/L (135-145) L Potassium Level 4.6 mEQ/L (3.4-4.9) 3.3 mEQ/L (3.4-4.9) L Chloride Level 95 mEQ/L (98-107) L 97 mEQ/L (98-107) L Carbon Dioxide Level 18 mEQ/L (20-30) L 17 mEQ/L (20-30) L Anion Gap 19 (5-15) H 17 (5-15) H Blood Urea Nitrogen 53 mg/dL (7-23) H 48 mg/dL (7-23) H Creatinine 0.9 mg/dL (0.5-0.9) 0.9 mg/dL (0.5-0.9) Estimat Glomerular Filtration Rate mL/min (>60) mL/min (>60) Glucose Level 161 mg/dL (74-106) H 160 mg/dL (74-106) H Calcium Level 8.5 mg/dL (8.6-10.2) L 8.6 mg/dL (8.6-10.2) White Blood Count 19.0 K/UL (4.8-10.8) H Red Blood Count 3.48 M/UL (4.20-5.40) L Hemoglobin 10.4 G/DL (12.0-16.0) L Hematocrit 31.7 % (37.0-47.0) L Mean Corpuscular Volume 91 FL (80-99) Mean Corpuscular Hemoglobin 29.8 PG (27.0-31.0) Mean Corpuscular Hemoglobin Concent 32.8 G/DL (32.0-36.0) Red Cell Distribution Width 13.8 % (11.6-14.8) Platelet Count 613 K/UL (150-450) H Mean Platelet Volume 6.7 FL (6.5-10.1) Neutrophils (%) (Auto) % (45.0-75.0) Lymphocytes (%) (Auto) % (20.0-45.0) Monocytes (%) (Auto) % (1.0-10.0) Eosinophils (%) (Auto) % (0.0-3.0) Basophils (%) (Auto) % (0.0-2.0) Differential Total Cells Counted 100 Neutrophils % (Manual) 88 % (45-75) H Lymphocytes % (Manual) 5 % (20-45) L Monocytes % (Manual) 2 % (1-10) Eosinophils % (Manual) 0 % (0-3) Basophils % (Manual) 0 % (0-2) Band Neutrophils 5 % (0-8) Nucleated Red Blood Cells 1 /100 WBC Platelet Estimate Adequate Platelet Morphology Normal Red Blood Cell Morphology Normal Reticulocyte Count 1.7 % (0.0-2.0) PTT Mixing Study Pending APTT Patient/Control Mix Pending Mix PTT Incubation Time Pending Mix PTT Normal/Saline 1:1 Immediate Pending Thrombin Time Normal Plasma Pending Fibrinogen 638 mg/dL (200-400) H Uric Acid 9.9 mg/dL (3.0-7.5) H Iron Level 20 ug/dL (37-145) L Total Iron Binding Capacity 138 ug/dL (250-400) L Percent Iron Saturation 14 % (15-50) L Unsaturated Iron Binding 118 ug/dL (112-346) Soluble Transferrin Receptor Pending Ferritin > 2000 ng/mL (13-150) H Total Bilirubin 0.2 mg/dL (0.0-1.2) CA 15-3 Antigen Pending Vitamin B12 Level 435 pg/mL (211-946) Folate Pending Immunoglobulin G Pending Immunoglobulin M Pending GRACE BENAVIDES Jul 05, 2017 12:18
[2017-07-05] MEDS ORDERED: KCl 10% 40mEq/30ml liquid PEG ONE (13:30)
--- NOTE | 2017-07-05 15:35 | Cardiology Report ---
APPROVED REPORT EKG Measurement Heart [id number] A. Fib with slow ventricular response. N SST-T changes. Abnormal ECG
[2017-07-05 16:00] VITALS: BP 102/42
[2017-07-05] MEDS: Acetaminophen 650mg/20.3ml NG PRN (18:26)
[2017-07-05 20:00] VITALS: BP 100/46
--- NOTE | 2017-07-05 20:33 | General Progress Note ---
Assessment/Plan Assessment/Plan A/P 1. Leukocytosis, 2/2 underlying infection. 2. Anemia of chronic disease. Ferritin is elevated, TIBC is low. B12 wnl, Folate pending --> s/p transfusion 3. Coagulopathy, elevated partial thromboplastin time --> pending study 4. Thrombocytosis, reactive process from anemia. 5. Sacral wound and osteomyeltiis. 6. History of breast cancer. Currently, is in remission. Subjective Constitutional: Reports: no symptoms HEENT: Reports: no symptoms Cardiovascular: Reports: no symptoms Respiratory: Reports: no symptoms Gastrointestinal/Abdominal: Reports: no symptoms Genitourinary: Reports: no symptoms Neurologic/Psychiatric: Reports: no symptoms Endocrine: Reports: no symptoms Allergies: Coded Allergies: SULFAMETHOXAZOLE (Verified Allergy, Intermediate, 07/11/16) TRIMETHOPRIM (Verified Allergy, Intermediate, 07/11/16) SULFA (SULFONAMIDE ANTIBIOTICS) (Unverified Allergy, Unknown, 07/03/17) Objective Last 24 Hour Vital Signs Date Time Temp Pulse Resp B/P (MAP) Pulse Ox O2 Delivery O2 Flow Rate FiO2 07/05/17 19:30 66 29 35 07/05/17 17:24 94 24 35 07/05/17 16:00 99.5 95 31 102/42 100 Mechanical Ventilator 35 07/05/17 16:00 95 07/05/17 15:30 86 22 35 07/05/17 13:25 65 27 35 07/05/17 12:00 98.5 67 30 111/47 100 Mechanical Ventilator 35 07/05/17 12:00 76 07/05/17 10:46 62 25 35 07/05/17 09:10 67 31 35 07/05/17 08:00 97.4 63 30 103/74 100 Mechanical Ventilator 35 07/05/17 08:00 65 07/05/17 07:07 66 33 35 07/05/17 04:51 56 23 35 07/05/17 04:00 58 07/05/17 04:00 35 07/05/17 02:26 97.9 07/05/17 02:25 57 25 35 07/05/17 01:22 63 35 35 07/05/17 00:00 98.5 65 22 119/45 99 Mechanical Ventilator 07/05/17 00:00 62 07/05/17 00:00 35 07/04/17 23:29 57 28 35 07/04/17 21:21 56 22 35 Intake and Output 07/05/17 07/06/17 19:00 07:00 Intake Total 490 ml Output Total 1250 ml Balance 490 ml -1250 ml Intake Oral 450 ml Tube Feeding 40 ml Output Urine Total 650 ml Stool Total 600 ml Laboratory Tests 07/04/17 21:40: Sodium Level 132L, Potassium Level 4.6, Chloride Level 95L, Carbon Dioxide Level 18L, Anion Gap 19H, Blood Urea Nitrogen 53H, Creatinine 0.9, Estimat Glomerular Filtration Rate , Glucose Level 161H, Calcium Level 8.5L 07/05/17 03:30: Sodium Level 131L, Potassium Level 3.3L, Chloride Level 97L, Carbon Dioxide Level 17L, Anion Gap 17H, Blood Urea Nitrogen 48H, Creatinine 0.9, Estimat Glomerular Filtration Rate , Glucose Level 160H, Calcium Level 8.6, White Blood Count 19.0H, Red Blood Count 3.48L, Hemoglobin 10.4L, Hematocrit 31.7L, Mean Corpuscular Volume 91, Mean Corpuscular Hemoglobin 29.8, Mean Corpuscular Hemoglobin Concent 32.8, Red Cell Distribution Width 13.8, Platelet Count 613H, Mean Platelet Volume 6.7, Neutrophils (%) (Auto) , Lymphocytes (%) (Auto) , Monocytes (%) (Auto) , Eosinophils (%) (Auto) , Basophils (%) (Auto) , Differential Total Cells Counted 100, Neutrophils % (Manual) 88H, Lymphocytes % (Manual) 5L, Monocytes % (Manual) 2, Eosinophils % (Manual) 0, Basophils % ( Manual) 0, Band Neutrophils 5, Nucleated Red Blood Cells 1, Platelet Estimate Adequate, Platelet Morphology Normal, Red Blood Cell Morphology Normal, Reticulocyte Count 1.7, PTT Mixing Study [Pending], APTT Patient/Control Mix [ Pending], Mix PTT Incubation Time [Pending], Mix PTT Normal/Saline 1:1 Immediate [Pending], Thrombin Time Normal Plasma [Pending], Fibrinogen 638H, Uric Acid 9.9H, Iron Level 20L, Total Iron Binding Capacity 138L, Percent Iron Saturation 14L, Unsaturated Iron Binding 118, Soluble Transferrin Receptor [ Pending], Ferritin > 2000H, Total Bilirubin 0.2, CA 15-3 Antigen [Pending], Vitamin B12 Level 435, Folate [Pending], Immunoglobulin G [Pending], Immunoglobulin M [Pending] Height (Feet): 5 Height (Inches): 4.00 Weight (Pounds): 147 General Appearance: no apparent distress, lethargic Skin: warm/dry Wade Montgomery Jul 05, 2017 20:33
[2017-07-05] MEDS: D5NS 1,000 ML IV SCH ×2 (21:38)
[2017-07-05] MEDS: Metoclopramide 10mg/10ml Liq NG PRN (22:28)
[2017-07-06] VITALS (8 sets, daily range): BP systolic 116–140; BP diastolic 47–66
[2017-07-06] MEDS: Piperacillin/Tazobactam 3.375 GM in D5W 110 ML IVPB SCH ×2 (00:23→09:32)
[2017-07-06] MEDS: Acetaminophen 650mg/20.3ml NG PRN ×4 (00:27→23:15)
[2017-07-06] MEDS: NovoLOG Insulin Flexpen SUBQ SCH ×5 (06:00→23:59)
[2017-07-06] MEDS: Vancomycin 1gm/D5W 275ml IVPB SCH ×6 (06:22→07:29)
[2017-07-06 06:46] LABS: ALANINE AMINOTRANSFERASE 16 U/L (3-33); ALBUMIN/GLOBULIN RATIO 0.3 (1.0-2.7); ANION GAP 14 (5-15); ASPARTATE AMINO TRANSFERASE 24 U/L (5-40); CALCIUM 8.2 mg/dL (8.6-10.2); CARBON DIOXIDE 19 mEQ/L (20-30); CHLORIDE 103 mEQ/L (98-107); CREATININE 0.8 mg/dL (0.5-0.9); HEMOLYSIS 4; POTASSIUM 3.2 mEQ/L (3.4-4.9); SODIUM 136 mEQ/L (135-145); TOTAL PROTEIN 5.9 g/dL (6.6-8.7)
[2017-07-06 07:08] LABS: MEAN CORPUSCULAR HEMOGLOBIN 29.8 PG (27.0-31.0); MEAN CORPUSCULAR HGB CONC 32.6 G/DL (32.0-36.0); MEAN CORPUSCULAR VOLUME 91 FL (80-99); MEAN PLATELET VOLUME 6.6 FL (6.5-10.1); PLATELET COUNT 538 K/UL (150-450); RED CELL DISTRIBUTION WIDTH 14.5 % (11.6-14.8)
[2017-07-06 07:11] LABS: WHITE BLOOD COUNT 23.2 K/UL (4.8-10.8)
[2017-07-06] MEDS ORDERED: Acetaminophen Soln 160mg/5ml ORAL PRN (08:15)
--- NOTE | 2017-07-06 08:20 | General Progress Note ---
Assessment/Plan Problem List: (1) Digoxin toxicity ICD Codes: T46.0X1A - Poisoning by cardiac-stimulant glycosides and drugs of similar action, accidental (unintentional), initial encounter SNOMED: 63608548 (2) Altered level of consciousness ICD Codes: R40.4 - Transient alteration of awareness SNOMED: 4588124 (3) Toxic encephalopathy ICD Codes: G92 - Toxic encephalopathy SNOMED: 22371782 (4) Acute renal failure ICD Codes: N17.9 - Acute kidney failure, unspecified SNOMED: 94563831 (5) Gangrene ICD Codes: I96 - Gangrene, not elsewhere classified SNOMED: 995324536 (6) Respiratory failure ICD Codes: J96.90 - Respiratory failure, unspecified, unspecified whether with hypoxia or hypercapnia SNOMED: 612524839 (7) Severe sepsis ICD Codes: A41.9 - Sepsis, unspecified organism; R65.20 - Severe sepsis without septic shock SNOMED: 81344797 (8) Osteomyelitis ICD Codes: M86.9 - Osteomyelitis, unspecified SNOMED: 12705349 (9) UTI (urinary tract infection) ICD Codes: N39.0 - Urinary tract infection, site not specified SNOMED: 17899386, 03752056 Qualifiers: Qualified Codes: T83.511D - Infection and inflammatory reaction due to indwelling urethral catheter, subsequent encounter; N39.0 - Urinary tract infection, site not specified (10) Ventilator dependence ICD Codes: Z99.11 - Dependence on respirator [ventilator] status SNOMED: 874923429, 22696483 (11) Dry gangrene ICD Codes: I96 - Gangrene, not elsewhere classified SNOMED: 042017124, 94897386 (12) Anemia ICD Codes: D64.9 - Anemia, unspecified SNOMED: 043841948 Qualifiers: Qualified Codes: D64.9 - Anemia, unspecified (13) Bradyarrhythmia ICD Codes: I49.8 - Other specified cardiac arrhythmias SNOMED: 379666429, 32552268 Status: stable, not improved, deteriorating Assessment/Plan cont iv abx per id follow up cultures change picc monitot h/h transfuse as needed monitor labs ivf monitor renal fxn and fluid status off dig. repeat level wound care vent support gt feeds son declined amputation of right gangrenous foot will cont to monitor prognosis very poor son aware Subjective ROS Limited/Unobtainable: Yes Constitutional: Reports: malaise, weakness HEENT: Reports: no symptoms Cardiovascular: Reports: no symptoms Respiratory: Reports: cough, shortness of breath Gastrointestinal/Abdominal: Reports: difficulty swallowing Genitourinary: Reports: no symptoms Neurologic/Psychiatric: Reports: pre-existing deficit Endocrine: Reports: no symptoms Hematologic/Lymphatic: Reports: anemia Allergies: Coded Allergies: SULFAMETHOXAZOLE (Verified Allergy, Intermediate, 07/11/16) TRIMETHOPRIM (Verified Allergy, Intermediate, 07/11/16) SULFA (SULFONAMIDE ANTIBIOTICS) (Unverified Allergy, Unknown, 07/03/17) All Systems: reviewed and negative except above Subjective no events.still with intermittent fevers. wbc worse. on multiple abx. picc not working well. d/w son at the bedside Objective Last 24 Hour Vital Signs Date Time Temp Pulse Resp B/P (MAP) Pulse Ox O2 Delivery O2 Flow Rate FiO2 07/06/17 07:30 91 29 35 07/06/17 05:13 57 27 35 07/06/17 04:00 68 07/06/17 04:00 97.5 73 20 116/47 100 Mechanical Ventilator 35 07/06/17 04:00 35 07/06/17 03:03 68 25 35 07/06/17 01:00 56 28 35 07/06/17 00:14 97.4 61 18 116/49 100 Mechanical Ventilator 35 07/06/17 00:00 35 07/06/17 00:00 59 07/05/17 23:10 67 23 35 07/05/17 21:25 60 20 35 07/05/17 20:00 99.8 60 19 100/46 100 Mechanical Ventilator 35 07/05/17 19:30 66 29 35 07/05/17 19:23 66 07/05/17 17:24 94 24 35 07/05/17 16:00 99.5 95 31 102/42 100 Mechanical Ventilator 35 07/05/17 16:00 95 07/05/17 15:30 86 22 35 07/05/17 13:25 65 27 35 07/05/17 12:00 98.5 67 30 111/47 100 Mechanical Ventilator 35 07/05/17 12:00 76 07/05/17 10:46 62 25 35 07/05/17 09:10 67 31 35 Laboratory Tests 07/06/17 06:15: White Blood Count 23.2*H, Red Blood Count 3.50L, Hemoglobin 10.4L, Hematocrit 31.9L, Mean Corpuscular Volume 91, Mean Corpuscular Hemoglobin 29.8, Mean Corpuscular Hemoglobin Concent 32.6, Red Cell Distribution Width 14.5, Platelet Count 538H, Mean Platelet Volume 6.6, Neutrophils (%) (Auto) , Lymphocytes (%) ( Auto) , Monocytes (%) (Auto) , Eosinophils (%) (Auto) , Basophils (%) (Auto) , Neutrophils % (Manual) [Pending], Lymphocytes % (Manual) [Pending], Platelet Estimate [Pending], Platelet Morphology [Pending], Sodium Level 136, Potassium Level 3.2L, Chloride Level 103, Carbon Dioxide Level 19L, Anion Gap 14, Blood Urea Nitrogen 33H, Creatinine 0.8, Estimat Glomerular Filtration Rate , Glucose Level 221H, Calcium Level 8.2L, Total Bilirubin 0.2, Aspartate Amino Transf (AST /SGOT) 24, Alanine Aminotransferase (ALT/SGPT) 16, Alkaline Phosphatase 243H, Total Protein 5.9L, Albumin 1.4L, Globulin 4.5, Albumin/Globulin Ratio 0.3L, Vancomycin Level Trough 18.1H Height (Feet): 5 Height (Inches): 4.00 Weight (Pounds): 147 Objective General Appearance: WD/WN, lethargic, confused, thin Neck: non-tender, normal alignment, supple Cardiovascular: normal peripheral pulses, normal rate, regular rhythm Respiratory/Chest: chest wall non-tender, lungs clear, normal breath sounds, no respiratory distress, no accessory muscle use Abdomen: normal bowel sounds, non tender, soft, no organomegaly, no mass Extremities: other - right LE gangrene from ankle down Edema: no edema noted Arm (L), no edema noted Arm (R), no edema noted Leg (L), no edema noted Leg (R), no edema noted Pedal (L), no edema noted Pedal (R), no edema noted Generalized Neurologic: unresponsive, aphasia MILES CARTWRIGHT Jul 06, 2017 08:20
[2017-07-06 08:44] LABS: BAND NEUTROPHILS % (MANUAL) 3 % (0-8); BASOPHILS % (MANUAL) 0 % (0-2); EOSINOPHILS % (MANUAL) 0 % (0-3); LYMPHOCYTES % (MANUAL) 9 % (20-45); NEUTROPHILS % (MANUAL) 85 % (45-75); PLATELET ESTIMATE INCREASED; PLATELET MORPHOLOGY NORMAL; TOTAL CELLS COUNTED 100
--- NOTE | 2017-07-06 08:55 | Wound Care Consultation ---
Wound Assessment Wound Assessment : Wound Present on Admission: No New Wound: Yes Status Change of Wound: No Wound Location Body Site Modif: right Wound Location Body Site: ear Wound Type: pressure ulcer Bonita Test: Does not Bonita Pressure Ulcer Stage: deep tissue injury Wound Thickness: Full Thickness Wound Length: 2.5 Wound Width: 0.8 Wound Depth: utd Percent of Wound Purple/Maroon: 100 Wound Drainage Description: Serosanguineous Wound Drainage Amount: None Wound Drainage Odor: None/Absent Tissue Surrounding Wound: Erythemic Wound General Appearance: Reddened - purple/maroon Wound Comment #1 New DTI noted on right ear pressure ulcer Explained to son who is at bed side putting towels and pillows under Pt's both ears will cause pressure. Son compliant at this time and verbalized understanding. Recommendation -Local wound care per protocol for DTI -Keep clean and dry -Turn and reposition -Optimize nutrition -Assess and f/u according for any changes JOSE G NICOLAS RN Jul 06, 2017 08:55
[2017-07-06 08:58] LABS: CA15-3 10.9 U/mL (0.0-25.0)
[2017-07-06] MEDS ORDERED: Fluconazole 100mg tab ORAL SCH (09:00)
[2017-07-06] MEDS ORDERED: Metoprolol 25mg tab ORAL SCH (09:00)
[2017-07-06] MEDS ORDERED: KCl 10% 40mEq/30ml liquid NG ONE (09:00)
[2017-07-06] MEDS ORDERED: traMADol 50mg tab GT PRN (09:00)
[2017-07-06] MEDS: Metoprolol 25mg tab GT SCH ×2 (09:33→20:46)
[2017-07-06] MEDS: Ferrous Sulfate 300 MG/5 ML UDC GT SCH ×4 (09:33→19:48)
[2017-07-06] MEDS: Fluconazole 100mg tab GT SCH (09:33)
[2017-07-06] MEDS: Metoclopramide 10mg/10ml Liq NG PRN (09:34)
[2017-07-06] MEDS: Sinemet 25/100 tab GT SCH ×2 (09:34→17:10)
[2017-07-06] MEDS: Enoxaparin 30mg Inj SUBQ SCH (09:40)
[2017-07-06] MEDS: Gentamicin 0.3% Opth Soln 5ml BOTH EYES SCH (09:41)
[2017-07-06] MEDS ORDERED: Amikacin Rx to dose MISC PRN (12:15)
[2017-07-06] MEDS: D5NS 1,000 ML IV SCH (12:17)
--- NOTE | 2017-07-06 13:32 | Infectious Diseases Prog Note ---
Assessment/Plan Assessment/Plan A 1. Pseudomonas UTI 2. right foot gangrene 3. GT site cellulitis 4. sacral decubitus ulcer 5. DM 6. Parkinson disease 7. breast cancer 8. Leukocytosis P 1. continue Amikacin 2. poor prognosis Subjective ROS Limited/Unobtainable: Yes Allergies: Coded Allergies: SULFAMETHOXAZOLE (Verified Allergy, Intermediate, 07/11/16) TRIMETHOPRIM (Verified Allergy, Intermediate, 07/11/16) SULFA (SULFONAMIDE ANTIBIOTICS) (Unverified Allergy, Unknown, 07/03/17) Objective Vital Signs Last 24 Hour Vital Signs Date Time Temp Pulse Resp B/P (MAP) Pulse Ox O2 Delivery O2 Flow Rate FiO2 07/06/17 12:03 35 07/06/17 12:00 98.1 79 26 126/59 100 Mechanical Ventilator 35 07/06/17 12:00 79 07/06/17 11:05 77 28 35 07/06/17 09:33 81 116/47 07/06/17 09:18 81 19 35 07/06/17 08:00 35 07/06/17 08:00 97.9 82 24 132/66 100 Mechanical Ventilator 35 07/06/17 08:00 68 07/06/17 07:30 91 29 35 07/06/17 05:13 57 27 35 07/06/17 04:00 68 07/06/17 04:00 97.5 73 20 116/47 100 Mechanical Ventilator 35 07/06/17 04:00 35 07/06/17 03:03 68 25 35 07/06/17 01:00 56 28 35 07/06/17 00:14 97.4 61 18 116/49 100 Mechanical Ventilator 35 07/06/17 00:00 35 07/06/17 00:00 59 07/05/17 23:10 67 23 35 07/05/17 21:25 60 20 35 07/05/17 20:00 99.8 60 19 100/46 100 Mechanical Ventilator 35 07/05/17 19:30 66 29 35 07/05/17 19:23 66 07/05/17 17:24 94 24 35 07/05/17 16:00 99.5 95 31 102/42 100 Mechanical Ventilator 35 07/05/17 16:00 95 07/05/17 15:30 86 22 35 Height (Feet): 5 Height (Inches): 4.00 Weight (Pounds): 147 HEENT: status post trach Respiratory/Chest: rhonchi - bilaterally, other - on ventilator Cardiovascular: normal rate Abdomen: soft, non tender, other - Gt feeding Extremities: other - edema of left arm, right arm PICC line Skin: ulcers Neurologic/Psychiatric: unresponsiveness Musculoskeletal: atrophy Microbiology Date/Time Source Procedure Growth Status 07/04/17 14:30 Blood Blood Culture - Preliminary NO GROWTH AFTER 24 HOURS Resulted 07/04/17 14:25 Blood Blood Culture - Preliminary NO GROWTH AFTER 24 HOURS Resulted 07/03/17 20:40 Urine,Clean Catch Urine Culture - Preliminary Pseudomonas Aeruginosa Resulted 07/04/17 01:40 Sacral Wound Gram Stain - Final Resulted 07/04/17 01:40 Wound Culture - Preliminary Klebsiella Pneumoniae - Mdr Gram Negative Bacillus 2 Strep Species, Gamma-Hemolytic Resulted Laboratory Tests Test 07/06/17 06:15 White Blood Count 23.2 K/UL (4.8-10.8) *H Red Blood Count 3.50 M/UL (4.20-5.40) L Hemoglobin 10.4 G/DL (12.0-16.0) L Hematocrit 31.9 % (37.0-47.0) L Mean Corpuscular Volume 91 FL (80-99) Mean Corpuscular Hemoglobin 29.8 PG (27.0-31.0) Mean Corpuscular Hemoglobin Concent 32.6 G/DL (32.0-36.0) Red Cell Distribution Width 14.5 % (11.6-14.8) Platelet Count 538 K/UL (150-450) H Mean Platelet Volume 6.6 FL (6.5-10.1) Neutrophils (%) (Auto) % (45.0-75.0) Lymphocytes (%) (Auto) % (20.0-45.0) Monocytes (%) (Auto) % (1.0-10.0) Eosinophils (%) (Auto) % (0.0-3.0) Basophils (%) (Auto) % (0.0-2.0) Differential Total Cells Counted 100 Neutrophils % (Manual) 85 % (45-75) H Lymphocytes % (Manual) 9 % (20-45) L Monocytes % (Manual) 3 % (1-10) Eosinophils % (Manual) 0 % (0-3) Basophils % (Manual) 0 % (0-2) Band Neutrophils 3 % (0-8) Platelet Estimate Increased H Platelet Morphology Normal Red Blood Cell Morphology Normal Sodium Level 136 mEQ/L (135-145) Potassium Level 3.2 mEQ/L (3.4-4.9) L Chloride Level 103 mEQ/L (98-107) Carbon Dioxide Level 19 mEQ/L (20-30) L Anion Gap 14 (5-15) Blood Urea Nitrogen 33 mg/dL (7-23) H Creatinine 0.8 mg/dL (0.5-0.9) Estimat Glomerular Filtration Rate mL/min (>60) Glucose Level 221 mg/dL (74-106) H Calcium Level 8.2 mg/dL (8.6-10.2) L Total Bilirubin 0.2 mg/dL (0.0-1.2) Aspartate Amino Transf (AST/SGOT) 24 U/L (5-40) Alanine Aminotransferase (ALT/SGPT) 16 U/L (3-33) Alkaline Phosphatase 243 U/L (35-104) H Total Protein 5.9 g/dL (6.6-8.7) L Albumin 1.4 g/dL (3.5-5.2) L Globulin 4.5 g/dL Albumin/Globulin Ratio 0.3 (1.0-2.7) L Vancomycin Level Trough 18.1 ug/mL (5.0-12.0) H Current Medications Medications (Trade) Dose Ordered Sig/Angie Route PRN Reason Start Time Stop Time Status Last Admin Dose Admin Acetaminophen (Tylenol) 650 mg Q4H PRN NG Fever/Headache/Mild Pain 07/06/17 09:00 08/05/17 08:59 Amikacin Protocol (Amikacin pharmacy to dose) 1 ea DAILY PRN MISC PER RX PROTOCOL 07/06/17 12:15 07/08/17 23:59 Amikacin Sulfate 800 mg/Sodium Chloride 113.2 ml @ 226.4 mls/ hr Q48H IV 07/06/17 14:00 07/08/17 13:59 Carbidopa/Levodopa (Sinemet 25/100) 1 ea BID GT 07/06/17 09:00 08/05/17 08:59 07/06/17 09:34 Chlorhexidine Gluconate (Monica-Hex 2%) 1 applic DAILY TOPIC 07/06/17 09:00 08/05/17 08:59 Collagenase (Santyl) 1 applic DAILY TOPIC 07/05/17 09:00 08/04/17 08:59 07/05/17 18:24 Dextrose/Sodium Chloride 1,000 ml @ 75 mls/hr [id number] IV 07/04/17 05:45 08/03/17 05:44 07/06/17 12:17 Enoxaparin Sodium (Lovenox) 30 mg DAILY SUBQ 07/06/17 09:00 08/05/17 08:59 07/06/17 09:40 Ferrous Sulfate (Feosol) 300 mg TID@1000,1300,1900 GT 07/06/17 09:00 08/05/17 08:59 07/06/17 09:42 Fluconazole (Diflucan) 100 mg DAILY GT 07/06/17 09:00 07/13/17 08:59 07/06/17 09:33 Gentamicin Sulfate (Garamycin 0.3% Opt Soln) 2 drop DAILY BOTH EYES 07/06/17 09:30 07/13/17 09:29 07/06/17 09:41 Heparin Sodium/ Sodium Chloride (Heparin 2000 units/Ns 1000ml premix) 2,000 unit ONCE PRN INJ PICC PLACEMENT 07/05/17 08:15 07/06/17 23:59 Insulin Aspart (NovoLOG) EVERY 6 HOURS SUBQ 07/04/17 06:00 08/03/17 05:59 07/06/17 12:12 Lansoprazole (Prevacid) 30 mg DAILY ORAL 07/06/17 09:00 08/05/17 08:59 07/06/17 09:33 Lidocaine HCl (Xylocaine 1% 30ml) 30 ml ONCE PRN INJ PICC PLACEMENT 07/05/17 08:15 07/06/17 23:59 Metoclopramide HCl (Reglan) 5 mg Q6H PRN NG As Needed For Nausea/Vomitting 07/05/17 22:00 08/04/17 21:59 07/06/17 09:34 Metoprolol Tartrate (Lopressor) 25 mg EVERY 12 HOURS GT 07/06/17 09:00 08/05/17 08:59 07/06/17 09:33 Nystatin (Nystop Powder) 1 applic DAILY TOPIC 07/05/17 09:00 08/04/17 08:59 07/05/17 18:24 Tramadol HCl (Ultram) 50 mg BID PRN GT prior to drsg change and HS 07/06/17 09:00 07/13/17 08:59 MARTIN LARSEN Jul 06, 2017 13:32
[2017-07-06] MEDS ORDERED: D5NS 1000ml IV ONE (13:50)
[2017-07-06] MEDS ORDERED: NS 275ml ONE (13:50)
[2017-07-06] MEDS ORDERED: Amikacin 800 MG in NS 110 ML IV SCH (14:00)
--- NOTE | 2017-07-06 15:35 | Diagnostic Imaging Report ---
Indication: non functional picc line. Findings: After the indications, procedure, risks, complications, and alternatives of the procedure were explained, written informed consent was obtained. The right upper extremity was prepped with alcohol. All elements of maximal sterile barrier technique were followed including usage of a cap, mask, sterile gown, sterile gloves, hand hygiene and a large sterile sheet. Sonographic evaluation of the upper extremity was performed demonstrating a patent and compressible brachial vein. An .018 wire was introduced into the indwelling PICC line. Old PICC line was then exchanged for a 5 Amharic peel-away sheath over the wire. A 5 Amharic dual-lumen Power PICC line catheter was cut to 35 cm and introduced over the wire. Peel-away sheath and wire were removed.Catheter was secured to the skin using 2-0 Prolene suture. Both ports aspirate and flush easily. Post procedure chest x-ray demonstrates good position of the PICC line catheter within the SVC. Impression: Successful replacement of an upper extremity PICC line catheter
--- NOTE | 2017-07-06 16:28 | Pulmonology Progress Note ---
Assessment/Plan Assessment/Plan IMPRESSION: 1. Respiratory failure. 2. acute on chronic renal failure 3. Status post cardiopulmonary arrest. 4. Anoxic brain injury, 5. Anemia, possible gastrointestinal bleed, mostly chronic disease. 6. Pressure ulcer. 7. Osteomyelitis per history 8. Chronic encephalopathy 9. history of Cardiopulmonary arrest RECOMMENDATION: 1. Continue with Supportive care. 2. ID noted and antibiotics refused 3. Transfuse as needed and monitor 4. ventilator as is; no wean 5. suction and trach care 6. SNF meds noted and reviewed 7. cosultants noted 8. pressure relief 9. stabilize care 10. WBC worse; ID follow up impression, plan, and exam edited and reviewed in detail care discussed with RN Subjective ROS Limited/Unobtainable: Yes Allergies: Coded Allergies: SULFAMETHOXAZOLE (Verified Allergy, Intermediate, 07/11/16) TRIMETHOPRIM (Verified Allergy, Intermediate, 07/11/16) SULFA (SULFONAMIDE ANTIBIOTICS) (Unverified Allergy, Unknown, 07/03/17) Subjective altered on oxygen on the ventilator Objective Last 24 Hour Vital Signs Date Time Temp Pulse Resp B/P (MAP) Pulse Ox O2 Delivery O2 Flow Rate FiO2 07/06/17 16:13 35 07/06/17 15:30 78 26 35 07/06/17 15:25 98.2 92 25 130/51 100 Mechanical Ventilator 35 07/06/17 14:25 98.0 90 24 140/58 100 Mechanical Ventilator 07/06/17 13:56 80 29 35 07/06/17 12:03 35 07/06/17 12:00 98.1 79 26 126/59 100 Mechanical Ventilator 35 07/06/17 12:00 79 07/06/17 11:05 77 28 35 07/06/17 09:33 81 116/47 07/06/17 09:18 81 19 35 07/06/17 08:00 35 07/06/17 08:00 97.9 82 24 132/66 100 Mechanical Ventilator 35 07/06/17 08:00 68 07/06/17 07:30 91 29 35 07/06/17 05:13 57 27 35 07/06/17 04:00 68 07/06/17 04:00 97.5 73 20 116/47 100 Mechanical Ventilator 35 07/06/17 04:00 35 07/06/17 03:03 68 25 35 07/06/17 01:00 56 28 35 8/24/17 00:14 97.4 61 18 116/49 100 Mechanical Ventilator 35 07/06/17 00:00 35 07/06/17 00:00 59 07/05/17 23:10 67 23 35 07/05/17 21:25 60 20 35 07/05/17 20:00 99.8 60 19 100/46 100 Mechanical Ventilator 35 07/05/17 19:30 66 29 35 07/05/17 19:23 66 07/05/17 17:24 94 24 35 Intake and Output 07/06/17 07/07/17 19:00 07:00 Intake Total 760.0 ml Balance 760.0 ml IV Total 760.0 ml Objective WDWN NAD reduced breath sounds bilaterally without rhonchi or wheeze [id number] without MRG NABS nontender no HSM; GT no CC no edema nonfocal skin changes noted Microbiology Date/Time Source Procedure Growth Status 07/04/17 14:30 Blood Blood Culture - Preliminary NO GROWTH AFTER 24 HOURS Resulted 07/04/17 14:25 Blood Blood Culture - Preliminary NO GROWTH AFTER 24 HOURS Resulted 07/03/17 20:40 Urine,Clean Catch Urine Culture - Preliminary Pseudomonas Aeruginosa Resulted 07/04/17 01:40 Sacral Wound Gram Stain - Final Resulted 07/04/17 01:40 Wound Culture - Preliminary Klebsiella Pneumoniae - Mdr Gram Negative Bacillus 2 Strep Species, Gamma-Hemolytic Resulted Laboratory Tests 07/06/17 06:15: White Blood Count 23.2*H, Red Blood Count 3.50L, Hemoglobin 10.4L, Hematocrit 31.9L, Mean Corpuscular Volume 91, Mean Corpuscular Hemoglobin 29.8, Mean Corpuscular Hemoglobin Concent 32.6, Red Cell Distribution Width 14.5, Platelet Count 538H, Mean Platelet Volume 6.6, Neutrophils (%) (Auto) , Lymphocytes (%) ( Auto) , Monocytes (%) (Auto) , Eosinophils (%) (Auto) , Basophils (%) (Auto) , Differential Total Cells Counted 100, Neutrophils % (Manual) 85H, Lymphocytes % (Manual) 9L, Monocytes % (Manual) 3, Eosinophils % (Manual) 0, Basophils % ( Manual) 0, Band Neutrophils 3, Platelet Estimate IncreasedH, Platelet Morphology Normal, Red Blood Cell Morphology Normal, Sodium Level 136, Potassium Level 3.2L, Chloride Level 103, Carbon Dioxide Level 19L, Anion Gap 14 , Blood Urea Nitrogen 33H, Creatinine 0.8, Estimat Glomerular Filtration Rate , Glucose Level 221H, Calcium Level 8.2L, Total Bilirubin 0.2, Aspartate Amino Transf (AST/SGOT) 24, Alanine Aminotransferase (ALT/SGPT) 16, Alkaline Phosphatase 243H, Total Protein 5.9L, Albumin 1.4L, Globulin 4.5, Albumin/ Globulin Ratio 0.3L, Vancomycin Level Trough 18.1H Current Medications Medications (Trade) Dose Ordered Sig/Angie Route PRN Reason Start Time Stop Time Status Last Admin Dose Admin Acetaminophen (Tylenol) 650 mg Q4H PRN NG Fever/Headache/Mild Pain 07/06/17 09:00 08/05/17 08:59 Amikacin Protocol (Amikacin pharmacy to dose) 1 ea DAILY PRN MISC PER RX PROTOCOL 07/06/17 12:15 07/08/17 23:59 Amikacin Sulfate 800 mg/Sodium Chloride 113.2 ml @ 226.4 mls/ hr Q48H IV 07/06/17 14:00 07/08/17 13:59 07/06/17 13:47 Carbidopa/Levodopa (Sinemet 25/100) 1 ea BID GT 07/06/17 09:00 08/05/17 08:59 07/06/17 09:34 Chlorhexidine Gluconate (Monica-Hex 2%) 1 applic DAILY TOPIC 07/06/17 09:00 08/05/17 08:59 Collagenase (Santyl) 1 applic DAILY TOPIC 07/05/17 09:00 08/04/17 08:59 07/05/17 18:24 Dextrose/Sodium Chloride 1,000 ml @ 75 mls/hr [id number] IV 07/04/17 05:45 08/03/17 05:44 07/06/17 12:17 Enoxaparin Sodium (Lovenox) 30 mg DAILY SUBQ 07/06/17 09:00 08/05/17 08:59 07/06/17 09:40 Ferrous Sulfate (Feosol) 300 mg TID@1000,1300,1900 GT 07/06/17 09:00 08/05/17 08:59 07/06/17 13:46 Fluconazole (Diflucan) 100 mg DAILY GT 07/06/17 09:00 07/13/17 08:59 07/06/17 09:33 Gentamicin Sulfate (Garamycin 0.3% Opt Soln) 2 drop DAILY BOTH EYES 07/06/17 09:30 07/13/17 09:29 07/06/17 09:41 Heparin Sodium/ Sodium Chloride (Heparin 2000 units/Ns 1000ml premix) 2,000 unit ONCE PRN INJ PICC PLACEMENT 07/05/17 08:15 07/06/17 23:59 Insulin Aspart (NovoLOG) EVERY 6 HOURS SUBQ 07/04/17 06:00 08/03/17 05:59 07/06/17 12:12 Lansoprazole (Prevacid) 30 mg DAILY ORAL 07/06/17 09:00 08/05/17 08:59 07/06/17 09:33 Lidocaine HCl (Xylocaine 1% 30ml) 30 ml ONCE PRN INJ PICC PLACEMENT 07/05/17 08:15 07/06/17 23:59 Metoclopramide HCl (Reglan) 5 mg Q6H PRN NG As Needed For Nausea/Vomitting 07/05/17 22:00 08/04/17 21:59 07/06/17 09:34 Metoprolol Tartrate (Lopressor) 25 mg EVERY 12 HOURS GT 07/06/17 09:00 08/05/17 08:59 07/06/17 09:33 Nystatin (Nystop Powder) 1 applic DAILY TOPIC 07/05/17 09:00 08/04/17 08:59 07/05/17 18:24 Tramadol HCl (Ultram) 50 mg BID PRN GT prior to drsg change and HS 07/06/17 09:00 07/13/17 08:59 NIESHA TOLENTINO Jul 06, 2017 16:28
--- NOTE | 2017-07-06 18:57 | General Progress Note ---
Assessment/Plan Assessment/Plan A/P 1. Leukocytosis, 2/2 underlying infection. --> id on board 2. Anemia of chronic disease. Ferritin is elevated, TIBC is low. B12 wnl, Folate wnl --> s/p transfusion --> monitor counts 3. Coagulopathy, elevated partial thromboplastin time --> pending study 4. Thrombocytosis, reactive process from anemia. 5. Sacral wound and osteomyeltiis. 6. History of breast cancer. Currently, is in remission. Subjective Constitutional: Reports: no symptoms HEENT: Reports: no symptoms Cardiovascular: Reports: no symptoms Respiratory: Reports: no symptoms Gastrointestinal/Abdominal: Reports: no symptoms Genitourinary: Reports: no symptoms Neurologic/Psychiatric: Reports: no symptoms Endocrine: Reports: no symptoms Hematologic/Lymphatic: Reports: no symptoms Allergies: Coded Allergies: SULFAMETHOXAZOLE (Verified Allergy, Intermediate, 07/11/16) TRIMETHOPRIM (Verified Allergy, Intermediate, 07/11/16) SULFA (SULFONAMIDE ANTIBIOTICS) (Unverified Allergy, Unknown, 07/03/17) Subjective wbc is high, poor prognosis Objective Last 24 Hour Vital Signs Date Time Temp Pulse Resp B/P (MAP) Pulse Ox O2 Delivery O2 Flow Rate FiO2 07/06/17 16:53 93 32 35 07/06/17 16:13 35 07/06/17 16:00 90 07/06/17 16:00 98.8 93 30 131/59 100 Mechanical Ventilator 35 07/06/17 15:30 78 26 35 07/06/17 15:25 98.2 92 25 130/51 100 Mechanical Ventilator 07/06/17 14:25 98.0 90 24 140/58 100 Mechanical Ventilator 07/06/17 13:56 80 29 35 07/06/17 12:03 35 07/06/17 12:00 98.1 79 26 126/59 100 Mechanical Ventilator 35 07/06/17 12:00 79 07/06/17 11:05 77 28 35 07/06/17 09:33 81 116/47 07/06/17 09:18 81 19 35 07/06/17 08:00 35 07/06/17 08:00 97.9 82 24 132/66 100 Mechanical Ventilator 35 07/06/17 08:00 68 07/06/17 07:30 91 29 35 07/06/17 05:13 57 27 35 07/06/17 04:00 68 07/06/17 04:00 97.5 73 20 116/47 100 Mechanical Ventilator 35 07/06/17 04:00 35 07/06/17 03:03 68 25 35 07/06/17 01:00 56 28 35 07/06/17 00:14 97.4 61 18 116/49 100 Mechanical Ventilator 35 07/06/17 00:00 35 07/06/17 00:00 59 07/05/17 23:10 67 23 35 07/05/17 21:25 60 20 35 07/05/17 20:00 99.8 60 19 100/46 100 Mechanical Ventilator 35 07/05/17 19:30 66 29 35 07/05/17 19:23 66 Intake and Output 07/06/17 07/07/17 19:00 07:00 Intake Total 1898.2 ml Balance 1898.2 ml Free Water 210 ml IV Total 1248.2 ml Tube Feeding 440 ml Laboratory Tests 07/06/17 06:15: White Blood Count 23.2*H, Red Blood Count 3.50L, Hemoglobin 10.4L, Hematocrit 31.9L, Mean Corpuscular Volume 91, Mean Corpuscular Hemoglobin 29.8, Mean Corpuscular Hemoglobin Concent 32.6, Red Cell Distribution Width 14.5, Platelet Count 538H, Mean Platelet Volume 6.6, Neutrophils (%) (Auto) , Lymphocytes (%) ( Auto) , Monocytes (%) (Auto) , Eosinophils (%) (Auto) , Basophils (%) (Auto) , Differential Total Cells Counted 100, Neutrophils % (Manual) 85H, Lymphocytes % (Manual) 9L, Monocytes % (Manual) 3, Eosinophils % (Manual) 0, Basophils % ( Manual) 0, Band Neutrophils 3, Platelet Estimate IncreasedH, Platelet Morphology Normal, Red Blood Cell Morphology Normal, Sodium Level 136, Potassium Level 3.2L, Chloride Level 103, Carbon Dioxide Level 19L, Anion Gap 14 , Blood Urea Nitrogen 33H, Creatinine 0.8, Estimat Glomerular Filtration Rate , Glucose Level 221H, Calcium Level 8.2L, Total Bilirubin 0.2, Aspartate Amino Transf (AST/SGOT) 24, Alanine Aminotransferase (ALT/SGPT) 16, Alkaline Phosphatase 243H, Total Protein 5.9L, Albumin 1.4L, Globulin 4.5, Albumin/ Globulin Ratio 0.3L, Vancomycin Level Trough 18.1H Height (Feet): 5 Height (Inches): 4.00 Weight (Pounds): 147 General Appearance: no apparent distress EENT: normal ENT inspection Cardiovascular: normal peripheral pulses Abdomen: non tender, no organomegaly Skin: warm/dry Wade Montgomery Jul 06, 2017 18:57
[2017-07-07 02:16] LABS: MEAN CORPUSCULAR HEMOGLOBIN 29.7 PG (27.0-31.0); MEAN CORPUSCULAR VOLUME 93 FL (80-99); MEAN PLATELET VOLUME 6.5 FL (6.5-10.1); PLATELET COUNT 570 K/UL (150-450); RED CELL DISTRIBUTION WIDTH 15.3 % (11.6-14.8)
[2017-07-07 02:23] LABS: WHITE BLOOD COUNT 29.3 K/UL (4.8-10.8)
[2017-07-07 02:37] LABS: ALANINE AMINOTRANSFERASE 15 U/L (3-33); ALBUMIN/GLOBULIN RATIO 0.2 (1.0-2.7); ANION GAP 17 (5-15); ASPARTATE AMINO TRANSFERASE 22 U/L (5-40); CALCIUM 7.8 mg/dL (8.6-10.2); CARBON DIOXIDE 14 mEQ/L (20-30); CHLORIDE 109 mEQ/L (98-107); CREATININE 0.7 mg/dL (0.5-0.9); HEMOLYSIS 3; POTASSIUM 3.5 mEQ/L (3.4-4.9); SODIUM 140 mEQ/L (135-145); TOTAL PROTEIN 5.9 g/dL (6.6-8.7)
[2017-07-07 05:44] LABS: BAND NEUTROPHILS % (MANUAL) 13 % (0-8); BASOPHILS % (MANUAL) 0 % (0-2); EOSINOPHILS % (MANUAL) 1 % (0-3); LYMPHOCYTES % (MANUAL) 3 % (20-45); NEUTROPHILS % (MANUAL) 83 % (45-75); PLATELET ESTIMATE INCREASED; PLATELET MORPHOLOGY NORMAL; TOTAL CELLS COUNTED 100
[2017-07-07] MEDS: NovoLOG Insulin Flexpen SUBQ SCH ×3 (06:00→17:37)
[2017-07-07] MEDS: Acetaminophen 650mg/20.3ml NG PRN ×2 (06:11→18:21)
--- NOTE | 2017-07-07 07:54 | General Progress Note ---
Assessment/Plan Problem List: (1) Digoxin toxicity ICD Codes: T46.0X1A - Poisoning by cardiac-stimulant glycosides and drugs of similar action, accidental (unintentional), initial encounter SNOMED: 26178529 (2) Altered level of consciousness ICD Codes: R40.4 - Transient alteration of awareness SNOMED: 0685883 (3) Toxic encephalopathy ICD Codes: G92 - Toxic encephalopathy SNOMED: 53648045 (4) Acute renal failure ICD Codes: N17.9 - Acute kidney failure, unspecified SNOMED: 23988917 (5) Gangrene ICD Codes: I96 - Gangrene, not elsewhere classified SNOMED: 356291823 (6) Respiratory failure ICD Codes: J96.90 - Respiratory failure, unspecified, unspecified whether with hypoxia or hypercapnia SNOMED: 354057047 (7) Severe sepsis ICD Codes: A41.9 - Sepsis, unspecified organism; R65.20 - Severe sepsis without septic shock SNOMED: 38263747 (8) Osteomyelitis ICD Codes: M86.9 - Osteomyelitis, unspecified SNOMED: 59811229 (9) UTI (urinary tract infection) ICD Codes: N39.0 - Urinary tract infection, site not specified SNOMED: 86343658, 83935221 Qualifiers: Qualified Codes: T83.511D - Infection and inflammatory reaction due to indwelling urethral catheter, subsequent encounter; N39.0 - Urinary tract infection, site not specified (10) Ventilator dependence ICD Codes: Z99.11 - Dependence on respirator [ventilator] status SNOMED: 283328164, 87896580 (11) Dry gangrene ICD Codes: I96 - Gangrene, not elsewhere classified SNOMED: 839341665, 65470917 (12) Anemia ICD Codes: D64.9 - Anemia, unspecified SNOMED: 204939267 Qualifiers: Qualified Codes: D64.9 - Anemia, unspecified (13) Bradyarrhythmia ICD Codes: I49.8 - Other specified cardiac arrhythmias SNOMED: 025917954, 09715365 Status: stable, deteriorating Assessment/Plan cont iv abx per id follow up cultures follow up picc cultures monitot h/h transfuse as needed ivf monitor renal fxn and fluid status off dig. repeat level check lactic acid level wound care vent support gt feeds son declined amputation of right gangrenous foot. aware of concern as source of infection/fever will cont to monitor prognosis very poor son aware Subjective ROS Limited/Unobtainable: Yes Constitutional: Reports: malaise, weakness HEENT: Reports: no symptoms Cardiovascular: Reports: no symptoms Respiratory: Reports: shortness of breath Gastrointestinal/Abdominal: Reports: difficulty swallowing Genitourinary: Reports: no symptoms Neurologic/Psychiatric: Reports: pre-existing deficit Endocrine: Reports: no symptoms Hematologic/Lymphatic: Reports: anemia Allergies: Coded Allergies: SULFAMETHOXAZOLE (Verified Allergy, Intermediate, 07/11/16) TRIMETHOPRIM (Verified Allergy, Intermediate, 07/11/16) SULFA (SULFONAMIDE ANTIBIOTICS) (Unverified Allergy, Unknown, 07/03/17) All Systems: reviewed and negative except above Subjective wbc trending up. intermittent fevers. has ice packs on head and arms/axilla. on multiple abx. no congestion. d/w son at the bedside Objective Last 24 Hour Vital Signs Date Time Temp Pulse Resp B/P (MAP) Pulse Ox O2 Delivery O2 Flow Rate FiO2 07/07/17 07:29 84 28 35 07/07/17 04:56 85 27 35 07/07/17 04:00 35 07/07/17 03:45 86 07/07/17 03:02 82 26 35 07/07/17 01:03 87 34 35 07/07/17 00:00 35 07/06/17 23:58 85 07/06/17 22:55 83 30 35 07/06/17 21:05 96 27 35 07/06/17 20:46 97 112/55 07/06/17 20:42 100.1 90 32 125/59 100 Mechanical Ventilator 35 07/06/17 20:00 87 07/06/17 20:00 35 07/06/17 19:25 86 28 35 07/06/17 16:53 93 32 35 07/06/17 16:13 35 07/06/17 16:00 90 07/06/17 16:00 98.8 93 30 131/59 100 Mechanical Ventilator 35 07/06/17 15:30 78 26 35 07/06/17 15:25 98.2 92 25 130/51 100 Mechanical Ventilator 35 07/06/17 14:25 98.0 90 24 140/58 100 Mechanical Ventilator 35 07/06/17 13:56 80 29 35 07/06/17 12:03 35 8/24/17 12:00 98.1 79 26 126/59 100 Mechanical Ventilator 35 07/06/17 12:00 79 07/06/17 11:05 77 28 35 07/06/17 09:33 81 116/47 07/06/17 09:18 81 19 35 07/06/17 08:00 35 07/06/17 08:00 97.9 82 24 132/66 100 Mechanical Ventilator 35 07/06/17 08:00 68 Intake and Output 07/07/17 07/08/17 18:59 06:59 Intake Total 115 ml Balance 115 ml IV Total 75 ml Tube Feeding 40 ml Laboratory Tests 07/07/17 01:50: White Blood Count 29.3*H, Red Blood Count 3.50L, Hemoglobin 10.4L, Hematocrit 32.5L, Mean Corpuscular Volume 93, Mean Corpuscular Hemoglobin 29.7, Mean Corpuscular Hemoglobin Concent 32.0, Red Cell Distribution Width 15.3H, Platelet Count 570H, Mean Platelet Volume 6.5, Neutrophils (%) (Auto) , Lymphocytes (%) (Auto) , Monocytes (%) (Auto) , Eosinophils (%) (Auto) , Basophils (%) (Auto) , Differential Total Cells Counted 100, Neutrophils % ( Manual) 83H, Lymphocytes % (Manual) 3L, Monocytes % (Manual) 0L, Eosinophils % ( Manual) 1, Basophils % (Manual) 0, Band Neutrophils 13H, Platelet Estimate IncreasedH, Platelet Morphology Normal, Red Blood Cell Morphology Normal, Sodium Level 140, Potassium Level 3.5, Chloride Level 109H, Carbon Dioxide Level 14L, Anion Gap 17H, Blood Urea Nitrogen 26H, Creatinine 0.7, Estimat Glomerular Filtration Rate , Glucose Level 208H, Calcium Level 7.8L, Total Bilirubin 0.3, Aspartate Amino Transf (AST/SGOT) 22, Alanine Aminotransferase ( ALT/SGPT) 15, Alkaline Phosphatase 233H, Total Protein 5.9L, Albumin 1.3L, Globulin 4.6, Albumin/Globulin Ratio 0.2L, Random Amikacin Level 21.3 Height (Feet): 5 Height (Inches): 4.00 Weight (Pounds): 147 Objective General Appearance: WD/WN, lethargic, confused, thin Neck: non-tender, normal alignment, supple Cardiovascular: normal peripheral pulses, normal rate, regular rhythm Respiratory/Chest: chest wall non-tender, lungs clear, normal breath sounds, no respiratory distress, no accessory muscle use Abdomen: normal bowel sounds, non tender, soft, no organomegaly, no mass Extremities: other - right LE gangrene from ankle down Edema: no edema noted Arm (L), no edema noted Arm (R), no edema noted Leg (L), no edema noted Leg (R), no edema noted Pedal (L), no edema noted Pedal (R), no edema noted Generalized Neurologic: unresponsive, aphasia MILES CARTWRIGHT Jul 07, 2017 07:54
[2017-07-07 08:00] VITALS: BP 108/50
[2017-07-07] MEDS: Gentamicin 0.3% Opth Soln 5ml BOTH EYES SCH (09:12)
[2017-07-07] MEDS: Dyna-Hex 2% Top Sol 8oz TOPIC SCH (09:12)
[2017-07-07] MEDS: Ferrous Sulfate 300 MG/5 ML UDC GT SCH ×3 (09:12→18:21)
[2017-07-07] MEDS: Sinemet 25/100 tab GT SCH ×2 (09:13→18:21)
[2017-07-07] MEDS: Fluconazole 100mg tab GT SCH (09:13)
[2017-07-07] MEDS: Metoprolol 25mg tab GT SCH ×2 (09:13→21:36)
[2017-07-07] MEDS: Nystatin Powder 100,000 units/gm 15gm TOPIC SCH (09:13)
[2017-07-07] MEDS: Enoxaparin 30mg Inj SUBQ SCH (09:17)
[2017-07-07 09:43] LABS: REFLEX LACTIC ACID YES OR NO YES
[2017-07-07 11:22] LABS: OTHERS PATHOLOGIST COMMENT
[2017-07-07 11:24] LABS: OTHERS PATHOLOGIST COMMENT
--- NOTE | 2017-07-07 11:39 | Infectious Diseases Prog Note ---
Assessment/Plan Assessment/Plan antibiotics : amikacin iv A 1. gram negative UTI 2. right foot gangrene 3. GT site cellulitis 4. sacral decubitus ulcer 5. DM 6. Parkinsons disease 7. breast cancer 8. leucocytosis increasing P 1. d/c iv amikacin 2. start iv colistin, flagyl 3. will follow up cultures 4. stool for c.diff Subjective ROS Limited/Unobtainable: Yes Allergies: Coded Allergies: SULFAMETHOXAZOLE (Verified Allergy, Intermediate, 07/11/16) TRIMETHOPRIM (Verified Allergy, Intermediate, 07/11/16) SULFA (SULFONAMIDE ANTIBIOTICS) (Unverified Allergy, Unknown, 07/03/17) Objective Vital Signs Last 24 Hour Vital Signs Date Time Temp Pulse Resp B/P (MAP) Pulse Ox O2 Delivery O2 Flow Rate FiO2 07/07/17 09:13 86 108/50 07/07/17 08:37 84 29 35 07/07/17 08:00 35 07/07/17 08:00 97.9 86 30 108/50 100 Mechanical Ventilator 35 07/07/17 08:00 82 07/07/17 07:29 84 28 35 07/07/17 04:56 85 27 35 07/07/17 04:00 35 07/07/17 03:45 86 07/07/17 03:02 82 26 35 07/07/17 01:03 87 34 35 07/07/17 00:00 35 07/06/17 23:58 85 07/06/17 22:55 83 30 35 07/06/17 21:05 96 27 35 07/06/17 20:46 97 112/55 07/06/17 20:42 100.1 90 32 125/59 100 Mechanical Ventilator 35 07/06/17 20:00 87 07/06/17 20:00 35 07/06/17 19:25 86 28 35 07/06/17 16:53 93 32 35 07/06/17 16:13 35 07/06/17 16:00 90 07/06/17 16:00 98.8 93 30 131/59 100 Mechanical Ventilator 35 07/06/17 15:30 78 26 35 07/06/17 15:25 98.2 92 25 130/51 100 Mechanical Ventilator 35 07/06/17 14:25 98.0 90 24 140/58 100 Mechanical Ventilator 35 07/06/17 13:56 80 29 35 07/06/17 12:03 35 07/06/17 12:00 98.1 79 26 126/59 100 Mechanical Ventilator 35 07/06/17 12:00 79 Height (Feet): 5 Height (Inches): 4.00 Weight (Pounds): 147 HEENT: status post trach Respiratory/Chest: lungs clear Cardiovascular: normal rate, regular rhythm, no gallop/murmur Abdomen: soft, non tender, other - GT Extremities: no edema, other - right foot necrotic, left heel necrotic, right arm PICC Microbiology Date/Time Source Procedure Growth Status 07/04/17 14:30 Blood Blood Culture - Preliminary NO GROWTH AFTER 48 HOURS Resulted 07/04/17 14:25 Blood Blood Culture - Preliminary NO GROWTH AFTER 48 HOURS Resulted 07/06/17 15:10 Catheter Site Catheter Tip Culture - Preliminary NO GROWTH Resulted Laboratory Tests Test 07/07/17 01:50 07/07/17 08:40 07/07/17 10:15 White Blood Count 29.3 K/UL (4.8-10.8) *H Red Blood Count 3.50 M/UL (4.20-5.40) L Hemoglobin 10.4 G/DL (12.0-16.0) L Hematocrit 32.5 % (37.0-47.0) L Mean Corpuscular Volume 93 FL (80-99) Mean Corpuscular Hemoglobin 29.7 PG (27.0-31.0) Mean Corpuscular Hemoglobin Concent 32.0 G/DL (32.0-36.0) Red Cell Distribution Width 15.3 % (11.6-14.8) H Platelet Count 570 K/UL (150-450) H Mean Platelet Volume 6.5 FL (6.5-10.1) Neutrophils (%) (Auto) % (45.0-75.0) Lymphocytes (%) (Auto) % (20.0-45.0) Monocytes (%) (Auto) % (1.0-10.0) Eosinophils (%) (Auto) % (0.0-3.0) Basophils (%) (Auto) % (0.0-2.0) Differential Total Cells Counted 100 Neutrophils % (Manual) 83 % (45-75) H Lymphocytes % (Manual) 3 % (20-45) L Monocytes % (Manual) 0 % (1-10) L Eosinophils % (Manual) 1 % (0-3) Basophils % (Manual) 0 % (0-2) Band Neutrophils 13 % (0-8) H Platelet Estimate Increased H Platelet Morphology Normal Red Blood Cell Morphology Normal Sodium Level 140 mEQ/L (135-145) Potassium Level 3.5 mEQ/L (3.4-4.9) Chloride Level 109 mEQ/L (98-107) H Carbon Dioxide Level 14 mEQ/L (20-30) L Anion Gap 17 (5-15) H Blood Urea Nitrogen 26 mg/dL (7-23) H Creatinine 0.7 mg/dL (0.5-0.9) Estimat Glomerular Filtration Rate mL/min (>60) Glucose Level 208 mg/dL (74-106) H Calcium Level 7.8 mg/dL (8.6-10.2) L Total Bilirubin 0.3 mg/dL (0.0-1.2) Aspartate Amino Transf (AST/SGOT) 22 U/L (5-40) Alanine Aminotransferase (ALT/SGPT) 15 U/L (3-33) Alkaline Phosphatase 233 U/L (35-104) H Total Protein 5.9 g/dL (6.6-8.7) L Albumin 1.3 g/dL (3.5-5.2) L Globulin 4.6 g/dL Albumin/Globulin Ratio 0.2 (1.0-2.7) L Random Amikacin Level 21.3 ug/mL Lactic Acid Level 3.30 mmol/L (0.66-2.22) H 2.70 mmol/L (0.66-2.22) H GRACE BENAVIDES Jul 07, 2017 11:39
[2017-07-07 12:00] VITALS: BP 114/54
[2017-07-07 12:17] LABS: TRANSFERRIN SOLUBLE RECEPTOR 22.3 nmol/L (12.2-27.3)
[2017-07-07] MEDS ORDERED: Colistin 150mg vial IVP SCH (13:00)
[2017-07-07] MEDS: Colistin 150mg vial IVP SCH ×2 (13:33→21:36)
[2017-07-07] MEDS: metroNIDAZOLE 500mg tab GT SCH ×2 (13:33→21:35)
[2017-07-07] MEDS: D5NS 1,000 ML IV SCH ×2 (13:35)
--- NOTE | 2017-07-07 15:17 | Pulmonology Progress Note ---
Assessment/Plan Assessment/Plan IMPRESSION: 1. Respiratory failure. 2. acute on chronic renal failure 3. Status post cardiopulmonary arrest. 4. Anoxic brain injury, 5. Anemia, possible gastrointestinal bleed, mostly chronic disease. 6. Pressure ulcer. 7. Osteomyelitis per history 8. Chronic encephalopathy 9. history of Cardiopulmonary arrest RECOMMENDATION: 1. monitor for change 2. ID noted and antibiotics reviewed 3. monitor HH 4. ventilator as is; no wean 5. suction and trach care 6. SNF meds noted and reviewed 7. care reviewed 8. pressure relief 9. stabilize care impression, plan, and exam edited and reviewed in detail care discussed with RN Subjective ROS Limited/Unobtainable: Yes Allergies: Coded Allergies: SULFAMETHOXAZOLE (Verified Allergy, Intermediate, 07/11/16) TRIMETHOPRIM (Verified Allergy, Intermediate, 07/11/16) SULFA (SULFONAMIDE ANTIBIOTICS) (Unverified Allergy, Unknown, 07/03/17) Subjective altered on oxygen on the ventilator care reviewed Objective Last 24 Hour Vital Signs Date Time Temp Pulse Resp B/P (MAP) Pulse Ox O2 Delivery O2 Flow Rate FiO2 07/07/17 15:00 88 31 35 07/07/17 13:12 84 33 35 07/07/17 12:00 85 07/07/17 12:00 35 07/07/17 12:00 98.2 80 30 114/54 100 Mechanical Ventilator 35 07/07/17 11:29 80 31 35 07/07/17 09:13 86 108/50 07/07/17 08:37 84 29 35 07/07/17 08:00 35 07/07/17 08:00 97.9 86 30 108/50 100 Mechanical Ventilator 35 07/07/17 08:00 82 07/07/17 07:29 84 28 35 07/07/17 04:56 85 27 35 07/07/17 04:00 35 07/07/17 03:45 86 07/07/17 03:02 82 26 35 07/07/17 01:03 87 34 35 07/07/17 00:00 35 07/06/17 23:58 85 07/06/17 22:55 83 30 35 07/06/17 21:05 96 27 35 07/06/17 20:46 97 112/55 07/06/17 20:42 100.1 90 32 125/59 100 Mechanical Ventilator 35 07/06/17 20:00 87 07/06/17 20:00 35 07/06/17 19:25 86 28 35 07/06/17 16:53 93 32 35 07/06/17 16:13 35 07/06/17 16:00 90 07/06/17 16:00 98.8 93 30 131/59 100 Mechanical Ventilator 35 07/06/17 15:30 78 26 35 07/06/17 15:25 98.2 92 25 130/51 100 Mechanical Ventilator 35 Intake and Output 07/07/17 07/08/17 19:00 07:00 Intake Total 600 ml Balance 600 ml IV Total 600 ml Objective WDWN NAD reduced breath sounds bilaterally without rhonchi or wheeze [id number] without MRG NABS nontender no HSM; GT no CC no edema nonfocal skin changes noted Microbiology Date/Time Source Procedure Growth Status 07/06/17 15:10 Catheter Site Catheter Tip Culture - Preliminary NO GROWTH Resulted Laboratory Tests 07/07/17 01:50: White Blood Count 29.3*H, Red Blood Count 3.50L, Hemoglobin 10.4L, Hematocrit 32.5L, Mean Corpuscular Volume 93, Mean Corpuscular Hemoglobin 29.7, Mean Corpuscular Hemoglobin Concent 32.0, Red Cell Distribution Width 15.3H, Platelet Count 570H, Mean Platelet Volume 6.5, Neutrophils (%) (Auto) , Lymphocytes (%) (Auto) , Monocytes (%) (Auto) , Eosinophils (%) (Auto) , Basophils (%) (Auto) , Differential Total Cells Counted 100, Neutrophils % ( Manual) 83H, Lymphocytes % (Manual) 3L, Monocytes % (Manual) 0L, Eosinophils % ( Manual) 1, Basophils % (Manual) 0, Band Neutrophils 13H, Platelet Estimate IncreasedH, Platelet Morphology Normal, Red Blood Cell Morphology Normal, Sodium Level 140, Potassium Level 3.5, Chloride Level 109H, Carbon Dioxide Level 14L, Anion Gap 17H, Blood Urea Nitrogen 26H, Creatinine 0.7, Estimat Glomerular Filtration Rate , Glucose Level 208H, Calcium Level 7.8L, Total Bilirubin 0.3, Aspartate Amino Transf (AST/SGOT) 22, Alanine Aminotransferase ( ALT/SGPT) 15, Alkaline Phosphatase 233H, Total Protein 5.9L, Albumin 1.3L, Globulin 4.6, Albumin/Globulin Ratio 0.2L, Random Amikacin Level 21.3 07/07/17 08:40: Lactic Acid Level 3.30H 07/07/17 10:15: Lactic Acid Level 2.70H Current Medications Medications (Trade) Dose Ordered Sig/Angie Route PRN Reason Start Time Stop Time Status Last Admin Dose Admin Acetaminophen (Tylenol) 650 mg Q4H PRN NG Fever/Headache/Mild Pain 07/06/17 09:00 08/05/17 08:59 07/07/17 06:11 Carbidopa/Levodopa (Sinemet 25/100) 1 ea BID GT 07/06/17 09:00 08/05/17 08:59 07/07/17 09:13 Chlorhexidine Gluconate (Monica-Hex 2%) 1 applic DAILY TOPIC 07/06/17 09:00 08/05/17 08:59 07/07/17 09:12 Colistimethate Sodium (Colistin) 75 mg Q12HR@0900,2100 IVP 07/07/17 13:00 07/14/17 12:59 07/07/17 13:33 Collagenase (Santyl) 1 applic DAILY TOPIC 07/05/17 09:00 08/04/17 08:59 07/07/17 09:15 Dextrose/Sodium Chloride 1,000 ml @ 75 mls/hr [id number] IV 07/04/17 05:45 08/03/17 05:44 07/07/17 13:35 Enoxaparin Sodium (Lovenox) 30 mg DAILY SUBQ 07/06/17 09:00 08/05/17 08:59 07/07/17 09:17 Ferrous Sulfate (Feosol) 300 mg TID@1000,1300,1900 GT 07/06/17 09:00 08/05/17 08:59 07/07/17 13:33 Fluconazole (Diflucan) 100 mg DAILY GT 07/06/17 09:00 07/13/17 08:59 07/07/17 09:13 Gentamicin Sulfate (Garamycin 0.3% Opth Soln) 2 drop DAILY BOTH EYES 07/06/17 09:30 07/13/17 09:29 07/07/17 09:12 Insulin Aspart (NovoLOG) EVERY 6 HOURS SUBQ 07/04/17 06:00 08/03/17 05:59 07/06/17 12:12 Lansoprazole (Prevacid) 30 mg DAILY GT 07/08/17 09:00 08/05/17 08:59 Metoclopramide HCl (Reglan) 5 mg Q6H PRN NG As Needed For Nausea/Vomitting 07/05/17 22:00 08/04/17 21:59 07/06/17 09:34 Metoprolol Tartrate (Lopressor) 25 mg EVERY 12 HOURS GT 07/06/17 09:00 08/05/17 08:59 07/07/17 09:13 Metronidazole (Flagyl) 500 mg Q8HR GT 07/07/17 13:00 07/14/17 12:59 07/07/17 13:33 Nystatin (Nystop Powder) 1 applic DAILY TOPIC 07/05/17 09:00 08/04/17 08:59 07/07/17 09:13 Tramadol HCl (Ultram) 50 mg BID PRN GT prior to drsg change and HS 07/06/17 09:00 07/13/17 08:59 NIESHA TOLENTINO Jul 07, 2017 15:17
[2017-07-07 16:00] VITALS: BP 137/54
[2017-07-07] MEDS ORDERED: D5NS 1000ml IV ONE (16:40)
[2017-07-07] MEDS ORDERED: Tubing IV Secondary IV ONE (16:40)
[2017-07-07] MEDS ORDERED: NS 275ml ONE (16:40)
[2017-07-07] MEDS ORDERED: Sterile Water Irrig 1000ml IRRIG ONE (16:40)
--- NOTE | 2017-07-07 17:29 | General Progress Note ---
Assessment/Plan Assessment/Plan A/P 1. Leukocytosis, 2/2 underlying infection. --> id on board 2. Anemia of chronic disease. Ferritin is elevated, TIBC is low. B12 wnl, Folate wnl --> s/p transfusion --> monitor counts, transfuse as needed 3. Coagulopathy, elevated partial thromboplastin time --> pending study 4. Thrombocytosis, reactive process from anemia. 5. Sacral wound and osteomyeltiis. 6. History of breast cancer. Currently, is in remission. Subjective Constitutional: Reports: no symptoms HEENT: Reports: no symptoms Cardiovascular: Reports: no symptoms Respiratory: Reports: no symptoms Gastrointestinal/Abdominal: Reports: no symptoms Genitourinary: Reports: no symptoms Neurologic/Psychiatric: Reports: no symptoms Endocrine: Reports: no symptoms Hematologic/Lymphatic: Reports: anemia Allergies: Coded Allergies: SULFAMETHOXAZOLE (Verified Allergy, Intermediate, 07/11/16) TRIMETHOPRIM (Verified Allergy, Intermediate, 07/11/16) SULFA (SULFONAMIDE ANTIBIOTICS) (Unverified Allergy, Unknown, 07/03/17) Subjective no major changes Objective Last 24 Hour Vital Signs Date Time Temp Pulse Resp B/P (MAP) Pulse Ox O2 Delivery O2 Flow Rate FiO2 07/07/17 16:54 89 31 35 07/07/17 16:35 90 07/07/17 16:00 35 07/07/17 15:00 88 31 35 07/07/17 13:12 84 33 35 07/07/17 12:00 85 07/07/17 12:00 35 07/07/17 12:00 98.2 80 30 114/54 100 Mechanical Ventilator 35 07/07/17 11:29 80 31 35 07/07/17 09:13 86 108/50 07/07/17 08:37 84 29 35 07/07/17 08:00 35 07/07/17 08:00 97.9 86 30 108/50 100 Mechanical Ventilator 35 07/07/17 08:00 82 07/07/17 07:29 84 28 35 07/07/17 04:56 85 27 35 07/07/17 04:00 35 07/07/17 03:45 86 07/07/17 03:02 82 26 35 07/07/17 01:03 87 34 35 07/07/17 00:00 35 07/06/17 23:58 85 07/06/17 22:55 83 30 35 07/06/17 21:05 96 27 35 07/06/17 20:46 97 112/55 07/06/17 20:42 100.1 90 32 125/59 100 Mechanical Ventilator 35 07/06/17 20:00 87 07/06/17 20:00 35 07/06/17 19:25 86 28 35 Intake and Output 07/07/17 07/08/17 19:00 07:00 Intake Total 600 ml Balance 600 ml IV Total 600 ml Laboratory Tests 07/07/17 01:50: White Blood Count 29.3*H, Red Blood Count 3.50L, Hemoglobin 10.4L, Hematocrit 32.5L, Mean Corpuscular Volume 93, Mean Corpuscular Hemoglobin 29.7, Mean Corpuscular Hemoglobin Concent 32.0, Red Cell Distribution Width 15.3H, Platelet Count 570H, Mean Platelet Volume 6.5, Neutrophils (%) (Auto) , Lymphocytes (%) (Auto) , Monocytes (%) (Auto) , Eosinophils (%) (Auto) , Basophils (%) (Auto) , Differential Total Cells Counted 100, Neutrophils % ( Manual) 83H, Lymphocytes % (Manual) 3L, Monocytes % (Manual) 0L, Eosinophils % ( Manual) 1, Basophils % (Manual) 0, Band Neutrophils 13H, Platelet Estimate IncreasedH, Platelet Morphology Normal, Red Blood Cell Morphology Normal, Sodium Level 140, Potassium Level 3.5, Chloride Level 109H, Carbon Dioxide Level 14L, Anion Gap 17H, Blood Urea Nitrogen 26H, Creatinine 0.7, Estimat Glomerular Filtration Rate , Glucose Level 208H, Calcium Level 7.8L, Total Bilirubin 0.3, Aspartate Amino Transf (AST/SGOT) 22, Alanine Aminotransferase ( ALT/SGPT) 15, Alkaline Phosphatase 233H, Total Protein 5.9L, Albumin 1.3L, Globulin 4.6, Albumin/Globulin Ratio 0.2L, Random Amikacin Level 21.3 07/07/17 08:40: Lactic Acid Level 3.30H 07/07/17 10:15: Lactic Acid Level 2.70H Height (Feet): 5 Height (Inches): 4.00 Weight (Pounds): 147 General Appearance: no apparent distress EENT: normal ENT inspection Neck: normal alignment Cardiovascular: regular rhythm Edema: no edema noted Pedal (L), no edema noted Pedal (R) Neurologic: deputy program manager II-XII grossly normal Skin: warm/dry Wade Montgomery Jul 07, 2017 17:29
[2017-07-07 20:41] VITALS: BP 119/50
[2017-07-08] VITALS: BP 135/68
[2017-07-08] MEDS: Acetaminophen 650mg/20.3ml NG PRN ×4 (00:42→18:20)
[2017-07-08] MEDS: Metoclopramide 10mg/10ml Liq NG PRN ×4 (00:47→21:57)
[2017-07-08] MEDS: D5NS 1,000 ML IV SCH ×2 (03:05→17:30)
[2017-07-08 04:00] VITALS: BP 110/53
[2017-07-08] MEDS: metroNIDAZOLE 500mg tab GT SCH ×3 (05:21→21:57)
[2017-07-08] MEDS: NovoLOG Insulin Flexpen SUBQ SCH ×4 (05:22→17:53)
[2017-07-08 08:16] VITALS: BP 117/51
--- NOTE | 2017-07-08 08:28 | General Progress Note ---
Assessment/Plan Problem List: (1) Digoxin toxicity ICD Codes: T46.0X1A - Poisoning by cardiac-stimulant glycosides and drugs of similar action, accidental (unintentional), initial encounter SNOMED: 29285353 (2) Altered level of consciousness ICD Codes: R40.4 - Transient alteration of awareness SNOMED: 5261322 (3) Toxic encephalopathy ICD Codes: G92 - Toxic encephalopathy SNOMED: 56368145 (4) Acute renal failure ICD Codes: N17.9 - Acute kidney failure, unspecified SNOMED: 98480307 (5) Gangrene ICD Codes: I96 - Gangrene, not elsewhere classified SNOMED: 429475368 (6) Respiratory failure ICD Codes: J96.90 - Respiratory failure, unspecified, unspecified whether with hypoxia or hypercapnia SNOMED: 784962297 (7) Severe sepsis ICD Codes: A41.9 - Sepsis, unspecified organism; R65.20 - Severe sepsis without septic shock SNOMED: 74602328 (8) Osteomyelitis ICD Codes: M86.9 - Osteomyelitis, unspecified SNOMED: 62643503 (9) UTI (urinary tract infection) ICD Codes: N39.0 - Urinary tract infection, site not specified SNOMED: 63173815, 53359521 Qualifiers: Qualified Codes: T83.511D - Infection and inflammatory reaction due to indwelling urethral catheter, subsequent encounter; N39.0 - Urinary tract infection, site not specified (10) Ventilator dependence ICD Codes: Z99.11 - Dependence on respirator [ventilator] status SNOMED: 924388293, 35934822 (11) Dry gangrene ICD Codes: I96 - Gangrene, not elsewhere classified SNOMED: 368036790, 05687122 (12) Anemia ICD Codes: D64.9 - Anemia, unspecified SNOMED: 062361736 Qualifiers: Qualified Codes: D64.9 - Anemia, unspecified (13) Bradyarrhythmia ICD Codes: I49.8 - Other specified cardiac arrhythmias SNOMED: 471876318, 67095471 Status: stable, progressing Assessment/Plan cont iv abx per id follow up cultures follow up picc cultures monitot h/h transfuse as needed ivf monitor renal fxn and fluid status off dig. repeat level wound care vent support gt feeds son declined amputation of right gangrenous foot. aware of concern as source of infection/fever will cont to monitor prognosis very poor son aware dc planning tomorrow on abx if stable Subjective ROS Limited/Unobtainable: Yes Constitutional: Reports: malaise, weakness HEENT: Reports: no symptoms Cardiovascular: Reports: no symptoms Respiratory: Reports: no symptoms Gastrointestinal/Abdominal: Reports: difficulty swallowing Genitourinary: Reports: no symptoms Neurologic/Psychiatric: Reports: pre-existing deficit Endocrine: Reports: no symptoms Hematologic/Lymphatic: Reports: anemia Allergies: Coded Allergies: SULFAMETHOXAZOLE (Verified Allergy, Intermediate, 07/11/16) TRIMETHOPRIM (Verified Allergy, Intermediate, 07/11/16) SULFA (SULFONAMIDE ANTIBIOTICS) (Unverified Allergy, Unknown, 07/03/17) All Systems: reviewed and negative except above Subjective no events. no fevers. on atc tylenol. ID noted. on abx. son at the bedside. no new concerns Objective Last 24 Hour Vital Signs Date Time Temp Pulse Resp B/P (MAP) Pulse Ox O2 Delivery O2 Flow Rate FiO2 07/08/17 08:16 97.9 92 23 117/51 100 Mechanical Ventilator 35 07/08/17 07:02 96 30 35 07/08/17 05:15 91 27 35 07/08/17 04:00 35 07/08/17 04:00 97.4 87 25 110/53 100 Mechanical Ventilator 35 07/08/17 04:00 83 07/08/17 03:09 82 29 35 07/08/17 01:12 98.1 07/08/17 00:51 92 28 35 07/08/17 00:00 87 07/08/17 00:00 98.2 88 32 135/68 100 Mechanical Ventilator 35 07/08/17 00:00 35 07/07/17 23:07 84 29 35 07/07/17 21:36 98 117/54 07/07/17 21:06 86 26 35 07/07/17 20:41 97.9 107 23 119/50 99 Mechanical Ventilator 35 07/07/17 20:00 35 07/07/17 20:00 94 07/07/17 19:01 95 31 35 07/07/17 16:54 89 31 35 07/07/17 16:35 90 07/07/17 16:00 35 07/07/17 16:00 99.7 92 30 137/54 100 Mechanical Ventilator 35 07/07/17 15:00 88 31 35 07/07/17 13:12 84 33 35 07/07/17 12:00 85 07/07/17 12:00 35 07/07/17 12:00 98.2 80 30 114/54 100 Mechanical Ventilator 35 07/07/17 11:29 80 31 35 07/07/17 09:13 86 108/50 07/07/17 08:37 84 29 35 Laboratory Tests 07/07/17 08:40: Lactic Acid Level 3.30H 07/07/17 10:15: Lactic Acid Level 2.70H Height (Feet): 5 Height (Inches): 4.00 Weight (Pounds): 147 Objective General Appearance: WD/WN, lethargic, confused, thin Neck: non-tender, normal alignment, supple Cardiovascular: normal peripheral pulses, normal rate, regular rhythm Respiratory/Chest: chest wall non-tender, lungs clear, normal breath sounds, no respiratory distress, no accessory muscle use Abdomen: normal bowel sounds, non tender, soft, no organomegaly, no mass Extremities: other - right LE gangrene from ankle down Edema: no edema noted Arm (L), no edema noted Arm (R), no edema noted Leg (L), no edema noted Leg (R), no edema noted Pedal (L), no edema noted Pedal (R), no edema noted Generalized Neurologic: unresponsive, aphasia MILES CARTWRIGHT Jul 08, 2017 08:28
[2017-07-08] MEDS: Ferrous Sulfate 300 MG/5 ML UDC GT SCH ×3 (09:12→18:20)
[2017-07-08] MEDS: Dyna-Hex 2% Top Sol 8oz TOPIC SCH (09:12)
[2017-07-08] MEDS: Gentamicin 0.3% Opth Soln 5ml BOTH EYES SCH (09:12)
[2017-07-08] MEDS: Sinemet 25/100 tab GT SCH ×2 (09:12→18:20)
[2017-07-08] MEDS: Colistin 150mg vial IVP SCH ×2 (09:13→21:58)
[2017-07-08] MEDS: Fluconazole 100mg tab GT SCH (09:13)
[2017-07-08] MEDS: Metoprolol 25mg tab GT SCH ×2 (09:13→21:57)
--- NOTE | 2017-07-08 09:13 | Pulmonology Progress Note ---
Assessment/Plan Assessment/Plan IMPRESSION: 1. Respiratory failure. 2. acute on chronic renal failure 3. Status post cardiopulmonary arrest. 4. Anoxic brain injury, 5. Anemia, possible gastrointestinal bleed, mostly chronic disease. 6. Pressure ulcer. 7. Osteomyelitis per history 8. Chronic encephalopathy 9. history of Cardiopulmonary arrest RECOMMENDATION: 1. monitor for change and follow up labs 2. ID noted and antibiotics reviewed 3. monitor HH 4. ventilator as is; no wean 5. suction and trach care as is 6. SNF meds noted and reviewed 7. care reviewed 8. pressure relief 9. stabilize care for change and hope to transfer to snf when stable impression, plan, and exam edited and reviewed in detail care discussed with RN Subjective ROS Limited/Unobtainable: Yes Allergies: Coded Allergies: SULFAMETHOXAZOLE (Verified Allergy, Intermediate, 07/11/16) TRIMETHOPRIM (Verified Allergy, Intermediate, 07/11/16) SULFA (SULFONAMIDE ANTIBIOTICS) (Unverified Allergy, Unknown, 07/03/17) Subjective altered on oxygen on the ventilator care reviewed labs pending this am Objective Last 24 Hour Vital Signs Date Time Temp Pulse Resp B/P (MAP) Pulse Ox O2 Delivery O2 Flow Rate FiO2 07/08/17 08:16 97.9 92 23 117/51 100 Mechanical Ventilator 35 07/08/17 08:00 35 07/08/17 07:02 96 30 35 07/08/17 05:15 91 27 35 07/08/17 04:00 35 07/08/17 04:00 97.4 87 25 110/53 100 Mechanical Ventilator 35 07/08/17 04:00 83 07/08/17 03:09 82 29 35 07/08/17 01:12 98.1 07/08/17 00:51 92 28 35 07/08/17 00:00 87 07/08/17 00:00 98.2 88 32 135/68 100 Mechanical Ventilator 35 07/08/17 00:00 35 07/07/17 23:07 84 29 35 07/07/17 21:36 98 117/54 07/07/17 21:06 86 26 35 07/07/17 20:41 97.9 107 23 119/50 99 Mechanical Ventilator 35 07/07/17 20:00 35 07/07/17 20:00 94 07/07/17 19:01 95 31 35 8/25/17 16:54 89 31 35 07/07/17 16:35 90 07/07/17 16:00 35 07/07/17 16:00 99.7 92 30 137/54 100 Mechanical Ventilator 35 07/07/17 15:00 88 31 35 07/07/17 13:12 84 33 35 07/07/17 12:00 85 07/07/17 12:00 35 07/07/17 12:00 98.2 80 30 114/54 100 Mechanical Ventilator 35 07/07/17 11:29 80 31 35 07/07/17 09:13 86 108/50 Objective WDWN NAD reduced breath sounds bilaterally without rhonchi or wheeze [id number] without MRG NABS nontender no HSM; GT no CC no edema nonfocal skin changes noted Microbiology Date/Time Source Procedure Growth Status 07/07/17 12:00 Stool Clostridium difficile Toxin Assay - Final Complete 07/06/17 15:10 Catheter Site Catheter Tip Culture - Preliminary NO GROWTH Resulted Laboratory Tests 07/07/17 10:15: Lactic Acid Level 2.70H 07/08/17 09:00: White Blood Count [Pending], Red Blood Count [Pending], Hemoglobin [Pending], Hematocrit [Pending], Mean Corpuscular Volume [Pending], Mean Corpuscular Hemoglobin [Pending], Mean Corpuscular Hemoglobin Concent [Pending], Red Cell Distribution Width [Pending], Platelet Count [Pending], Mean Platelet Volume [ Pending], Neutrophils (%) (Auto) [Pending], Lymphocytes (%) (Auto) [Pending], Monocytes (%) (Auto) [Pending], Eosinophils (%) (Auto) [Pending], Basophils (%) (Auto) [Pending], Sodium Level [Pending], Potassium Level [Pending], Chloride Level [Pending], Carbon Dioxide Level [Pending], Blood Urea Nitrogen [Pending], Creatinine [Pending], Estimat Glomerular Filtration Rate [Pending], Glucose Level [Pending], Calcium Level [Pending], Total Bilirubin [Pending], Aspartate Amino Transf (AST/SGOT) [Pending], Alanine Aminotransferase (ALT/SGPT) [Pending] , Alkaline Phosphatase [Pending], Total Protein [Pending], Albumin [Pending], Globulin [Pending] Current Medications Medications (Trade) Dose Ordered Sig/Angie Route PRN Reason Start Time Stop Time Status Last Admin Dose Admin Acetaminophen (Tylenol) 650 mg Q4H PRN NG Fever/Headache/Mild Pain 07/06/17 09:00 08/05/17 08:59 07/08/17 06:09 Carbidopa/Levodopa (Sinemet 25/100) 1 ea BID GT 07/06/17 09:00 08/05/17 08:59 07/07/17 18:21 Chlorhexidine Gluconate (Monica-Hex 2%) 1 applic DAILY TOPIC 07/06/17 09:00 08/05/17 08:59 07/07/17 09:12 Colistimethate Sodium (Colistin) 75 mg Q12HR@0900,2100 IVP 07/07/17 13:00 07/14/17 12:59 07/07/17 21:36 Collagenase (Santyl) 1 applic DAILY TOPIC 07/05/17 09:00 08/04/17 08:59 07/07/17 09:15 Dextrose/Sodium Chloride 1,000 ml @ 75 mls/hr [id number] IV 07/04/17 05:45 08/03/17 05:44 07/08/17 03:05 Enoxaparin Sodium (Lovenox) 30 mg DAILY SUBQ 07/06/17 09:00 08/05/17 08:59 07/07/17 09:17 Ferrous Sulfate (Feosol) 300 mg TID@1000,1300,1900 GT 07/06/17 09:00 08/05/17 08:59 07/07/17 18:21 Fluconazole (Diflucan) 100 mg DAILY GT 07/06/17 09:00 07/13/17 08:59 07/07/17 09:13 Gentamicin Sulfate (Garamycin 0.3% Opt Soln) 2 drop DAILY BOTH EYES 07/06/17 09:30 07/13/17 09:29 07/07/17 09:12 Insulin Aspart (NovoLOG) EVERY 6 HOURS SUBQ 07/04/17 06:00 08/03/17 05:59 07/06/17 12:12 Lansoprazole (Prevacid) 30 mg DAILY GT 07/08/17 09:00 08/05/17 08:59 Metoclopramide HCl (Reglan) 5 mg Q6H PRN NG As Needed For Nausea/Vomitting 07/05/17 22:00 08/04/17 21:59 07/08/17 06:08 Metoprolol Tartrate (Lopressor) 25 mg EVERY 12 HOURS GT 07/06/17 09:00 08/05/17 08:59 07/07/17 21:36 Metronidazole (Flagyl) 500 mg Q8HR GT 07/07/17 13:00 07/14/17 12:59 07/08/17 05:21 Nystatin (Nystop Powder) 1 applic DAILY TOPIC 07/05/17 09:00 08/04/17 08:59 07/07/17 09:13 Tramadol HCl (Ultram) 50 mg BID PRN GT prior to drsg change and HS 07/06/17 09:00 07/13/17 08:59 NIESHA TOLENTINO Jul 08, 2017 09:13
[2017-07-08] MEDS: Enoxaparin 30mg Inj SUBQ SCH (09:15)
[2017-07-08] MEDS: Nystatin Powder 100,000 units/gm 15gm TOPIC SCH (09:15)
[2017-07-08 09:31] LABS: MEAN CORPUSCULAR HEMOGLOBIN 29.2 PG (27.0-31.0); MEAN CORPUSCULAR HGB CONC 31.8 G/DL (32.0-36.0); MEAN CORPUSCULAR VOLUME 92 FL (80-99); MEAN PLATELET VOLUME 6.1 FL (6.5-10.1); PLATELET COUNT 549 K/UL (150-450); RED BLOOD COUNT 3.78 M/UL (4.20-5.40); RED CELL DISTRIBUTION WIDTH 15.1 % (11.6-14.8); WHITE BLOOD COUNT 23.6 K/UL (4.8-10.8)
[2017-07-08 09:38] LABS: ALANINE AMINOTRANSFERASE 13 U/L (3-33); ALBUMIN/GLOBULIN RATIO 0.4 (1.0-2.7); ANION GAP 14 (5-15); ASPARTATE AMINO TRANSFERASE 14 U/L (5-40); CALCIUM 7.5 mg/dL (8.6-10.2); CARBON DIOXIDE 17 mEQ/L (20-30); CHLORIDE 111 mEQ/L (98-107); CREATININE 0.7 mg/dL (0.5-0.9); HEMOLYSIS 26; POTASSIUM 3.5 mEQ/L (3.4-4.9); SODIUM 142 mEQ/L (135-145)
[2017-07-08 10:08] LABS: ANISOCYTOSIS 1+; BAND NEUTROPHILS % (MANUAL) 1 % (0-8); BASOPHILS % (MANUAL) 0 % (0-2); EOSINOPHILS % (MANUAL) 0 % (0-3); LYMPHOCYTES % (MANUAL) 10 % (20-45); NEUTROPHILS % (MANUAL) 86 % (45-75); PLATELET ESTIMATE INCREASED; PLATELET MORPHOLOGY NORMAL; TOTAL CELLS COUNTED 100
[2017-07-08 12:00] VITALS: BP 120/53
[2017-07-08 16:00] VITALS: BP 126/71
[2017-07-08 20:00] VITALS: BP 108/47
[2017-07-09] VITALS: BP 116/48
[2017-07-09 04:00] VITALS: BP 138/66
[2017-07-09] MEDS: metroNIDAZOLE 500mg tab GT SCH (05:31)
[2017-07-09] MEDS: D5NS 1,000 ML IV SCH (05:31)
[2017-07-09] MEDS: Metoclopramide 10mg/10ml Liq NG PRN (05:31)
[2017-07-09] MEDS: NovoLOG Insulin Flexpen SUBQ SCH ×2 (06:00)
--- NOTE | 2017-07-09 07:42 | General Progress Note ---
Assessment/Plan Problem List: (1) Digoxin toxicity ICD Codes: T46.0X1A - Poisoning by cardiac-stimulant glycosides and drugs of similar action, accidental (unintentional), initial encounter SNOMED: 95389393 (2) Altered level of consciousness ICD Codes: R40.4 - Transient alteration of awareness SNOMED: 2721130 (3) Toxic encephalopathy ICD Codes: G92 - Toxic encephalopathy SNOMED: 07865729 (4) Acute renal failure ICD Codes: N17.9 - Acute kidney failure, unspecified SNOMED: 97235233 (5) Gangrene ICD Codes: I96 - Gangrene, not elsewhere classified SNOMED: 061485321 (6) Respiratory failure ICD Codes: J96.90 - Respiratory failure, unspecified, unspecified whether with hypoxia or hypercapnia SNOMED: 731037999 (7) Severe sepsis ICD Codes: A41.9 - Sepsis, unspecified organism; R65.20 - Severe sepsis without septic shock SNOMED: 99638180 (8) Osteomyelitis ICD Codes: M86.9 - Osteomyelitis, unspecified SNOMED: 80472166 (9) UTI (urinary tract infection) ICD Codes: N39.0 - Urinary tract infection, site not specified SNOMED: 39370319, 51623021 Qualifiers: Qualified Codes: T83.511D - Infection and inflammatory reaction due to indwelling urethral catheter, subsequent encounter; N39.0 - Urinary tract infection, site not specified (10) Ventilator dependence ICD Codes: Z99.11 - Dependence on respirator [ventilator] status SNOMED: 752234515, 65998117 (11) Dry gangrene ICD Codes: I96 - Gangrene, not elsewhere classified SNOMED: 720751029, 08235927 (12) Anemia ICD Codes: D64.9 - Anemia, unspecified SNOMED: 810129921 Qualifiers: Qualified Codes: D64.9 - Anemia, unspecified (13) Bradyarrhythmia ICD Codes: I49.8 - Other specified cardiac arrhythmias SNOMED: 242347818, 78141816 Status: stable Assessment/Plan cont iv abx per id monitot h/h transfuse as needed ivf monitor renal fxn and fluid status off dig. repeat level wound care vent support ct abd gt feeds son declined amputation of right gangrenous foot. aware of concern as source of infection/fever will cont to monitor prognosis very poor son aware dc planning if ct ok Subjective ROS Limited/Unobtainable: Yes Constitutional: Reports: malaise, weakness HEENT: Reports: no symptoms Cardiovascular: Reports: no symptoms Respiratory: Reports: sputum Gastrointestinal/Abdominal: Reports: abdomen distended, difficulty swallowing Genitourinary: Reports: no symptoms Neurologic/Psychiatric: Reports: pre-existing deficit Endocrine: Reports: no symptoms Hematologic/Lymphatic: Reports: anemia Allergies: Coded Allergies: SULFAMETHOXAZOLE (Verified Allergy, Intermediate, 07/11/16) TRIMETHOPRIM (Verified Allergy, Intermediate, 07/11/16) SULFA (SULFONAMIDE ANTIBIOTICS) (Unverified Allergy, Unknown, 07/03/17) All Systems: reviewed and negative except above Subjective no events. no fevers. on atc tylenol. ID noted. on abx. son at the bedside. abd slightly more distended. son requesting that pt be discharged back to subacute Objective Last 24 Hour Vital Signs Date Time Temp Pulse Resp B/P (MAP) Pulse Ox O2 Delivery O2 Flow Rate FiO2 07/09/17 06:53 78 25 35 07/09/17 04:35 102 23 35 07/09/17 04:00 98.1 82 24 138/66 100 35 07/09/17 04:00 35 07/09/17 04:00 116 07/09/17 03:28 101 31 35 07/09/17 00:58 99 30 35 07/09/17 00:00 35 07/09/17 00:00 98.4 103 28 116/48 100 Mechanical Ventilator 35 07/09/17 00:00 87 07/08/17 22:45 97 30 35 07/08/17 21:57 103 112/44 07/08/17 21:19 99 29 35 07/08/17 20:00 98.8 110 32 108/47 100 Mechanical Ventilator 35 07/08/17 20:00 107 07/08/17 20:00 35 07/08/17 19:15 105 31 35 07/08/17 16:50 102 31 35 07/08/17 16:00 99.0 100 18 126/71 99 Mechanical Ventilator 35 07/08/17 16:00 35 07/08/17 16:00 106 07/08/17 15:12 112 31 35 07/08/17 13:19 111 30 35 07/08/17 12:39 98.9 07/08/17 12:00 35 07/08/17 12:00 84 07/08/17 12:00 99.9 84 30 120/53 100 Mechanical Ventilator 35 07/08/17 10:51 82 23 35 07/08/17 09:13 92 117/51 07/08/17 09:04 91 24 35 07/08/17 08:16 97.9 92 23 117/51 100 Mechanical Ventilator 35 07/08/17 08:00 35 07/08/17 08:00 88 Laboratory Tests 07/08/17 09:00: White Blood Count 23.6*H, Red Blood Count 3.78L, Hemoglobin 11.1L, Hematocrit 34.7L, Mean Corpuscular Volume 92, Mean Corpuscular Hemoglobin 29.2, Mean Corpuscular Hemoglobin Concent 31.8L, Red Cell Distribution Width 15.1H, Platelet Count 549H, Mean Platelet Volume 6.1L, Neutrophils (%) (Auto) , Lymphocytes (%) (Auto) , Monocytes (%) (Auto) , Eosinophils (%) (Auto) , Basophils (%) (Auto) , Differential Total Cells Counted 100, Neutrophils % ( Manual) 86H, Lymphocytes % (Manual) 10L, Monocytes % (Manual) 3, Eosinophils % ( Manual) 0, Basophils % (Manual) 0, Band Neutrophils 1, Platelet Estimate IncreasedH, Platelet Morphology Normal, Hypochromasia , Anisocytosis 1+, Sodium Level 142, Potassium Level 3.5, Chloride Level 111H, Carbon Dioxide Level 17L, Anion Gap 14, Blood Urea Nitrogen 23, Creatinine 0.7, Estimat Glomerular Filtration Rate , Glucose Level 156H, Calcium Level 7.5L, Total Bilirubin 0.3, Aspartate Amino Transf (AST/SGOT) 14, Alanine Aminotransferase (ALT/SGPT) 13, Alkaline Phosphatase 223H, Total Protein 5.0L, Albumin 1.6L, Globulin 3.4, Albumin/Globulin Ratio 0.4L Height (Feet): 5 Height (Inches): 4.00 Weight (Pounds): 147 Objective General Appearance: WD/WN, lethargic, confused, thin Neck: non-tender, normal alignment, supple Cardiovascular: normal peripheral pulses, normal rate, regular rhythm Respiratory/Chest: chest wall non-tender, lungs clear, normal breath sounds, no respiratory distress, no accessory muscle use Abdomen: normal bowel sounds, non tender, soft, no organomegaly, no mass. + slight distention Extremities: other - right LE gangrene from ankle down Edema: no edema noted Arm (L), no edema noted Arm (R), no edema noted Leg (L), no edema noted Leg (R), no edema noted Pedal (L), no edema noted Pedal (R), no edema noted Generalized Neurologic: unresponsive, aphasia MILES CARTWRIGHT Jul 09, 2017 07:42
[2017-07-09 08:00] VITALS: BP 116/60
--- NOTE | 2017-07-09 09:22 | Emergency Room Report ---
History of Present Illness General Chief Complaint: Abnormal Labs Source: Family Member Present Illness Allergies: Coded Allergies: SULFAMETHOXAZOLE (Verified Allergy, Intermediate, 07/11/16) TRIMETHOPRIM (Verified Allergy, Intermediate, 07/11/16) SULFA (SULFONAMIDE ANTIBIOTICS) (Unverified Allergy, Unknown, 07/03/17) Nursing Documentation-[facility] Past Medical History Deferred: Patient Unconscious Past Medical History: No History, Except For Hx Cardiac Problems: Yes Hx Hypertension: Yes Hx Pacemaker: No Hx Asthma: No Hx Diabetes: Yes Hx Cancer: Yes Hx Gastrointestinal Problems: Yes - GERD Hx Dialysis: No Hx Neurological Problems: Yes Hx Cerebrovascular Accident: Yes Hx Parkinson's Disease: Yes Hx Seizures: No Hx Weakness: Yes Physical Exam Vital Signs Date Time Temp Pulse Resp B/P (MAP) Pulse Ox O2 Delivery O2 Flow Rate FiO2 07/03/17 20:19 97.7 55 20 92/46 100 Trach Collar 35 Procedures CPR/Code Blue CPR/Code Blue Narrative 82-year-old female, peg tube, trached, pw cardiac arrest. Code evans called after patient michael down and then went into asystole. And went through multiple rounds of CPR, 3 epi given, 1 amp bicarb, first rhythm when I arrived was asystole, then PEA, patient then had pulse by palpation + Doppler HR 100 after 12 minutes of CPR. Patient's pupils were dilated and unresponsive Medical Decision Making Diagnostic Impression: Primary Impression: Anemia Additional Impressions: Dry gangrene Bradyarrhythmia Ventilator dependence UTI (urinary tract infection) Multiple decubiti Last Vital Signs Date Time Temp Pulse Resp B/P (MAP) Pulse Ox O2 Delivery O2 Flow Rate FiO2 07/09/17 09:11 93 14 35 07/09/17 04:00 98.1 138/66 100 07/09/17 00:00 Mechanical Ventilator Disposition: ADMITTED INPATIENT Condition: Serious Referrals: MILES CARTWRIGHT (PCP) Saab Rahman M.D. Jul 09, 2017 09:22
--- NOTE | 2017-07-09 09:42 | Diagnostic Imaging Report ---
Indication: Abdominal pain Comparison: 07/03/17 Single view of the abdomen obtained There is an abnormal dilated loop of bowel oriented transversely within the mid abdomen. This is probably large bowel with loss of markings. Further evaluation with CT is recommended. There is a gastrostomy tube projected over the epigastric region the abdomen. Bones are osteopenic. Impression: Abnormal dilated bowel within the midabdomen. Further evaluation with contrast CT is suggested
--- NOTE | 2017-07-09 12:15 | Progress Note ---
DATE: 07/08/2017 CARDIOLOGY PROGRESS NOTE: SUBJECTIVE: The patient remains withdrawn and lethargic. She continues with trach care. OBJECTIVE: VITAL SIGNS: Blood pressure is 117/51, pulse rate 92, respiratory rate 23, and afebrile. LUNGS: Bilateral breath sounds with rhonchi. HEART: Regular rhythm and rate. Normal S1 and S2. ABDOMEN: Soft. No edema. EXTREMITIES: Right foot with gangrene. LABORATORY DATA: Sodium is 142, potassium 3.5, bicarbonate 17, BUN 23, and creatinine 0.7. Albumin is 1.6. White count is 23.6 and hemoglobin 11.1. IMPRESSION: 1. Sepsis. 2. Right lower extremity gangrene. 3. Digoxin toxicity. 4. Paroxysmal supraventricular tachyarrhythmias. 5. Respiratory failure. 6. Advanced dementia. 7. Severe protein-calorie malnutrition. 8. Dysphagia with gastrostomy tube metabolic acidosis. 9. Anemia due to chronic kidney disease and chronic disease. PLAN: Holding digoxin. No need to resume. Transfuse for hemoglobin less than 8 g. Broad-spectrum antibiotic. Family members refused amputation of the gangrenous limb. Pain control. Skin care. Maintain adequate hydration. Monitor volume status and cardiorenal parameters. Raymond Salazar M.D. DR: Ayan JOB#: [id number] CC:
--- NOTE | 2017-07-09 12:57 | Pulmonology Progress Note ---
Assessment/Plan Assessment/Plan IMPRESSION: 1. Respiratory failure. 2. acute on chronic renal failure 3. Status post cardiopulmonary arrest. 4. Anoxic brain injury, 5. Anemia, possible gastrointestinal bleed, mostly chronic disease. 6. Pressure ulcer. 7. Osteomyelitis per history 8. Chronic encephalopathy 9. history of Cardiopulmonary arrest RECOMMENDATION: 1. monitor for change and recommend further 2. ID noted and antibiotics reviewed 3. monitor HH and WBC 4. ventilator as is; monitor settings 5. suction and trach care as is 6. SNF meds noted and reviewed 7. care reviewed 8. pressure relief 9. dc planning impression, plan, and exam edited and reviewed in detail care discussed with RN Subjective ROS Limited/Unobtainable: Yes Allergies: Coded Allergies: SULFAMETHOXAZOLE (Verified Allergy, Intermediate, 07/11/16) TRIMETHOPRIM (Verified Allergy, Intermediate, 07/11/16) SULFA (SULFONAMIDE ANTIBIOTICS) (Unverified Allergy, Unknown, 07/03/17) Subjective dc planning noted on oxygen on the ventilator care reviewed labs reviewed (seen earlier) Objective Last 24 Hour Vital Signs Date Time Temp Pulse Resp B/P (MAP) Pulse Ox O2 Delivery O2 Flow Rate FiO2 07/09/17 09:11 93 14 35 07/09/17 08:22 54 07/09/17 08:21 49 07/09/17 08:00 98.4 81 26 116/60 100 35 07/09/17 08:00 77 07/09/17 08:00 35 07/09/17 07:49 77 07/09/17 06:53 78 25 35 07/09/17 04:35 102 23 35 07/09/17 04:00 98.1 82 24 138/66 100 35 07/09/17 04:00 35 07/09/17 04:00 116 07/09/17 03:28 101 31 35 07/09/17 00:58 99 30 35 07/09/17 00:00 35 07/09/17 00:00 98.4 103 28 116/48 100 Mechanical Ventilator 35 07/09/17 00:00 87 07/08/17 22:45 97 30 35 07/08/17 21:57 103 112/44 07/08/17 21:19 99 29 35 07/08/17 20:00 98.8 110 32 108/47 100 Mechanical Ventilator 35 07/08/17 20:00 107 07/08/17 20:00 35 07/08/17 19:15 105 31 35 07/08/17 16:50 102 31 35 07/08/17 16:00 99.0 100 18 126/71 99 Mechanical Ventilator 35 07/08/17 16:00 35 07/08/17 16:00 106 07/08/17 15:12 112 31 35 07/08/17 13:19 111 30 35 Intake and Output 07/09/17 07/10/17 19:00 07:00 Intake Total 75 ml Balance 75 ml IV Total 75 ml Objective WDWN NAD reduced breath sounds bilaterally without rhonchi or wheeze [id number] without MRG NABS nontender no HSM; GT no CC no edema nonfocal skin changes noted Microbiology Date/Time Source Procedure Growth Status 07/07/17 12:00 Stool Clostridium difficile Toxin Assay - Final Complete 07/06/17 15:10 Catheter Site Catheter Tip Culture - Preliminary NO GROWTH AFTER 72 HOURS Resulted NIESHA TOLENTINO Jul 09, 2017 12:57
--- NOTE | 2017-07-09 23:46 | General Progress Note ---
Assessment/Plan Assessment/Plan 1. Leukocytosis, 2/2 underlying infection. --> id on board --> Remains elevated 2. Anemia of chronic disease. Ferritin is elevated, TIBC is low. B12 wnl, Folate wnl --> s/p transfusion, hgb stable over 11 --> monitor counts, transfuse as needed 3. Coagulopathy, elevated partial thromboplastin time --> pending study 4. Thrombocytosis, reactive process from anemia. 5. Sacral wound and osteomyeltiis. 6. History of breast cancer. Currently, is in remission. Subjective Constitutional: Denies: no symptoms, chills, diaphoresis, fever, malaise, weakness, other HEENT: Denies: no symptoms, eye pain, blurred vision, tearing, double vision, ear pain, ear discharge, nose pain, nose congestion, throat pain, throat swelling, mouth pain, mouth swelling, other Cardiovascular: Denies: no symptoms, chest pain, edema, irregular heart rate, lightheadedness, palpitations, syncope, other Respiratory: Denies: no symptoms, cough, orthopnea, shortness of breath, SOB with excertion, SOB at rest, sputum, stridor, wheezing, other Gastrointestinal/Abdominal: Denies: no symptoms, abdomen distended, abdominal pain, black stools, tarry stools, blood in stool, constipated, diarrhea, difficulty swallowing, nausea, poor appetite, poor fluid intake, rectal bleeding , vomiting, other Genitourinary: Denies: no symptoms, burning, discharge, frequency, flank pain, hematuria, incontinence, pain, urgency, other Hematologic/Lymphatic: Reports: anemia Allergies: Coded Allergies: SULFAMETHOXAZOLE (Verified Allergy, Intermediate, 07/11/16) TRIMETHOPRIM (Verified Allergy, Intermediate, 07/11/16) SULFA (SULFONAMIDE ANTIBIOTICS) (Unverified Allergy, Unknown, 07/03/17) Subjective No acute distress. No active bleeding Objective Last 24 Hour Vital Signs Date Time Temp Pulse Resp B/P (MAP) Pulse Ox O2 Delivery O2 Flow Rate FiO2 07/09/17 09:11 93 14 35 07/09/17 08:22 54 07/09/17 08:21 49 07/09/17 08:00 98.4 81 26 116/60 100 35 07/09/17 08:00 77 07/09/17 08:00 35 07/09/17 07:49 77 07/09/17 06:53 78 25 35 07/09/17 04:35 102 23 35 07/09/17 04:00 98.1 82 24 138/66 100 35 07/09/17 04:00 35 07/09/17 04:00 116 07/09/17 03:28 101 31 35 07/09/17 00:58 99 30 35 07/09/17 00:00 35 07/09/17 00:00 98.4 103 28 116/48 100 Mechanical Ventilator 35 07/09/17 00:00 87 07/08/17 22:45 97 30 35 07/08/17 21:57 103 112/44 07/08/17 21:19 99 29 35 07/08/17 20:00 98.8 110 32 108/47 100 Mechanical Ventilator 35 07/08/17 20:00 107 07/08/17 20:00 35 07/08/17 19:15 105 31 35 07/08/17 16:50 102 31 35 07/08/17 16:00 99.0 100 18 126/71 99 Mechanical Ventilator 35 07/08/17 16:00 35 07/08/17 16:00 106 07/08/17 15:12 112 31 35 07/08/17 13:19 111 30 35 07/08/17 12:39 98.9 07/08/17 12:00 35 07/08/17 12:00 84 07/08/17 12:00 99.9 84 30 120/53 100 Mechanical Ventilator 35 07/08/17 10:51 82 23 35 07/08/17 09:13 92 117/51 07/08/17 09:04 91 24 35 07/08/17 08:16 97.9 92 23 117/51 100 Mechanical Ventilator 35 07/08/17 08:00 35 07/08/17 08:00 88 07/08/17 07:02 96 30 35 07/08/17 05:15 91 27 35 07/08/17 04:00 35 07/08/17 04:00 97.4 87 25 110/53 100 Mechanical Ventilator 35 07/08/17 04:00 83 07/08/17 03:09 82 29 35 07/08/17 00:51 92 28 35 07/08/17 00:00 87 07/08/17 00:00 98.2 88 32 135/68 100 Mechanical Ventilator 35 07/08/17 00:00 35 Last 24 Hour Vital Signs Date Time Temp Pulse Resp B/P (MAP) Pulse Ox O2 Delivery O2 Flow Rate FiO2 07/09/17 09:11 93 14 35 07/09/17 08:22 54 07/09/17 08:21 49 07/09/17 08:00 98.4 81 26 116/60 100 35 07/09/17 08:00 77 07/09/17 08:00 35 07/09/17 07:49 77 07/09/17 06:53 78 25 35 07/09/17 04:35 102 23 35 07/09/17 04:00 98.1 82 24 138/66 100 35 07/09/17 04:00 35 07/09/17 04:00 116 07/09/17 03:28 101 31 35 07/09/17 00:58 99 30 35 07/09/17 00:00 35 07/09/17 00:00 98.4 103 28 116/48 100 Mechanical Ventilator 35 07/09/17 00:00 87 Intake and Output 07/09/17 07/10/17 19:00 07:00 Intake Total 75 ml Balance 75 ml IV Total 75 ml Labs Test 07/08/17 09:00 White Blood Count 23.6 K/UL (4.8-10.8) Red Blood Count 3.78 M/UL (4.20-5.40) Hemoglobin 11.1 G/DL (12.0-16.0) Hematocrit 34.7 % (37.0-47.0) Mean Corpuscular Volume 92 FL (80-99) Mean Corpuscular Hemoglobin 29.2 PG (27.0-31.0) Mean Corpuscular Hemoglobin Concent 31.8 G/DL (32.0-36.0) Red Cell Distribution Width 15.1 % (11.6-14.8) Platelet Count 549 K/UL (150-450) Mean Platelet Volume 6.1 FL (6.5-10.1) Neutrophils (%) (Auto) % (45.0-75.0) Lymphocytes (%) (Auto) % (20.0-45.0) Monocytes (%) (Auto) % (1.0-10.0) Eosinophils (%) (Auto) % (0.0-3.0) Basophils (%) (Auto) % (0.0-2.0) Differential Total Cells Counted 100 Neutrophils % (Manual) 86 % (45-75) Lymphocytes % (Manual) 10 % (20-45) Monocytes % (Manual) 3 % (1-10) Eosinophils % (Manual) 0 % (0-3) Basophils % (Manual) 0 % (0-2) Band Neutrophils 1 % (0-8) Platelet Estimate Increased Platelet Morphology Normal Hypochromasia Anisocytosis 1+ Sodium Level 142 mEQ/L (135-145) Potassium Level 3.5 mEQ/L (3.4-4.9) Chloride Level 111 mEQ/L (98-107) Carbon Dioxide Level 17 mEQ/L (20-30) Anion Gap 14 (5-15) Blood Urea Nitrogen 23 mg/dL (7-23) Creatinine 0.7 mg/dL (0.5-0.9) Estimat Glomerular Filtration Rate mL/min (>60) Glucose Level 156 mg/dL (74-106) Calcium Level 7.5 mg/dL (8.6-10.2) Total Bilirubin 0.3 mg/dL (0.0-1.2) Aspartate Amino Transf (AST/SGOT) 14 U/L (5-40) Alanine Aminotransferase (ALT/SGPT) 13 U/L (3-33) Alkaline Phosphatase 223 U/L (35-104) Total Protein 5.0 g/dL (6.6-8.7) Albumin 1.6 g/dL (3.5-5.2) Globulin 3.4 g/dL Albumin/Globulin Ratio 0.4 (1.0-2.7) Height (Feet): 5 Height (Inches): 4.00 Weight (Pounds): 147 General Appearance: mild distress Skin: warm/dry LIBBY GARCIA Jul 09, 2017 23:46
--- NOTE | 2017-07-09 23:47 | General Progress Note ---
Assessment/Plan Assessment/Plan 1. Leukocytosis, 2/2 underlying infection. --> id on board --> Remains elevated 2. Anemia of chronic disease. Ferritin is elevated, TIBC is low. B12 wnl, Folate wnl --> s/p transfusion, hgb stable over 11 --> monitor counts, transfuse as needed 3. Coagulopathy, elevated partial thromboplastin time --> pending study 4. Thrombocytosis, reactive process from anemia. 5. Sacral wound and osteomyeltiis. 6. History of breast cancer. Currently, is in remission. Subjective Date patient seen: Jul 09, 2017 Constitutional: Denies: no symptoms, chills, diaphoresis, fever, malaise, weakness, other HEENT: Denies: no symptoms, eye pain, blurred vision, tearing, double vision, ear pain, ear discharge, nose pain, nose congestion, throat pain, throat swelling, mouth pain, mouth swelling, other Respiratory: Denies: no symptoms, cough, orthopnea, shortness of breath, SOB with excertion, SOB at rest, sputum, stridor, wheezing, other Gastrointestinal/Abdominal: Denies: no symptoms, abdomen distended, abdominal pain, black stools, tarry stools, blood in stool, constipated, diarrhea, difficulty swallowing, nausea, poor appetite, poor fluid intake, rectal bleeding , vomiting, other Genitourinary: Denies: no symptoms, burning, discharge, frequency, flank pain, hematuria, incontinence, pain, urgency, other Neurologic/Psychiatric: Denies: no symptoms, anxiety, depressed, emotional problems, headache, numbness, paresthesia, pre-existing deficit, seizure, tingling, tremors, weakness, other Hematologic/Lymphatic: Reports: anemia Allergies: Coded Allergies: SULFAMETHOXAZOLE (Verified Allergy, Intermediate, 07/11/16) TRIMETHOPRIM (Verified Allergy, Intermediate, 07/11/16) SULFA (SULFONAMIDE ANTIBIOTICS) (Unverified Allergy, Unknown, 07/03/17) Subjective No acute distress. No active bleeding. Afebrile. Objective Last 24 Hour Vital Signs Date Time Temp Pulse Resp B/P (MAP) Pulse Ox O2 Delivery O2 Flow Rate FiO2 07/09/17 09:11 93 14 35 07/09/17 08:22 54 07/09/17 08:21 49 07/09/17 08:00 98.4 81 26 116/60 100 35 07/09/17 08:00 77 07/09/17 08:00 35 07/09/17 07:49 77 07/09/17 06:53 78 25 35 07/09/17 04:35 102 23 35 07/09/17 04:00 98.1 82 24 138/66 100 35 07/09/17 04:00 35 07/09/17 04:00 116 07/09/17 03:28 101 31 35 07/09/17 00:58 99 30 35 07/09/17 00:00 35 07/09/17 00:00 98.4 103 28 116/48 100 Mechanical Ventilator 35 07/09/17 00:00 87 Intake and Output 07/09/17 07/10/17 19:00 07:00 Intake Total 75 ml Balance 75 ml IV Total 75 ml Height (Feet): 5 Height (Inches): 4.00 Weight (Pounds): 147 LIBBY GARCIA Jul 09, 2017 23:47
--- NOTE | 2017-07-10 22:45 | Progress Note ---
DATE: 07/09/2017 CARDIOLOGY PROGRESS NOTE Time of Visit: 7:30 a.m. SUBJECTIVE: Condition is deteriorating. The patient remains on ventilator support. OBJECTIVE: VITAL SIGNS: Blood pressure is 116/60, pulse rate 81, respiratory rate 26, and afebrile. EXTREMITIES: Gangrenous right lower extremity with drainage. LUNGS: Bilateral breath sounds. HEART: Regular rhythm and rate. Normal S1 and S2. ABDOMEN: Soft. EXTREMITIES: No edema. IMPRESSION: 1. Respiratory failure. 2. Sepsis. 3. Right lower extremity gangrene with osteomyelitis. 4. Anemia. 5. Severe protein-calorie malnutrition. 6. Advanced dementia. PLAN: 1. Family members refused amputation. 2. Continue antibiotics. 3. Ventilator support. 4. Pain control. 5. Prognosis is grave. Raymond Salazar M.D. DR: Ayan JOB#: [id number] CC: ANDRE
--- NOTE | 2017-07-11 08:13 | Discharge Summary ---
Discharge Summary Hospital Course Date of Admission Jul 03, 2017 at 21:40 Date of Discharge Jul 09, 2017 at 09:45 Admitting Diagnosis anemia/ vent dependant HPI Adam Medina is a 82 year old female who was admitted on Jul 03, 2017 at 21:40 for Anemia/Vent Dependent Hospital Course summary #[id number] Discharge Discharge Disposition Patient Discharge Diagnoses: Discharge Instructions Discharge Instructions Special Instructions I have been assigned to complete a D/C Summary on this account. I was not involved in the patient management Myra Woodard NP ([place]) Jul 11, 2017 08:13
--- NOTE | 2017-07-11 11:31 | Discharge Summary 2 SIG ---
DATE OF ADMISSION: 07/03/2017 DATE OF EXPIRATION: 07/09/2017 REASON FOR ADMISSION: 82-year-old female with history of anoxic encephalopathy, stroke, breast cancer, chronic respiratory failure, ventilator dependent with tracheostomy, right lower extremity dry gangrene, large sacral decubitus, and osteomyelitis was sent from the assisted facility for evaluation due to fever and hypotension. Upon evaluation in the emergency department, it was found that the patient had leukocytosis. WBC -18.4. Sodium - 124. Digoxin level was toxic - -4.8. BUN -60 and creatinine- 1.1. Lactic acid -2.7. Hemoglobin 6-.8, hematocrit -20.8. Chest x-ray revealed no acute cardiopulmonary pathology. EKG revealed sinus bradycardia with heart rate of 52, blood pressure -108/34. Urinalysis was suggestive of urinary tract infection. The patient was admitted for further management. ADMITTING DIAGNOSES: 1. Sepsis. 2. Anemia. 3. Possible gastrointestinal bleeding. 4. Acute renal failure. 5. Digoxin toxicity. 6. Hyponatremia. 7. Urinary tract infection. 8. Ventilator-dependent respiratory failure with tracheostomy status. 9. Multiple decubitus including sacral decubitus stage IV, present on admission. HOSPITAL COURSE: The patient was admitted to [facility]. Ventilator support provided. Tracheostomy care provided. Pulmonology, Cardiology, and ID specialists were involved in the care of this patient. The patient was Full Code. The patient was started on empiric antibiotics and IV fluids. Blood culture were negative. Urine culture grew Pseudomonas, multidrug resistant and Stenotrophomonas. Culture of the catheter tip was negative. Stool for C. difficile was negative. Blood culture were negative. Infectious Disease specialist adjusted antibiotic regimen based on culture. Renal parameters and electrolytes were closely monitored. With intravenous hydration, renal parameters down to normal. Source of infection was likely urinary tract infection as well as the right foot gangrene. The patient had dry gangrene of the right foot, however, son declined amputation. Nevertheless, he wanted aggressive care and the patient to be a Full Code. G-tube feeding was resumed. Strict aspiration precautions were maintained. Wound care nurse seen and evaluated the patient for multiple decubitus present on admission. Wound care provided as per wound care nurse recommendation. The patient was transfused with two units of packed red blood cells. Hemoglobin and hematocrit were stable. Afterwards, the patient was placed on a proton pump inhibitor intravenously. CBC was monitored. No further trend down. No signs of bleeding. Anemia workup initiated and was consistent with anemia of chronic disease. Waterproofing Supervisor followed. The patient also had evidence of coagulopathy , and coagulopathy workup started by humanities instructor. Sodium up to normal. Leukocytosis continued to be elevated. On 07/08/2017, WBC- 23.6. Pain management was provided. Adequate hydration was maintained. Volume status was monitored along with cardiorenal parameters. On 07/09/2017 at 8:56 am Code Blue was called after the patient michael down and went to asystole. Multiple rounds of CPR with three epinephrine and one ampule of bicarbonate given. The patient went to pulseless electrical activity after asystole and had pulse by palpation. On Doppler, heart rate - 100. Total minutes of CPR 12 minutes. Pupils were still dilated and unresponsive. Unfortunately, the patient coded again at 9:36 am later this morning. He was in pulseless electrical activity. One ampule of epinephrine was given. From pulseless electrical activity, the patient went to asystole. No pulses were palpated. The patient was pronounced on 9:45 am, 07/09/2017. Cause of : cardiopulmonary arrest. FINAL DIAGNOSES: 1. Status post cardiac arrest x2. 2. Severe sepsis. 3. Urinary tract infection with Pseudomonas, multidrug resistant and Stenotrophomonas. 4. Right foot dry gangrene. 5. Sacral decubitus. 6. Gastrostomy tube cellulitis. 7. Toxic encephalopathy. 8. Acute renal failure. 9. Acute hyponatremia. 10. Anemia of chronic disease requiring blood transfusion. 11. Digoxin toxicity. 12. Ventilator-dependent respiratory failure with tracheostomy status/chronic respiratory failure. 13. Dysphagia, gastrostomy tube. 14. Bradyarrhythmias. 16. Multiple decubitus present on admission: including sacral decubitus stage IV, left ischial tuberosity, right ischial tuberosity, left heel, right heel, right dorsal plantar foot with all 5 toes with black necrotic vascular wound. Christiano Moses M.D. I have been assigned to dictate discharge summary on this account and I was not involved in the patient's management. Myra AlejoCarmelita higgins DR: ENRIQUE JOB#: [id number] CC: ANDRE
--- NOTE | 2017-07-12 06:15 | Progress Note ---
DATE: 07/05/2017 LATE ENTRY CARDIOLOGY PROGRESS NOTE SUBJECTIVE: The patient was seen and evaluated. Case was discussed with Dr. Moses. The patient is noncommunicative. OBJECTIVE: VITAL SIGNS: The patient is afebrile, blood pressure 119/45, pulse rate 63, and respiratory rate 35. LUNGS: Bilateral breath sounds with rhonchi. CARDIAC: Regular rhythm. Rapid rate. Normal S1 and S2 with a fourth heart sound. ABDOMEN: Soft. G-tube site with erythema. EXTREMITIES: Right lower extremity gangrene with drainage is noted. LABORATORY DATA: Potassium is 4.6. White count 19 and hemoglobin 10. BUN is 53 and creatinine 0.9. IMPRESSION: 1. Sepsis and gangrene, right lower extremity. 2. Respiratory failure. 3. Paroxysmal supraventricular tachycardia. 4. Secondary sinus tachycardia. 5. Prerenal azotemia. 6. Hypovolemia. 7. Dehydration. 8. Advanced dementia. 9. Toxic and metabolic encephalopathy. 10. Condition remains serious with guarded prognosis. PLAN: Hydration, antimicrobials, wound care, stress ulcer, and deep venous thrombosis prophylaxis. Gastroenterology evaluation for gastrostomy tube. Antibiotics, per Infectious Disease strategy execution consultant. Check digoxin level and hold drugs for any toxicity. Raymond Salazar M.D. MELIA KAY/chandni JOB#: [id number] CC:
== END 2017-07-09 09:45 | disposition expired | DRG 870 ==
LOC: EDBD 20:28 → EMR 21:36 → 2W 21:40 → EDBEDREQ 21:49 → 2W 23:19
DX: A41.9 Sepsis, unspecified organism (principal); G92 Toxic encephalopathy; E43 Unspecified severe protein-calorie malnutrition; Z99.11 Dependence on respirator [ventilator] status; G93.1 Anoxic brain damage, not elsewhere classified; N17.9 Acute kidney failure, unspecified; L89.154 Pressure ulcer of sacral region, stage 4; I96 Gangrene, not elsewhere classified; N39.0 Urinary tract infection, site not specified; L03.311 Cellulitis of abdominal wall; K94.22 Gastrostomy infection; E87.1 Hypo-osmolality and hyponatremia; J96.10 Chronic respiratory failure, unspecified whether with hypoxia or hypercapnia; M86.8X7 Other osteomyelitis, ankle and foot; R65.20 Severe sepsis without septic shock; B96.5 Pseudomonas (aeruginosa) (mallei) (pseudomallei) as the cause of diseases classified elsewhere; B96.89 Other specified bacterial agents as the cause of diseases classified elsewhere; Z16.24 Resistance to multiple antibiotics; T46.0X5A Adverse effect of cardiac-stimulant glycosides and drugs of similar action, initial encounter; R13.10 Dysphagia, unspecified; I49.8 Other specified cardiac arrhythmias; G20 Parkinson's disease; Z85.3 Personal history of malignant neoplasm of breast; Z43.0 Encounter for attention to tracheostomy; Z86.73 Personal history of transient ischemic attack (TIA), and cerebral infarction without residual deficits; Z88.2 Allergy status to sulfonamides; E87.5 Hyperkalemia; F03.90 Unspecified dementia, unspecified severity, without behavioral disturbance, psychotic disturbance, mood disturbance, and anxiety; E11.22 Type 2 diabetes mellitus with diabetic chronic kidney disease; I12.9 Hypertensive chronic kidney disease with stage 1 through stage 4 chronic kidney disease, or unspecified chronic kidney disease; N18.9 Chronic kidney disease, unspecified; D69.6 Thrombocytopenia, unspecified; D63.1 Anemia in chronic kidney disease; L89.320 Pressure ulcer of left buttock, unstageable; L89.310 Pressure ulcer of right buttock, unstageable; L89.620 Pressure ulcer of left heel, unstageable; L89.610 Pressure ulcer of right heel, unstageable; L89.890 Pressure ulcer of other site, unstageable
CPT/HCPCS: 36415; 36569; 71010; 74000; 76937; 80048; 80053; 80150; 80162; 80202; 81003; 82247; 82607; 82728; 82746; 82784; 82962; 83036; 83540; 83550; 83605; 83690; 83880; 84238; 84484; 84550; 85007; 85025; 85044; 85060; 85384; 85610; 85730; 86300; 86850; 86900; 86901; 86920; 87040; 87070; 87086; 87181; 87205; 87324; 92950; 93005; 94002; 94003; 97803; J1815